=== PATIENT | male | born 1970 | race African-American/Black ===

== ENCOUNTER 2017-11-01 17:11 | Inpatient (IN) | payer BC, MEDICARE ==
[~2017-11-01] VITALS: Ht 188 cm; Wt 158.0 kg
--- NOTE | 2017-11-01 17:38 | Emergency Room Report ---
History of Present Illness General Chief Complaint: Abdominal Pain Source: Patient (Lesley Barnes) Present Illness HPI 47-year-old male presents to the emergency department complaining of 9 out of 10 in severity lower abdominal pain that is intermittent and cramping in nature 3 days. Patient reports that this afternoon his pain was at its worst and has now become more frequent and patient reports nausea as well and decreased appetite he denies vomiting, diarrhea, constipation, blood in the stool or black tarry stools. He denies fevers or chills. Denies recent travel or ill contacts. Denies abdominal distention or bloating. Patient denies urinary frequency, urgency or hematuria.Past medical history is significant for 3 stents placed last year, diabetes, GERD. Prior to arrival patient self medicated with Bentyl one time today, 4 mg of Zofran twice today, Dulcolax yesterday, lactulose yesterday, and Protonix. He also states that he took a [place] today which did not relieve his pain and because of this It prompted him to seek medical evaluation. (Lesley Barnes) Allergies: Coded Allergies: CEFTRIAXONE (Verified Allergy, Intermediate, 11/02/17) itchy lips VANCOMYCIN (Verified Allergy, Intermediate, pain and sore throat, itching , 11/02/17) CODEINE (Verified Allergy, Unknown, 08/28/11) MORPHINE (Verified Allergy, Unknown, 11/01/17) NIFEDIPINE (Verified Allergy, Unknown, 01/21/10) CLINDAMYCIN (Verified Adverse Reaction, Intermediate, 11/02/17) diarrhea PENICILLINS (Verified Adverse Reaction, Mild, 11/02/17) nausea and vomiting- tolerates Augmentin, Amoxicillin Patient History Past Medical History: see triage record Past Surgical History: none Pertinent Family History: none Reviewed Nursing Documentation: PMH: Agreed; PSxH: Agreed (Lesley Barnes) Nursing Documentation-PMH Past Medical History: No History, Except For Hx Hypertension: Yes Hx Diabetes: Yes - Type2 Hx Gastrointestinal Problems: Yes - GERD (Lesley Barnes) Review of Systems All Other Systems: negative except mentioned in HPI (Lesley Barnes) Physical Exam Vital Signs Date Time Temp Pulse Resp B/P (MAP) Pulse Ox O2 Delivery O2 Flow Rate FiO2 11/01/17 17:15 99.4 82 20 153/82 96 Room Air 99.3 Sp02 EP Interpretation: reviewed, normal General Appearance: alert, GCS 15, non-toxic, moderate distress Head: normocephalic, atraumatic Eyes: bilateral eye normal inspection, bilateral eye PERRL ENT: hearing grossly normal, normal voice Neck: full range of motion Respiratory: lungs clear, normal breath sounds, speaking full sentences Cardiovascular #1: regular rate, rhythm Gastrointestinal: normal bowel sounds, soft, no peritonitis, no guarding, tenderness - LLQ TTP Rectal: deferred Genitourinary: normal inspection, no CVA tenderness Musculoskeletal: back normal, gait/station normal, normal range of motion, non- tender, other - BKA right leg Neurologic: alert, oriented x3, responsive, motor strength/tone normal, sensory intact, normal gait - with orthotic device., speech normal, grossly normal Psychiatric: judgement/insight normal Skin: normal color, no rash, warm/dry, well hydrated (Lesley Barnes) Medical Decision Making PA Attestation Dr. Torres is my supervising Physician whom patient management has been discussed with. (Lesley Barnes) PA Attestation The history of Vinny Zimmerman has been reviewed and management options for him have been examined and discussed by Nikki Torres. I have personally examined and interviewed the patient. (Nikki Torres DO) Diagnostic Impression: Primary Impression: Abdominal pain Qualified Codes: R10.30 - Lower abdominal pain, unspecified Additional Impression: Intractable abdominal pain ER Course 47-year-old male presents to the emergency department complaining of 9 out of 10 in severity lower abdominal pain that is intermittent and cramping in nature 3 days. Patient reports that this afternoon his pain was at its worst and has now become more frequent and patient reports nausea as well and decreased appetite he denies vomiting, diarrhea, constipation, blood in the stool or black tarry stools. He denies fevers or chills. Denies recent travel or ill contacts. Denies abdominal distention or bloating. Patient denies urinary frequency, urgency or hematuria.Past medical history is significant for 3 stents placed last year, diabetes, GERD. Prior to arrival patient self medicated with Bentyl one time today, 4 mg of Zofran twice today, Dulcolax yesterday, lactulose yesterday, and Protonix. He also states that he took a [place] today which did not relieve his pain and because of this It prompted him to seek medical evaluation. Ddx considered but are not limited to Diverticulitis, acute appy, diarrhea, UC, PUD, GE, pancreatitis, gallstone Vital signs: are WNL, pt. is afebrile H&PE are most consistent with possible diverticulitis ORDERS: CBC, CMP, lipase, UA: Unremarkable other than continued worsening of Cr to 1.8 CT Abdomen & Pelvis with contrast: Per Radiology canceled due to pt. body habitus/weight ED INTERVENTIONS: -- 1000NS, -Pepcid IV -Bentyl PO -Dilaudid 0.5mg , then second dose of 1mg -Benadryl 25mg IV Levaquin IV -Flagyl IV - Zofran 4mg. DISPOSITION: at this time pt. will be admitted to Dr. Delgado for intractable abdominal pain. Dr. Delgado agreed to admit the pt. and to continue pt. care management. Labs Test 11/01/17 17:54 11/01/17 17:55 Urine Color Pale yellow Urine Appearance Clear Urine pH 6 (4.5-8.0) Urine Specific [place] 1.010 (1.005-1.035) Urine Protein 3+ (NEGATIVE) Urine Glucose (UA) Negative (NEGATIVE) Urine Ketones Negative (NEGATIVE) Urine Occult Blood 1+ (NEGATIVE) Urine Nitrite Negative (NEGATIVE) Urine Bilirubin Negative (NEGATIVE) Urine Urobilinogen Normal MG/DL (0.0-1.0) Urine Leukocyte Esterase Negative (NEGATIVE) Urine RBC 0-2 /HPF (0 - 0) Urine WBC 0-2 /HPF (0 - 0) Urine Squamous Epithelial Cells None /LPF (NONE/OCC) Urine Bacteria None /HPF (NONE) White Blood Count 9.8 K/UL (4.8-10.8) Red Blood Count 4.78 M/UL (4.70-6.10) Hemoglobin 12.7 G/DL (14.2-18.0) Hematocrit 37.5 % (42.0-52.0) Mean Corpuscular Volume 78 FL (80-99) Mean Corpuscular Hemoglobin 26.6 PG (27.0-31.0) Mean Corpuscular Hemoglobin Concent 33.9 G/DL (32.0-36.0) Red Cell Distribution Width 14.3 % (11.6-14.8) Platelet Count 157 K/UL (150-450) Mean Platelet Volume 8.9 FL (6.5-10.1) Neutrophils (%) (Auto) 74.7 % (45.0-75.0) Lymphocytes (%) (Auto) 15.4 % (20.0-45.0) Monocytes (%) (Auto) 8.1 % (1.0-10.0) Eosinophils (%) (Auto) 0.4 % (0.0-3.0) Basophils (%) (Auto) 1.5 % (0.0-2.0) Sodium Level 137 MMOL/L (136-145) Potassium Level 4.0 MMOL/L (3.5-5.1) Chloride Level 103 MMOL/L (98-107) Carbon Dioxide Level 26 MMOL/L (21-32) Anion Gap 8 mmol/L (5-15) Blood Urea Nitrogen 14 mg/dL (7-18) Creatinine 1.8 MG/DL (0.55-1.30) Estimat Glomerular Filtration Rate 48.8 mL/min (>60) Glucose Level 78 MG/DL (74-106) Calcium Level 9.1 MG/DL (8.5-10.1) Total Bilirubin 0.4 MG/DL (0.2-1.0) Aspartate Amino Transf (AST/SGOT) 22 U/L (15-37) Alanine Aminotransferase (ALT/SGPT) 28 U/L (12-78) Alkaline Phosphatase 144 U/L (46-116) Total Protein 9.0 G/DL (6.4-8.2) Albumin 4.0 G/DL (3.4-5.0) Globulin 5.0 g/dL Albumin/Globulin Ratio 0.8 (1.0-2.7) Lipase 202 U/L (73-393) (Lesley Barnes) Chest X-Ray Diagnostic Results Chest X-Ray Diagnostic Results : Chest X-Ray Ordered: Yes # of Views/Limited/Complete: 1 View Indication: Chest Pain EP Interpretation: Yes PA Xray: Interpretation reviewed, by supervising MD, and agrees with findings. Interpretation: no consolidation, no effusion, no pneumothorax, no acute cardiopulmonary disease Impression: No acute disease Electronically Signed by: Lesley Barnes PA-C (Lesley Barnes) Other X-Ray Diagnostic Results Other X-Ray Diagnostic Results : X-Ray ordered: KUB # of Views/Limited Vs Complete: 1 View Indication: Pain EP Interpretation: Yes PA Xray: by supervising MD Interpretation: nonspecific bowel gas, no sbo Impression: No acute disease Electronically Signed by: Lesley Barnes PA-C (Lesley Barnes) Last Vital Signs Date Time Temp Pulse Resp B/P (MAP) Pulse Ox O2 Delivery O2 Flow Rate FiO2 11/01/17 17:15 99.4 82 20 153/82 96 Room Air 99.3 (Lesley Barnes) Disposition: ADMITTED INPATIENT Condition: Serious Lesley Barnes Nov 01, 2017 17:38 Nikki Torres DO Nov 01, 2017 19:57
[2017-11-01] MEDS ORDERED: Dicyclomine HCl 10mg/5ml oral soln ORAL ONE (17:45)
[2017-11-01 18:20] LABS: APPEARANCE,URINE CLEAR; BILIRUBIN, URINE NEGATIVE (NEGATIVE); COLOR,URINE PALE YELLOW; GLUCOSE, URINE (UA) NEGATIVE (NEGATIVE); KETONES,URINE NEGATIVE (NEGATIVE); LEUKOCYTE ESTERASE ,URINE NEGATIVE (NEGATIVE); NITRITE,URINE NEGATIVE (NEGATIVE); PH,URINE 6 (4.5-8.0); PROTEIN,URINE 3+ (NEGATIVE); UROBILINOGEN,URINE NORMAL MG/DL (0.0-1.0)
[2017-11-01 18:24] VITALS: BP 167/91
[2017-11-01 18:27] LABS: ANION GAP 8 mmol/L (5-15); BLOOD UREA NITROGEN 14 mg/dL (7-18); CALCIUM 9.1 MG/DL (8.5-10.1); CARBON DIOXIDE 26 MMOL/L (21-32); CHLORIDE 103 MMOL/L (98-107); CREATININE 1.8 MG/DL (0.55-1.30); SODIUM 137 MMOL/L (136-145)
[2017-11-01 18:28] LABS: BASOPHILS % (AUTO) 1.5 % (0.0-2.0); EOSINOPHILS % (AUTO) 0.4 % (0.0-3.0); HEMATOCRIT 37.5 % (42.0-52.0); HEMOGLOBIN 12.7 G/DL (14.2-18.0); LYMPHOCYTES % (AUTO) 15.4 % (20.0-45.0); MEAN CORPUSCULAR VOLUME 78 FL (80-99); MONOCYTES % (AUTO) 8.1 % (1.0-10.0); NEUTROPHILS % (AUTO) 74.7 % (45.0-75.0); PLATELET COUNT 157 K/UL (150-450); RED BLOOD COUNT 4.78 M/UL (4.70-6.10); RED CELL DISTRIBUTION WIDTH 14.3 % (11.6-14.8); WHITE BLOOD COUNT 9.8 K/UL (4.8-10.8)
[2017-11-01] MEDS ORDERED: DiphenhydrAMINE 50mg/ml Inj IVP ONE (18:30)
[2017-11-01] MEDS ORDERED: Hydromorphone 0.5mg/0.5ml inj IVP ONE (18:30)
[2017-11-01 18:32] LABS: ALANINE AMINOTRANSFERASE 28 U/L (12-78); ALBUMIN/GLOBULIN RATIO 0.8 (1.0-2.7); ALKALINE PHOSPHATASE 144 U/L (46-116); ASPARTATE AMINO TRANSFERASE 22 U/L (15-37); BILIRUBIN,TOTAL 0.4 MG/DL (0.2-1.0)
[2017-11-01 19:28] VITALS: BP 162/89
[2017-11-01] MEDS ORDERED: DIOVAN320 MG ORAL (19:56)
[2017-11-01] MEDS ORDERED: NORVASC10 MG ORAL (19:56)
[2017-11-01] MEDS ORDERED: NORCO 5-325 TA1 EACH ORAL (19:56)
[2017-11-01] MEDS ORDERED: DOCUSATE SODIU100 MG ORAL (19:56)
[2017-11-01] MEDS ORDERED: GLIPIZIDE5 MG ORAL (19:56)
[2017-11-01] MEDS ORDERED: PROTONIX40 MG ORAL (19:56)
[2017-11-01] MEDS ORDERED: FUROSEMIDE20 M1 ORAL (19:56)
[2017-11-01] MEDS ORDERED: AMBIEN10 MG ORAL (19:56)
[2017-11-01] MEDS ORDERED: MINOXIDIL10 MG PO (19:56)
[2017-11-01] MEDS ORDERED: NEURONTIN400 MG ORAL (19:56)
[2017-11-01] MEDS ORDERED: POTASSIUM CHLO20 ME1 ORAL (19:56)
[2017-11-01] MEDS ORDERED: HYDROmorphone 1mg/ml Carpuject IVP ONE (20:00)
[2017-11-01] MEDS ORDERED: Lidocaine 2% Visc 15ml soln ORAL ONE (20:00)
[2017-11-01 20:24] VITALS: BP 153/70
[2017-11-01] MEDS ORDERED: Miralax 17gm pkt ORAL PRN (21:30)
[2017-11-01] MEDS ORDERED: Mylanta II UD 30ml ORAL PRN (21:30)
[2017-11-01] MEDS ORDERED: Ketorolac 30mg Inj IV PRN (21:30)
[2017-11-01] MEDS ORDERED: Nitroglycerin Subl 0.4mg tab SL PRN (21:30)
[2017-11-01 21:40] VITALS: BP 155/70
[2017-11-01 21:49] LABS: CREATINE KINASE 594 U/L (26-308)
[2017-11-01] MEDS ORDERED: SODIUM CHLORIDE IVPB ONE (23:00)
[2017-11-01] MEDS ORDERED: VANCOMYCIN IVPB ONE (23:00)
[2017-11-01] MEDS: Aztreonam Inj 1 GM in NS 50 ML IVPB SCH (23:31)
[2017-11-01] MEDS: HYDROmorphone 1mg/ml Carpuject IVP PRN (23:35)
[2017-11-02] VITALS: BP 131/72
[2017-11-02 01:15] LABS: APPEARANCE,URINE CLEAR; BILIRUBIN, URINE NEGATIVE (NEGATIVE); COLOR,URINE PALE YELLOW; GLUCOSE, URINE (UA) NEGATIVE (NEGATIVE); KETONES,URINE NEGATIVE (NEGATIVE); LEUKOCYTE ESTERASE ,URINE NEGATIVE (NEGATIVE); NITRITE,URINE NEGATIVE (NEGATIVE); PH,URINE 5 (4.5-8.0); PROTEIN,URINE 3+ (NEGATIVE); UROBILINOGEN,URINE NORMAL MG/DL (0.0-1.0)
[2017-11-02] MEDS: HYDROmorphone 1mg/ml Carpuject IVP PRN ×5 (03:03→21:23)
[2017-11-02 04:00] VITALS: BP 157/91
[2017-11-02] MEDS: Aztreonam Inj 1 GM in NS 50 ML IVPB SCH ×3 (06:11→21:24)
[2017-11-02] MEDS: NovoLOG Insulin Flexpen SUBQ SCH ×4 (06:30→21:00)
[2017-11-02 07:03] LABS: HEMATOCRIT 35.8 % (42.0-52.0); HEMOGLOBIN 12.2 G/DL (14.2-18.0); MEAN CORPUSCULAR VOLUME 79 FL (80-99); PLATELET COUNT 141 K/UL (150-450); RED BLOOD COUNT 4.52 M/UL (4.70-6.10); RED CELL DISTRIBUTION WIDTH 13.9 % (11.6-14.8); WHITE BLOOD COUNT 8.3 K/UL (4.8-10.8)
[2017-11-02 07:12] LABS: INR 1.1 (0.9-1.1)
[2017-11-02 07:46] LABS: ALANINE AMINOTRANSFERASE 28 U/L (12-78); ALBUMIN 3.5 G/DL (3.4-5.0); ALBUMIN/GLOBULIN RATIO 0.7 (1.0-2.7); ALKALINE PHOSPHATASE 127 U/L (46-116); AMYLASE 52 U/L (25-115); ANION GAP 9 mmol/L (5-15); ASPARTATE AMINO TRANSFERASE 16 U/L (15-37); BILIRUBIN,TOTAL 0.6 MG/DL (0.2-1.0); BLOOD UREA NITROGEN 12 mg/dL (7-18); CALCIUM 8.8 MG/DL (8.5-10.1); CARBON DIOXIDE 24 MMOL/L (21-32); CHLORIDE 103 MMOL/L (98-107); CREATININE 1.6 MG/DL (0.55-1.30); POTASSIUM 3.9 MMOL/L (3.5-5.1); SODIUM 136 MMOL/L (136-145)
[2017-11-02 07:47] LABS: LACTATE DEHYDROGENASE 198 U/L (81-234)
[2017-11-02 07:55] LABS: % IRON SATURATION 7 % (15-50); IRON 19 ug/dL (50-175); TOTAL IRON BINDING CAPACITY 280 ug/dL (250-450)
[2017-11-02 08:00] VITALS: BP 139/72
[2017-11-02] MEDS ORDERED: DiphenhydrAMINE 50mg/ml Inj IVP PRN (08:00)
[2017-11-02] MEDS ORDERED: Solu-MEDROL 125mg Inj IVP SCH (08:00)
[2017-11-02] MEDS: Minoxidil 10mg tab ORAL SCH ×2 (08:55→17:15)
[2017-11-02] MEDS: Losartan 50mg tab ORAL SCH (08:55)
[2017-11-02] MEDS: Heparin 5000 units/ml inj SUBQ SCH ×2 (09:00→21:00)
--- NOTE | 2017-11-02 09:19 | Diagnostic Imaging Report ---
Indication: Abdominal pain and cramping Technique: Supine view of the abdomen Comparison: 11/12/2011 Findings: Unremarkable bowel gas pattern. No unusual masses or calcifications. No significant interim change Impression: No acute process
--- NOTE | 2017-11-02 09:23 | Diagnostic Imaging Report ---
Indication: Chest pain Technique: One view of the chest Comparison: 11/12/2011 Findings: The heart is upper limits of normal in size.. The lungs and pleural spaces are clear. No significant interim change Impression: No acute process
--- NOTE | 2017-11-02 10:19 | Consultation ---
History of Present Illness General Date patient seen: Nov 02, 2017 Chief Complaint: Abdominal Pain Present Illness HPI 47 y/o M with hx of DM2, GERD, HTN, CAD s/p 3 stents placed last year presents to ED on 11/01 with intermittent cramping lower abd pain (9/10 intensity ) for 3 days. Day of admission pain worsened and became more frequent, also with associated nausea, decreased appetite. Denies v/d, melena,hematochezia, f/c, recent travel, ill contacts, abd distention or bloating, urinary symptoms, hematuria. Allergies: Coded Allergies: VANCOMYCIN (Verified Allergy, Intermediate, pain and sore throat, itching , 11/02/17) CEFTRIAXONE (Verified Allergy, Unknown, 11/01/17) CLINDAMYCIN (Verified Allergy, Unknown, 08/28/11) CODEINE (Verified Allergy, Unknown, 08/28/11) MORPHINE (Verified Allergy, Unknown, 11/01/17) NIFEDIPINE (Verified Allergy, Unknown, 01/21/10) PENICILLINS (Verified Allergy, Unknown, 08/28/11) Medication History Scheduled Amlodipine Besylate (Norvasc), 10 MG ORAL BID, (Reported) Docusate Sodium* (Docusate Sodium*), 100 MG ORAL DAILY, (Reported) Furosemide* (Lasix*), 20 MG ORAL DAILY, (Reported) Gabapentin* (Neurontin*), 400 MG ORAL QHS, (Reported) Glipizide* (Glipizide*), Unknown Dose ORAL BIDAC, (Reported) Minoxidil* (Loniten*), 10 MG PO BID, (Reported) Pantoprazole* (Protonix*), 40 MG ORAL QHS, (Reported) Potassium Chloride* (K-Dur*), 20 MEQ ORAL DAILY, (Reported) Valsartan (Diovan), 320 MG ORAL DAILY, (Reported) Scheduled PRN Hydrocodone Bit/Acetaminophen 5-325* ([place] 5-325*), 1 TAB ORAL Q6H PRN for For Pain, (Reported) Zolpidem Tartrate* (Ambien*), 10 MG ORAL BEDTIME PRN for Insomnia, (Reported) Patient History Healthcare decision maker Kera Rios Resuscitation status Full Code Advanced Directive on File No Patient History Narrative Pmhx: as above Shx: reviewed Fhx: non contributory Review of Systems All Other Systems: negative except mentioned in HPI Physical Exam Physical Exam Narrative General Appearance: alert,moderate distress Head: normocephalic, atraumatic Eyes: bilateral eye normal inspection, bilateral eye PERRL ENT: hearing grossly normal, normal voice Neck: full range of motion Respiratory: lungs clear, normal breath sounds, speaking full sentences Cardiovascular: regular rate, rhythm Gastrointestinal: normal bowel sounds, soft, no peritonitis, no guarding, tenderness - LLQ TTP Genitourinary: normal inspection, no CVA tenderness Musculoskeletal: back normal, gait/station normal, normal range of motion, non- tender, other - BKA right leg Skin: normal color, no rash, warm/dry, well hydrated Last 24 Hour Vital Signs Date Time Temp Pulse Resp B/P (MAP) Pulse Ox O2 Delivery O2 Flow Rate FiO2 11/02/17 09:34 100.4 11/02/17 09:05 100.4 11/02/17 09:00 Room Air 11/02/17 08:57 100.4 11/02/17 08:55 139/72 11/02/17 08:55 139/72 11/02/17 08:51 102 139/72 11/02/17 08:00 100.4 102 16 139/72 (94) 92 100.4 11/02/17 05:37 102.4 11/02/17 04:38 100.9 11/02/17 04:00 100.4 93 20 157/91 (113) 92 100.4 11/02/17 02:09 Room Air 11/02/17 00:00 98.9 95 20 131/72 (91) 91 98.9 11/01/17 22:41 98.9 94 18 155/70 97 Room Air 98.9 11/01/17 21:40 98.9 94 18 155/70 97 Room Air 98.9 11/01/17 20:53 98.9 11/01/17 20:24 98.9 96 16 153/70 97 Room Air 98.9 11/01/17 20:13 98.9 11/01/17 19:28 98.9 94 16 162/89 97 Room Air 98.9 11/01/17 19:04 98.9 11/01/17 18:34 99.4 11/01/17 18:24 86 15 167/91 97 Room Air 11/01/17 17:15 99.4 82 20 153/82 96 Room Air 99.3 Intake and Output 11/01/17 11/02/17 19:00 07:00 Intake Total 1650 ml Output Total 700 ml Balance 950 ml Intake IV Total 1650 ml Output Urine Total 700 ml # Voids 1 2 Laboratory Tests Test 11/01/17 17:54 11/01/17 17:55 11/02/17 01:00 11/02/17 05:40 Urine Color Pale yellow Pale yellow Urine Appearance Clear Clear Urine pH 6 (4.5-8.0) 5 (4.5-8.0) Urine Specific [place] 1.010 (1.005-1.035) 1.015 (1.005-1.035) Urine Protein 3+ (NEGATIVE) H 3+ (NEGATIVE) H Urine Glucose (UA) Negative (NEGATIVE) Negative (NEGATIVE) Urine Ketones Negative (NEGATIVE) Negative (NEGATIVE) Urine Occult Blood 1+ (NEGATIVE) H 1+ (NEGATIVE) H Urine Nitrite Negative (NEGATIVE) Negative (NEGATIVE) Urine Bilirubin Negative (NEGATIVE) Negative (NEGATIVE) Urine Urobilinogen Normal MG/DL (0.0-1.0) Normal MG/DL (0.0-1.0) Urine Leukocyte Esterase Negative (NEGATIVE) Negative (NEGATIVE) Urine RBC 0-2 /HPF (0 - 0) H 0-2 /HPF (0 - 0) H Urine WBC 0-2 /HPF (0 - 0) 0-2 /HPF (0 - 0) Urine Squamous Epithelial Cells None /LPF (NONE/OCC) Occasional /LPF Urine Bacteria None /HPF (NONE) Occasional /HPF (NONE) White Blood Count 9.8 K/UL (4.8-10.8) 8.3 K/UL (4.8-10.8) Red Blood Count 4.78 M/UL (4.70-6.10) 4.52 M/UL (4.70-6.10) L Hemoglobin 12.7 G/DL (14.2-18.0) L 12.2 G/DL (14.2-18.0) L Hematocrit 37.5 % (42.0-52.0) L 35.8 % (42.0-52.0) L Mean Corpuscular Volume 78 FL (80-99) L 79 FL (80-99) L Mean Corpuscular Hemoglobin 26.6 PG (27.0-31.0) L 27.0 PG (27.0-31.0) Mean Corpuscular Hemoglobin Concent 33.9 G/DL (32.0-36.0) 34.2 G/DL (32.0-36.0) Red Cell Distribution Width 14.3 % (11.6-14.8) 13.9 % (11.6-14.8) Platelet Count 157 K/UL (150-450) 141 K/UL (150-450) L Mean Platelet Volume 8.9 FL (6.5-10.1) 8.8 FL (6.5-10.1) Neutrophils (%) (Auto) 74.7 % (45.0-75.0) % (45.0-75.0) Lymphocytes (%) (Auto) 15.4 % (20.0-45.0) L % (20.0-45.0) Monocytes (%) (Auto) 8.1 % (1.0-10.0) % (1.0-10.0) Eosinophils (%) (Auto) 0.4 % (0.0-3.0) % (0.0-3.0) Basophils (%) (Auto) 1.5 % (0.0-2.0) % (0.0-2.0) Sodium Level 137 MMOL/L (136-145) 136 MMOL/L (136-145) Potassium Level 4.0 MMOL/L (3.5-5.1) 3.9 MMOL/L (3.5-5.1) Chloride Level 103 MMOL/L (98-107) 103 MMOL/L (98-107) Carbon Dioxide Level 26 MMOL/L (21-32) 24 MMOL/L (21-32) Anion Gap 8 mmol/L (5-15) 9 mmol/L (5-15) Blood Urea Nitrogen 14 mg/dL (7-18) 12 mg/dL (7-18) Creatinine 1.8 MG/DL (0.55-1.30) H 1.6 MG/DL (0.55-1.30) H Estimat Glomerular Filtration Rate 48.8 mL/min (>60) 56.0 mL/min (>60) Glucose Level 78 MG/DL (74-106) 89 MG/DL (74-106) Uric Acid 7.5 MG/DL (2.6-7.2) H Calcium Level 9.1 MG/DL (8.5-10.1) 8.8 MG/DL (8.5-10.1) Total Bilirubin 0.4 MG/DL (0.2-1.0) 0.6 MG/DL (0.2-1.0) Aspartate Amino Transf (AST/SGOT) 22 U/L (15-37) 16 U/L (15-37) Alanine Aminotransferase (ALT/SGPT) 28 U/L (12-78) 28 U/L (12-78) Alkaline Phosphatase 144 U/L (46-116) H 127 U/L (46-116) H Total Creatine Kinase 594 U/L (26-308) H Total Protein 9.0 G/DL (6.4-8.2) H 8.3 G/DL (6.4-8.2) H Albumin 4.0 G/DL (3.4-5.0) 3.5 G/DL (3.4-5.0) Globulin 5.0 g/dL 4.8 g/dL Albumin/Globulin Ratio 0.8 (1.0-2.7) L 0.7 (1.0-2.7) L Lipase 202 U/L (73-393) Urine Eosinophils None seen Urine Random Sodium 109 mmol/L (20-110) Urine Potassium Timed 21 mmol/L (12-62) Differential Total Cells Counted 100 Neutrophils % (Manual) 87 % (45-75) H Lymphocytes % (Manual) 9 % (20-45) L Monocytes % (Manual) 4 % (1-10) Eosinophils % (Manual) 0 % (0-3) Basophils % (Manual) 0 % (0-2) Band Neutrophils 0 % (0-8) Platelet Estimate Decreased L Platelet Morphology Normal Red Blood Cell Morphology Normal Erythrocyte Sedimentation Rate 44 MM/HR (0-15) H Reticulocyte Count 0.8 % (0.0-2.0) Prothrombin Time 11.8 SEC (9.30-11.50) H Prothromb Time International Ratio 1.1 (0.9-1.1) Activated Partial Thromboplast Time 34 SEC (23-33) H Hemoglobin A1c 5.2 % (4.3-6.0) Iron Level 19 ug/dL (50-175) L Total Iron Binding Capacity 280 ug/dL (250-450) Percent Iron Saturation 7 % (15-50) L Unsaturated Iron Binding 261 ug/dL (112-346) Lactate Dehydrogenase 198 U/L (81-234) Amylase Level 52 U/L (25-115) Carcinoembryonic Antigen Pending Vitamin B12 Level 1373 PG/ML (193-986) H Folate 25.9 NG/ML (8.6-58.9) Thyroid Stimulating Hormone (TSH) 1.604 uiU/mL (0.358-3.740) Height (Feet): 6 Height (Inches): 2.00 Weight (Pounds): 340 Medications Current Medications Medications (Trade) Dose Ordered Sig/Mile Route PRN Reason Start Time Stop Time Status Last Admin Dose Admin Acetaminophen (Tylenol) 650 mg Q4H PRN ORAL fever 11/01/17 21:30 12/01/17 21:29 11/02/17 08:57 Al Hydroxide/Mg Hydroxide (Mylanta II) 30 ml Q6H PRN ORAL dyspepsia 11/01/17 21:30 12/01/17 21:29 Amlodipine Besylate (Norvasc) 10 mg BID ORAL 11/02/17 09:00 12/02/17 08:59 11/02/17 08:51 Aztreonam 1 gm/ Sodium Chloride 50 ml @ 100 mls/hr EVERY 8 HOURS IVPB 11/01/17 23:00 11/08/17 22:59 11/02/17 06:11 Barium Sulfate (Readi-Cat 2) 450 ml NOW PRN ORAL Radiology Procedure 11/01/17 17:45 11/03/17 17:35 Dextrose (Dextrose 50%) STAT PRN IV Hypoglycemia 11/01/17 21:30 12/01/17 21:29 Dextrose (Dextrose 50%) STAT PRN IV Hypoglycemia 11/01/17 21:30 12/01/17 21:29 Diphenhydramine HCl (Benadryl) 25 mg Q6H PRN ORAL Itching/Pruritis 11/01/17 21:30 12/01/17 21:29 11/01/17 23:28 Diphenhydramine HCl (Benadryl) 50 mg Q6H PRN IVP Itching 11/02/17 08:00 12/02/17 07:59 Gabapentin (Neurontin) 400 mg QHS ORAL 11/01/17 22:00 12/01/17 21:59 11/01/17 23:31 Heparin Sodium (Porcine) (Heparin 5000 units/ml) 5,000 units EVERY 12 HOURS SUBQ 11/02/17 09:00 12/02/17 08:59 Hydromorphone HCl (Dilaudid) 2 mg EVERY 3 HOURS PRN IVP Severe Pain (Pain Scale 7-10) 11/01/17 21:30 11/08/17 21:29 11/02/17 09:05 Insulin Aspart (NovoLOG) BEFORE MEALS AND HS SUBQ 11/02/17 06:30 12/02/17 06:29 Ketorolac Tromethamine (Toradol 30mg) 30 mg Q6H PRN IV Moderate Pain (Pain Scale 4-6) 11/01/17 21:30 11/06/17 21:29 Losartan Potassium (Cozaar) 100 mg DAILY ORAL 11/02/17 09:00 12/02/17 08:59 11/02/17 08:55 Metronidazole 100 ml @ 100 mls/hr Q8HR IVPB 11/02/17 14:00 11/09/17 13:59 Minoxidil (Loniten) 10 mg BID ORAL 11/02/17 09:00 12/02/17 08:59 11/02/17 08:55 Nitroglycerin (Ntg) 0.4 mg Q5M PRN SL Chest Pain 11/01/17 21:30 12/01/17 21:29 Ondansetron HCl (Zofran) 4 mg Q6H PRN IVP Nausea & Vomiting 11/01/17 21:30 12/01/17 21:29 Polyethylene Glycol (Miralax) 17 gm HSPRN PRN ORAL Constipation 11/01/17 21:30 12/01/17 21:29 Sodium Chloride 1,000 ml @ 50 mls/hr Q20H IV 11/01/17 22:00 12/01/17 21:59 11/01/17 23:29 Temazepam (Restoril) 15 mg HSPRN PRN ORAL Insomnia 11/01/17 21:30 11/08/17 21:29 11/01/17 23:28 Vancomycin HCl (Vanco rx to dose) 1 ea DAILY PRN MISC Per rx protocol 11/01/17 21:30 12/01/17 21:29 Vancomycin HCl/ Dextrose 250 ml @ 125 mls/hr Q12H IVPB 11/02/17 11:00 11/07/17 10:59 Assessment/Plan Assessment/Plan Abx: Flagyl 11/01- IV Vanco 11/01 Aztreonam 11/01- Levaquin x1 11/01 Assessment: Sepsis- intraabdominal source- r/o diverticulitis, colitis vs other -u.a neg -Bcx p -CXR: no acute disease -Abd xray: no acute disease -Abd US p Fever DM2 GERD HTN CAD s/p 3 stents placed last year Multiple abx allergies -?Vanco allergy 11/02- reported sore throat itchiness Plan: -D/c IV Vanco #2 -Continue Aztreonam and Flagyl #2 and PO Levaquin to add some gram positive coverage (ie Strep, enterococcal) -CT abd/p w/ PO contrast -f/u Abd US -f/u cx -Monitor CBC/CMP, temperatures Thank you for this consultation. Will continue to follow along with you. Discussed with Shawna Simmons M.D. Nov 02, 2017 10:19
[2017-11-02] MEDS ORDERED: Vancomycin 1500mg IVPB SCH (11:00)
[2017-11-02] MEDS ORDERED: Gastrograffin 30ml ORAL PRN (11:00)
--- NOTE | 2017-11-02 11:11 | GI Initial Consult Note ---
History of Present Illness General Date patient seen: Nov 02, 2017 Time patient seen: 10:00 Reason for Hospitalization: Abdominal Pain Referring physician: GARFIELD MEREDITH Reason for Consultation: ABDOMINAL PAIN Present Illness HPI 47-year-old male presents to the emergency department complaining of 9 out of 10 in severity lower abdominal pain that is intermittent and cramping in nature 3 days. Patient reports that this afternoon his pain was at its worst and has now become more frequent and patient reports nausea as well and decreased appetite he denies vomiting, diarrhea, constipation, blood in the stool or black tarry stools. He denies fevers or chills. Denies recent travel or ill contacts. Denies abdominal distention or bloating. Patient denies urinary frequency, urgency or hematuria.Past medical history is significant for 3 stents placed last year, diabetes, GERD. Prior to arrival patient self medicated with Bentyl one time today, 4 mg of Zofran twice today, Dulcolax yesterday, lactulose yesterday, and Protonix. She also states that he took a [place] today which did not relieve his pain and because of this It prompted him to seek medical evaluation. GI consulted for abdominal pain. Pt seen, awake A&Ox4 NAD with c/o of lower abdominal pain more direct to the LLQ and tender to palpation. The patient had tried multiple remedies as noted above to relief his pain, all unsuccessful. State he typical takes Bentyl for his abdominal spasms, but the medication did not work this time. Had complaints of constipation, but had recent BM. Last colonoscopy approximately 1 year ago. Labs show mild anemia, renal insufficiency with elevated alkaline phosphatase and iron deficiency. US suggestive of acute cystitis. CT AP suggestive of sigmoid colon diverticulitis. Home Meds Reported Medications Docusate Sodium* (DOCUSATE SODIUM*) 100 Mg Capsule, 100 MG ORAL DAILY, CAP 11/01/17 Potassium Chloride* (K-DUR*) 20 Meq Tab.er.prt, 20 MEQ ORAL DAILY, #7 TAB 0 Refills 11/01/17 Glipizide* (GLIPIZIDE*) 5 Mg Tablet, ORAL BIDAC, TAB 11/01/17 Hydrocodone Bit/Acetaminophen 5-325* (NORCO 5-325*) 1 Each Tablet, 1 TAB ORAL Q6H PRN for For Pain, #10 TAB 0 Refills 11/01/17 Amlodipine Besylate (Norvasc) 10 Mg Tablet, 10 MG ORAL BID, TAB 11/01/17 Gabapentin* (NEURONTIN*) 400 Mg Capsule, 400 MG ORAL QHS, CAP 11/01/17 Zolpidem Tartrate* (AMBIEN*) 10 Mg Tablet, 10 MG ORAL BEDTIME PRN for Insomnia, TAB 0 Refills 11/01/17 Furosemide* (LASIX*) 20 Mg Tablet, 20 MG ORAL DAILY, TAB 11/01/17 Pantoprazole* (PROTONIX*) 40 Mg Tablet.dr, 40 MG ORAL QHS, TAB 11/01/17 Valsartan (DIOVAN) 320 Mg Tablet, 320 MG ORAL DAILY, TAB 11/01/17 Minoxidil* (LONITEN*) 10 Mg Tablet, 10 MG PO BID, TAB 11/01/17 Med list reviewed/reconciled: Yes Allergies: Coded Allergies: CEFTRIAXONE (Verified Allergy, Intermediate, 11/02/17) itchy lips VANCOMYCIN (Verified Allergy, Intermediate, pain and sore throat, itching , 11/02/17) CODEINE (Verified Allergy, Unknown, 08/28/11) MORPHINE (Verified Allergy, Unknown, 11/01/17) NIFEDIPINE (Verified Allergy, Unknown, 01/21/10) CLINDAMYCIN (Verified Adverse Reaction, Intermediate, 11/02/17) diarrhea PENICILLINS (Verified Adverse Reaction, Mild, 11/02/17) nausea and vomiting- tolerates Augmentin, Amoxicillin Patient History History Provided By: Patient, Medical Record PMH Narrative Past Medical History: No History, Except For Hx Hypertension: Yes Hx Diabetes: Yes - Type2 Hx Gastrointestinal Problems: Yes - GERD Social History: Denies: smoking, alcohol use, drug use, other Review of Systems All Other Systems: negative except mentioned in HPI Physical Exam Vital Signs Date Time Temp Pulse Resp B/P (MAP) Pulse Ox O2 Delivery O2 Flow Rate FiO2 11/01/17 17:15 99.4 82 20 153/82 96 Room Air 99.3 Sp02 EP Interpretation: reviewed, normal Labs Laboratory Tests Test 11/01/17 17:54 11/01/17 17:55 11/02/17 01:00 11/02/17 05:40 Urine Color Pale yellow Pale yellow Urine Appearance Clear Clear Urine pH 6 (4.5-8.0) 5 (4.5-8.0) Urine Specific [place] 1.010 (1.005-1.035) 1.015 (1.005-1.035) Urine Protein 3+ (NEGATIVE) H 3+ (NEGATIVE) H Urine Glucose (UA) Negative (NEGATIVE) Negative (NEGATIVE) Urine Ketones Negative (NEGATIVE) Negative (NEGATIVE) Urine Occult Blood 1+ (NEGATIVE) H 1+ (NEGATIVE) H Urine Nitrite Negative (NEGATIVE) Negative (NEGATIVE) Urine Bilirubin Negative (NEGATIVE) Negative (NEGATIVE) Urine Urobilinogen Normal MG/DL (0.0-1.0) Normal MG/DL (0.0-1.0) Urine Leukocyte Esterase Negative (NEGATIVE) Negative (NEGATIVE) Urine RBC 0-2 /HPF (0 - 0) H 0-2 /HPF (0 - 0) H Urine WBC 0-2 /HPF (0 - 0) 0-2 /HPF (0 - 0) Urine Squamous Epithelial Cells None /LPF (NONE/OCC) Occasional /LPF Urine Bacteria None /HPF (NONE) Occasional /HPF (NONE) White Blood Count 9.8 K/UL (4.8-10.8) 8.3 K/UL (4.8-10.8) Red Blood Count 4.78 M/UL (4.70-6.10) 4.52 M/UL (4.70-6.10) L Hemoglobin 12.7 G/DL (14.2-18.0) L 12.2 G/DL (14.2-18.0) L Hematocrit 37.5 % (42.0-52.0) L 35.8 % (42.0-52.0) L Mean Corpuscular Volume 78 FL (80-99) L 79 FL (80-99) L Mean Corpuscular Hemoglobin 26.6 PG (27.0-31.0) L 27.0 PG (27.0-31.0) Mean Corpuscular Hemoglobin Concent 33.9 G/DL (32.0-36.0) 34.2 G/DL (32.0-36.0) Red Cell Distribution Width 14.3 % (11.6-14.8) 13.9 % (11.6-14.8) Platelet Count 157 K/UL (150-450) 141 K/UL (150-450) L Mean Platelet Volume 8.9 FL (6.5-10.1) 8.8 FL (6.5-10.1) Neutrophils (%) (Auto) 74.7 % (45.0-75.0) % (45.0-75.0) Lymphocytes (%) (Auto) 15.4 % (20.0-45.0) L % (20.0-45.0) Monocytes (%) (Auto) 8.1 % (1.0-10.0) % (1.0-10.0) Eosinophils (%) (Auto) 0.4 % (0.0-3.0) % (0.0-3.0) Basophils (%) (Auto) 1.5 % (0.0-2.0) % (0.0-2.0) Sodium Level 137 MMOL/L (136-145) 136 MMOL/L (136-145) Potassium Level 4.0 MMOL/L (3.5-5.1) 3.9 MMOL/L (3.5-5.1) Chloride Level 103 MMOL/L (98-107) 103 MMOL/L (98-107) Carbon Dioxide Level 26 MMOL/L (21-32) 24 MMOL/L (21-32) Anion Gap 8 mmol/L (5-15) 9 mmol/L (5-15) Blood Urea Nitrogen 14 mg/dL (7-18) 12 mg/dL (7-18) Creatinine 1.8 MG/DL (0.55-1.30) H 1.6 MG/DL (0.55-1.30) H Estimat Glomerular Filtration Rate 48.8 mL/min (>60) 56.0 mL/min (>60) Glucose Level 78 MG/DL (74-106) 89 MG/DL (74-106) Uric Acid 7.5 MG/DL (2.6-7.2) H Calcium Level 9.1 MG/DL (8.5-10.1) 8.8 MG/DL (8.5-10.1) Total Bilirubin 0.4 MG/DL (0.2-1.0) 0.6 MG/DL (0.2-1.0) Aspartate Amino Transf (AST/SGOT) 22 U/L (15-37) 16 U/L (15-37) Alanine Aminotransferase (ALT/SGPT) 28 U/L (12-78) 28 U/L (12-78) Alkaline Phosphatase 144 U/L (46-116) H 127 U/L (46-116) H Total Creatine Kinase 594 U/L (26-308) H Total Protein 9.0 G/DL (6.4-8.2) H 8.3 G/DL (6.4-8.2) H Albumin 4.0 G/DL (3.4-5.0) 3.5 G/DL (3.4-5.0) Globulin 5.0 g/dL 4.8 g/dL Albumin/Globulin Ratio 0.8 (1.0-2.7) L 0.7 (1.0-2.7) L Lipase 202 U/L (73-393) Urine Eosinophils None seen Urine Random Sodium 109 mmol/L (20-110) Urine Potassium Timed 21 mmol/L (12-62) Differential Total Cells Counted 100 Neutrophils % (Manual) 87 % (45-75) H Lymphocytes % (Manual) 9 % (20-45) L Monocytes % (Manual) 4 % (1-10) Eosinophils % (Manual) 0 % (0-3) Basophils % (Manual) 0 % (0-2) Band Neutrophils 0 % (0-8) Platelet Estimate Decreased L Platelet Morphology Normal Red Blood Cell Morphology Normal Erythrocyte Sedimentation Rate 44 MM/HR (0-15) H Reticulocyte Count 0.8 % (0.0-2.0) Prothrombin Time 11.8 SEC (9.30-11.50) H Prothromb Time International Ratio 1.1 (0.9-1.1) Activated Partial Thromboplast Time 34 SEC (23-33) H Hemoglobin A1c 5.2 % (4.3-6.0) Iron Level 19 ug/dL (50-175) L Total Iron Binding Capacity 280 ug/dL (250-450) Percent Iron Saturation 7 % (15-50) L Unsaturated Iron Binding 261 ug/dL (112-346) Lactate Dehydrogenase 198 U/L (81-234) Amylase Level 52 U/L (25-115) Carcinoembryonic Antigen Pending Vitamin B12 Level 1373 PG/ML (193-986) H Folate 25.9 NG/ML (8.6-58.9) Thyroid Stimulating Hormone (TSH) 1.604 uiU/mL (0.358-3.740) General Appearance: well appearing, no apparent distress, alert Head: normocephalic EENT: PERRL/EOMI, normal ENT inspection Neck: supple Respiratory: normal breath sounds, no respiratory distress Cardiovascular: normal rate Gastrointestinal: normal inspection, non tender, soft, normal bowel sounds, non -distended Rectal: deferred Genitourinary: deferred Musculoskeletal: normal inspection, back normal Neurologic: normal inspection, alert, oriented x3, responsive Psychiatric: normal inspection, judgement/insight normal, memory normal Skin: normal inspection, normal color, no rash, warm/dry, palpation normal, well hydrated Lymphatic: normal inspection, no adenopathy Current Medications Current Medications Medications (Trade) Dose Ordered Sig/Mile Route PRN Reason Start Time Stop Time Status Last Admin Dose Admin Acetaminophen (Tylenol) 650 mg Q4H PRN ORAL fever 11/01/17 21:30 12/01/17 21:29 11/02/17 08:57 Al Hydroxide/Mg Hydroxide (Mylanta II) 30 ml Q6H PRN ORAL dyspepsia 11/01/17 21:30 12/01/17 21:29 Amlodipine Besylate (Norvasc) 10 mg BID ORAL 11/02/17 09:00 12/02/17 08:59 11/02/17 08:51 Aztreonam 1 gm/ Sodium Chloride 50 ml @ 100 mls/hr EVERY 8 HOURS IVPB 11/01/17 23:00 11/08/17 22:59 11/02/17 06:11 Barium Sulfate (Readi-Cat 2) 450 ml NOW PRN ORAL Radiology Procedure 11/01/17 17:45 11/03/17 17:35 Barium Sulfate (Readi-Cat 2) 450 ml NOW PRN ORAL Radiology Procedure 11/02/17 10:30 11/04/17 10:19 Dextrose (Dextrose 50%) STAT PRN IV Hypoglycemia 11/01/17 21:30 12/01/17 21:29 Dextrose (Dextrose 50%) STAT PRN IV Hypoglycemia 11/01/17 21:30 12/01/17 21:29 Diatrizoate Meglum/ Diatrizoate Sod (Gastrografin) 30 ml NOW PRN ORAL Radiology Procedure 11/02/17 11:00 11/04/17 10:59 Diphenhydramine HCl (Benadryl) 25 mg Q6H PRN ORAL Itching/Pruritis 11/01/17 21:30 12/01/17 21:29 11/01/17 23:28 Diphenhydramine HCl (Benadryl) 50 mg Q6H PRN IVP Itching 11/02/17 08:00 12/02/17 07:59 Gabapentin (Neurontin) 400 mg QHS ORAL 11/01/17 22:00 12/01/17 21:59 11/01/17 23:31 Heparin Sodium (Porcine) (Heparin 5000 units/ml) 5,000 units EVERY 12 HOURS SUBQ 11/02/17 09:00 12/02/17 08:59 Hydromorphone HCl (Dilaudid) 2 mg EVERY 3 HOURS PRN IVP Severe Pain (Pain Scale 7-10) 11/01/17 21:30 11/08/17 21:29 11/02/17 09:05 Insulin Aspart (NovoLOG) BEFORE MEALS AND HS SUBQ 11/02/17 06:30 12/02/17 06:29 Ketorolac Tromethamine (Toradol 30mg) 30 mg Q6H PRN IV Moderate Pain (Pain Scale 4-6) 11/01/17 21:30 11/06/17 21:29 Levofloxacin (Levaquin) 500 mg DAILY ORAL 11/02/17 12:00 11/09/17 11:59 Losartan Potassium (Cozaar) 100 mg DAILY ORAL 11/02/17 09:00 12/02/17 08:59 11/02/17 08:55 Metronidazole 100 ml @ 100 mls/hr Q8HR IVPB 11/02/17 14:00 11/09/17 13:59 Minoxidil (Loniten) 10 mg BID ORAL 11/02/17 09:00 12/02/17 08:59 11/02/17 08:55 Nitroglycerin (Ntg) 0.4 mg Q5M PRN SL Chest Pain 11/01/17 21:30 12/01/17 21:29 Ondansetron HCl (Zofran) 4 mg Q6H PRN IVP Nausea & Vomiting 11/01/17 21:30 12/01/17 21:29 Polyethylene Glycol (Miralax) 17 gm HSPRN PRN ORAL Constipation 11/01/17 21:30 12/01/17 21:29 Sodium Chloride 1,000 ml @ 50 mls/hr Q20H IV 11/01/17 22:00 12/01/17 21:59 11/01/17 23:29 Temazepam (Restoril) 15 mg HSPRN PRN ORAL Insomnia 11/01/17 21:30 11/08/17 21:29 11/01/17 23:28 GI: Plan Problems: (1) Cystitis (2) Diverticulitis (3) Abdominal pain (4) Colitis Plan CTAP reviewed >> suggestive of uncomplicated acute diverticulitis of the distal descending and proximal sigmoid colon fu abdominal US >> Cholelithiasis. Borderline gallbladder wall thickening raises possibility of acute cholecystitis. iron deficiency constipation EGD/colonoscopy x 1 year bowel rest >> NPO, adv as tolerated IV/PO hydration abx per RD >> transition to PO Cipro + Flagyl x 10 days after dc pain mgmt venofer fu labs recommend colonoscopy x 2 months after dc date to evaluate diverticulitis Discussed with Dr. Sanders. Thank you for this patient referral, we will follow. The patient was seen and examined at bedside and all new and available data was reviewed in the patients chart. I agree with the above findings, impression and plan. (Patient seen earlier today. Signature stamp does not reflect patient encounter time.). - MD Leanna Husain,[facility] Medical CenterDana CREW MEMBER Nov 02, 2017 11:11
--- NOTE | 2017-11-02 11:43 | Diagnostic Imaging Report ---
Indication: Abdominal pain Technique: Petersen-scale and duplex images of the upper abdomen were obtained Comparison: No comparison ultrasounds. Reference made to CT abdomen and pelvis CT dated 08/28/2011 Findings: Gallbladder demonstrates multiple gallstones as well as a small amount of sludge gallbladder wall is borderline thickened, measuring 3 mm thick. No pericholecystic fluid. Sonographic Parkinson's sign is negative. Common bile duct measures 5 mm in diameter. No intrahepatic biliary ductal dilatation. Liver demonstrates diffusely mildly increased echogenicity, most likely fatty change, also described on prior CT scan. It is enlarged. Hypoechoic focus adjacent to the gallbladder fossa most likely represents an area of focal sparing. Portal vein and hepatic veins are patent. Pancreas is unremarkable. Spleen is unremarkable. Left kidney measures 12.1 cm in length. Right kidney measures 12 cm length. Both kidneys demonstrate normal echogenicity. There is no hydronephrosis. There are renal cysts bilaterally . Abdominal aorta is partially obscured by bowel gas, visualized portions are non-aneurysmal . Impression: Cholelithiasis. Borderline gallbladder wall thickening raises possibility of acute cholecystitis. Correlate with clinical findings, consider nuclear medicine hepatobiliary scan if clinically suspicious Negative for dilated bile ducts Enlarged liver with increased hepatic echogenicity, most likely fatty change. Probable area of focal sparing in the usual location adjacent to the gallbladder fossa Incidental finding of bilateral renal cysts Note nonvisualization of portions of the abdominal aorta
[2017-11-02 12:00] VITALS: BP 132/80
--- NOTE | 2017-11-02 12:07 | History and Physical ---
History of Present Illness General Date patient seen: Nov 02, 2017 Reason for Hospitalization: Abdominal Pain Present Illness HPI 47-year-old male with hx of DM, HTN, right BKA, CAD with three stents, presented to the emergency department complaining of 9 out of 10 in severity lower abdominal pain that is intermittent and cramping in nature 3 days. He denied vomiting, diarrhea, constipation, blood in the stool or black tarry stools. Patient denies urinary frequency, urgency or hematuria. Prior to arrival patient self medicated with Bentyl one time today. He is admitted for further treatment. Allergies: Coded Allergies: VANCOMYCIN (Verified Allergy, Intermediate, pain and sore throat, itching , 11/02/17) CEFTRIAXONE (Verified Allergy, Unknown, 11/01/17) CLINDAMYCIN (Verified Allergy, Unknown, 08/28/11) CODEINE (Verified Allergy, Unknown, 08/28/11) MORPHINE (Verified Allergy, Unknown, 11/01/17) NIFEDIPINE (Verified Allergy, Unknown, 01/21/10) PENICILLINS (Verified Allergy, Unknown, 08/28/11) Medication History Scheduled Amlodipine Besylate (Norvasc), 10 MG ORAL BID, (Reported) Docusate Sodium* (Docusate Sodium*), 100 MG ORAL DAILY, (Reported) Furosemide* (Lasix*), 20 MG ORAL DAILY, (Reported) Gabapentin* (Neurontin*), 400 MG ORAL QHS, (Reported) Glipizide* (Glipizide*), Unknown Dose ORAL BIDAC, (Reported) Minoxidil* (Loniten*), 10 MG PO BID, (Reported) Pantoprazole* (Protonix*), 40 MG ORAL QHS, (Reported) Potassium Chloride* (K-Dur*), 20 MEQ ORAL DAILY, (Reported) Valsartan (Diovan), 320 MG ORAL DAILY, (Reported) Scheduled PRN Hydrocodone Bit/Acetaminophen 5-325* ([place] 5-325*), 1 TAB ORAL Q6H PRN for For Pain, (Reported) Zolpidem Tartrate* (Ambien*), 10 MG ORAL BEDTIME PRN for Insomnia, (Reported) Patient History Healthcare decision maker Kera Rios Resuscitation status Full Code Advanced Directive on File No Past Medical/Surgical History Past Medical/Surgical History: (1) Diabetes mellitus (2) CAD (coronary artery disease) (3) Stented coronary artery (4) Right BKA infection Review of Systems Gastrointestinal: Reports: abdominal pain, constipation, nausea Physical Exam General Appearance: WD/WN Lines, tubes and drains: peripheral HEENT: normocephalic, atraumatic Neck: non-tender, normal alignment Respiratory/Chest: chest wall non-tender, lungs clear Breasts: no masses Cardiovascular/Chest: normal peripheral pulses Abdomen: normal bowel sounds, soft Extremities: normal range of motion Last 24 Hour Vital Signs Date Time Temp Pulse Resp B/P (MAP) Pulse Ox O2 Delivery O2 Flow Rate FiO2 11/02/17 09:56 102.7 11/02/17 09:34 100.4 11/02/17 09:05 100.4 11/02/17 09:00 Room Air 11/02/17 08:57 100.4 11/02/17 08:55 139/72 11/02/17 08:55 139/72 11/02/17 08:51 102 139/72 11/02/17 08:00 100.4 102 16 139/72 (94) 92 100.4 11/02/17 05:37 102.4 11/02/17 04:38 100.9 11/02/17 04:00 100.4 93 20 157/91 (113) 92 100.4 11/02/17 02:09 Room Air 11/02/17 00:00 98.9 95 20 131/72 (91) 91 98.9 11/01/17 22:41 98.9 94 18 155/70 97 Room Air 98.9 11/01/17 21:40 98.9 94 18 155/70 97 Room Air 98.9 11/01/17 20:53 98.9 11/01/17 20:24 98.9 96 16 153/70 97 Room Air 98.9 11/01/17 20:13 98.9 11/01/17 19:28 98.9 94 16 162/89 97 Room Air 98.9 11/01/17 19:04 98.9 11/01/17 18:34 99.4 11/01/17 18:24 86 15 167/91 97 Room Air 11/01/17 17:15 99.4 82 20 153/82 96 Room Air 99.3 Intake and Output 11/01/17 11/02/17 19:00 07:00 Intake Total 1650 ml Output Total 700 ml Balance 950 ml Intake IV Total 1650 ml Output Urine Total 700 ml # Voids 1 2 Laboratory Tests Test 11/01/17 17:54 11/01/17 17:55 11/02/17 01:00 11/02/17 05:40 Urine Color Pale yellow Pale yellow Urine Appearance Clear Clear Urine pH 6 (4.5-8.0) 5 (4.5-8.0) Urine Specific [place] 1.010 (1.005-1.035) 1.015 (1.005-1.035) Urine Protein 3+ (NEGATIVE) H 3+ (NEGATIVE) H Urine Glucose (UA) Negative (NEGATIVE) Negative (NEGATIVE) Urine Ketones Negative (NEGATIVE) Negative (NEGATIVE) Urine Occult Blood 1+ (NEGATIVE) H 1+ (NEGATIVE) H Urine Nitrite Negative (NEGATIVE) Negative (NEGATIVE) Urine Bilirubin Negative (NEGATIVE) Negative (NEGATIVE) Urine Urobilinogen Normal MG/DL (0.0-1.0) Normal MG/DL (0.0-1.0) Urine Leukocyte Esterase Negative (NEGATIVE) Negative (NEGATIVE) Urine RBC 0-2 /HPF (0 - 0) H 0-2 /HPF (0 - 0) H Urine WBC 0-2 /HPF (0 - 0) 0-2 /HPF (0 - 0) Urine Squamous Epithelial Cells None /LPF (NONE/OCC) Occasional /LPF Urine Bacteria None /HPF (NONE) Occasional /HPF (NONE) White Blood Count 9.8 K/UL (4.8-10.8) 8.3 K/UL (4.8-10.8) Red Blood Count 4.78 M/UL (4.70-6.10) 4.52 M/UL (4.70-6.10) L Hemoglobin 12.7 G/DL (14.2-18.0) L 12.2 G/DL (14.2-18.0) L Hematocrit 37.5 % (42.0-52.0) L 35.8 % (42.0-52.0) L Mean Corpuscular Volume 78 FL (80-99) L 79 FL (80-99) L Mean Corpuscular Hemoglobin 26.6 PG (27.0-31.0) L 27.0 PG (27.0-31.0) Mean Corpuscular Hemoglobin Concent 33.9 G/DL (32.0-36.0) 34.2 G/DL (32.0-36.0) Red Cell Distribution Width 14.3 % (11.6-14.8) 13.9 % (11.6-14.8) Platelet Count 157 K/UL (150-450) 141 K/UL (150-450) L Mean Platelet Volume 8.9 FL (6.5-10.1) 8.8 FL (6.5-10.1) Neutrophils (%) (Auto) 74.7 % (45.0-75.0) % (45.0-75.0) Lymphocytes (%) (Auto) 15.4 % (20.0-45.0) L % (20.0-45.0) Monocytes (%) (Auto) 8.1 % (1.0-10.0) % (1.0-10.0) Eosinophils (%) (Auto) 0.4 % (0.0-3.0) % (0.0-3.0) Basophils (%) (Auto) 1.5 % (0.0-2.0) % (0.0-2.0) Sodium Level 137 MMOL/L (136-145) 136 MMOL/L (136-145) Potassium Level 4.0 MMOL/L (3.5-5.1) 3.9 MMOL/L (3.5-5.1) Chloride Level 103 MMOL/L (98-107) 103 MMOL/L (98-107) Carbon Dioxide Level 26 MMOL/L (21-32) 24 MMOL/L (21-32) Anion Gap 8 mmol/L (5-15) 9 mmol/L (5-15) Blood Urea Nitrogen 14 mg/dL (7-18) 12 mg/dL (7-18) Creatinine 1.8 MG/DL (0.55-1.30) H 1.6 MG/DL (0.55-1.30) H Estimat Glomerular Filtration Rate 48.8 mL/min (>60) 56.0 mL/min (>60) Glucose Level 78 MG/DL (74-106) 89 MG/DL (74-106) Uric Acid 7.5 MG/DL (2.6-7.2) H Calcium Level 9.1 MG/DL (8.5-10.1) 8.8 MG/DL (8.5-10.1) Total Bilirubin 0.4 MG/DL (0.2-1.0) 0.6 MG/DL (0.2-1.0) Aspartate Amino Transf (AST/SGOT) 22 U/L (15-37) 16 U/L (15-37) Alanine Aminotransferase (ALT/SGPT) 28 U/L (12-78) 28 U/L (12-78) Alkaline Phosphatase 144 U/L (46-116) H 127 U/L (46-116) H Total Creatine Kinase 594 U/L (26-308) H Total Protein 9.0 G/DL (6.4-8.2) H 8.3 G/DL (6.4-8.2) H Albumin 4.0 G/DL (3.4-5.0) 3.5 G/DL (3.4-5.0) Globulin 5.0 g/dL 4.8 g/dL Albumin/Globulin Ratio 0.8 (1.0-2.7) L 0.7 (1.0-2.7) L Lipase 202 U/L (73-393) Urine Eosinophils None seen Urine Random Sodium 109 mmol/L (20-110) Urine Potassium Timed 21 mmol/L (12-62) Differential Total Cells Counted 100 Neutrophils % (Manual) 87 % (45-75) H Lymphocytes % (Manual) 9 % (20-45) L Monocytes % (Manual) 4 % (1-10) Eosinophils % (Manual) 0 % (0-3) Basophils % (Manual) 0 % (0-2) Band Neutrophils 0 % (0-8) Platelet Estimate Decreased L Platelet Morphology Normal Red Blood Cell Morphology Normal Erythrocyte Sedimentation Rate 44 MM/HR (0-15) H Reticulocyte Count 0.8 % (0.0-2.0) Prothrombin Time 11.8 SEC (9.30-11.50) H Prothromb Time International Ratio 1.1 (0.9-1.1) Activated Partial Thromboplast Time 34 SEC (23-33) H Hemoglobin A1c 5.2 % (4.3-6.0) Iron Level 19 ug/dL (50-175) L Total Iron Binding Capacity 280 ug/dL (250-450) Percent Iron Saturation 7 % (15-50) L Unsaturated Iron Binding 261 ug/dL (112-346) Lactate Dehydrogenase 198 U/L (81-234) Amylase Level 52 U/L (25-115) Carcinoembryonic Antigen Pending Vitamin B12 Level 1373 PG/ML (193-986) H Folate 25.9 NG/ML (8.6-58.9) Thyroid Stimulating Hormone (TSH) 1.604 uiU/mL (0.358-3.740) Height (Feet): 6 Height (Inches): 2.00 Weight (Pounds): 340 Medications Current Medications Medications (Trade) Dose Ordered Sig/Mile Route PRN Reason Start Time Stop Time Status Last Admin Dose Admin Acetaminophen (Tylenol) 650 mg ONCE ORAL 11/02/17 12:00 11/02/17 13:00 Acetaminophen (Tylenol) 650 mg Q4H PRN ORAL fever 11/01/17 21:30 12/01/17 21:29 11/02/17 08:57 Al Hydroxide/Mg Hydroxide (Mylanta II) 30 ml Q6H PRN ORAL dyspepsia 11/01/17 21:30 12/01/17 21:29 Amlodipine Besylate (Norvasc) 10 mg BID ORAL 11/02/17 09:00 12/02/17 08:59 11/02/17 08:51 Aztreonam 1 gm/ Sodium Chloride 50 ml @ 100 mls/hr EVERY 8 HOURS IVPB 11/01/17 23:00 11/08/17 22:59 11/02/17 06:11 Barium Sulfate (Readi-Cat 2) 450 ml NOW PRN ORAL Radiology Procedure 11/01/17 17:45 11/03/17 17:35 Barium Sulfate (Readi-Cat 2) 450 ml NOW PRN ORAL Radiology Procedure 11/02/17 10:30 11/04/17 10:19 Dextrose (Dextrose 50%) STAT PRN IV Hypoglycemia 11/01/17 21:30 12/01/17 21:29 Dextrose (Dextrose 50%) STAT PRN IV Hypoglycemia 11/01/17 21:30 12/01/17 21:29 Diatrizoate Meglum/ Diatrizoate Sod (Gastrografin) 30 ml NOW PRN ORAL Radiology Procedure 11/02/17 11:00 11/04/17 10:59 Diphenhydramine HCl (Benadryl) 25 mg Q6H PRN ORAL Itching/Pruritis 11/01/17 21:30 12/01/17 21:29 11/01/17 23:28 Diphenhydramine HCl (Benadryl) 50 mg Q6H PRN IVP Itching 11/02/17 08:00 12/02/17 07:59 Gabapentin (Neurontin) 400 mg QHS ORAL 11/01/17 22:00 12/01/17 21:59 11/01/17 23:31 Heparin Sodium (Porcine) (Heparin 5000 units/ml) 5,000 units EVERY 12 HOURS SUBQ 11/02/17 09:00 12/02/17 08:59 Hydromorphone HCl (Dilaudid) 2 mg EVERY 3 HOURS PRN IVP Severe Pain (Pain Scale 7-10) 11/01/17 21:30 11/08/17 21:29 11/02/17 09:05 Insulin Aspart (NovoLOG) BEFORE MEALS AND HS SUBQ 11/02/17 06:30 12/02/17 06:29 Ketorolac Tromethamine (Toradol 30mg) 30 mg Q6H PRN IV Moderate Pain (Pain Scale 4-6) 11/01/17 21:30 11/06/17 21:29 Levofloxacin (Levaquin) 500 mg DAILY ORAL 11/02/17 12:00 11/09/17 11:59 Losartan Potassium (Cozaar) 100 mg DAILY ORAL 11/02/17 09:00 12/02/17 08:59 11/02/17 08:55 Metronidazole 100 ml @ 100 mls/hr Q8HR IVPB 11/02/17 14:00 11/09/17 13:59 Minoxidil (Loniten) 10 mg BID ORAL 11/02/17 09:00 12/02/17 08:59 11/02/17 08:55 Nitroglycerin (Ntg) 0.4 mg Q5M PRN SL Chest Pain 11/01/17 21:30 12/01/17 21:29 Ondansetron HCl (Zofran) 4 mg Q6H PRN IVP Nausea & Vomiting 11/01/17 21:30 12/01/17 21:29 Polyethylene Glycol (Miralax) 17 gm HSPRN PRN ORAL Constipation 11/01/17 21:30 12/01/17 21:29 Sodium Chloride 1,000 ml @ 50 mls/hr Q20H IV 11/01/17 22:00 12/01/17 21:59 11/01/17 23:29 Temazepam (Restoril) 15 mg HSPRN PRN ORAL Insomnia 11/01/17 21:30 11/08/17 21:29 11/01/17 23:28 Assessment/Plan Problem List: (1) Intractable abdominal pain ICD Codes: R10.9 - Unspecified abdominal pain SNOMED: 51015602, 797191446 (2) Fever ICD Codes: R50.9 - Fever, unspecified SNOMED: 601158211 (3) Colitis ICD Codes: K52.9 - Noninfective gastroenteritis and colitis, unspecified SNOMED: 52721881 (4) CAD (coronary artery disease) ICD Codes: I25.10 - Atherosclerotic heart disease of [place] coronary artery without angina pectoris SNOMED: 28293631 (5) Stented coronary artery ICD Codes: Z95.5 - Presence of coronary angioplasty implant and graft SNOMED: 58498435, 240689466 (6) Right BKA infection ICD Codes: T87.43 - Infection of amputation stump, right lower extremity SNOMED: 861767734, 482698366 (7) Diabetes mellitus ICD Codes: E11.9 - Type 2 diabetes mellitus without complications SNOMED: 93655106 Assessment/Plan NPO iv fluids addison cultures CT of abdomen GI and surgery evaluation sliding scale dvt prophylaxis symptomatic treatment Arianne Delgado MD Nov 02, 2017 12:07
[2017-11-02] MEDS: Levofloxacin 500mg tab ORAL SCH (12:47)
[2017-11-02] MEDS: DiphenhydrAMINE 50mg/ml Inj IVP PRN ×2 (13:34→21:21)
--- NOTE | 2017-11-02 15:33 | Diagnostic Imaging Report ---
Indication: Abdominal pain Technique: Spiral acquisitions obtained through the abdomen and pelvis. Patient given oral contrast. No IV contrast utilized, per referring physician request.. Multiplanar reconstructions were generated. Total dose length product 1143.55 mGycm. CTDIvol(s) 19.75 mGy. Dose reduction achieved using automated exposure control Comparison: 08/28/[address], also ultrasound of earlier the same day Findings: The appendix is normal. There is colonic diverticulosis. There is wall thickening of the junction of the distal descending and proximal sigmoid colon, infiltration of the right colic fat, and some fluid within the adjacent fascial planes. No extraluminal gas or loculated fluid collections are demonstrated. No free intraluminal air or fluid. No small bowel distention or small bowel wall thickening. The distal esophagus, stomach, duodenum are unremarkable. Lack of IV contrast limits assessment of the solid organs. The gallbladder contains gallstones. The liver is mildly hypoattenuating, consistent with diffuse fatty change. This is, however, less striking than on the prior study. Unremarkable bile ducts. The pancreas is unremarkable. The spleen is enlarged, measuring 16 cm long axis dimension. The adrenals and left kidney are unremarkable. The right kidney demonstrates a 2 cm cyst in the interpolar region with some this is also evident previously, although equivocally slightly larger currently and the calcium is a new finding dependent layering of calcium. There are somewhat prominent and not frankly enlarged para-aortic and left iliac chain lymph nodes. No pelvic mass or adenopathy. The included lung bases demonstrate atelectatic changes. The bones demonstrate lucencies within the iliac and pubic bones bilaterally which are unchanged from the prior study. Impression: Findings compatible with uncomplicated acute diverticulitis of the distal descending and proximal sigmoid colon Fatty liver, less striking than on prior study of 08/28/2011 Cholelithiasis Splenomegaly, also evident previously Lucencies within the right iliac and pubic bones. Nonspecific as regards etiology but benign, as these are unchanged from earlier study of 2012 Incidental finding of 2 cm right interpolar renal region cyst The CT scanner at [facility] is accredited by the [employer] and the scans are performed using protocols designed to limit radiation exposure to as low as reasonably achievable to attain images of sufficient resolution adequate for diagnostic evaluation.
[2017-11-02 16:00] VITALS: BP 124/66
--- NOTE | 2017-11-02 16:33 | Consultation ---
History of Present Illness General Date patient seen: Nov 02, 2017 Chief Complaint: Abdominal Pain Referring physician: GARFIELD MEREDITH Reason for Consultation: ABDOMINAL PAIN Present Illness HPI 47 year old male presented to ED with complaints of worsening abdominal pain x 3 days. states that every few months he gets an episode of lower abdominal pain which usually resolves within 24-48 hrs. he noted similar lower abdominal pain for past 3 days and while at work yesterday pain progressively worsened so he went to ED. 12/24 lower abdominal pain without radiation. no n/v/f/c. passing flatus. last BM recent. last colonoscopy 2 years ago and benign polyps only. surgery called to evaluate for abdominal pain. patient seen, chart reviewed, patient examined. Allergies: Coded Allergies: CEFTRIAXONE (Verified Allergy, Intermediate, 11/02/17) itchy lips VANCOMYCIN (Verified Allergy, Intermediate, pain and sore throat, itching , 11/02/17) CODEINE (Verified Allergy, Unknown, 08/28/11) MORPHINE (Verified Allergy, Unknown, 11/01/17) NIFEDIPINE (Verified Allergy, Unknown, 01/21/10) CLINDAMYCIN (Verified Adverse Reaction, Intermediate, 11/02/17) diarrhea PENICILLINS (Verified Adverse Reaction, Mild, 11/02/17) nausea and vomiting- tolerates Augmentin, Amoxicillin Medication History Scheduled Amlodipine Besylate (Norvasc), 10 MG ORAL BID, (Reported) Docusate Sodium* (Docusate Sodium*), 100 MG ORAL DAILY, (Reported) Furosemide* (Lasix*), 20 MG ORAL DAILY, (Reported) Gabapentin* (Neurontin*), 400 MG ORAL QHS, (Reported) Glipizide* (Glipizide*), Unknown Dose ORAL BIDAC, (Reported) Minoxidil* (Loniten*), 10 MG PO BID, (Reported) Pantoprazole* (Protonix*), 40 MG ORAL QHS, (Reported) Potassium Chloride* (K-Dur*), 20 MEQ ORAL DAILY, (Reported) Valsartan (Diovan), 320 MG ORAL DAILY, (Reported) Scheduled PRN Hydrocodone Bit/Acetaminophen 5-325* (Sharon 5-325*), 1 TAB ORAL Q6H PRN for For Pain, (Reported) Zolpidem Tartrate* (Ambien*), 10 MG ORAL BEDTIME PRN for Insomnia, (Reported) Patient History History Provided By: Patient, Medical Record, PMD Healthcare decision maker [facility] Resuscitation status Full Code Advanced Directive on File No Past Medical/Surgical History Past Medical/Surgical History: (1) Abdominal pain (2) Diverticulitis Review of Systems All Other Systems: negative except mentioned in HPI Physical Exam General Appearance: no apparent distress, alert Lines, tubes and drains: peripheral HEENT: normocephalic, mucous membranes moist Neck: supple, normal inspection Respiratory/Chest: lungs clear, normal breath sounds, no respiratory distress, no accessory muscle use Cardiovascular/Chest: normal peripheral pulses, normal rate, regular rhythm Abdomen: normal bowel sounds, soft, no organomegaly, no mass, rebound, tender Extremities: normal inspection Skin Exam: warm/dry Neurologic: alert, oriented x 3 Last 24 Hour Vital Signs Date Time Temp Pulse Resp B/P (MAP) Pulse Ox O2 Delivery O2 Flow Rate FiO2 11/02/17 14:06 99.2 11/02/17 13:43 99.2 11/02/17 13:36 102.7 11/02/17 12:44 102.7 11/02/17 12:00 102.7 101 16 132/80 (97) 95 102.7 11/02/17 09:56 102.7 11/02/17 09:05 100.4 11/02/17 09:00 Room Air 11/02/17 08:57 100.4 11/02/17 08:55 139/72 11/02/17 08:55 139/72 11/02/17 08:51 102 139/72 11/02/17 08:00 100.4 102 16 139/72 (94) 92 100.4 11/02/17 05:37 102.4 11/02/17 04:38 100.9 11/02/17 04:00 100.4 93 20 157/91 (113) 92 100.4 11/02/17 02:09 Room Air 11/02/17 00:00 98.9 95 20 131/72 (91) 91 98.9 11/01/17 22:41 98.9 94 18 155/70 97 Room Air 98.9 11/01/17 21:40 98.9 94 18 155/70 97 Room Air 98.9 11/01/17 20:53 98.9 11/01/17 20:24 98.9 96 16 153/70 97 Room Air 98.9 11/01/17 20:13 98.9 11/01/17 19:28 98.9 94 16 162/89 97 Room Air 98.9 11/01/17 19:04 98.9 11/01/17 18:34 99.4 11/01/17 18:24 86 15 167/91 97 Room Air 11/01/17 17:15 99.4 82 20 153/82 96 Room Air 99.3 Intake and Output 11/01/17 11/02/17 19:00 07:00 Intake Total 1650 ml Output Total 700 ml Balance 950 ml Intake IV Total 1650 ml Output Urine Total 700 ml # Voids 1 2 Laboratory Tests Test 11/01/17 17:54 11/01/17 17:55 11/02/17 01:00 11/02/17 05:40 Urine Color Pale yellow Pale yellow Urine Appearance Clear Clear Urine pH 6 (4.5-8.0) 5 (4.5-8.0) Urine Specific [place] 1.010 (1.005-1.035) 1.015 (1.005-1.035) Urine Protein 3+ (NEGATIVE) H 3+ (NEGATIVE) H Urine Glucose (UA) Negative (NEGATIVE) Negative (NEGATIVE) Urine Ketones Negative (NEGATIVE) Negative (NEGATIVE) Urine Occult Blood 1+ (NEGATIVE) H 1+ (NEGATIVE) H Urine Nitrite Negative (NEGATIVE) Negative (NEGATIVE) Urine Bilirubin Negative (NEGATIVE) Negative (NEGATIVE) Urine Urobilinogen Normal MG/DL (0.0-1.0) Normal MG/DL (0.0-1.0) Urine Leukocyte Esterase Negative (NEGATIVE) Negative (NEGATIVE) Urine RBC 0-2 /HPF (0 - 0) H 0-2 /HPF (0 - 0) H Urine WBC 0-2 /HPF (0 - 0) 0-2 /HPF (0 - 0) Urine Squamous Epithelial Cells None /LPF (NONE/OCC) Occasional /LPF Urine Bacteria None /HPF (NONE) Occasional /HPF (NONE) White Blood Count 9.8 K/UL (4.8-10.8) 8.3 K/UL (4.8-10.8) Red Blood Count 4.78 M/UL (4.70-6.10) 4.52 M/UL (4.70-6.10) L Hemoglobin 12.7 G/DL (14.2-18.0) L 12.2 G/DL (14.2-18.0) L Hematocrit 37.5 % (42.0-52.0) L 35.8 % (42.0-52.0) L Mean Corpuscular Volume 78 FL (80-99) L 79 FL (80-99) L Mean Corpuscular Hemoglobin 26.6 PG (27.0-31.0) L 27.0 PG (27.0-31.0) Mean Corpuscular Hemoglobin Concent 33.9 G/DL (32.0-36.0) 34.2 G/DL (32.0-36.0) Red Cell Distribution Width 14.3 % (11.6-14.8) 13.9 % (11.6-14.8) Platelet Count 157 K/UL (150-450) 141 K/UL (150-450) L Mean Platelet Volume 8.9 FL (6.5-10.1) 8.8 FL (6.5-10.1) Neutrophils (%) (Auto) 74.7 % (45.0-75.0) % (45.0-75.0) Lymphocytes (%) (Auto) 15.4 % (20.0-45.0) L % (20.0-45.0) Monocytes (%) (Auto) 8.1 % (1.0-10.0) % (1.0-10.0) Eosinophils (%) (Auto) 0.4 % (0.0-3.0) % (0.0-3.0) Basophils (%) (Auto) 1.5 % (0.0-2.0) % (0.0-2.0) Sodium Level 137 MMOL/L (136-145) 136 MMOL/L (136-145) Potassium Level 4.0 MMOL/L (3.5-5.1) 3.9 MMOL/L (3.5-5.1) Chloride Level 103 MMOL/L (98-107) 103 MMOL/L (98-107) Carbon Dioxide Level 26 MMOL/L (21-32) 24 MMOL/L (21-32) Anion Gap 8 mmol/L (5-15) 9 mmol/L (5-15) Blood Urea Nitrogen 14 mg/dL (7-18) 12 mg/dL (7-18) Creatinine 1.8 MG/DL (0.55-1.30) H 1.6 MG/DL (0.55-1.30) H Estimat Glomerular Filtration Rate 48.8 mL/min (>60) 56.0 mL/min (>60) Glucose Level 78 MG/DL (74-106) 89 MG/DL (74-106) Uric Acid 7.5 MG/DL (2.6-7.2) H Calcium Level 9.1 MG/DL (8.5-10.1) 8.8 MG/DL (8.5-10.1) Total Bilirubin 0.4 MG/DL (0.2-1.0) 0.6 MG/DL (0.2-1.0) Aspartate Amino Transf (AST/SGOT) 22 U/L (15-37) 16 U/L (15-37) Alanine Aminotransferase (ALT/SGPT) 28 U/L (12-78) 28 U/L (12-78) Alkaline Phosphatase 144 U/L (46-116) H 127 U/L (46-116) H Total Creatine Kinase 594 U/L (26-308) H Total Protein 9.0 G/DL (6.4-8.2) H 8.3 G/DL (6.4-8.2) H Albumin 4.0 G/DL (3.4-5.0) 3.5 G/DL (3.4-5.0) Globulin 5.0 g/dL 4.8 g/dL Albumin/Globulin Ratio 0.8 (1.0-2.7) L 0.7 (1.0-2.7) L Lipase 202 U/L (73-393) Urine Eosinophils None seen Urine Random Sodium 109 mmol/L (20-110) Urine Potassium Timed 21 mmol/L (12-62) Differential Total Cells Counted 100 Neutrophils % (Manual) 87 % (45-75) H Lymphocytes % (Manual) 9 % (20-45) L Monocytes % (Manual) 4 % (1-10) Eosinophils % (Manual) 0 % (0-3) Basophils % (Manual) 0 % (0-2) Band Neutrophils 0 % (0-8) Platelet Estimate Decreased L Platelet Morphology Normal Red Blood Cell Morphology Normal Erythrocyte Sedimentation Rate 44 MM/HR (0-15) H Reticulocyte Count 0.8 % (0.0-2.0) Prothrombin Time 11.8 SEC (9.30-11.50) H Prothromb Time International Ratio 1.1 (0.9-1.1) Activated Partial Thromboplast Time 34 SEC (23-33) H Hemoglobin A1c 5.2 % (4.3-6.0) Iron Level 19 ug/dL (50-175) L Total Iron Binding Capacity 280 ug/dL (250-450) Percent Iron Saturation 7 % (15-50) L Unsaturated Iron Binding 261 ug/dL (112-346) Lactate Dehydrogenase 198 U/L (81-234) Amylase Level 52 U/L (25-115) Carcinoembryonic Antigen Pending Vitamin B12 Level 1373 PG/ML (193-986) H Folate 25.9 NG/ML (8.6-58.9) Thyroid Stimulating Hormone (TSH) 1.604 uiU/mL (0.358-3.740) Height (Feet): 6 Height (Inches): 2.00 Weight (Pounds): 340 Medications Current Medications Medications (Trade) Dose Ordered Sig/Mile Route PRN Reason Start Time Stop Time Status Last Admin Dose Admin Acetaminophen (Tylenol) 650 mg Q4H PRN ORAL fever 11/01/17 21:30 12/01/17 21:29 11/02/17 08:57 Al Hydroxide/Mg Hydroxide (Mylanta II) 30 ml Q6H PRN ORAL dyspepsia 11/01/17 21:30 12/01/17 21:29 Amlodipine Besylate (Norvasc) 10 mg BID ORAL 11/02/17 09:00 12/02/17 08:59 11/02/17 08:51 Aztreonam 1 gm/ Sodium Chloride 50 ml @ 100 mls/hr EVERY 8 HOURS IVPB 11/01/17 23:00 11/08/17 22:59 11/02/17 13:37 Barium Sulfate (Readi-Cat 2) 450 ml NOW PRN ORAL Radiology Procedure 11/01/17 17:45 11/03/17 17:35 Barium Sulfate (Readi-Cat 2) 450 ml NOW PRN ORAL Radiology Procedure 11/02/17 10:30 11/04/17 10:19 Dextrose (Dextrose 50%) STAT PRN IV Hypoglycemia 11/01/17 21:30 12/01/17 21:29 Dextrose (Dextrose 50%) STAT PRN IV Hypoglycemia 11/01/17 21:30 12/01/17 21:29 Diatrizoate Meglum/ Diatrizoate Sod (Gastrografin) 30 ml NOW PRN ORAL Radiology Procedure 11/02/17 11:00 11/04/17 10:59 Diphenhydramine HCl (Benadryl) 25 mg Q6H PRN ORAL Itching/Pruritis 11/01/17 21:30 12/01/17 21:29 11/01/17 23:28 Diphenhydramine HCl (Benadryl) 50 mg Q6H PRN IVP Itching 11/02/17 08:00 12/02/17 07:59 11/02/17 13:34 Gabapentin (Neurontin) 400 mg QHS ORAL 11/01/17 22:00 12/01/17 21:59 11/01/17 23:31 Heparin Sodium (Porcine) (Heparin 5000 units/ml) 5,000 units EVERY 12 HOURS SUBQ 11/02/17 09:00 12/02/17 08:59 Hydromorphone HCl (Dilaudid) 2 mg EVERY 3 HOURS PRN IVP Severe Pain (Pain Scale 7-10) 11/01/17 21:30 11/08/17 21:29 11/02/17 13:36 Insulin Aspart (NovoLOG) BEFORE MEALS AND HS SUBQ 11/02/17 06:30 12/02/17 06:29 Ketorolac Tromethamine (Toradol 30mg) 30 mg Q6H PRN IV Moderate Pain (Pain Scale 4-6) 11/01/17 21:30 11/06/17 21:29 Levofloxacin (Levaquin) 500 mg DAILY ORAL 11/02/17 12:00 11/09/17 11:59 11/02/17 12:47 Losartan Potassium (Cozaar) 100 mg DAILY ORAL 11/02/17 09:00 12/02/17 08:59 11/02/17 08:55 Metronidazole 100 ml @ 100 mls/hr Q8HR IVPB 11/02/17 14:00 11/09/17 13:59 11/02/17 14:26 Minoxidil (Loniten) 10 mg BID ORAL 11/02/17 09:00 12/02/17 08:59 11/02/17 08:55 Nitroglycerin (Ntg) 0.4 mg Q5M PRN SL Chest Pain 11/01/17 21:30 12/01/17 21:29 Ondansetron HCl (Zofran) 4 mg Q6H PRN IVP Nausea & Vomiting 11/01/17 21:30 12/01/17 21:29 Polyethylene Glycol (Miralax) 17 gm HSPRN PRN ORAL Constipation 11/01/17 21:30 12/01/17 21:29 Sodium Chloride 1,000 ml @ 50 mls/hr Q20H IV 11/01/17 22:00 12/01/17 21:59 11/01/17 23:29 Temazepam (Restoril) 15 mg HSPRN PRN ORAL Insomnia 11/01/17 21:30 11/08/17 21:29 11/01/17 23:28 Assessment/Plan Problem List: (1) Diverticulitis Assessment & Plan: 47M with acute uncomplicated diverticulitis. Afebrile, HD stable, labs okay. CT with as noted on exam does have left lower quadrant tenderness with rebound and voluntary guarding but no peritonitis or acute abdomen. would keep NPO until pain on exam resolved NPO IV fluids IV abx once exam improved can start trial diet. thank you for this consultation. will follow with recs. ICD Codes: K57.92 - Diverticulitis of intestine, part unspecified, without perforation or abscess without bleeding SNOMED: 084193330 (2) Abdominal pain ICD Codes: R10.9 - Unspecified abdominal pain SNOMED: 09159923 Qualifiers: Qualified Codes: R10.30 - Lower abdominal pain, unspecified Status: stable Abundio Hernandez Nov 02, 2017 16:33
[2017-11-02] MEDS ORDERED: Tubing IV Secondary IV ONE (17:16)
[2017-11-02 20:00] VITALS: BP 129/82
[2017-11-02] MEDS: Iron Sucrose 100 MG in NS 55 ML IVPB SCH (21:25)
[2017-11-03] VITALS: BP 115/72
[2017-11-03] MEDS: HYDROmorphone 1mg/ml Carpuject IVP PRN ×8 (00:30→23:42)
[2017-11-03] MEDS: DiphenhydrAMINE 50mg/ml Inj IVP PRN ×4 (03:26→23:42)
[2017-11-03 04:00] VITALS: BP 163/55
[2017-11-03] MEDS: Aztreonam Inj 1 GM in NS 50 ML IVPB SCH (05:30)
[2017-11-03 06:29] LABS: BASOPHILS % (AUTO) 0.6 % (0.0-2.0); EOSINOPHILS % (AUTO) 0.7 % (0.0-3.0); HEMATOCRIT 33.7 % (42.0-52.0); HEMOGLOBIN 11.1 G/DL (14.2-18.0); LYMPHOCYTES % (AUTO) 16.2 % (20.0-45.0); MEAN CORPUSCULAR VOLUME 79 FL (80-99); MONOCYTES % (AUTO) 7.4 % (1.0-10.0); NEUTROPHILS % (AUTO) 75.1 % (45.0-75.0); PLATELET COUNT 131 K/UL (150-450); RED BLOOD COUNT 4.25 M/UL (4.70-6.10); WHITE BLOOD COUNT 8.9 K/UL (4.8-10.8)
[2017-11-03] MEDS: NovoLOG Insulin Flexpen SUBQ SCH ×4 (06:30→20:29)
[2017-11-03 06:56] LABS: ALANINE AMINOTRANSFERASE 25 U/L (12-78); ALBUMIN 3.3 G/DL (3.4-5.0); ALBUMIN/GLOBULIN RATIO 0.7 (1.0-2.7); ALKALINE PHOSPHATASE 105 U/L (46-116); ANION GAP 9 mmol/L (5-15); ASPARTATE AMINO TRANSFERASE 27 U/L (15-37); BILIRUBIN,TOTAL 0.4 MG/DL (0.2-1.0); BLOOD UREA NITROGEN 16 mg/dL (7-18); CALCIUM 8.9 MG/DL (8.5-10.1); CARBON DIOXIDE 24 MMOL/L (21-32); CHLORIDE 104 MMOL/L (98-107); CREATININE 1.7 MG/DL (0.55-1.30); PHOSPHORUS 3.4 MG/DL (2.5-4.9); POTASSIUM 3.9 MMOL/L (3.5-5.1); SODIUM 137 MMOL/L (136-145)
[2017-11-03 08:00] VITALS: BP 140/85
--- NOTE | 2017-11-03 08:12 | General Progress Note ---
Assessment/Plan Problem List: (1) CRI (chronic renal insufficiency) ICD Codes: N18.9 - Chronic kidney disease, unspecified SNOMED: 732321708 (2) Iron deficiency anemia ICD Codes: D50.9 - Iron deficiency anemia, unspecified SNOMED: 22123842 (3) Fatty liver ICD Codes: K76.0 - Fatty (change of) liver, not elsewhere classified SNOMED: 286073900 (4) Splenomegaly ICD Codes: R16.1 - Splenomegaly, not elsewhere classified SNOMED: 75057912 (5) Abdominal pain ICD Codes: R10.9 - Unspecified abdominal pain SNOMED: 54159339 Qualifiers: Qualified Codes: R10.30 - Lower abdominal pain, unspecified (6) Diabetes mellitus ICD Codes: E11.9 - Type 2 diabetes mellitus without complications SNOMED: 81968251 (7) CAD (coronary artery disease) ICD Codes: I25.10 - Atherosclerotic heart disease of [place] coronary artery without angina pectoris SNOMED: 83098746 (8) Right BKA infection ICD Codes: 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.43 - Infection of amputation stump, right lower extremity SNOMED: 245846789, 485075474 (9) Diverticulitis ICD Codes: K57.92 - Diverticulitis of intestine, part unspecified, without perforation or abscess without bleeding SNOMED: 219778144 (10) Stented coronary artery ICD Codes: Z95.5 - Presence of coronary angioplasty implant and graft SNOMED: 23004352, 187684261 Assessment/Plan abx pain control iron iv needs out patient colonoscopy in 8 weeks Subjective Allergies: Coded Allergies: CEFTRIAXONE (Verified Allergy, Intermediate, 11/02/17) itchy lips VANCOMYCIN (Verified Allergy, Intermediate, pain and sore throat, itching , 11/02/17) CODEINE (Verified Allergy, Unknown, 08/28/11) MORPHINE (Verified Allergy, Unknown, 11/01/17) NIFEDIPINE (Verified Allergy, Unknown, 01/21/10) CLINDAMYCIN (Verified Adverse Reaction, Intermediate, 11/02/17) diarrhea PENICILLINS (Verified Adverse Reaction, Mild, 11/02/17) nausea and vomiting- tolerates Augmentin, Amoxicillin Objective Last 24 Hour Vital Signs Date Time Temp Pulse Resp B/P (MAP) Pulse Ox O2 Delivery O2 Flow Rate FiO2 11/03/17 04:00 98.2 83 19 163/55 (91) 94 98.2 11/03/17 00:00 98.3 80 20 115/72 (86) 96 98.3 11/02/17 21:00 Room Air 11/02/17 20:00 99.0 83 20 129/82 (98) 91 99.0 11/02/17 17:15 124/66 11/02/17 17:15 90 124/66 11/02/17 16:00 98.9 90 20 124/66 (85) 91 98.9 11/02/17 14:06 99.2 11/02/17 13:43 99.2 11/02/17 13:36 102.7 11/02/17 12:44 102.7 11/02/17 12:00 102.7 101 16 132/80 (97) 95 102.7 11/02/17 09:56 102.7 11/02/17 09:05 100.4 11/02/17 09:00 Room Air 11/02/17 08:57 100.4 11/02/17 08:55 139/72 11/02/17 08:55 139/72 11/02/17 08:51 102 139/72 Intake and Output 11/02/17 11/03/17 19:00 07:00 Intake Total 672 ml 860 ml Output Total 500 ml Balance 172 ml 860 ml Intake IV Total 672 ml 860 ml Output Urine Total 500 ml # Voids 2 Laboratory Tests 11/03/17 05:33: White Blood Count 8.9, Red Blood Count 4.25L, Hemoglobin 11.1L, Hematocrit 33.7L , Mean Corpuscular Volume 79L, Mean Corpuscular Hemoglobin 26.1L, Mean Corpuscular Hemoglobin Concent 32.8, Red Cell Distribution Width 14.0, Platelet Count 131L, Mean Platelet Volume 8.6, Neutrophils (%) (Auto) 75.1H, Lymphocytes (%) (Auto) 16.2L, Monocytes (%) (Auto) 7.4, Eosinophils (%) (Auto) 0.7, Basophils (%) (Auto) 0.6, Sodium Level 137, Potassium Level 3.9, Chloride Level 104, Carbon Dioxide Level 24, Anion Gap 9, Blood Urea Nitrogen 16, Creatinine 1.7H, Estimat Glomerular Filtration Rate 52.2, Glucose Level 95, Calcium Level 8.9, Phosphorus Level 3.4, Magnesium Level 2.0, Total Bilirubin 0.4, Aspartate Amino Transf (AST/SGOT) 27, Alanine Aminotransferase (ALT/SGPT) 25, Alkaline Phosphatase 105, Total Protein 7.9, Albumin 3.3L, Globulin 4.6, Albumin/ Globulin Ratio 0.7L Height (Feet): 6 Height (Inches): 2.00 Weight (Pounds): 340 General Appearance: alert EENT: normal ENT inspection Neck: supple Cardiovascular: normal rate Respiratory/Chest: lungs clear Abdomen: soft, hypoactive bowel sounds, tender Extremities: non-tender Fabiano Sanders MD Nov 03, 2017 08:12
[2017-11-03] MEDS: Heparin 5000 units/ml inj SUBQ SCH ×2 (09:00→20:29)
[2017-11-03] MEDS: Losartan 50mg tab ORAL SCH (09:47)
[2017-11-03] MEDS: Levofloxacin 500mg tab ORAL SCH (09:47)
[2017-11-03] MEDS: Minoxidil 10mg tab ORAL SCH ×2 (09:48→17:29)
--- NOTE | 2017-11-03 09:49 | Infectious Diseases Prog Note ---
Assessment/Plan Assessment/Plan Assessment: Sepsis- Diverticulitis, 11/02 CT: i uncomplicated acute diverticulitis of the distal descending and proximal sigmoid colon -u.a neg -Bcx p -CXR: no acute disease -Abd xray: no acute disease nl WBC Fever, Sp DM2 GERD HTN CAD s/p 3 stents placed last year Multiple abx allergies -?Vanco allergy 11/02- reported sore throat itchiness Plan: -Continue Levaquin and Flagyl ( AB Rx d# 3/ ) , upon DC will change to PO DC Aztreonam d# 3 11/02 Sp IV Vanco #2 -CT abd/p w/ PO contrast -f/u Abd US -f/u cx -Monitor CBC/CMP, temperatures GenSurg Fup Subjective Constitutional: Denies: no symptoms, fever, chills, fatigue, anorexia, drenching sweats, other Allergies: Coded Allergies: CEFTRIAXONE (Verified Allergy, Intermediate, 11/02/17) itchy lips VANCOMYCIN (Verified Allergy, Intermediate, pain and sore throat, itching , 11/02/17) CODEINE (Verified Allergy, Unknown, 08/28/11) MORPHINE (Verified Allergy, Unknown, 11/01/17) NIFEDIPINE (Verified Allergy, Unknown, 01/21/10) CLINDAMYCIN (Verified Adverse Reaction, Intermediate, 11/02/17) diarrhea PENICILLINS (Verified Adverse Reaction, Mild, 11/02/17) nausea and vomiting- tolerates Augmentin, Amoxicillin Subjective Afebrile Objective Vital Signs Last 24 Hour Vital Signs Date Time Temp Pulse Resp B/P (MAP) Pulse Ox O2 Delivery O2 Flow Rate FiO2 11/03/17 08:00 97.9 83 20 140/85 (103) 93 97.9 11/03/17 04:00 98.2 83 19 163/55 (91) 94 98.2 11/03/17 00:00 98.3 80 20 115/72 (86) 96 98.3 11/02/17 21:00 Room Air 11/02/17 20:00 99.0 83 20 129/82 (98) 91 99.0 11/02/17 17:15 124/66 11/02/17 17:15 90 124/66 11/02/17 16:00 98.9 90 20 124/66 (85) 91 98.9 11/02/17 14:06 99.2 11/02/17 13:43 99.2 11/02/17 13:36 102.7 11/02/17 12:44 102.7 11/02/17 12:00 102.7 101 16 132/80 (97) 95 102.7 11/02/17 09:56 102.7 Height (Feet): 6 Height (Inches): 2.00 Weight (Pounds): 340 HEENT: mucous membranes moist Respiratory/Chest: no respiratory distress Cardiovascular: regular rhythm Abdomen: normal bowel sounds, non distended Microbiology Date/Time Source Procedure Growth Status 11/02/17 08:45 Blood Blood Culture - Preliminary NO GROWTH AFTER 24 HOURS Resulted 11/02/17 08:30 Blood Blood Culture - Preliminary NO GROWTH AFTER 24 HOURS Resulted Laboratory Tests Test 11/03/17 05:33 White Blood Count 8.9 K/UL (4.8-10.8) Red Blood Count 4.25 M/UL (4.70-6.10) L Hemoglobin 11.1 G/DL (14.2-18.0) L Hematocrit 33.7 % (42.0-52.0) L Mean Corpuscular Volume 79 FL (80-99) L Mean Corpuscular Hemoglobin 26.1 PG (27.0-31.0) L Mean Corpuscular Hemoglobin Concent 32.8 G/DL (32.0-36.0) Red Cell Distribution Width 14.0 % (11.6-14.8) Platelet Count 131 K/UL (150-450) L Mean Platelet Volume 8.6 FL (6.5-10.1) Neutrophils (%) (Auto) 75.1 % (45.0-75.0) H Lymphocytes (%) (Auto) 16.2 % (20.0-45.0) L Monocytes (%) (Auto) 7.4 % (1.0-10.0) Eosinophils (%) (Auto) 0.7 % (0.0-3.0) Basophils (%) (Auto) 0.6 % (0.0-2.0) Sodium Level 137 MMOL/L (136-145) Potassium Level 3.9 MMOL/L (3.5-5.1) Chloride Level 104 MMOL/L (98-107) Carbon Dioxide Level 24 MMOL/L (21-32) Anion Gap 9 mmol/L (5-15) Blood Urea Nitrogen 16 mg/dL (7-18) Creatinine 1.7 MG/DL (0.55-1.30) H Estimat Glomerular Filtration Rate 52.2 mL/min (>60) Glucose Level 95 MG/DL (74-106) Calcium Level 8.9 MG/DL (8.5-10.1) Phosphorus Level 3.4 MG/DL (2.5-4.9) Magnesium Level 2.0 MG/DL (1.8-2.4) Total Bilirubin 0.4 MG/DL (0.2-1.0) Aspartate Amino Transf (AST/SGOT) 27 U/L (15-37) Alanine Aminotransferase (ALT/SGPT) 25 U/L (12-78) Alkaline Phosphatase 105 U/L (46-116) Total Protein 7.9 G/DL (6.4-8.2) Albumin 3.3 G/DL (3.4-5.0) L Globulin 4.6 g/dL Albumin/Globulin Ratio 0.7 (1.0-2.7) L Current Medications Medications (Trade) Dose Ordered Sig/Mile Route PRN Reason Start Time Stop Time Status Last Admin Dose Admin Acetaminophen (Tylenol) 650 mg Q4H PRN ORAL fever 11/01/17 21:30 12/01/17 21:29 11/02/17 08:57 Al Hydroxide/Mg Hydroxide (Mylanta II) 30 ml Q6H PRN ORAL dyspepsia 11/01/17 21:30 12/01/17 21:29 Amlodipine Besylate (Norvasc) 10 mg BID ORAL 11/02/17 09:00 12/02/17 08:59 11/02/17 17:15 Aztreonam 1 gm/ Sodium Chloride 50 ml @ 100 mls/hr EVERY 8 HOURS IVPB 11/01/17 23:00 11/08/17 22:59 11/03/17 05:30 Barium Sulfate (Readi-Cat 2) 450 ml NOW PRN ORAL Radiology Procedure 11/01/17 17:45 11/03/17 17:35 Barium Sulfate (Readi-Cat 2) 450 ml NOW PRN ORAL Radiology Procedure 11/02/17 10:30 11/04/17 10:19 Dextrose (Dextrose 50%) STAT PRN IV Hypoglycemia 11/01/17 21:30 12/01/17 21:29 Dextrose (Dextrose 50%) STAT PRN IV Hypoglycemia 11/01/17 21:30 12/01/17 21:29 Diatrizoate Meglum/ Diatrizoate Sod (Gastrografin) 30 ml NOW PRN ORAL Radiology Procedure 11/02/17 11:00 11/04/17 10:59 Diphenhydramine HCl (Benadryl) 25 mg Q6H PRN ORAL Itching/Pruritis 11/01/17 21:30 12/01/17 21:29 11/01/17 23:28 Diphenhydramine HCl (Benadryl) 50 mg Q6H PRN IVP Itching 11/02/17 08:00 12/02/17 07:59 11/03/17 03:26 Gabapentin (Neurontin) 400 mg QHS ORAL 11/01/17 22:00 12/01/17 21:59 11/02/17 21:22 Heparin Sodium (Porcine) (Heparin 5000 units/ml) 5,000 units EVERY 12 HOURS SUBQ 11/02/17 09:00 12/02/17 08:59 Hydromorphone HCl (Dilaudid) 2 mg EVERY 3 HOURS PRN IVP Severe Pain (Pain Scale 7-10) 11/01/17 21:30 11/08/17 21:29 11/03/17 06:47 Insulin Aspart (NovoLOG) BEFORE MEALS AND HS SUBQ 11/02/17 06:30 12/02/17 06:29 Iron Sucrose 100 mg/Sodium Chloride 60 ml @ 240 mls/hr BEDTIME IVPB 11/02/17 21:00 11/04/17 21:14 11/02/17 21:25 Ketorolac Tromethamine (Toradol 30mg) 30 mg Q6H PRN IV Moderate Pain (Pain Scale 4-6) 11/01/17 21:30 11/06/17 21:29 Levofloxacin (Levaquin) 500 mg DAILY ORAL 11/02/17 12:00 11/09/17 11:59 11/02/17 12:47 Losartan Potassium (Cozaar) 100 mg DAILY ORAL 11/02/17 09:00 12/02/17 08:59 11/02/17 08:55 Metronidazole 100 ml @ 100 mls/hr Q8HR IVPB 11/02/17 14:00 11/09/17 13:59 11/03/17 06:09 Minoxidil (Loniten) 10 mg BID ORAL 11/02/17 09:00 12/02/17 08:59 11/02/17 17:15 Nitroglycerin (Ntg) 0.4 mg Q5M PRN SL Chest Pain 11/01/17 21:30 12/01/17 21:29 Ondansetron HCl (Zofran) 4 mg Q6H PRN IVP Nausea & Vomiting 11/01/17 21:30 12/01/17 21:29 Polyethylene Glycol (Miralax) 17 gm HSPRN PRN ORAL Constipation 11/01/17 21:30 12/01/17 21:29 Sodium Chloride 1,000 ml @ 50 mls/hr Q20H IV 11/01/17 22:00 12/01/17 21:59 11/02/17 17:15 Temazepam (Restoril) 15 mg HSPRN PRN ORAL Insomnia 11/01/17 21:30 11/08/17 21:29 11/02/17 22:45 Naresh Mccann MD Nov 03, 2017 09:49
--- NOTE | 2017-11-03 11:17 | General Surgery Progress Note ---
General Surgery-Progress Note Subjective Symptoms: improved, pain absent, passing flatus Objective Last 24 Hour Vital Signs Date Time Temp Pulse Resp B/P (MAP) Pulse Ox O2 Delivery O2 Flow Rate FiO2 11/03/17 10:19 97.9 11/03/17 09:49 97.9 11/03/17 09:48 140/85 11/03/17 09:48 83 140/85 11/03/17 09:47 140/85 11/03/17 08:00 97.9 83 20 140/85 (103) 93 97.9 11/03/17 04:00 98.2 83 19 163/55 (91) 94 98.2 11/03/17 00:00 98.3 80 20 115/72 (86) 96 98.3 11/02/17 21:00 Room Air 11/02/17 20:00 99.0 83 20 129/82 (98) 91 99.0 11/02/17 17:15 124/66 11/02/17 17:15 90 124/66 11/02/17 16:00 98.9 90 20 124/66 (85) 91 98.9 11/02/17 13:43 99.2 11/02/17 13:36 102.7 11/02/17 12:44 102.7 11/02/17 12:00 102.7 101 16 132/80 (97) 95 102.7 I&O Intake and Output 11/02/17 11/03/17 19:00 07:00 Intake Total 672 ml 860 ml Output Total 500 ml Balance 172 ml 860 ml Intake IV Total 672 ml 860 ml Output Urine Total 500 ml # Voids 2 Drains: none Cardiovascular: RSR Respiratory: clear Abdomen: soft, flat, non-tender, present bowel sounds Extremities: no tenderness, no cyanosis Laboratory Tests Test 11/03/17 05:33 White Blood Count 8.9 K/UL (4.8-10.8) Red Blood Count 4.25 M/UL (4.70-6.10) L Hemoglobin 11.1 G/DL (14.2-18.0) L Hematocrit 33.7 % (42.0-52.0) L Mean Corpuscular Volume 79 FL (80-99) L Mean Corpuscular Hemoglobin 26.1 PG (27.0-31.0) L Mean Corpuscular Hemoglobin Concent 32.8 G/DL (32.0-36.0) Red Cell Distribution Width 14.0 % (11.6-14.8) Platelet Count 131 K/UL (150-450) L Mean Platelet Volume 8.6 FL (6.5-10.1) Neutrophils (%) (Auto) 75.1 % (45.0-75.0) H Lymphocytes (%) (Auto) 16.2 % (20.0-45.0) L Monocytes (%) (Auto) 7.4 % (1.0-10.0) Eosinophils (%) (Auto) 0.7 % (0.0-3.0) Basophils (%) (Auto) 0.6 % (0.0-2.0) Sodium Level 137 MMOL/L (136-145) Potassium Level 3.9 MMOL/L (3.5-5.1) Chloride Level 104 MMOL/L (98-107) Carbon Dioxide Level 24 MMOL/L (21-32) Anion Gap 9 mmol/L (5-15) Blood Urea Nitrogen 16 mg/dL (7-18) Creatinine 1.7 MG/DL (0.55-1.30) H Estimat Glomerular Filtration Rate 52.2 mL/min (>60) Glucose Level 95 MG/DL (74-106) Calcium Level 8.9 MG/DL (8.5-10.1) Phosphorus Level 3.4 MG/DL (2.5-4.9) Magnesium Level 2.0 MG/DL (1.8-2.4) Total Bilirubin 0.4 MG/DL (0.2-1.0) Aspartate Amino Transf (AST/SGOT) 27 U/L (15-37) Alanine Aminotransferase (ALT/SGPT) 25 U/L (12-78) Alkaline Phosphatase 105 U/L (46-116) Total Protein 7.9 G/DL (6.4-8.2) Albumin 3.3 G/DL (3.4-5.0) L Globulin 4.6 g/dL Albumin/Globulin Ratio 0.7 (1.0-2.7) L Plan Problems: (1) Diverticulitis Assessment & Plan: 47M with acute uncomplicated diverticulitis. Afebrile, HD stable, labs okay. CT with as noted on exam does have left lower quadrant tenderness with rebound and voluntary guarding but no peritonitis or acute abdomen. Exam improved today. minimal discomfort in LLQ. Clear liquid diet IV fluids IV abx thank you for this consultation. will follow with recs. (2) Abdominal pain Abundio Hernandez Nov 03, 2017 11:17
[2017-11-03 12:00] VITALS: BP 137/74
[2017-11-03 16:00] VITALS: BP 152/98
[2017-11-03] MEDS ORDERED: Tubing IV Secondary IV ONE (17:50)
--- NOTE | 2017-11-03 18:22 | Pulmonology Progress Note ---
Assessment/Plan Problems: (1) Intractable abdominal pain (2) Fever (3) Colitis (4) CAD (coronary artery disease) (5) Stented coronary artery (6) Right BKA infection (7) Diabetes mellitus Assessment/Plan continue abx check cultures symptomatic treatment d/w surgeon Subjective Interval Events: better Allergies: Coded Allergies: CEFTRIAXONE (Verified Allergy, Intermediate, 11/02/17) itchy lips VANCOMYCIN (Verified Allergy, Intermediate, pain and sore throat, itching , 11/02/17) CODEINE (Verified Allergy, Unknown, 08/28/11) MORPHINE (Verified Allergy, Unknown, 11/01/17) NIFEDIPINE (Verified Allergy, Unknown, 01/21/10) CLINDAMYCIN (Verified Adverse Reaction, Intermediate, 11/02/17) diarrhea PENICILLINS (Verified Adverse Reaction, Mild, 11/02/17) nausea and vomiting- tolerates Augmentin, Amoxicillin Objective Last 24 Hour Vital Signs Date Time Temp Pulse Resp B/P (MAP) Pulse Ox O2 Delivery O2 Flow Rate FiO2 11/03/17 17:29 152/98 11/03/17 17:28 88 152/98 11/03/17 16:49 97.8 11/03/17 16:19 97.8 11/03/17 16:00 99.7 88 21 152/98 (116) 95 99.7 11/03/17 13:15 97.8 11/03/17 12:00 97.8 87 22 137/74 (95) 96 97.8 11/03/17 09:49 97.9 11/03/17 09:48 140/85 11/03/17 09:48 83 140/85 11/03/17 09:47 140/85 11/03/17 09:00 Room Air 11/03/17 08:00 97.9 83 20 140/85 (103) 93 97.9 11/03/17 04:00 98.2 83 19 163/55 (91) 94 98.2 11/03/17 00:00 98.3 80 20 115/72 (86) 96 98.3 11/02/17 21:00 Room Air 11/02/17 20:00 99.0 83 20 129/82 (98) 91 99.0 Intake and Output 11/02/17 11/03/17 19:00 07:00 Intake Total 672 ml 860 ml Output Total 500 ml Balance 172 ml 860 ml IV Total 672 ml 860 ml Output Urine Total 500 ml # Voids 2 General Appearance: WD/WN Respiratory/Chest: chest wall non-tender, lungs clear Cardiovascular: normal peripheral pulses, normal rate Abdomen: normal bowel sounds, soft, non tender Extremities: no cyanosis Skin: no lesions 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 Lymphatic: no neck adenopathy Microbiology Date/Time Source Procedure Growth Status 11/02/17 08:45 Blood Blood Culture - Preliminary NO GROWTH AFTER 24 HOURS Resulted 11/02/17 08:30 Blood Blood Culture - Preliminary NO GROWTH AFTER 24 HOURS Resulted Laboratory Tests 11/03/17 05:33: White Blood Count 8.9, Red Blood Count 4.25L, Hemoglobin 11.1L, Hematocrit 33.7L , Mean Corpuscular Volume 79L, Mean Corpuscular Hemoglobin 26.1L, Mean Corpuscular Hemoglobin Concent 32.8, Red Cell Distribution Width 14.0, Platelet Count 131L, Mean Platelet Volume 8.6, Neutrophils (%) (Auto) 75.1H, Lymphocytes (%) (Auto) 16.2L, Monocytes (%) (Auto) 7.4, Eosinophils (%) (Auto) 0.7, Basophils (%) (Auto) 0.6, Sodium Level 137, Potassium Level 3.9, Chloride Level 104, Carbon Dioxide Level 24, Anion Gap 9, Blood Urea Nitrogen 16, Creatinine 1.7H, Estimat Glomerular Filtration Rate 52.2, Glucose Level 95, Calcium Level 8.9, Phosphorus Level 3.4, Magnesium Level 2.0, Total Bilirubin 0.4, Aspartate Amino Transf (AST/SGOT) 27, Alanine Aminotransferase (ALT/SGPT) 25, Alkaline Phosphatase 105, Total Protein 7.9, Albumin 3.3L, Globulin 4.6, Albumin/ Globulin Ratio 0.7L 11/03/17 13:27: Stool Occult Blood [Pending] Current Medications Medications (Trade) Dose Ordered Sig/Mile Route PRN Reason Start Time Stop Time Status Last Admin Dose Admin Acetaminophen (Tylenol) 650 mg Q4H PRN ORAL fever 11/01/17 21:30 12/01/17 21:29 11/02/17 08:57 Al Hydroxide/Mg Hydroxide (Mylanta II) 30 ml Q6H PRN ORAL dyspepsia 11/01/17 21:30 12/01/17 21:29 Amlodipine Besylate (Norvasc) 10 mg BID ORAL 11/02/17 09:00 12/02/17 08:59 11/03/17 17:28 Barium Sulfate (Readi-Cat 2) 450 ml NOW PRN ORAL Radiology Procedure 11/02/17 10:30 11/04/17 10:19 Dextrose (Dextrose 50%) STAT PRN IV Hypoglycemia 11/01/17 21:30 12/01/17 21:29 Dextrose (Dextrose 50%) STAT PRN IV Hypoglycemia 11/01/17 21:30 12/01/17 21:29 Diatrizoate Meglum/ Diatrizoate Sod (Gastrografin) 30 ml NOW PRN ORAL Radiology Procedure 11/02/17 11:00 11/04/17 10:59 Diphenhydramine HCl (Benadryl) 25 mg Q6H PRN ORAL Itching/Pruritis 11/01/17 21:30 12/01/17 21:29 11/01/17 23:28 Diphenhydramine HCl (Benadryl) 50 mg Q6H PRN IVP Itching 11/02/17 08:00 12/02/17 07:59 11/03/17 16:19 Gabapentin (Neurontin) 400 mg QHS ORAL 11/01/17 22:00 12/01/17 21:59 11/02/17 21:22 Heparin Sodium (Porcine) (Heparin 5000 units/ml) 5,000 units EVERY 12 HOURS SUBQ 11/02/17 09:00 12/02/17 08:59 Hydromorphone HCl (Dilaudid) 2 mg EVERY 3 HOURS PRN IVP Severe Pain (Pain Scale 7-10) 11/01/17 21:30 11/08/17 21:29 11/03/17 16:19 Insulin Aspart (NovoLOG) BEFORE MEALS AND HS SUBQ 11/02/17 06:30 12/02/17 06:29 Iron Sucrose 100 mg/Sodium Chloride 60 ml @ 240 mls/hr BEDTIME IVPB 11/02/17 21:00 11/04/17 21:14 11/02/17 21:25 Ketorolac Tromethamine (Toradol 30mg) 30 mg Q6H PRN IV Moderate Pain (Pain Scale 4-6) 11/01/17 21:30 11/06/17 21:29 Levofloxacin (Levaquin) 500 mg DAILY ORAL 11/02/17 12:00 11/09/17 11:59 11/03/17 09:47 Losartan Potassium (Cozaar) 100 mg DAILY ORAL 11/02/17 09:00 12/02/17 08:59 11/03/17 09:47 Metronidazole 100 ml @ 100 mls/hr Q8HR IVPB 11/02/17 14:00 11/09/17 13:59 11/03/17 13:14 Minoxidil (Loniten) 10 mg BID ORAL 11/02/17 09:00 12/02/17 08:59 11/03/17 17:29 Nitroglycerin (Ntg) 0.4 mg Q5M PRN SL Chest Pain 11/01/17 21:30 12/01/17 21:29 Ondansetron HCl (Zofran) 4 mg Q6H PRN IVP Nausea & Vomiting 11/03/17 22:00 12/03/17 21:59 Pantoprazole (Protonix) 40 mg DAILY ORAL 11/04/17 09:00 12/04/17 08:59 Polyethylene Glycol (Miralax) 17 gm HSPRN PRN ORAL Constipation 11/01/17 21:30 12/01/17 21:29 Sodium Chloride 1,000 ml @ 50 mls/hr Q20H IV 11/01/17 22:00 12/01/17 21:59 11/03/17 13:14 Temazepam (Restoril) 15 mg HSPRN PRN ORAL Insomnia 11/01/17 21:30 11/08/17 21:29 11/02/17 22:45 Arianne Delgado MD Nov 03, 2017 18:22
[2017-11-03 20:00] VITALS: BP 134/76
[2017-11-03] MEDS: Iron Sucrose 100 MG in NS 55 ML IVPB SCH (20:27)
[2017-11-04] VITALS: BP 105/75
[2017-11-04] MEDS: HYDROmorphone 1mg/ml Carpuject IVP PRN ×6 (03:33→20:37)
[2017-11-04 04:00] VITALS: BP 129/65
[2017-11-04] MEDS: NovoLOG Insulin Flexpen SUBQ SCH ×4 (06:30→21:00)
[2017-11-04] MEDS: DiphenhydrAMINE 50mg/ml Inj IVP PRN ×3 (07:33→20:36)
[2017-11-04 07:38] LABS: BASOPHILS % (AUTO) 0.8 % (0.0-2.0); EOSINOPHILS % (AUTO) 2.9 % (0.0-3.0); HEMATOCRIT 33.7 % (42.0-52.0); HEMOGLOBIN 11.2 G/DL (14.2-18.0); LYMPHOCYTES % (AUTO) 23.4 % (20.0-45.0); MEAN CORPUSCULAR VOLUME 79 FL (80-99); MONOCYTES % (AUTO) 11.2 % (1.0-10.0); NEUTROPHILS % (AUTO) 61.6 % (45.0-75.0); PLATELET COUNT 146 K/UL (150-450); RED BLOOD COUNT 4.27 M/UL (4.70-6.10); RED CELL DISTRIBUTION WIDTH 13.8 % (11.6-14.8); WHITE BLOOD COUNT 7.1 K/UL (4.8-10.8)
[2017-11-04 07:43] LABS: ANION GAP 10 mmol/L (5-15); BLOOD UREA NITROGEN 14 mg/dL (7-18); CALCIUM 8.7 MG/DL (8.5-10.1); CARBON DIOXIDE 26 MMOL/L (21-32); CHLORIDE 103 MMOL/L (98-107); CREATININE 1.5 MG/DL (0.55-1.30); POTASSIUM 3.9 MMOL/L (3.5-5.1); SODIUM 138 MMOL/L (136-145)
[2017-11-04 08:00] VITALS: BP 129/71
--- NOTE | 2017-11-04 08:36 | General Progress Note ---
Assessment/Plan Problem List: (1) CRI (chronic renal insufficiency) ICD Codes: N18.9 - Chronic kidney disease, unspecified SNOMED: 658759512 (2) Iron deficiency anemia ICD Codes: D50.9 - Iron deficiency anemia, unspecified SNOMED: 79233941 (3) Fatty liver ICD Codes: K76.0 - Fatty (change of) liver, not elsewhere classified SNOMED: 728644650 (4) Splenomegaly ICD Codes: R16.1 - Splenomegaly, not elsewhere classified SNOMED: 58882122 (5) Abdominal pain ICD Codes: R10.9 - Unspecified abdominal pain SNOMED: 95604477 Qualifiers: Qualified Codes: R10.30 - Lower abdominal pain, unspecified (6) Diabetes mellitus ICD Codes: E11.9 - Type 2 diabetes mellitus without complications SNOMED: 00324846 (7) CAD (coronary artery disease) ICD Codes: I25.10 - Atherosclerotic heart disease of [place] coronary artery without angina pectoris SNOMED: 11085564 (8) Right BKA infection ICD Codes: T87.43 - Infection of amputation stump, right lower extremity SNOMED: 708689678, 722524805 (9) Diverticulitis ICD Codes: K57.92 - Diverticulitis of intestine, part unspecified, without perforation or abscess without bleeding SNOMED: 756187333 (10) Stented coronary artery ICD Codes: Z95.5 - Presence of coronary angioplasty implant and graft SNOMED: 50925873, 951513869 Assessment/Plan abx pain control iron iv advance diet Subjective ROS Limited/Unobtainable: Yes Allergies: Coded Allergies: CEFTRIAXONE (Verified Allergy, Intermediate, 11/02/17) itchy lips VANCOMYCIN (Verified Allergy, Intermediate, pain and sore throat, itching , 11/02/17) CODEINE (Verified Allergy, Unknown, 08/28/11) MORPHINE (Verified Allergy, Unknown, 11/01/17) NIFEDIPINE (Verified Allergy, Unknown, 01/21/10) CLINDAMYCIN (Verified Adverse Reaction, Intermediate, 11/02/17) diarrhea PENICILLINS (Verified Adverse Reaction, Mild, 11/02/17) nausea and vomiting- tolerates Augmentin, Amoxicillin Subjective feeling better Objective Last 24 Hour Vital Signs Date Time Temp Pulse Resp B/P (MAP) Pulse Ox O2 Delivery O2 Flow Rate FiO2 11/04/17 04:00 98.5 89 19 129/65 (86) 93 98.5 11/04/17 00:00 98.7 95 19 105/75 (85) 93 98.7 11/03/17 21:00 Room Air 11/03/17 20:00 99.0 93 19 134/76 (95) 90 99.0 11/03/17 17:29 152/98 11/03/17 17:28 88 152/98 11/03/17 16:49 97.8 11/03/17 16:19 97.8 11/03/17 16:00 99.7 88 21 152/98 (116) 95 99.7 11/03/17 13:15 97.8 11/03/17 12:00 97.8 87 22 137/74 (95) 96 97.8 11/03/17 09:49 97.9 11/03/17 09:48 140/85 11/03/17 09:48 83 140/85 11/03/17 09:47 140/85 11/03/17 09:00 Room Air Intake and Output 11/03/17 11/04/17 19:00 07:00 Intake Total 1230 ml 1060 ml Output Total 200 ml 2300 ml Balance 1030 ml -1240 ml Intake Oral 480 ml 250 ml IV Total 750 ml 810 ml Output Urine Total 200 ml 2300 ml # Voids 1 Laboratory Tests 11/03/17 13:27: Stool Occult Blood [Pending] 11/04/17 05:43: White Blood Count 7.1, Red Blood Count 4.27L, Hemoglobin 11.2L, Hematocrit 33.7L , Mean Corpuscular Volume 79L, Mean Corpuscular Hemoglobin 26.3L, Mean Corpuscular Hemoglobin Concent 33.3, Red Cell Distribution Width 13.8, Platelet Count 146L, Mean Platelet Volume 8.0, Neutrophils (%) (Auto) 61.6, Lymphocytes ( %) (Auto) 23.4, Monocytes (%) (Auto) 11.2H, Eosinophils (%) (Auto) 2.9, Basophils (%) (Auto) 0.8, Sodium Level 138, Potassium Level 3.9, Chloride Level 103, Carbon Dioxide Level 26, Anion Gap 10, Blood Urea Nitrogen 14, Creatinine 1.5H, Estimat Glomerular Filtration Rate > 60, Glucose Level 93, Calcium Level 8.7 Height (Feet): 6 Height (Inches): 2.00 Weight (Pounds): 340 General Appearance: alert EENT: normal ENT inspection Neck: supple Cardiovascular: normal rate Respiratory/Chest: lungs clear Abdomen: normal bowel sounds, non tender, soft Extremities: non-tender Fabiano Sanders MD Nov 04, 2017 08:36
[2017-11-04] MEDS: Levofloxacin 500mg tab ORAL SCH (08:38)
[2017-11-04] MEDS: Losartan 50mg tab ORAL SCH (08:38)
[2017-11-04] MEDS: Minoxidil 10mg tab ORAL SCH ×2 (08:38→17:35)
[2017-11-04] MEDS: Heparin 5000 units/ml inj SUBQ SCH ×2 (08:39→21:00)
[2017-11-04] MEDS: Lactulose 10gm/15ml UDC ORAL SCH ×3 (09:18→17:35)
[2017-11-04] MEDS: Docusate 100mg cap ORAL SCH ×2 (09:18→17:35)
--- NOTE | 2017-11-04 11:38 | General Surgery Progress Note ---
General Surgery-Progress Note Subjective Symptoms: improved, pain absent, tolerating diet, passing flatus Additional Comments doing much better today. no n/v/f/c. no pain Objective Last 24 Hour Vital Signs Date Time Temp Pulse Resp B/P (MAP) Pulse Ox O2 Delivery O2 Flow Rate FiO2 11/04/17 08:38 129/71 11/04/17 08:38 129/71 11/04/17 08:38 85 129/71 11/04/17 08:30 Room Air 11/04/17 08:00 98.7 85 19 129/71 (90) 92 98.7 11/04/17 04:00 98.5 89 19 129/65 (86) 93 98.5 11/04/17 00:00 98.7 95 19 105/75 (85) 93 98.7 11/03/17 21:00 Room Air 11/03/17 20:00 99.0 93 19 134/76 (95) 90 99.0 11/03/17 17:29 152/98 11/03/17 17:28 88 152/98 11/03/17 16:49 97.8 11/03/17 16:19 97.8 11/03/17 16:00 99.7 88 21 152/98 (116) 95 99.7 11/03/17 13:15 97.8 11/03/17 12:00 97.8 87 22 137/74 (95) 96 97.8 I&O Intake and Output 11/03/17 11/04/17 19:00 07:00 Intake Total 1230 ml 1060 ml Output Total 200 ml 2300 ml Balance 1030 ml -1240 ml Intake Oral 480 ml 250 ml IV Total 750 ml 810 ml Output Urine Total 200 ml 2300 ml # Voids 1 Drains: none Cardiovascular: RSR Respiratory: clear Abdomen: soft, non-tender, present bowel sounds Extremities: no cyanosis Laboratory Tests Test 11/03/17 13:27 11/04/17 05:43 Stool Occult Blood Pending White Blood Count 7.1 K/UL (4.8-10.8) Red Blood Count 4.27 M/UL (4.70-6.10) L Hemoglobin 11.2 G/DL (14.2-18.0) L Hematocrit 33.7 % (42.0-52.0) L Mean Corpuscular Volume 79 FL (80-99) L Mean Corpuscular Hemoglobin 26.3 PG (27.0-31.0) L Mean Corpuscular Hemoglobin Concent 33.3 G/DL (32.0-36.0) Red Cell Distribution Width 13.8 % (11.6-14.8) Platelet Count 146 K/UL (150-450) L Mean Platelet Volume 8.0 FL (6.5-10.1) Neutrophils (%) (Auto) 61.6 % (45.0-75.0) Lymphocytes (%) (Auto) 23.4 % (20.0-45.0) Monocytes (%) (Auto) 11.2 % (1.0-10.0) H Eosinophils (%) (Auto) 2.9 % (0.0-3.0) Basophils (%) (Auto) 0.8 % (0.0-2.0) Sodium Level 138 MMOL/L (136-145) Potassium Level 3.9 MMOL/L (3.5-5.1) Chloride Level 103 MMOL/L (98-107) Carbon Dioxide Level 26 MMOL/L (21-32) Anion Gap 10 mmol/L (5-15) Blood Urea Nitrogen 14 mg/dL (7-18) Creatinine 1.5 MG/DL (0.55-1.30) H Estimat Glomerular Filtration Rate > 60 mL/min (>60) Glucose Level 93 MG/DL (74-106) Calcium Level 8.7 MG/DL (8.5-10.1) Plan Problems: (1) Diverticulitis Assessment & Plan: 47M with acute uncomplicated diverticulitis. Afebrile, HD stable, labs okay. CT with as noted on exam does have left lower quadrant tenderness with rebound and voluntary guarding but no peritonitis or acute abdomen. Exam improved today. minimal discomfort in LLQ. Full liquid diet - will keep on full liquids for a few days. can d/c home with full liquids and advance slowly at home. not ready for d/c yet IV fluids IV abx thank you for this consultation. will follow with recs. (2) Abdominal pain Abundio Hernandez Nov 04, 2017 11:38
[2017-11-04 12:00] VITALS: BP 146/74
--- NOTE | 2017-11-04 12:24 | Pulmonology Progress Note ---
Assessment/Plan Problems: (1) Intractable abdominal pain (2) Fever (3) Colitis (4) CAD (coronary artery disease) (5) Stented coronary artery (6) Right BKA infection (7) Diabetes mellitus Assessment/Plan improving continue abx check cultures symptomatic treatment d/w surgeon advance diet Subjective ROS Limited/Unobtainable: No Allergies: Coded Allergies: CEFTRIAXONE (Verified Allergy, Intermediate, 11/02/17) itchy lips VANCOMYCIN (Verified Allergy, Intermediate, pain and sore throat, itching , 11/02/17) CODEINE (Verified Allergy, Unknown, 08/28/11) MORPHINE (Verified Allergy, Unknown, 11/01/17) NIFEDIPINE (Verified Allergy, Unknown, 01/21/10) CLINDAMYCIN (Verified Adverse Reaction, Intermediate, 11/02/17) diarrhea PENICILLINS (Verified Adverse Reaction, Mild, 11/02/17) nausea and vomiting- tolerates Augmentin, Amoxicillin Objective Last 24 Hour Vital Signs Date Time Temp Pulse Resp B/P (MAP) Pulse Ox O2 Delivery O2 Flow Rate FiO2 11/04/17 12:00 98.4 73 18 146/74 (98) 96 98.4 11/04/17 08:38 129/71 11/04/17 08:38 129/71 11/04/17 08:38 85 129/71 11/04/17 08:30 Room Air 11/04/17 08:00 98.7 85 19 129/71 (90) 92 98.7 11/04/17 04:00 98.5 89 19 129/65 (86) 93 98.5 11/04/17 00:00 98.7 95 19 105/75 (85) 93 98.7 11/03/17 21:00 Room Air 11/03/17 20:00 99.0 93 19 134/76 (95) 90 99.0 11/03/17 17:29 152/98 11/03/17 17:28 88 152/98 11/03/17 16:49 97.8 11/03/17 16:19 97.8 11/03/17 16:00 99.7 88 21 152/98 (116) 95 99.7 11/03/17 13:15 97.8 Intake and Output 11/03/17 11/04/17 19:00 07:00 Intake Total 1230 ml 1060 ml Output Total 200 ml 2300 ml Balance 1030 ml -1240 ml Intake Oral 480 ml 250 ml IV Total 750 ml 810 ml Output Urine Total 200 ml 2300 ml # Voids 1 General Appearance: WD/WN HEENT: normocephalic Respiratory/Chest: chest wall non-tender, normal breath sounds Cardiovascular: normal peripheral pulses, normal rate Abdomen: normal bowel sounds, no organomegaly Extremities: no cyanosis Skin: no lesions Microbiology Date/Time Source Procedure Growth Status 11/02/17 08:45 Blood Blood Culture - Preliminary NO GROWTH AFTER 24 HOURS Resulted 11/02/17 08:30 Blood Blood Culture - Preliminary NO GROWTH AFTER 24 HOURS Resulted 11/02/17 22:55 Urine,Clean Catch Urine Culture - Preliminary NO GROWTH Resulted Laboratory Tests 11/03/17 13:27: Stool Occult Blood Negative 11/04/17 05:43: White Blood Count 7.1, Red Blood Count 4.27L, Hemoglobin 11.2L, Hematocrit 33.7L , Mean Corpuscular Volume 79L, Mean Corpuscular Hemoglobin 26.3L, Mean Corpuscular Hemoglobin Concent 33.3, Red Cell Distribution Width 13.8, Platelet Count 146L, Mean Platelet Volume 8.0, Neutrophils (%) (Auto) 61.6, Lymphocytes ( %) (Auto) 23.4, Monocytes (%) (Auto) 11.2H, Eosinophils (%) (Auto) 2.9, Basophils (%) (Auto) 0.8, Sodium Level 138, Potassium Level 3.9, Chloride Level 103, Carbon Dioxide Level 26, Anion Gap 10, Blood Urea Nitrogen 14, Creatinine 1.5H, Estimat Glomerular Filtration Rate > 60, Glucose Level 93, Calcium Level 8.7 Current Medications Medications (Trade) Dose Ordered Sig/Mile Route PRN Reason Start Time Stop Time Status Last Admin Dose Admin Acetaminophen (Tylenol) 650 mg Q4H PRN ORAL fever 11/01/17 21:30 12/01/17 21:29 11/02/17 08:57 Al Hydroxide/Mg Hydroxide (Mylanta II) 30 ml Q6H PRN ORAL dyspepsia 11/01/17 21:30 12/01/17 21:29 Amlodipine Besylate (Norvasc) 10 mg BID ORAL 11/02/17 09:00 12/02/17 08:59 11/04/17 08:38 Dextrose (Dextrose 50%) STAT PRN IV Hypoglycemia 11/01/17 21:30 12/01/17 21:29 Dextrose (Dextrose 50%) STAT PRN IV Hypoglycemia 11/01/17 21:30 12/01/17 21:29 Diphenhydramine HCl (Benadryl) 25 mg Q6H PRN ORAL Itching/Pruritis 11/01/17 21:30 12/01/17 21:29 11/01/17 23:28 Diphenhydramine HCl (Benadryl) 50 mg Q6H PRN IVP Itching 11/02/17 08:00 12/02/17 07:59 11/04/17 07:33 Docusate Sodium (Colace) 100 mg TWICE A DAY ORAL 11/04/17 09:00 12/04/17 08:59 11/04/17 09:18 Gabapentin (Neurontin) 400 mg QHS ORAL 11/01/17 22:00 12/01/17 21:59 11/03/17 20:28 Heparin Sodium (Porcine) (Heparin 5000 units/ml) 5,000 units EVERY 12 HOURS SUBQ 11/02/17 09:00 12/02/17 08:59 Hydromorphone HCl (Dilaudid) 2 mg EVERY 3 HOURS PRN IVP Severe Pain (Pain Scale 7-10) 11/01/17 21:30 11/08/17 21:29 11/04/17 10:30 Insulin Aspart (NovoLOG) BEFORE MEALS AND HS SUBQ 11/02/17 06:30 12/02/17 06:29 Iron Sucrose 100 mg/Sodium Chloride 60 ml @ 240 mls/hr BEDTIME IVPB 11/02/17 21:00 11/04/17 21:14 11/03/17 20:27 Ketorolac Tromethamine (Toradol 30mg) 30 mg Q6H PRN IV Moderate Pain (Pain Scale 4-6) 11/01/17 21:30 11/06/17 21:29 Lactulose (Cephulac) 10 gm THREE TIMES A DAY ORAL 11/04/17 09:00 12/04/17 08:59 11/04/17 09:18 Levofloxacin (Levaquin) 500 mg DAILY ORAL 11/02/17 12:00 11/09/17 11:59 11/04/17 08:38 Losartan Potassium (Cozaar) 100 mg DAILY ORAL 11/02/17 09:00 12/02/17 08:59 11/04/17 08:38 Metronidazole 100 ml @ 100 mls/hr Q8HR IVPB 11/02/17 14:00 11/09/17 13:59 11/04/17 04:48 Minoxidil (Loniten) 10 mg BID ORAL 11/02/17 09:00 12/02/17 08:59 11/04/17 08:38 Nitroglycerin (Ntg) 0.4 mg Q5M PRN SL Chest Pain 11/01/17 21:30 12/01/17 21:29 Ondansetron HCl (Zofran) 4 mg Q6H PRN IVP Nausea & Vomiting 11/03/17 22:00 12/03/17 21:59 11/04/17 04:54 Pantoprazole (Protonix) 40 mg DAILY ORAL 11/04/17 09:00 12/04/17 08:59 11/04/17 08:38 Polyethylene Glycol (Miralax) 17 gm HSPRN PRN ORAL Constipation 11/01/17 21:30 12/01/17 21:29 Sodium Chloride 1,000 ml @ 50 mls/hr Q20H IV 11/01/17 22:00 12/01/17 21:59 11/04/17 09:20 Temazepam (Restoril) 15 mg HSPRN PRN ORAL Insomnia 11/01/17 21:30 11/08/17 21:29 11/03/17 22:39 Arianne Delgado MD Nov 04, 2017 12:24
[2017-11-04 16:00] VITALS: BP 135/73
[2017-11-04 20:00] VITALS: BP 128/70
[2017-11-04] MEDS: Iron Sucrose 100 MG in NS 55 ML IVPB SCH (21:00)
[2017-11-05] MEDS: HYDROmorphone 1mg/ml Carpuject IVP PRN ×6 (01:04→21:00)
[2017-11-05] MEDS: DiphenhydrAMINE 50mg/ml Inj IVP PRN ×3 (02:46→21:00)
[2017-11-05 04:00] VITALS: BP 140/77
[2017-11-05] MEDS: NovoLOG Insulin Flexpen SUBQ SCH ×4 (06:06→21:00)
[2017-11-05 08:00] VITALS: BP 140/82
[2017-11-05 08:08] LABS: BASOPHILS % (AUTO) 1.1 % (0.0-2.0); EOSINOPHILS % (AUTO) 2.8 % (0.0-3.0); HEMOGLOBIN 11.6 G/DL (14.2-18.0); LYMPHOCYTES % (AUTO) 26.2 % (20.0-45.0); MEAN CORPUSCULAR VOLUME 79 FL (80-99); MONOCYTES % (AUTO) 11.9 % (1.0-10.0); NEUTROPHILS % (AUTO) 58.1 % (45.0-75.0); PLATELET COUNT 182 K/UL (150-450); RED BLOOD COUNT 4.44 M/UL (4.70-6.10); RED CELL DISTRIBUTION WIDTH 13.5 % (11.6-14.8); WHITE BLOOD COUNT 5.8 K/UL (4.8-10.8)
[2017-11-05] MEDS: Heparin 5000 units/ml inj SUBQ SCH ×2 (09:00→21:00)
[2017-11-05 09:14] LABS: ALANINE AMINOTRANSFERASE 30 U/L (12-78); ALBUMIN 3.3 G/DL (3.4-5.0); ALBUMIN/GLOBULIN RATIO 0.7 (1.0-2.7); ALKALINE PHOSPHATASE 105 U/L (46-116); ANION GAP 8 mmol/L (5-15); ASPARTATE AMINO TRANSFERASE 35 U/L (15-37); BILIRUBIN,TOTAL 0.4 MG/DL (0.2-1.0); BLOOD UREA NITROGEN 11 mg/dL (7-18); CALCIUM 8.7 MG/DL (8.5-10.1); CARBON DIOXIDE 27 MMOL/L (21-32); CHLORIDE 103 MMOL/L (98-107); CREATININE 1.4 MG/DL (0.55-1.30); PHOSPHORUS 3.8 MG/DL (2.5-4.9); POTASSIUM 3.8 MMOL/L (3.5-5.1); SODIUM 138 MMOL/L (136-145)
[2017-11-05] MEDS: Minoxidil 10mg tab ORAL SCH ×2 (09:58→18:10)
[2017-11-05] MEDS: Levofloxacin 500mg tab ORAL SCH (09:59)
[2017-11-05] MEDS: Losartan 50mg tab ORAL SCH (09:59)
[2017-11-05] MEDS: Docusate 100mg cap ORAL SCH ×2 (10:00→18:10)
[2017-11-05] MEDS: Lactulose 10gm/15ml UDC ORAL SCH ×3 (10:00→18:00)
--- NOTE | 2017-11-05 11:19 | GI Progress Note ---
Assessment/Plan Problems: (1) Iron deficiency anemia ICD Codes: D50.9 - Iron deficiency anemia, unspecified SNOMED: 55503794 (2) Fatty liver ICD Codes: K76.0 - Fatty (change of) liver, not elsewhere classified SNOMED: 226994406 (3) Diverticulitis ICD Codes: K57.92 - Diverticulitis of intestine, part unspecified, without perforation or abscess without bleeding SNOMED: 112041218 (4) Diabetes mellitus ICD Codes: E11.9 - Type 2 diabetes mellitus without complications SNOMED: 78053677 (5) Abdominal pain ICD Codes: R10.9 - Unspecified abdominal pain SNOMED: 58651534 Qualifiers: Qualified Codes: R10.30 - Lower abdominal pain, unspecified (6) Intractable abdominal pain ICD Codes: R10.9 - Unspecified abdominal pain SNOMED: 64344875, 988195603 Status: stable Status Narrative Discussed with Dr. Sanders. Assessment/Plan abx >> flagyl + cipro 10 days after dc - recommend colonoscopy 2 months after dc date HIDA scan today pain control iron iv advance diet okay for DC per GI standpoint The patient was seen and examined at bedside and all new and available data was reviewed in the patients chart. I agree with the above findings, impression and plan. (Patient seen earlier today. Signature stamp does not reflect patient encounter time.). - Fabiano Sanders MD Subjective Gastrointestinal/Abdominal: Reports: abdominal pain - improved Objective Last 24 Hour Vital Signs Date Time Temp Pulse Resp B/P (MAP) Pulse Ox O2 Delivery O2 Flow Rate FiO2 11/05/17 10:42 98.5 11/05/17 10:12 98.5 11/05/17 09:59 141/89 11/05/17 09:59 80 141/89 11/05/17 09:58 141/89 11/05/17 09:00 Room Air 11/05/17 08:00 98.5 81 18 140/82 (101) 95 98.5 11/05/17 04:00 98.6 85 20 140/77 (98) 93 98.6 11/04/17 21:00 Room Air 11/04/17 20:00 99.3 81 19 128/70 (89) 97 99.3 11/04/17 17:35 135/73 11/04/17 17:35 81 135/73 11/04/17 16:00 99.1 81 19 135/73 (93) 97 99.1 11/04/17 12:00 98.4 73 18 146/74 (98) 96 98.4 Intake and Output 11/04/17 11/05/17 19:00 07:00 Intake Total 1550 ml 600 ml Output Total 1000 ml 1900 ml Balance 550 ml -1300 ml IV Total 550 ml 600 ml Other 1000 ml Output Urine Total 1000 ml 1900 ml # Voids 3 Laboratory Tests Test 11/05/17 07:12 White Blood Count 5.8 K/UL (4.8-10.8) Red Blood Count 4.44 M/UL (4.70-6.10) L Hemoglobin 11.6 G/DL (14.2-18.0) L Hematocrit 35.0 % (42.0-52.0) L Mean Corpuscular Volume 79 FL (80-99) L Mean Corpuscular Hemoglobin 26.0 PG (27.0-31.0) L Mean Corpuscular Hemoglobin Concent 33.0 G/DL (32.0-36.0) Red Cell Distribution Width 13.5 % (11.6-14.8) Platelet Count 182 K/UL (150-450) Mean Platelet Volume 7.4 FL (6.5-10.1) Neutrophils (%) (Auto) 58.1 % (45.0-75.0) Lymphocytes (%) (Auto) 26.2 % (20.0-45.0) Monocytes (%) (Auto) 11.9 % (1.0-10.0) H Eosinophils (%) (Auto) 2.8 % (0.0-3.0) Basophils (%) (Auto) 1.1 % (0.0-2.0) Sodium Level 138 MMOL/L (136-145) Potassium Level 3.8 MMOL/L (3.5-5.1) Chloride Level 103 MMOL/L (98-107) Carbon Dioxide Level 27 MMOL/L (21-32) Anion Gap 8 mmol/L (5-15) Blood Urea Nitrogen 11 mg/dL (7-18) Creatinine 1.4 MG/DL (0.55-1.30) H Estimat Glomerular Filtration Rate > 60 mL/min (>60) Glucose Level 111 MG/DL (74-106) H Calcium Level 8.7 MG/DL (8.5-10.1) Phosphorus Level 3.8 MG/DL (2.5-4.9) Magnesium Level 1.9 MG/DL (1.8-2.4) Total Bilirubin 0.4 MG/DL (0.2-1.0) Aspartate Amino Transf (AST/SGOT) 35 U/L (15-37) Alanine Aminotransferase (ALT/SGPT) 30 U/L (12-78) Alkaline Phosphatase 105 U/L (46-116) Total Protein 7.9 G/DL (6.4-8.2) Albumin 3.3 G/DL (3.4-5.0) L Globulin 4.6 g/dL Albumin/Globulin Ratio 0.7 (1.0-2.7) L Height (Feet): 6 Height (Inches): 2.00 Weight (Pounds): 348 General Appearance: WD/WN, no apparent distress, alert, obese Cardiovascular: normal rate Respiratory/Chest: normal breath sounds, no respiratory distress Abdominal Exam: normal bowel sounds, non tender, soft Extremities: normal range of motion, non-tender Jose R Ram NP Nov 05, 2017 11:19
[2017-11-05 11:48] VITALS: BP_SYST 125; BP_SYST 140; BP_DIAS 76; BP_DIAS 82
--- NOTE | 2017-11-05 13:45 | Pulmonology Progress Note ---
Assessment/Plan Problems: (1) Intractable abdominal pain (2) Fever (3) Colitis (4) CAD (coronary artery disease) (5) Stented coronary artery (6) Right BKA infection (7) Diabetes mellitus Assessment/Plan improving continue abx check cultures symptomatic treatment d/w surgeon advance diet dc planning for am Subjective ROS Limited/Unobtainable: No Constitutional: Reports: no symptoms HEENT: Repors: no symptoms Respiratory: Reports: no symptoms Allergies: Coded Allergies: CEFTRIAXONE (Verified Allergy, Intermediate, 11/02/17) itchy lips VANCOMYCIN (Verified Allergy, Intermediate, pain and sore throat, itching , 11/02/17) CODEINE (Verified Allergy, Unknown, 08/28/11) MORPHINE (Verified Allergy, Unknown, 11/01/17) NIFEDIPINE (Verified Allergy, Unknown, 01/21/10) CLINDAMYCIN (Verified Adverse Reaction, Intermediate, 11/02/17) diarrhea PENICILLINS (Verified Adverse Reaction, Mild, 11/02/17) nausea and vomiting- tolerates Augmentin, Amoxicillin Objective Last 24 Hour Vital Signs Date Time Temp Pulse Resp B/P (MAP) Pulse Ox O2 Delivery O2 Flow Rate FiO2 11/05/17 11:48 98.5 81 18 125/76 (92) 95 98.5 11/05/17 10:42 98.5 11/05/17 10:12 98.5 11/05/17 09:59 141/89 11/05/17 09:59 80 141/89 11/05/17 09:58 141/89 11/05/17 09:00 Room Air 11/05/17 08:00 98.5 81 18 140/82 (101) 95 98.5 11/05/17 04:00 98.6 85 20 140/77 (98) 93 98.6 11/04/17 21:00 Room Air 11/04/17 20:00 99.3 81 19 128/70 (89) 97 99.3 11/04/17 17:35 135/73 11/04/17 17:35 81 135/73 11/04/17 16:00 99.1 81 19 135/73 (93) 97 99.1 Intake and Output 11/04/17 11/05/17 19:00 07:00 Intake Total 1550 ml 600 ml Output Total 1000 ml 1900 ml Balance 550 ml -1300 ml IV Total 550 ml 600 ml Other 1000 ml Output Urine Total 1000 ml 1900 ml # Voids 3 General Appearance: WD/WN HEENT: normocephalic, atraumatic Respiratory/Chest: chest wall non-tender, lungs clear Cardiovascular: normal peripheral pulses, normal rate Abdomen: normal bowel sounds, no organomegaly Genitourinary: normal external genitalia Extremities: no clubbing Skin: no rash Microbiology Date/Time Source Procedure Growth Status 11/02/17 22:55 Urine,Clean Catch Urine Culture - Preliminary NO GROWTH AFTER 24 HOURS Resulted Laboratory Tests 11/05/17 07:12: White Blood Count 5.8, Red Blood Count 4.44L, Hemoglobin 11.6L, Hematocrit 35.0L , Mean Corpuscular Volume 79L, Mean Corpuscular Hemoglobin 26.0L, Mean Corpuscular Hemoglobin Concent 33.0, Red Cell Distribution Width 13.5, Platelet Count 182, Mean Platelet Volume 7.4, Neutrophils (%) (Auto) 58.1, Lymphocytes (% ) (Auto) 26.2, Monocytes (%) (Auto) 11.9H, Eosinophils (%) (Auto) 2.8, Basophils (%) (Auto) 1.1, Sodium Level 138, Potassium Level 3.8, Chloride Level 103, Carbon Dioxide Level 27, Anion Gap 8, Blood Urea Nitrogen 11, Creatinine 1.4H, Estimat Glomerular Filtration Rate > 60, Glucose Level 111H, Calcium Level 8.7, Phosphorus Level 3.8, Magnesium Level 1.9, Total Bilirubin 0.4, Aspartate Amino Transf (AST/SGOT) 35, Alanine Aminotransferase (ALT/SGPT) 30, Alkaline Phosphatase 105, Total Protein 7.9, Albumin 3.3L, Globulin 4.6, Albumin /Globulin Ratio 0.7L Current Medications Medications (Trade) Dose Ordered Sig/Mile Route PRN Reason Start Time Stop Time Status Last Admin Dose Admin Acetaminophen (Tylenol) 650 mg Q4H PRN ORAL fever 11/01/17 21:30 12/01/17 21:29 11/02/17 08:57 Al Hydroxide/Mg Hydroxide (Mylanta II) 30 ml Q6H PRN ORAL dyspepsia 11/01/17 21:30 12/01/17 21:29 Amlodipine Besylate (Norvasc) 10 mg BID ORAL 11/02/17 09:00 12/02/17 08:59 11/05/17 09:59 Dextrose (Dextrose 50%) STAT PRN IV Hypoglycemia 11/01/17 21:30 12/01/17 21:29 Dextrose (Dextrose 50%) STAT PRN IV Hypoglycemia 11/01/17 21:30 12/01/17 21:29 Diphenhydramine HCl (Benadryl) 25 mg Q6H PRN ORAL Itching/Pruritis 11/01/17 21:30 12/01/17 21:29 11/01/17 23:28 Diphenhydramine HCl (Benadryl) 50 mg Q6H PRN IVP Itching 11/02/17 08:00 12/02/17 07:59 11/05/17 02:46 Docusate Sodium (Colace) 100 mg TWICE A DAY ORAL 11/04/17 09:00 12/04/17 08:59 11/05/17 10:00 Gabapentin (Neurontin) 400 mg QHS ORAL 11/01/17 22:00 12/01/17 21:59 11/04/17 20:37 Heparin Sodium (Porcine) (Heparin 5000 units/ml) 5,000 units EVERY 12 HOURS SUBQ 11/02/17 09:00 12/02/17 08:59 Hydromorphone HCl (Dilaudid) 2 mg EVERY 3 HOURS PRN IVP Severe Pain (Pain Scale 7-10) 11/01/17 21:30 11/08/17 21:29 11/05/17 10:12 Insulin Aspart (NovoLOG) BEFORE MEALS AND HS SUBQ 11/02/17 06:30 12/02/17 06:29 Ketorolac Tromethamine (Toradol 30mg) 30 mg Q6H PRN IV Moderate Pain (Pain Scale 4-6) 11/01/17 21:30 11/06/17 21:29 Lactulose (Cephulac) 10 gm THREE TIMES A DAY ORAL 11/04/17 09:00 12/04/17 08:59 11/05/17 10:00 Levofloxacin (Levaquin) 500 mg DAILY ORAL 11/02/17 12:00 11/09/17 11:59 11/05/17 09:59 Losartan Potassium (Cozaar) 100 mg DAILY ORAL 11/02/17 09:00 12/02/17 08:59 11/05/17 09:59 Metronidazole 100 ml @ 100 mls/hr Q8HR IVPB 11/02/17 14:00 11/09/17 13:59 11/05/17 05:54 Minoxidil (Loniten) 10 mg BID ORAL 11/02/17 09:00 12/02/17 08:59 11/05/17 09:58 Nitroglycerin (Ntg) 0.4 mg Q5M PRN SL Chest Pain 11/01/17 21:30 12/01/17 21:29 Ondansetron HCl (Zofran) 4 mg Q6H PRN IVP Nausea & Vomiting 11/03/17 22:00 12/03/17 21:59 11/04/17 04:54 Pantoprazole (Protonix) 40 mg DAILY ORAL 11/04/17 09:00 12/04/17 08:59 11/05/17 09:59 Polyethylene Glycol (Miralax) 17 gm HSPRN PRN ORAL Constipation 11/01/17 21:30 12/01/17 21:29 Sodium Chloride 1,000 ml @ 50 mls/hr Q20H IV 11/01/17 22:00 12/01/17 21:59 11/05/17 05:54 Temazepam (Restoril) 15 mg HSPRN PRN ORAL Insomnia 11/01/17 21:30 11/08/17 21:29 11/04/17 20:59 Arianne Delgado MD Nov 05, 2017 13:44
--- NOTE | 2017-11-05 13:58 | General Surgery Progress Note ---
General Surgery-Progress Note Subjective Symptoms: improved, pain absent, tolerating diet, passing flatus, BM Objective Last 24 Hour Vital Signs Date Time Temp Pulse Resp B/P (MAP) Pulse Ox O2 Delivery O2 Flow Rate FiO2 11/05/17 11:48 98.5 81 18 125/76 (92) 95 98.5 11/05/17 10:42 98.5 11/05/17 10:12 98.5 11/05/17 09:59 141/89 11/05/17 09:59 80 141/89 11/05/17 09:58 141/89 11/05/17 09:00 Room Air 11/05/17 08:00 98.5 81 18 140/82 (101) 95 98.5 11/05/17 04:00 98.6 85 20 140/77 (98) 93 98.6 11/04/17 21:00 Room Air 11/04/17 20:00 99.3 81 19 128/70 (89) 97 99.3 11/04/17 17:35 135/73 11/04/17 17:35 81 135/73 11/04/17 16:00 99.1 81 19 135/73 (93) 97 99.1 I&O Intake and Output 11/04/17 11/05/17 19:00 07:00 Intake Total 1550 ml 600 ml Output Total 1000 ml 1900 ml Balance 550 ml -1300 ml IV Total 550 ml 600 ml Other 1000 ml Output Urine Total 1000 ml 1900 ml # Voids 3 Drains: none Cardiovascular: RSR Respiratory: clear Abdomen: soft, flat, non-tender, present bowel sounds Extremities: no tenderness Laboratory Tests Test 11/05/17 07:12 White Blood Count 5.8 K/UL (4.8-10.8) Red Blood Count 4.44 M/UL (4.70-6.10) L Hemoglobin 11.6 G/DL (14.2-18.0) L Hematocrit 35.0 % (42.0-52.0) L Mean Corpuscular Volume 79 FL (80-99) L Mean Corpuscular Hemoglobin 26.0 PG (27.0-31.0) L Mean Corpuscular Hemoglobin Concent 33.0 G/DL (32.0-36.0) Red Cell Distribution Width 13.5 % (11.6-14.8) Platelet Count 182 K/UL (150-450) Mean Platelet Volume 7.4 FL (6.5-10.1) Neutrophils (%) (Auto) 58.1 % (45.0-75.0) Lymphocytes (%) (Auto) 26.2 % (20.0-45.0) Monocytes (%) (Auto) 11.9 % (1.0-10.0) H Eosinophils (%) (Auto) 2.8 % (0.0-3.0) Basophils (%) (Auto) 1.1 % (0.0-2.0) Sodium Level 138 MMOL/L (136-145) Potassium Level 3.8 MMOL/L (3.5-5.1) Chloride Level 103 MMOL/L (98-107) Carbon Dioxide Level 27 MMOL/L (21-32) Anion Gap 8 mmol/L (5-15) Blood Urea Nitrogen 11 mg/dL (7-18) Creatinine 1.4 MG/DL (0.55-1.30) H Estimat Glomerular Filtration Rate > 60 mL/min (>60) Glucose Level 111 MG/DL (74-106) H Calcium Level 8.7 MG/DL (8.5-10.1) Phosphorus Level 3.8 MG/DL (2.5-4.9) Magnesium Level 1.9 MG/DL (1.8-2.4) Total Bilirubin 0.4 MG/DL (0.2-1.0) Aspartate Amino Transf (AST/SGOT) 35 U/L (15-37) Alanine Aminotransferase (ALT/SGPT) 30 U/L (12-78) Alkaline Phosphatase 105 U/L (46-116) Total Protein 7.9 G/DL (6.4-8.2) Albumin 3.3 G/DL (3.4-5.0) L Globulin 4.6 g/dL Albumin/Globulin Ratio 0.7 (1.0-2.7) L Plan Problems: (1) Diverticulitis Assessment & Plan: 47M with acute uncomplicated diverticulitis. Afebrile, HD stable, labs okay. CT with as noted on exam does have left lower quadrant tenderness with rebound and voluntary guarding but no peritonitis or acute abdomen. Exam improved today. Diet as tolerated IV fluids IV abx discharge planning. oral abx for d/c thank you for this consultation. will follow with recs. (2) Abdominal pain Abundio Hernandez Nov 05, 2017 13:58
--- NOTE | 2017-11-05 14:10 | Diagnostic Imaging Report ---
Indication: Abdominal Pain Technique: 5.4 mCi of technetium 99 m-Choletec was injected intravenously. Planar imaging of the abdomen was then performed every 3 minutes up to 60 minutes. Oblique views were also obtained. Findings: There is prompt uptake within the liver with good washout of radiotracer from the liver on subsequent imaging. There is excretion into the biliary ducts. Gallbladder activity is present in a timely fashion indicating patency of the cystic duct. No bowel activity is identified suggesting degree of common bile duct obstruction. IMPRESSION: * No evidence of acute cholecystitis. * No passage of radiotracer into the small bowel suggesting a degree of common bile duct obstruction. Correlate clinically. Consider MRCP or ERCP.
[2017-11-05 15:59] VITALS: BP 124/77
--- NOTE | 2017-11-05 19:17 | Infectious Diseases Prog Note ---
Assessment/Plan Assessment/Plan Assessment: Sepsis, SP Diverticulitis, 11/02 CT: i uncomplicated acute diverticulitis of the distal descending and proximal sigmoid colon -u.a neg; ucx NTD -Bcx NTD -CXR: no acute disease -Abd xray: no acute disease -HIDA scan: * No evidence of acute cholecystitis. No passage of radiotracer into the small bowel suggesting a degree of common bile duct obstruction. Correlate clinically. Consider MRCP or ERCP. -Abd US: Cholelithiasis. Borderline gallbladder wall thickening raises possibility of acute cholecystitis. Correlate with clinical findings, consider nuclear medicine hepatobiliary scan if clinically suspicious Negative for dilated bile ducts. Enlarged liver with increased hepatic echogenicity, most likely fatty change. Probable area of focal sparing in the usual location adjacent to the gallbladder fossa. Incidental finding of bilateral renal cysts. Note nonvisualization of portions of the abdominal aorta ?Biliary obstruction nl WBC Fever, Sp DM2 GERD HTN CAD s/p 3 stents placed last year Multiple abx allergies -?Vanco allergy 11/02- reported sore throat itchiness Plan: -Continue Levaquin and Flagyl ( AB Rx d# ) , ok to discharge on this regimen -11/03 SP Aztreonam #3 - 11/02 Sp IV Vanco #2 -f/u cx -Monitor CBC/CMP, temperatures GenSurg Fup -GI f/u. ?MRCP -Discussed with RN and Dr Delgado. Subjective Allergies: Coded Allergies: CEFTRIAXONE (Verified Allergy, Intermediate, 11/02/17) itchy lips VANCOMYCIN (Verified Allergy, Intermediate, pain and sore throat, itching , 11/02/17) CODEINE (Verified Allergy, Unknown, 08/28/11) MORPHINE (Verified Allergy, Unknown, 11/01/17) NIFEDIPINE (Verified Allergy, Unknown, 01/21/10) CLINDAMYCIN (Verified Adverse Reaction, Intermediate, 11/02/17) diarrhea PENICILLINS (Verified Adverse Reaction, Mild, 11/02/17) nausea and vomiting- tolerates Augmentin, Amoxicillin Objective Vital Signs Last 24 Hour Vital Signs Date Time Temp Pulse Resp B/P (MAP) Pulse Ox O2 Delivery O2 Flow Rate FiO2 11/05/17 18:10 124/77 11/05/17 18:10 78 124/77 11/05/17 15:59 78 19 124/77 (93) 95 11/05/17 11:48 98.5 81 18 125/76 (92) 95 98.5 11/05/17 10:42 98.5 11/05/17 10:12 98.5 11/05/17 09:59 141/89 11/05/17 09:59 80 141/89 11/05/17 09:58 141/89 11/05/17 09:00 Room Air 11/05/17 08:00 98.5 81 18 140/82 (101) 95 98.5 11/05/17 04:00 98.6 85 20 140/77 (98) 93 98.6 11/04/17 21:00 Room Air 11/04/17 20:00 99.3 81 19 128/70 (89) 97 99.3 Height (Feet): 6 Height (Inches): 2.00 Weight (Pounds): 348 Microbiology Date/Time Source Procedure Growth Status 11/02/17 22:55 Urine,Clean Catch Urine Culture - Preliminary NO GROWTH AFTER 24 HOURS Resulted Laboratory Tests Test 11/05/17 07:12 White Blood Count 5.8 K/UL (4.8-10.8) Red Blood Count 4.44 M/UL (4.70-6.10) L Hemoglobin 11.6 G/DL (14.2-18.0) L Hematocrit 35.0 % (42.0-52.0) L Mean Corpuscular Volume 79 FL (80-99) L Mean Corpuscular Hemoglobin 26.0 PG (27.0-31.0) L Mean Corpuscular Hemoglobin Concent 33.0 G/DL (32.0-36.0) Red Cell Distribution Width 13.5 % (11.6-14.8) Platelet Count 182 K/UL (150-450) Mean Platelet Volume 7.4 FL (6.5-10.1) Neutrophils (%) (Auto) 58.1 % (45.0-75.0) Lymphocytes (%) (Auto) 26.2 % (20.0-45.0) Monocytes (%) (Auto) 11.9 % (1.0-10.0) H Eosinophils (%) (Auto) 2.8 % (0.0-3.0) Basophils (%) (Auto) 1.1 % (0.0-2.0) Sodium Level 138 MMOL/L (136-145) Potassium Level 3.8 MMOL/L (3.5-5.1) Chloride Level 103 MMOL/L (98-107) Carbon Dioxide Level 27 MMOL/L (21-32) Anion Gap 8 mmol/L (5-15) Blood Urea Nitrogen 11 mg/dL (7-18) Creatinine 1.4 MG/DL (0.55-1.30) H Estimat Glomerular Filtration Rate > 60 mL/min (>60) Glucose Level 111 MG/DL (74-106) H Calcium Level 8.7 MG/DL (8.5-10.1) Phosphorus Level 3.8 MG/DL (2.5-4.9) Magnesium Level 1.9 MG/DL (1.8-2.4) Total Bilirubin 0.4 MG/DL (0.2-1.0) Aspartate Amino Transf (AST/SGOT) 35 U/L (15-37) Alanine Aminotransferase (ALT/SGPT) 30 U/L (12-78) Alkaline Phosphatase 105 U/L (46-116) Total Protein 7.9 G/DL (6.4-8.2) Albumin 3.3 G/DL (3.4-5.0) L Globulin 4.6 g/dL Albumin/Globulin Ratio 0.7 (1.0-2.7) L Current Medications Medications (Trade) Dose Ordered Sig/Mile Route PRN Reason Start Time Stop Time Status Last Admin Dose Admin Acetaminophen (Tylenol) 650 mg Q4H PRN ORAL fever 11/01/17 21:30 12/01/17 21:29 11/02/17 08:57 Al Hydroxide/Mg Hydroxide (Mylanta II) 30 ml Q6H PRN ORAL dyspepsia 11/01/17 21:30 12/01/17 21:29 Amlodipine Besylate (Norvasc) 10 mg BID ORAL 11/02/17 09:00 12/02/17 08:59 11/05/17 18:10 Dextrose (Dextrose 50%) STAT PRN IV Hypoglycemia 11/01/17 21:30 12/01/17 21:29 Dextrose (Dextrose 50%) STAT PRN IV Hypoglycemia 11/01/17 21:30 12/01/17 21:29 Diphenhydramine HCl (Benadryl) 25 mg Q6H PRN ORAL Itching/Pruritis 11/01/17 21:30 12/01/17 21:29 11/01/17 23:28 Diphenhydramine HCl (Benadryl) 50 mg Q6H PRN IVP Itching 11/02/17 08:00 12/02/17 07:59 11/05/17 14:03 Docusate Sodium (Colace) 100 mg TWICE A DAY ORAL 11/04/17 09:00 12/04/17 08:59 11/05/17 18:10 Gabapentin (Neurontin) 400 mg QHS ORAL 11/01/17 22:00 12/01/17 21:59 11/04/17 20:37 Heparin Sodium (Porcine) (Heparin 5000 units/ml) 5,000 units EVERY 12 HOURS SUBQ 11/02/17 09:00 12/02/17 08:59 Hydromorphone HCl (Dilaudid) 2 mg EVERY 3 HOURS PRN IVP Severe Pain (Pain Scale 7-10) 11/01/17 21:30 11/08/17 21:29 11/05/17 18:10 Insulin Aspart (NovoLOG) BEFORE MEALS AND HS SUBQ 11/02/17 06:30 12/02/17 06:29 Ketorolac Tromethamine (Toradol 30mg) 30 mg Q6H PRN IV Moderate Pain (Pain Scale 4-6) 11/01/17 21:30 11/06/17 21:29 Lactulose (Cephulac) 10 gm THREE TIMES A DAY ORAL 11/04/17 09:00 12/04/17 08:59 11/05/17 10:00 Levofloxacin (Levaquin) 500 mg DAILY ORAL 11/02/17 12:00 11/09/17 11:59 11/05/17 09:59 Losartan Potassium (Cozaar) 100 mg DAILY ORAL 11/02/17 09:00 12/02/17 08:59 11/05/17 09:59 Metronidazole 100 ml @ 100 mls/hr Q8HR IVPB 11/02/17 14:00 11/09/17 13:59 11/05/17 14:02 Minoxidil (Loniten) 10 mg BID ORAL 11/02/17 09:00 12/02/17 08:59 11/05/17 18:10 Nitroglycerin (Ntg) 0.4 mg Q5M PRN SL Chest Pain 11/01/17 21:30 12/01/17 21:29 Ondansetron HCl (Zofran) 4 mg Q6H PRN IVP Nausea & Vomiting 11/03/17 22:00 12/03/17 21:59 11/04/17 04:54 Pantoprazole (Protonix) 40 mg DAILY ORAL 11/04/17 09:00 12/04/17 08:59 11/05/17 09:59 Polyethylene Glycol (Miralax) 17 gm HSPRN PRN ORAL Constipation 11/01/17 21:30 12/01/17 21:29 Sodium Chloride 1,000 ml @ 50 mls/hr Q20H IV 11/01/17 22:00 12/01/17 21:59 11/05/17 05:54 Temazepam (Restoril) 15 mg HSPRN PRN ORAL Insomnia 11/01/17 21:30 11/08/17 21:29 11/04/17 20:59 Shawna Escobar M.D. Nov 05, 2017 19:17
[2017-11-05 20:00] VITALS: BP 143/79
[2017-11-05] MEDS: metroNIDAZOLE 500mg tab ORAL SCH (21:13)
[2017-11-06] MEDS: HYDROmorphone 1mg/ml Carpuject IVP PRN ×3 (00:36→06:40)
[2017-11-06] MEDS: DiphenhydrAMINE 50mg/ml Inj IVP PRN (03:55)
[2017-11-06 04:00] VITALS: BP 124/85
[2017-11-06] MEDS: NovoLOG Insulin Flexpen SUBQ SCH (06:29)
[2017-11-06] MEDS: metroNIDAZOLE 500mg tab ORAL SCH (06:39)
[2017-11-06] MEDS ORDERED: LEVAQUIN500 MG ORAL (07:55)
[2017-11-06] MEDS ORDERED: METRONIDAZOLE500 MG ORAL (07:55)
[2017-11-06 08:00] VITALS: BP 152/83
[2017-11-06] MEDS ORDERED: ISOSORBIDE MONO60 M1 PO (08:29)
[2017-11-06] MEDS ORDERED: PLAVIX75 MG ORAL (08:29)
[2017-11-06] MEDS ORDERED: GLUCOTROL5 MG ORAL (08:29)
[2017-11-06] MEDS ORDERED: ASPIRIN81 MG ORAL (08:29)
[2017-11-06] MEDS: Heparin 5000 units/ml inj SUBQ SCH (08:56)
[2017-11-06] MEDS: Losartan 50mg tab ORAL SCH (09:03)
[2017-11-06 09:04] VITALS: BP 152/83
[2017-11-06] MEDS: Minoxidil 10mg tab ORAL SCH (09:04)
[2017-11-06] MEDS: Lactulose 10gm/15ml UDC ORAL SCH (09:04)
[2017-11-06] MEDS: Levofloxacin 500mg tab ORAL SCH (09:04)
[2017-11-06] MEDS: Docusate 100mg cap ORAL SCH (09:04)
[2017-11-06] MEDS ORDERED: NORCO 10-325 T1 EACH ORAL (10:52)
--- NOTE | 2017-11-06 12:16 | Pulmonology Progress Note ---
Assessment/Plan Problems: (1) Intractable abdominal pain (2) Fever (3) Colitis (4) CAD (coronary artery disease) (5) Stented coronary artery (6) Right BKA infection (7) Diabetes mellitus Assessment/Plan improving continue abx check cultures symptomatic treatment d/w surgeon advance diet dc planning for today prescription for [place] given and All medications and treatment were reviewed.delivered Subjective ROS Limited/Unobtainable: No Constitutional: Reports: no symptoms HEENT: Repors: no symptoms Respiratory: Reports: no symptoms Cardiovascular: Reports: no symptoms Allergies: Coded Allergies: CEFTRIAXONE (Verified Allergy, Intermediate, 11/02/17) itchy lips VANCOMYCIN (Verified Allergy, Intermediate, pain and sore throat, itching , 11/02/17) CODEINE (Verified Allergy, Unknown, 08/28/11) MORPHINE (Verified Allergy, Unknown, 11/01/17) NIFEDIPINE (Verified Allergy, Unknown, 01/21/10) CLINDAMYCIN (Verified Adverse Reaction, Intermediate, 11/02/17) diarrhea PENICILLINS (Verified Adverse Reaction, Mild, 11/02/17) nausea and vomiting- tolerates Augmentin, Amoxicillin Objective Last 24 Hour Vital Signs Date Time Temp Pulse Resp B/P (MAP) Pulse Ox O2 Delivery O2 Flow Rate FiO2 11/06/17 09:04 152/83 11/06/17 09:04 72 152/83 11/06/17 09:03 152/83 11/06/17 09:00 Room Air 11/06/17 08:00 98.5 72 18 152/83 (106) 91 98.5 11/06/17 04:00 98.2 79 20 124/85 (98) 93 98.2 11/05/17 21:00 Room Air 11/05/17 20:00 98.2 80 20 143/79 (100) 94 98.2 11/05/17 18:40 98.5 11/05/17 18:10 124/77 11/05/17 18:10 78 124/77 11/05/17 15:59 78 19 124/77 (93) 95 Intake and Output 11/05/17 11/06/17 19:00 07:00 Intake Total 1400 ml 550 ml Output Total 850 ml 2050 ml Balance 550 ml -1500 ml IV Total 600 ml 550 ml Other 800 ml Output Urine Total 850 ml 2050 ml General Appearance: WD/WN HEENT: normocephalic, atraumatic Respiratory/Chest: chest wall non-tender, lungs clear Cardiovascular: normal peripheral pulses, normal rate, regular rhythm Abdomen: normal bowel sounds Genitourinary: normal external genitalia Extremities: no cyanosis Skin: no rash 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
--- NOTE | 2017-11-06 14:26 | GI Progress Note ---
Assessment/Plan Problems: (1) Iron deficiency anemia ICD Codes: D50.9 - Iron deficiency anemia, unspecified SNOMED: 21804452 (2) Fatty liver ICD Codes: K76.0 - Fatty (change of) liver, not elsewhere classified SNOMED: 613153468 (3) Diverticulitis ICD Codes: K57.92 - Diverticulitis of intestine, part unspecified, without perforation or abscess without bleeding SNOMED: 239548294 (4) Diabetes mellitus ICD Codes: E11.9 - Type 2 diabetes mellitus without complications SNOMED: 42158040 (5) Abdominal pain ICD Codes: R10.9 - Unspecified abdominal pain SNOMED: 91097469 Qualifiers: Qualified Codes: R10.30 - Lower abdominal pain, unspecified (6) Intractable abdominal pain ICD Codes: R10.9 - Unspecified abdominal pain SNOMED: 74108233, 812331027 Status: stable Status Narrative Discussed with Dr. Sanders. Assessment/Plan abx >> flagyl + cipro 10 days after dc - recommend colonoscopy 2 months after dc date pain control iron iv advance diet okay for DC per GI standpoint The patient was seen and examined at bedside and all new and available data was reviewed in the patients chart. I agree with the above findings, impression and plan. (Patient seen earlier today. Signature stamp does not reflect patient encounter time.). - Fabiano Sanders MD Subjective Gastrointestinal/Abdominal: Reports: no symptoms Objective Last 24 Hour Vital Signs Date Time Temp Pulse Resp B/P (MAP) Pulse Ox O2 Delivery O2 Flow Rate FiO2 11/06/17 09:04 152/83 11/06/17 09:04 72 152/83 11/06/17 09:03 152/83 11/06/17 09:00 Room Air 11/06/17 08:00 98.5 72 18 152/83 (106) 91 98.5 11/06/17 04:00 98.2 79 20 124/85 (98) 93 98.2 11/05/17 21:00 Room Air 11/05/17 20:00 98.2 80 20 143/79 (100) 94 98.2 11/05/17 18:40 98.5 11/05/17 18:10 124/77 11/05/17 18:10 78 124/77 7/23/18 15:59 78 19 124/77 (66) 95 Intake and Output 11/05/17 11/06/17 19:00 07:00 Intake Total 1400 ml 550 ml Output Total 850 ml 2050 ml Balance 550 ml -1500 ml IV Total 600 ml 550 ml Other 800 ml Output Urine Total 850 ml 2050 ml Height (Feet): 6 Height (Inches): 2.00 Weight (Pounds): 348 General Appearance: WD/WN, no apparent distress, alert Cardiovascular: normal rate Respiratory/Chest: normal breath sounds, no respiratory distress Abdominal Exam: normal bowel sounds, non tender, soft Extremities: normal range of motion, non-tender Jose R Ram NP Nov 06, 2017 14:26
--- NOTE | 2017-11-07 11:09 | Discharge Summary ---
Discharge Summary Discharge Summary _ DATE OF ADMISSION: 11/01/2017 DATE OF DISCHARGE: 11/06/2017 REASON FOR ADMISSION: 47 years old male with past medical history significant for hypertension, coronary artery disease, status post 3 stents placements last year, diabetes mellitus type 2, GERD, right BKA, presented to emergency department with complaint of intermittent cramping lower abdominal pain for 3 days. Patient quantified pain 9 out of 10 on a scale 1-10. On a day of presentation, symptoms became became more severe and frequent with associated nausea and decreased appetite. Patient denied vomiting , no melena, no hematochezia, no hematuria. Patient denied fever or chills. Patient denied any urinary symptoms . Upon evaluation patient was febrile 102.7. Urinalysis revealed no evidence of UTI, but showed +3 protein. Hemoglobin 12.7,hematocrit 37.5 BUN 14 creatinine 1.8. Stable LFT, bilirubin and lipase. Chest x-ray revealed no acute cardiopulmonary pathology. KUB revealed no evidence of small bowel obstruction. Abdominal ultrasound showed cholelithiasis/ Likely fatty liver. Patient admitted with diagnosis of fever, probable intraabdominal sepsis , colitis, diabetes mellitus, coronary artery disease with history of stents x 3, right BKA. CONSULTANTS: ID specialist Dr. Mccann GI specialist Dr. Sanders surgery Dr. Hernandez [facility] COURSE: Patient admitted. Patient started on IV fluids and empiric antibiotics. CT of the abdomen and pelvis revealed acute uncomplicated diverticulitis of the distal descending and proximal sigmoid colon. It also showed fatty liver, cholelithiasis, splenomegaly. Infectious disease doctor optimized antibiotic regimen. Urine culture was negative, blood culture were negative . Prior to discharge antibiotic changed to oral route to complete the course at home. GI specialist and surgeon closely followed. No need for acute surgical intervention as there was no evidence of small bowel obstruction or free air. Physical examination initially revealed left lower quadrant tenderness with rebound and voluntary guarding, but no peritonitis or acute abdomen. Exam slowly improved as patient was clinically improving with IV antibiotics. Patient slowly started on diet and was advanced as tolerated . Antiemetics provided as needed Symptomatic treatment provided Hemoglobin with small trend down. Prior to discharge hemoglobin 11.6 hematocrit 35. Stool for occult blood was negative. Anemia workup was consistent with anemia of iron deficiency. Patient started on IV Venofer. Hemoglobin and hematocrit were closely monitored with goal to keep hemoglobin above 7. CEA within normal limits. Mild elevation if ESR 44 likely de ot acute infection/acute diverticulitis. Renal parameters and electrolytes were closely monitored , electrolytes were corrected as needed , and nephrotoxins were avoided. Creatinine from initial 1.8 down to 1.4 prior to discharge. Pain management was addressed, and pain was controlled. Patient was able to tolerate diet without nausea. Antiemetics were on board as needed. GI specialist cleared patient for discharge and recommended outpatient colonoscopy 2 months after discharge date. HIDA scan was negative for acute cholecystitis. Blood pressure was managed with calcium channel dany and angiotensin receptor dany, and remained stable. Blood sugar was managed with sliding scale of insulin. DVT and GI prophylaxis provided. Patient was stable for discharge home FINAL DIAGNOSES: Acute diverticulitis Intra-abdominal sepsis Intractable abdominal pain GERD Iron deficiency anemia Fatty liver Splenomegaly Coronary artery disease with history of 3 stents last year Diabetes mellitus type 2 Hypertension Right BKA DISCHARGE MEDICATIONS: See Medication Reconciliation list. DISCHARGE INSTRUCTIONS: Patient was discharged home. Complete oral antibiotics as recommended by infectious disease specialist. Recommended outpatient colonoscopy in 2 months after discharge date I have been assigned to dictate discharge summary for this account. I was not involved in the patient's management. Karla Rosen NP Nov 07, 2017 11:09
== END 2017-11-06 09:30 | disposition home or self-care (01) | DRG 391 ==
LOC: EMR 19:45 → 4E 19:50 → EDBEDREQ 20:18 → EDBEDREQTM 22:24 → EDBEDREQ 22:24
DX: K57.92 Diverticulitis of intestine, part unspecified, without perforation or abscess without bleeding (principal); K65.1 Peritoneal abscess; K21.9 Gastro-esophageal reflux disease without esophagitis; D50.8 Other iron deficiency anemias; K76.0 Fatty (change of) liver, not elsewhere classified; R16.1 Splenomegaly, not elsewhere classified; I25.10 Atherosclerotic heart disease of native coronary artery without angina pectoris; Z95.5 Presence of coronary angioplasty implant and graft; Z89.511 Acquired absence of right leg below knee; Z88.6 Allergy status to analgesic agent; Z88.1 Allergy status to other antibiotic agents; Z88.0 Allergy status to penicillin; Z88.8 Allergy status to other drugs, medicaments and biological substances; K52.9 Noninfective gastroenteritis and colitis, unspecified; I12.9 Hypertensive chronic kidney disease with stage 1 through stage 4 chronic kidney disease, or unspecified chronic kidney disease; E11.22 Type 2 diabetes mellitus with diabetic chronic kidney disease; N18.9 Chronic kidney disease, unspecified
CPT/HCPCS: 36415; 71045; 74018; 74176; 76700; 78266; 80048; 80053; 81001; 81003; 82150; 82270; 82378; 82550; 82607; 82746; 82962; 83036; 83540; 83550; 83615; 83690; 83735; 84100; 84133; 84300; 84443; 84550; 85007; 85025; 85044; 85060; 85610; 85651; 85730; 87040; 87086; 89050; 93971; 99285; J1815; J2405

== ENCOUNTER 2018-01-18 08:33 | Inpatient (IN) | payer BC, MEDICARE ==
[2018-01-18] VITALS (24 sets, daily range): BP systolic 68–122; BP diastolic 34–78
[~2018-01-18] VITALS: Ht 188 cm; Wt 153.5 kg
[~2018-01-18 08:33] MED LIST: AMBIEN10 MG ORAL; ASPIRIN81 MG ORAL; DIOVAN320 MG ORAL; DOCUSATE SODIU100 MG ORAL; FUROSEMIDE20 M1 ORAL; GLIPIZIDE5 MG ORAL; GLUCOTROL5 MG ORAL; ISOSORBIDE MONO60 M1 PO; LEVAQUIN500 MG ORAL; METRONIDAZOLE500 MG ORAL; MINOXIDIL10 MG PO; NEURONTIN400 MG ORAL; NORCO 10-325 T1 EACH ORAL; NORCO 5-325 TA1 EACH ORAL; NORVASC10 MG ORAL; PLAVIX75 MG ORAL; POTASSIUM CHLO20 ME1 ORAL; PROTONIX40 MG ORAL
[2018-01-18] MEDS ORDERED: Isovue-300 100ml vial INJ PRN (09:00)
--- NOTE | 2018-01-18 09:03 | Emergency Room Report ---
History of Present Illness General Chief Complaint: Generalized Weakness Source: Patient, Medical Record Present Illness HPI Mr. Zimmerman is a 48-year-old gentleman with history of hypertension, non-insulin -dependent diabetes, GERD, diverticulitis, HIV, CAD s/p 3 stents, and Right BKA who presents with dizziness blurry vision gait instability. Symptoms began yesterday morning during a new job orientation session. He had sudden onset of blurred vision. He felt lightheadedness. He drank soda which improved the symptoms. Symptoms recurred yesterday afternoon. He then begain to stumble like "drunk man". He went to outside hospital. However, due to long wait, he left before diagnostics were completed. Hospital staff called to inform him of critical values elevated white count 17,000 and hypoglycemia 59. He initially attributed his symptoms to hypoglycemia. However this morning he continued to have blurry vision and stumbling gait. Over the last 2 days he's had poor by mouth intake. He's not felt well. However last 2 days diffuse generalized abdominal cramping intermittent. He attributed symptoms of possible diverticulitis. He had a recent admission this summer for treatment for diverticulitis. 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 He has worked at [facility] [employer] [facility] [employer] for several year. 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 He did take antihypertensives prior to arrival: norvasc, irbesartan and coreg. Mr. Zimmerman also took one gram of Tylenol just prior to coming to ED. Home temp 99.6 F Had fever 102.5 on Sunday after receiving MMR, Tdap and influenza vaccines. PCP Dr. Delgado [facility] PCP Dr. Kyle Saini [facility] I reviewed previous discharge summary from October admission. Allergies: Coded Allergies: CEFTRIAXONE (Verified Allergy, Intermediate, 11/02/17) itchy lips VANCOMYCIN (Verified Allergy, Intermediate, pain and sore throat, itching , 11/02/17) CODEINE (Verified Allergy, Unknown, 08/28/11) MORPHINE (Verified Allergy, Unknown, 11/01/17) NIFEDIPINE (Verified Allergy, Unknown, 01/21/10) CLINDAMYCIN (Verified Adverse Reaction, Intermediate, 11/02/17) diarrhea PENICILLINS (Verified Adverse Reaction, Mild, 11/02/17) nausea and vomiting- tolerates Augmentin, Amoxicillin Patient History Past Surgical History: other - as per HPI and EMR Pertinent Family History: other - Right BKA with prosthesis, hx of osteomyelitis after trauma/fracture Social History: Denies: smoking Social History Narrative partner is here at bedside, Reviewed Nursing Documentation: PMH: Agreed; PSxH: Agreed Nursing Documentation-PMH Past Medical History: No History, Except For Hx Cardiac Problems: Yes - coronary stent Hx Hypertension: Yes Hx Diabetes: Yes Hx Cancer: No Hx Gastrointestinal Problems: Yes Hx Neurological Problems: No Review of Systems Constitutional: Reports: chills, malaise Cardiovascular: Denies: chest pain Gastrointestinal: Reports: abdominal pain Neurological: Reports: other - neck pain All Other Systems: negative except mentioned in HPI Physical Exam Vital Signs Date Time Temp Pulse Resp B/P (MAP) Pulse Ox O2 Delivery O2 Flow Rate FiO2 01/18/18 08:35 102 18 97/47 100 Room Air Sp02 EP Interpretation: reviewed, normal General Appearance: no apparent distress, alert, GCS 15, non-toxic, other - tearful, upset Head: normocephalic, atraumatic Eyes: bilateral eye normal inspection, bilateral eye PERRL ENT: hearing grossly normal, normal pharynx, no angioedema, normal voice Neck: full range of motion, supple/symm/no masses Respiratory: chest non-tender, lungs clear, normal breath sounds, speaking full sentences Cardiovascular #1: regular rate, rhythm, no edema Gastrointestinal: normal bowel sounds, non tender, soft, non-distended, no guarding, no rebound Neurologic: alert, oriented x3, responsive, motor strength/tone normal, SLR negative, sensory intact, cerebellar normal, normal gait - walks with assistance , , speech normal, facial droop, EOM palsy, aphasia, motor weakness, sensory deficit, nystagmus, oriented Psychiatric: judgement/insight normal, memory normal, no suicidal/homicidal ideation, other - tearful, upset Skin: normal color, no rash, warm/dry, well hydrated Lymphatic: no adenopathy Procedures Critical Care Time Critical Care Time 100 minutes of critical care time excluding procedures were used in the care of the patient. I was very concerned for severe hypotension.I reviewed labs and imaging. I reviewed previous electronic medical record. Patient required multiple reassessments and interventions. Medical Decision Making Diagnostic Impression: Primary Impression: Septic shock Additional Impressions: Acute on chronic renal failure ACS (acute coronary syndrome) ER Course Mr. Zimmerman presents with lightheadedness, blurred vision and gait instability. Differential diagnosis includes sepsis, TIA/CVA, hypoglycemia. Patient had mild hypotension noted on vital signs with initial triage. Once he returned from CT scan, he had developed severe hypotension. Immediately ordered IV fluids and Broad specturm antibiotics. He required Meropenem and levaquin with hx of several allergies. With ASIF and normal heart rate, I suspect poor renal clearance of antihypertensives is contributing to hypotension as well has potential sepsis. No chest pain. However, must consider ACS/NSTEMI with elevated troponin. Do not suspect PE at this time. No heart strain or tachycardia on EKG. No dyspnea. Mr. Zimmerman had persistent hypotension without tachycardia while in ED. I appreciate the PICC line team who came to bedside immediately upon request. Patient politely declined CVL. Admitted to service of Dr. Delgado Norepinephrine initiated in ED EKG Diagnostic Results EKG Time: 09:49 EP Interpretation: normal sinus rhythm normal rate normal axis normal intervals Rate: normal Rhythm: NSR ST Segments: no acute changes Other Impression no ST elevation no significant Q waves Chest X-Ray Diagnostic Results Chest X-Ray Diagnostic Results : Chest X-Ray Ordered: Yes # of Views/Limited/Complete: 1 View PA Xray: Interpretation reviewed Interpretation: no consolidation, no effusion, no pneumothorax CT/MRI/US Diagnostic Results CT/MRI/US Diagnostic Results : Impression CT head NAP CT A/P possibly acute diverticulitis Last Vital Signs Date Time Temp Pulse Resp B/P (MAP) Pulse Ox O2 Delivery O2 Flow Rate FiO2 01/18/18 08:35 102 18 97/47 100 Room Air Disposition: ADMITTED INPATIENT Condition: Critical Allison Lerma MD Jan 18, 2018 09:03
--- NOTE | 2018-01-18 09:33 | Diagnostic Imaging Report ---
Indication: Dizziness, weakness Technique: Continuous helical CT scanning of the head was performed without intravenous contrast material. Axial and coronal 5 mm sections were generated. Radiation dose was minimized using automated exposure control Dose: Total Dose Length Product - DLP 1495.[address] Dose Index - CTDIvol(s) 70.38 mGy. Comparison: none Findings: The ventricular system is normal in size and configuration. There is no shift of midline structures. No abnormal extra-axial fluid collections are noted. There is no evidence of intracerebral bleeding. No other abnormal high or low density areas are noted within the brain. Normal jose-white differentiation. Intact calvarium. Visualized orbits and sinuses are unremarkable. The mastoids demonstrate minimal mastoid opacification on the left Impression: Normal CT scan of the head without contrast material. Incidental finding of minimal left mastoid opacification The CT scanner at [facility] is accredited by the [employer] and the scans are performed using protocols designed to limit radiation exposure to as low as reasonably achievable to attain images of sufficient resolution adequate for diagnostic evaluation.
[2018-01-18] MEDS ORDERED: Meropenem 1 GM in NS 55 ML IVPB ONE (09:45)
[2018-01-18 09:54] LABS: HEMATOCRIT 36.3 % (42.0-52.0); HEMOGLOBIN 12.1 G/DL (14.2-18.0); MEAN CORPUSCULAR VOLUME 79 FL (80-99); PLATELET COUNT 151 K/UL (150-450); RED BLOOD COUNT 4.61 M/UL (4.70-6.10); RED CELL DISTRIBUTION WIDTH 14.6 % (11.6-14.8); WHITE BLOOD COUNT 16.4 K/UL (4.8-10.8)
[2018-01-18 10:02] LABS: INR 1.1 (0.9-1.1)
[2018-01-18 10:03] LABS: ANION GAP 11 mmol/L (5-15); BLOOD UREA NITROGEN 41 mg/dL (7-18); CALCIUM 8.7 MG/DL (8.5-10.1); CARBON DIOXIDE 22 MMOL/L (21-32); CHLORIDE 101 MMOL/L (98-107); CREATININE 4.6 MG/DL (0.55-1.30); POTASSIUM 4.1 MMOL/L (3.5-5.1); SODIUM 134 MMOL/L (136-145)
[2018-01-18 10:08] LABS: ALANINE AMINOTRANSFERASE 26 U/L (12-78); ALBUMIN/GLOBULIN RATIO 0.6 (1.0-2.7); ALKALINE PHOSPHATASE 92 U/L (46-116); ASPARTATE AMINO TRANSFERASE 33 U/L (15-37); BILIRUBIN,TOTAL 0.5 MG/DL (0.2-1.0); CHOLESTEROL 172 MG/DL (< 200); HDL CHOLESTEROL 31 MG/DL (40-60); TRIGLYCERIDES 138 MG/DL (30-150)
--- NOTE | 2018-01-18 10:12 | Diagnostic Imaging Report ---
Indication: Chest pain Technique: One view of the chest Comparison: 11/01/2017 Findings: Heart is borderline enlarged. The patient is rotated to the right. The lungs and pleural spaces are clear. There is no significant interim change. Impression: Borderline cardiomegaly. No acute process
[2018-01-18] MEDS ORDERED: NS IVLG ONE (10:15)
[2018-01-18] MEDS ORDERED: Heparin 2000 units/Ns 1000ml INJ ONE (11:15)
[2018-01-18] MEDS ORDERED: Lidocaine 1% Plain 30 ml INJ ONE (11:15)
--- NOTE | 2018-01-18 11:16 | Diagnostic Imaging Report ---
Indication: Abdominal pain Technique: Spiral acquisitions obtained through the abdomen and pelvis. No oral contrast utilized, per emergency room physician request No IV contrast utilized, per referring physician request.. Multiplanar reconstructions were generated. Total dose length product 1177.55 mGycm. CTDIvol(s) 19.75 mGy. Dose reduction achieved using automated exposure control Comparison: 11/02/2017, also 08/28/2011 Findings: Lack of enteric contrast limits assessment of the GI tract. The appendix is normal. There is colonic diverticulosis. There is minimal stranding of the pericolonic fat adjacent to the distal descending colon, much less striking than on the previous study. No small bowel distention. No free or loculated intraperitoneal gas or fluid. Distal esophagus, stomach, duodenum are unremarkable. Lack of IV contrast limits assessment of the solid organs. There is a subcentimeter low-attenuation lesion within the right hepatic lobe which is too small to characterize. No focal abnormality otherwise. There are gallstones. No biliary ductal dilatation. The pancreas is unremarkable. Spleen is enlarged, measuring up to 16 cm long axis dimension. The adrenals are unremarkable. Previously demonstrated 2 cm right renal cyst is barely visible currently. It again demonstrates layering of calcium posteriorly. The left kidney is unremarkable. There are prominent. Retroperitoneal and iliac chain lymph nodes again demonstrated, most appearing similar to the previous exam surgical scarring in the right inguinal region. No pelvic mass or adenopathy. The bladder is nondistended. The included lung bases demonstrate minimal scarring and/or atelectatic changes. The bones demonstrate as well as an earlier exam of 2011. The largest node is a left common iliac node which measures 3.6 cm long axis dimension. This may be slightly increased in size from the prior exam. The bones demonstrate multiple lucencies within the bilateral iliac bones and within the lumbar spine There is surgical scarring in the bilateral inguinal regions again demonstrated. Impression: Limited assessment of the GI tract, due to lack of enteric contrast administration. Colonic diverticulosis. Very subtle slight infiltration of the pericolonic fat adjacent to the distal descending colon, could represent findings of very early acute diverticulitis. However, given presence of more severe acute diverticulitis in this region on the previous exam, this could just represent residual scarring from that. Correlation with clinical findings is recommended. No other acute abnormality Prominent retroperitoneal and bilateral iliac chain nodes are largely similar to previous studies. However, the largest left iliac chain node appears somewhat increased in size since previous study. Significance of this is uncertain, probably reactive Splenomegaly, also previously described Multiple lucencies within the bilateral iliac bones and lumbar spine. Etiology uncertain, but stability since 2012 indicates benignity Cholelithiasis, also previously described Other findings as noted, including basilar pulmonary parenchymal scarring and/or atelectasis, bilateral inguinal surgical scarring The CT scanner at [facility] is accredited by the [employer] and the scans are performed using protocols designed to limit radiation exposure to as low as reasonably achievable to attain images of sufficient resolution adequate for diagnostic evaluation.
[2018-01-18] MEDS ORDERED: Nitroglycerin Subl 0.4mg tab SL PRN (11:45)
[2018-01-18] MEDS ORDERED: Albuterol/Ipratropium 3ml neb HHN PRN (11:45)
[2018-01-18] MEDS ORDERED: Miralax 17gm pkt ORAL PRN (11:45)
[2018-01-18] MEDS ORDERED: Amikacin Rx to dose MISC PRN (11:45)
--- NOTE | 2018-01-18 12:26 | Brief Operative Note ---
Immediate Post Operative Note Operative Note Chief Complaint: hypotension Pre-op Diagnosis: needs IV access Procedure: PICC Post-op Diagnosis: same as pre-op Findings: consistent w/pre-op dx studies Surgeon: Kia REYES Anesthesia: local Specimen: none Complications: none Fluids: none Implant(s) used?: No Celso Reyes MD Jan 18, 2018 12:26
--- NOTE | 2018-01-18 12:27 | Pre-Procedure Note/Attestation ---
Pre-Procedure Note/Attestation Complete Prior to Procedure Planned Procedure: not applicable Procedure Narrative: PICC Indications for Procedure Pre-Operative Diagnosis: needs IV access Attestation I attest that I discussed the nature of the procedure; its benefits; risks and complications; and alternatives (and the risks and benefits of such alternatives ), prior to the procedure, with the patient (or the patient's legal marketing representative). I attest that, if there was a reasonable possibility of needing a blood transfusion, the patient (or the patient's legal marketing representative) was given the [facility] standardized written summary, pursuant to the Cm Thomas Blood Safety Act ([place] Health and Safety Code # 1645, as amended). I attest that I re-evaluated the patient just prior to the surgery and that there has been no change in the patient's H&P, except as documented below: Celso Reyes MD Jan 18, 2018 12:27
--- NOTE | 2018-01-18 12:33 | Diagnostic Imaging Report ---
Indications: Needs long-term IV access Technique: Procedure performed at bedside. Procedural timeout performed. Ultrasound confirms patent compressible left basilic vein. Total sterile technique, including sterile probe cover and sterile gel, sterile gloves, hand hygiene, hat, mask,, sterile gown, large sterile drape, and preparation with 2% chlorhexidine utilized. Local anesthesia with 1% lidocaine. Under real-time ultrasound guidance, puncture basilic vein using 21-gauge needle, passage 0.018 guidewire, exchange for 5 Bengali peel-away sheath. 5 Bengali Bard dual-lumen power PICC cut to 51 cm. It was inserted through the peel-away sheath. Peel-away sheath and guidewire removed. Catheter fixed to the skin. Both catheter ports aspirated and flushed. Patient tolerated procedure well, without immediate complication. Followup chest x-ray obtained, documents catheter tip position at the mid superior vena cava Impression: Successful bedside placement of left arm PICC under sonographic guidance, as described above.
[2018-01-18] MEDS ORDERED: Hydromorphone 0.5mg/0.5ml inj IVP ONE (13:45)
[2018-01-18] MEDS ORDERED: Hydromorphone 0.5mg/0.5ml inj ONE (13:52)
[2018-01-18 13:53] LABS: APPEARANCE,URINE CLEAR; BILIRUBIN, URINE NEGATIVE (NEGATIVE); GLUCOSE, URINE (UA) NEGATIVE (NEGATIVE); KETONES,URINE NEGATIVE (NEGATIVE); LEUKOCYTE ESTERASE ,URINE 1+ (NEGATIVE); NITRITE,URINE NEGATIVE (NEGATIVE); PH,URINE 5 (4.5-8.0); PROTEIN,URINE 2+ (NEGATIVE); UROBILINOGEN,URINE NORMAL MG/DL (0.0-1.0)
[2018-01-18 13:55] LABS: COLOR,URINE YELLOW
--- NOTE | 2018-01-18 14:35 | History and Physical ---
History of Present Illness General Date patient seen: Jan 18, 2018 Reason for Hospitalization: Generalized Weakness Present Illness HPI 48-year-old gentleman with history of hypertension, [id number]-mncnbilhp diabetes, GERD, diverticulitis, CAD s/p 3 stents, and Right BKA who presents with dizziness blurry vision gait instability. He felt lightheadedness. He drank soda which improved the symptoms. Symptoms recurred yesterday afternoon. He ad 2 days diffuse generalized abdominal cramping intermittent. He was hypotensive in the ER with SBP of 60's. He was started on levophed and transferred to ICU. Allergies: Coded Allergies: CEFTRIAXONE (Verified Allergy, Intermediate, 11/02/17) itchy lips VANCOMYCIN (Verified Allergy, Intermediate, pain and sore throat, itching , 11/02/17) CODEINE (Verified Allergy, Unknown, 08/28/11) MORPHINE (Verified Allergy, Unknown, 11/01/17) NIFEDIPINE (Verified Allergy, Unknown, 01/21/10) CLINDAMYCIN (Verified Adverse Reaction, Intermediate, 11/02/17) diarrhea PENICILLINS (Verified Adverse Reaction, Mild, 11/02/17) nausea and vomiting- tolerates Augmentin, Amoxicillin Medication History Scheduled Amlodipine Besylate (Norvasc), 10 MG ORAL BID, (Reported) Aspirin* (Aspirin*), 81 MG ORAL DAILY, (Reported) Clopidogrel Bisulfate* (Plavix*), 75 MG ORAL DAILY, (Reported) Docusate Sodium* (Docusate Sodium*), 100 MG ORAL DAILY, (Reported) Furosemide* (Lasix*), 20 MG ORAL DAILY, (Reported) Gabapentin* (Neurontin*), 400 MG ORAL QHS, (Reported) Glipizide* (Glucotrol*), 2 MG ORAL ACBREAKFAST, (Reported) Isosorbide Mononitrate (Isosorbide Mononitrate Er), 60 MG PO DAILY, (Reported) Levofloxacin* (Levaquin*), 500 MG ORAL DAILY, (Reported) Metronidazole* (Flagyl*), 500 MG ORAL EVERY 8 HOURS, (Reported) Minoxidil* (Loniten*), 10 MG PO BID, (Reported) Pantoprazole* (Protonix*), 40 MG ORAL QHS, (Reported) Potassium Chloride* (K-Dur*), 20 MEQ ORAL DAILY, (Reported) Valsartan (Diovan), 320 MG ORAL DAILY, (Reported) Scheduled PRN Hydrocodone Bit/Acetaminophen 10-325* ([place] 10-325*), 1 TAB ORAL Q6H PRN Hydrocodone Bit/Acetaminophen 5-325* ([place] 5-325*), 1 TAB ORAL Q6H PRN for For Pain, (Reported) Zolpidem Tartrate* (Ambien*), 10 MG ORAL BEDTIME PRN for Insomnia, (Reported) Patient History Healthcare decision maker Resuscitation status Advanced Directive on File Past Medical/Surgical History Past Medical/Surgical History: (1) Stented coronary artery (2) Right BKA infection (3) CAD (coronary artery disease) (4) Diabetes mellitus (5) CRI (chronic renal insufficiency) (6) Fatty liver Review of Systems Constitutional: Reports: sweats, malaise Gastrointestinal: Reports: abdominal pain All Other Systems: negative except mentioned in HPI Physical Exam General Appearance: WD/WN Lines, tubes and drains: peripheral, PICC HEENT: normocephalic, atraumatic Neck: non-tender, normal alignment Respiratory/Chest: chest wall non-tender, lungs clear, normal breath sounds Breasts: no masses Cardiovascular/Chest: normal peripheral pulses Abdomen: normal bowel sounds, non tender Last 24 Hour Vital Signs Date Time Temp Pulse Resp B/P (MAP) Pulse Ox O2 Delivery O2 Flow Rate FiO2 01/18/18 13:48 98.1 01/18/18 13:29 97/57 01/18/18 13:20 98/43 01/18/18 13:20 97/43 01/18/18 13:15 98/43 01/18/18 13:10 92/40 01/18/18 13:05 86/41 01/18/18 13:00 74/34 01/18/18 12:55 77/35 01/18/18 12:55 84 Room Air 98 01/18/18 12:50 80/35 01/18/18 11:22 89 18 75/53 96 Room Air 01/18/18 10:27 98.4 89 16 68/40 92 Room Air 98.4 01/18/18 10:12 98.4 89 17 69/34 92 Room Air 98.4 01/18/18 09:00 98.4 94 21 98.4 01/18/18 08:40 98.4 95 18 73/34 92 Room Air 98.4 01/18/18 08:35 98.4 102 18 97/47 100 Room Air 98.4 Laboratory Tests Test 01/18/18 09:30 01/18/18 09:37 01/18/18 13:30 White Blood Count 16.4 K/UL (4.8-10.8) H Red Blood Count 4.61 M/UL (4.70-6.10) L Hemoglobin 12.1 G/DL (14.2-18.0) L Hematocrit 36.3 % (42.0-52.0) L Mean Corpuscular Volume 79 FL (80-99) L Mean Corpuscular Hemoglobin 26.2 PG (27.0-31.0) L Mean Corpuscular Hemoglobin Concent 33.4 G/DL (32.0-36.0) Red Cell Distribution Width 14.6 % (11.6-14.8) Platelet Count 151 K/UL (150-450) Mean Platelet Volume 8.6 FL (6.5-10.1) Neutrophils (%) (Auto) % (45.0-75.0) Lymphocytes (%) (Auto) % (20.0-45.0) Monocytes (%) (Auto) % (1.0-10.0) Eosinophils (%) (Auto) % (0.0-3.0) Basophils (%) (Auto) % (0.0-2.0) Differential Total Cells Counted 100 Neutrophils % (Manual) 74 % (45-75) Lymphocytes % (Manual) 8 % (20-45) L Monocytes % (Manual) 1 % (1-10) Eosinophils % (Manual) 0 % (0-3) Basophils % (Manual) 0 % (0-2) Band Neutrophils 17 % (0-8) H Platelet Estimate Adequate Platelet Morphology Normal Red Blood Cell Morphology Normal Prothrombin Time 12.0 SEC (9.30-11.50) H Prothromb Time International Ratio 1.1 (0.9-1.1) Activated Partial Thromboplast Time 41 SEC (23-33) H Sodium Level 134 MMOL/L (136-145) L Potassium Level 4.1 MMOL/L (3.5-5.1) Chloride Level 101 MMOL/L (98-107) Carbon Dioxide Level 22 MMOL/L (21-32) Anion Gap 11 mmol/L (5-15) Blood Urea Nitrogen 41 mg/dL (7-18) H Creatinine 4.6 MG/DL (0.55-1.30) H Estimat Glomerular Filtration Rate 16.5 mL/min (>60) Glucose Level 121 MG/DL (74-106) H Calcium Level 8.7 MG/DL (8.5-10.1) Total Bilirubin 0.5 MG/DL (0.2-1.0) Aspartate Amino Transf (AST/SGOT) 33 U/L (15-37) Alanine Aminotransferase (ALT/SGPT) 26 U/L (12-78) Alkaline Phosphatase 92 U/L (46-116) Troponin I 2.458 ng/mL (0.000-0.056) Pro-B-Type Natriuretic Peptide 1716 pg/mL (0-125) H Total Protein 7.8 G/DL (6.4-8.2) Albumin 3.0 G/DL (3.4-5.0) L Globulin 4.8 g/dL Albumin/Globulin Ratio 0.6 (1.0-2.7) L Triglycerides Level 138 MG/DL (30-150) Cholesterol Level 172 MG/DL (< 200) LDL Cholesterol 83 mg/dL (<100) HDL Cholesterol 31 MG/DL (40-60) L Cholesterol/HDL Ratio 5.5 (3.3-4.4) H Lactic Acid Level 1.70 mmol/L (0.4-2.0) Urine Color Yellow Urine Appearance Clear Urine pH 5 (4.5-8.0) Urine Specific [place] 1.010 (1.005-1.035) Urine Protein 2+ (NEGATIVE) H Urine Glucose (UA) Negative (NEGATIVE) Urine Ketones Negative (NEGATIVE) Urine Blood 2+ (NEGATIVE) H Urine Nitrite Negative (NEGATIVE) Urine Bilirubin Negative (NEGATIVE) Urine Urobilinogen Normal MG/DL (0.0-1.0) Urine Leukocyte Esterase 1+ (NEGATIVE) H Urine RBC 2-4 /HPF (0 - 0) H Urine WBC 0-2 /HPF (0 - 0) Urine Squamous Epithelial Cells Occasional /LPF Urine Bacteria Few /HPF (NONE) Microbiology Date/Time Source Procedure Growth Status 01/18/18 13:45 Rectum Received Height (Feet): 6 Height (Inches): 2.00 Weight (Pounds): 326 Medications Current Medications Medications (Trade) Dose Ordered Sig/Mile Route PRN Reason Start Time Stop Time Status Last Admin Dose Admin Acetaminophen (Tylenol) 650 mg Q4H PRN ORAL fever 01/18/18 11:45 02/17/18 11:44 Albuterol/ Ipratropium (Albuterol/ Ipratropium) 3 ml Q4H PRN HHN Shortness of Breath 01/18/18 11:45 01/23/18 11:44 Amikacin Protocol (Amikacin pharmacy to dose) 1 ea DAILY PRN MISC Per rx protocol 01/18/18 11:45 02/17/18 11:44 Amikacin Sulfate 1500 mg/Sodium Chloride 116 ml @ 116 mls/hr ONCE IV 01/18/18 15:00 01/18/18 19:00 Aztreonam 1 gm/ Sodium Chloride 50 ml @ 100 mls/hr EVERY 8 HOURS IVPB 01/18/18 14:00 01/25/18 13:59 Chlorhexidine Gluconate (Michelle-Hex 2%) 1 applic DAILY@2000 TOPIC 01/18/18 20:00 02/17/18 19:59 Dextrose (Dextrose 50%) 25 ml Q30M PRN IV Hypoglycemia 01/18/18 11:45 02/17/18 11:43 Dextrose (Dextrose 50%) 50 ml Q30M PRN IV hypoglycemia 01/18/18 11:45 02/17/18 11:44 Gabapentin (Neurontin) 400 mg QHS ORAL 01/18/18 21:00 02/17/18 20:59 Heparin Sodium (Porcine) (Heparin 5000 units/ml) 5,000 units EVERY 12 HOURS SUBQ 01/18/18 21:00 02/17/18 20:59 Insulin Aspart (NovoLOG) BEFORE MEALS AND HS SUBQ 01/18/18 16:30 02/17/18 16:29 Metronidazole (Flagyl) 500 mg EVERY 8 HOURS ORAL 01/18/18 14:00 01/25/18 13:59 Nitroglycerin (Ntg) 0.4 mg Q5M PRN SL Prn Chest Pain 01/18/18 11:45 02/17/18 11:44 Norepinephrine Bitartrate 4 mg/ Dextrose 250 ml @ 0 mls/hr Q24H IV 01/18/18 12:30 02/17/18 12:29 01/18/18 12:50 Ondansetron HCl (Zofran) 4 mg Q6H PRN IVP Nausea & Vomiting 01/18/18 11:45 02/17/18 11:44 Pantoprazole (Protonix) 40 mg QHS ORAL 01/18/18 21:00 02/17/18 20:59 Polyethylene Glycol (Miralax) 17 gm DAILYPRN PRN ORAL Constipation 01/18/18 11:45 02/17/18 11:44 Temazepam (Restoril) 15 mg HSPRN PRN ORAL Insomnia 01/18/18 11:45 01/25/18 11:44 Assessment/Plan Problem List: (1) Septic shock ICD Codes: A41.9 - Sepsis, unspecified organism; R65.21 - Severe sepsis with septic shock SNOMED: 30646726 (2) Acute on chronic renal failure ICD Codes: N17.9 - Acute kidney failure, unspecified; N18.9 - Chronic kidney disease, unspecified SNOMED: 835220508 (3) CAD (coronary artery disease) ICD Codes: I25.10 - Atherosclerotic heart disease of [place] coronary artery without angina pectoris SNOMED: 80708469 (4) Diabetes mellitus ICD Codes: E11.9 - Type 2 diabetes mellitus without complications SNOMED: 02409284 Assessment/Plan iv fluids iv abx titrate levophed check electrolytes Arianne Delgado MD Jan 18, 2018 14:35
--- NOTE | 2018-01-18 14:49 | Consultation ---
Consult Note Consult Note asked to eval for renal failure HPI Mr. Zimmerman is a 48-year-old gentleman with history of hypertension, non-insulin -dependent diabetes, GERD, diverticulitis, HIV, CAD s/p 3 stents, and Right BKA who presents with dizziness blurry vision gait instability. Symptoms began yesterday morning during a new job orientation session. He had sudden onset of blurred vision. He felt lightheadedness. He drank soda which improved the symptoms. Symptoms recurred yesterday afternoon. He then begain to stumble like "drunk man". He went to outside hospital. However, due to long wait, he left before diagnostics were completed. Hospital staff called to inform him of critical values elevated white count 17,000 and hypoglycemia 59. He initially attributed his symptoms to hypoglycemia. However this morning he continued to have blurry vision and stumbling gait. Over the last 2 days he's had poor by mouth intake. He's not felt well. However last 2 days diffuse generalized abdominal cramping intermittent. He attributed symptoms of possible diverticulitis. He had a recent admission this summer for treatment for diverticulitis. 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 He has worked at [employer] [facility] for several year. 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 He did take antihypertensives prior to arrival: norvasc, irbesartan and coreg. Mr. Zimmerman also took one gram of Tylenol just prior to coming to ED. Home temp 99.6 F Had fever 102.5 on Sunday after receiving MMR, Tdap and influenza vaccines. PCP Dr. Delgado [facility] PCP Dr. Kyle Saini [facility] I reviewed previous discharge summary from October admission. Allergies: Coded Allergies: CEFTRIAXONE (Verified Allergy, Intermediate, 11/02/17) itchy lips VANCOMYCIN (Verified Allergy, Intermediate, pain and sore throat, itching , 11/02/17) CODEINE (Verified Allergy, Unknown, 08/28/11) MORPHINE (Verified Allergy, Unknown, 11/01/17) NIFEDIPINE (Verified Allergy, Unknown, 01/21/10) CLINDAMYCIN (Verified Adverse Reaction, Intermediate, 11/02/17) diarrhea PENICILLINS (Verified Adverse Reaction, Mild, 11/02/17) nausea and vomiting- tolerates Augmentin, Amoxicillin Past Surgical History: other - as per HPI and EMR Pertinent Family History: other - Right BKA with prosthesis, hx of osteomyelitis after trauma/fracture Social History: Denies: smoking Social History Narrative partner is here at bedside, Reviewed Nursing Documentation: PMH: Agreed; PSxH: Agreed Past Medical History: No History, Except For Hx Cardiac Problems: Yes - coronary stent Hx Hypertension: Yes Hx Diabetes: Yes Hx Gastrointestinal Problems: Yes seen in ICU interviewed examined Assessment/Plan Septic shock Acute on chronic renal failure DM HTN CAD has 3 stents, High Troponin, cardiac ischemia hold bp meds- Hold nephrotoxics antibiotics fluid management monitor renal parameters monitor BS and BP continue Plavix and nitrates per orders Luis Miguel Darby MD Jan 18, 2018 14:49
[2018-01-18] MEDS ORDERED: Amikacin 1,500 MG in NS 110 ML IV SCH (15:00)
[2018-01-18] MEDS ORDERED: HYDROmorphone 1mg/ml Carpuject IVP PRN (15:15)
[2018-01-18] MEDS: Aztreonam Inj 1 GM in NS 50 ML IVPB SCH ×2 (15:35→22:00)
[2018-01-18] MEDS: metroNIDAZOLE 500mg tab ORAL SCH ×2 (15:35→22:05)
[2018-01-18] MEDS: DiphenhydrAMINE 50mg/ml Inj IVP PRN ×2 (15:51→20:10)
[2018-01-18] MEDS: HYDROmorphone 1mg/ml Carpuject IVP PRN ×2 (15:52→20:10)
[2018-01-18] MEDS ORDERED: Nitroglycerin Patch 0.4mg TDERMAL SCH (16:00)
[2018-01-18] MEDS: NovoLOG Insulin Flexpen SUBQ SCH ×2 (16:30→21:00)
[2018-01-18] MEDS: Potassium Chloride 10 MEQ in NS 1000ml 1,000 ML IV SCH (17:05)
[2018-01-18] MEDS ORDERED: Dyna-Hex 2% Top Sol 2oz TOPIC SCH (20:00)
[2018-01-18] MEDS: Heparin 5000 units/ml inj SUBQ SCH ×2 (21:00→21:29)
[2018-01-18] MEDS ORDERED: Tamsulosin 0.4mg cap ORAL SCH (21:00)
[2018-01-19] VITALS (15 sets, daily range): BP systolic 90–140; BP diastolic 38–90
[2018-01-19] MEDS: HYDROmorphone 1mg/ml Carpuject IVP PRN ×2 (01:45→05:54)
[2018-01-19] MEDS: DiphenhydrAMINE 50mg/ml Inj IVP PRN ×6 (01:45→23:15)
[2018-01-19] MEDS: Potassium Chloride 10 MEQ in NS 1000ml 1,000 ML IV SCH ×3 (01:52→15:56)
[2018-01-19] MEDS: metroNIDAZOLE 500mg tab ORAL SCH ×3 (05:52→21:35)
[2018-01-19] MEDS: Aztreonam Inj 1 GM in NS 50 ML IVPB SCH ×4 (05:53→22:04)
[2018-01-19 05:58] LABS: BASOPHILS % (AUTO) 0.5 % (0.0-2.0); EOSINOPHILS % (AUTO) 0.6 % (0.0-3.0); HEMATOCRIT 32.3 % (42.0-52.0); LYMPHOCYTES % (AUTO) 10.6 % (20.0-45.0); MEAN CORPUSCULAR VOLUME 80 FL (80-99); MONOCYTES % (AUTO) 7.2 % (1.0-10.0); NEUTROPHILS % (AUTO) 81.1 % (45.0-75.0); PLATELET COUNT 140 K/UL (150-450); RED BLOOD COUNT 4.04 M/UL (4.70-6.10); RED CELL DISTRIBUTION WIDTH 14.8 % (11.6-14.8); WHITE BLOOD COUNT 11.6 K/UL (4.8-10.8)
[2018-01-19 06:22] LABS: CREATINE KINASE 334 U/L (26-308); GAMMA GLUTAMYL TRANSPEPTIDASE 77 U/L (5-85); PHOSPHORUS 3.3 MG/DL (2.5-4.9)
[2018-01-19] MEDS: NovoLOG Insulin Flexpen SUBQ SCH ×4 (06:30→21:00)
[2018-01-19] MEDS: Heparin 5000 units/ml inj SUBQ SCH ×2 (09:00→21:00)
--- NOTE | 2018-01-19 09:13 | Nephrology Progress Note ---
Assessment/Plan Problem List: (1) Acute on chronic renal failure (2) Septic shock (3) Sepsis (4) Diabetes mellitus (5) CAD (coronary artery disease) (6) Right BKA infection Assessment Septic shock Acute on chronic renal failure DM HTN CAD has 3 stents, High Troponin, cardiac ischemia Plan labs pending hold bp meds- Hold nephrotoxics antibiotics fluid management monitor renal parameters monitor BS and BP continue Plavix and nitrates and beta blockers per orders Subjective ROS Limited/Unobtainable: No Constitutional: Reports: malaise, other - stronger Objective Objective Last 24 Hour Vital Signs Date Time Temp Pulse Resp B/P (MAP) Pulse Ox O2 Delivery O2 Flow Rate FiO2 01/19/18 08:00 99.0 22 122/77 (92) 99 99.0 01/19/18 08:00 Room Air 01/19/18 07:00 95 22 131/65 (87) 100 01/19/18 06:00 101 21 104/49 (67) 97 01/19/18 05:00 101 21 101/49 (66) 97 01/19/18 04:00 100 01/19/18 04:00 99.0 100 24 101/47 (65) 97 99.0 01/19/18 04:00 Room Air 01/19/18 03:00 100 24 101/47 (65) 96 01/19/18 02:00 104 27 109/61 (77) 97 01/19/18 01:00 105 25 109/49 (69) 97 01/19/18 00:00 Room Air 01/19/18 00:00 99.2 101 26 90/38 (55) 97 99.2 01/19/18 00:00 110/58 01/18/18 23:00 103 29 111/51 (71) 95 01/18/18 23:00 111/51 01/18/18 22:30 100 26 121/59 (79) 95 01/18/18 22:00 94/55 01/18/18 22:00 107 27 94/55 (68) 95 01/18/18 21:30 105 27 113/61 (78) 95 01/18/18 21:00 122/78 01/18/18 21:00 106 28 122/78 (93) 96 01/18/18 20:30 103 28 115/68 (84) 96 01/18/18 20:00 105 01/18/18 20:00 106/58 01/18/18 20:00 99.0 105 24 106/58 (74) 95 99.0 01/18/18 20:00 Room Air 01/18/18 19:00 105 24 115/60 (78) 95 01/18/18 19:00 113/57 01/18/18 18:30 101 24 115/60 (78) 94 01/18/18 18:00 101 26 115/60 (78) 95 01/18/18 18:00 115/60 01/18/18 17:45 101 31 110/64 (79) 94 01/18/18 17:30 100 24 104/65 (78) 95 01/18/18 17:15 102 31 95/74 (81) 94 01/18/18 17:00 101 23 102/53 (69) 94 01/18/18 17:00 102/53 01/18/18 16:30 100 21 121/61 (81) 93 01/18/18 16:00 119/67 01/18/18 16:00 Room Air 01/18/18 16:00 Room Air 01/18/18 16:00 97 23 119/67 (84) 92 01/18/18 15:36 109/53 01/18/18 15:30 93 24 97/54 (68) 94 01/18/18 15:28 83 01/18/18 15:00 97/54 01/18/18 15:00 96 24 109/51 (70) 94 01/18/18 14:20 98.8 89 18 109/53 97 Room Air 98 98.8 01/18/18 14:16 98.8 89 18 109/53 (71) 97 98.8 01/18/18 13:48 98.1 01/18/18 13:29 97/57 01/18/18 13:20 98/43 01/18/18 13:20 97/43 01/18/18 13:15 98/43 01/18/18 13:10 92/40 01/18/18 13:05 86/41 01/18/18 13:00 74/34 01/18/18 12:55 77/35 01/18/18 12:55 84 Room Air 98 01/18/18 12:50 80/35 01/18/18 11:22 89 18 75/53 96 Room Air 01/18/18 10:27 98.4 89 16 68/40 92 Room Air 98.4 01/18/18 10:12 98.4 89 17 69/34 92 Room Air 98.4 Intake and Output 01/18/18 01/19/18 19:00 07:00 Intake Total 5585.0 ml 5770.0 ml Output Total 1800 ml 2440 ml Balance 3785.0 ml 3330.0 ml Intake Oral 150 ml 660 ml IV Total 5435.0 ml 5110.0 ml Output Urine Total 1800 ml 2440 ml Stool Total 0 ml Laboratory Tests 01/18/18 09:30: White Blood Count 16.4H, Red Blood Count 4.61L, Hemoglobin 12.1L, Hematocrit 36.3L, Mean Corpuscular Volume 79L, Mean Corpuscular Hemoglobin 26.2L, Mean Corpuscular Hemoglobin Concent 33.4, Red Cell Distribution Width 14.6, Platelet Count 151, Mean Platelet Volume 8.6, Neutrophils (%) (Auto) , Lymphocytes (%) ( Auto) , Monocytes (%) (Auto) , Eosinophils (%) (Auto) , Basophils (%) (Auto) , Differential Total Cells Counted 100, Neutrophils % (Manual) 74, Lymphocytes % ( Manual) 8L, Monocytes % (Manual) 1, Eosinophils % (Manual) 0, Basophils % ( Manual) 0, Band Neutrophils 17H, Platelet Estimate Adequate, Platelet Morphology Normal, Red Blood Cell Morphology Normal, Prothrombin Time 12.0H, Prothromb Time International Ratio 1.1, Activated Partial Thromboplast Time 41H , Sodium Level 134L, Potassium Level 4.1, Chloride Level 101, Carbon Dioxide Level 22, Anion Gap 11, Blood Urea Nitrogen 41H, Creatinine 4.6H, Estimat Glomerular Filtration Rate 16.5, Glucose Level 121H, Calcium Level 8.7, Total Bilirubin 0.5, Aspartate Amino Transf (AST/SGOT) 33, Alanine Aminotransferase ( ALT/SGPT) 26, Alkaline Phosphatase 92, Troponin I 2.458H, C-Reactive Protein, Quantitative 34.1H, Pro-B-Type Natriuretic Peptide 1716H, Total Protein 7.8, Albumin 3.0L, Globulin 4.8, Albumin/Globulin Ratio 0.6L, Triglycerides Level 138 , Cholesterol Level 172, LDL Cholesterol 83, HDL Cholesterol 31L, Cholesterol/ HDL Ratio 5.5H 01/18/18 09:37: Lactic Acid Level 1.70 01/18/18 13:30: Urine Color Yellow, Urine Appearance Clear, Urine pH 5, Urine Specific [place] 1.010, Urine Protein 2+H, Urine Glucose (UA) Negative, Urine Ketones Negative, Urine Blood 2+H, Urine Nitrite Negative, Urine Bilirubin Negative, Urine Urobilinogen Normal, Urine Leukocyte Esterase 1+H, Urine RBC 2-4H, Urine WBC 0-2 , Urine Squamous Epithelial Cells Occasional, Urine Bacteria Few 01/19/18 04:30: White Blood Count 11.6H, Red Blood Count 4.04L, Hemoglobin 11.0L, Hematocrit 32.3L, Mean Corpuscular Volume 80, Mean Corpuscular Hemoglobin 27.3, Mean Corpuscular Hemoglobin Concent 34.2, Red Cell Distribution Width 14.8, Platelet Count 140L, Mean Platelet Volume 8.5, Neutrophils (%) (Auto) 81.1H, Lymphocytes (%) (Auto) 10.6L, Monocytes (%) (Auto) 7.2, Eosinophils (%) (Auto) 0.6, Basophils (%) (Auto) 0.5, Sodium Level [Pending], Potassium Level [Pending], Chloride Level [Pending], Carbon Dioxide Level [Pending], Blood Urea Nitrogen [ Pending], Creatinine [Pending], Estimat Glomerular Filtration Rate [Pending], Glucose Level [Pending], Calcium Level [Pending], Total Bilirubin [Pending], Aspartate Amino Transf (AST/SGOT) [Pending], Alanine Aminotransferase (ALT/SGPT ) [Pending], Alkaline Phosphatase [Pending], Troponin I 2.092H, C-Reactive Protein, Quantitative [Pending], Pro-B-Type Natriuretic Peptide 757H, Total Protein [Pending], Albumin [Pending], Globulin [Pending], Lactic Acid Level 0.40 , Hemoglobin A1c 5.2, Uric Acid 8.2H, Phosphorus Level 3.3, Magnesium Level 1.7L , Gamma Glutamyl Transpeptidase 77, Total Creatine Kinase 334H, Thyroid Stimulating Hormone (TSH) [Pending] 01/19/18 05:30: Urine Eosinophils [Pending] Height (Feet): 6 Height (Inches): 2.00 Weight (Pounds): 341 General Appearance: no apparent distress Cardiovascular: bradycardia Respiratory/Chest: decreased breath sounds Abdomen: distended Luis Miguel Darby MD Jan 19, 2018 09:13
--- NOTE | 2018-01-19 09:48 | Pulmonolgy Critical Care Note ---
Critical Care - Asmt/Plan Problems: (1) Septic shock (2) Acute on chronic renal failure (3) Diabetes mellitus (4) CAD (coronary artery disease) (5) Right BKA infection Respiratory: monitor respiratory rate, adjust FIO2, CXR Cardiac: continue to monitor HR/BP Renal: F/U I&O Infectious Disease: check cultures Gastrointestinal: hold feedings Endocrine: monitor blood sugar Hematologic: monitor H/H Neurologic: PRN Ativan Affect: PRN ativan Disposition: keep in ICU Notes Reviewed: cardio, renal Discussed with: nurses, consultants, bilingual patient support caseworkereducation manager - Objective Last 24 Hour Vital Signs Date Time Temp Pulse Resp B/P (MAP) Pulse Ox O2 Delivery O2 Flow Rate FiO2 01/19/18 08:00 99.0 22 122/77 (92) 99 99.0 01/19/18 08:00 Room Air 01/19/18 07:00 95 22 131/65 (87) 100 01/19/18 06:00 101 21 104/49 (67) 97 01/19/18 05:00 101 21 101/49 (66) 97 01/19/18 04:00 100 01/19/18 04:00 99.0 100 24 101/47 (65) 97 99.0 01/19/18 04:00 Room Air 01/19/18 03:00 100 24 101/47 (65) 96 01/19/18 02:00 104 27 109/61 (77) 97 01/19/18 01:00 105 25 109/49 (69) 97 01/19/18 00:00 Room Air 01/19/18 00:00 99.2 101 26 90/38 (55) 97 99.2 01/19/18 00:00 110/58 01/18/18 23:00 103 29 111/51 (71) 95 01/18/18 23:00 111/51 01/18/18 22:30 100 26 121/59 (79) 95 01/18/18 22:00 94/55 01/18/18 22:00 107 27 94/55 (68) 95 01/18/18 21:30 105 27 113/61 (78) 95 01/18/18 21:00 122/78 01/18/18 21:00 106 28 122/78 (93) 96 01/18/18 20:30 103 28 115/68 (84) 96 01/18/18 20:00 105 10 20:00 106/58 01/18/18 20:00 99.0 105 24 106/58 (74) 95 99.0 01/18/18 20:00 Room Air 01/18/18 19:00 105 24 115/60 (78) 95 01/18/18 19:00 113/57 01/18/18 18:30 101 24 115/60 (78) 94 01/18/18 18:00 101 26 115/60 (78) 95 01/18/18 18:00 115/60 01/18/18 17:45 101 31 110/64 (79) 94 01/18/18 17:30 100 24 104/65 (78) 95 01/18/18 17:15 102 31 95/74 (81) 94 01/18/18 17:00 101 23 102/53 (69) 94 01/18/18 17:00 102/53 01/18/18 16:30 100 21 121/61 (81) 93 01/18/18 16:00 119/67 01/18/18 16:00 Room Air 01/18/18 16:00 Room Air 01/18/18 16:00 97 23 119/67 (84) 92 01/18/18 15:36 109/53 01/18/18 15:30 93 24 97/54 (68) 94 01/18/18 15:28 83 01/18/18 15:00 97/54 01/18/18 15:00 96 24 109/51 (70) 94 01/18/18 14:20 98.8 89 18 109/53 97 Room Air 98 98.8 01/18/18 14:16 98.8 89 18 109/53 (71) 97 98.8 01/18/18 13:48 98.1 01/18/18 13:29 97/57 01/18/18 13:20 98/43 01/18/18 13:20 97/43 01/18/18 13:15 98/43 01/18/18 13:10 92/40 01/18/18 13:05 86/41 01/18/18 13:00 74/34 01/18/18 12:55 77/35 01/18/18 12:55 84 Room Air 98 01/18/18 12:50 80/35 01/18/18 11:22 89 18 75/53 96 Room Air 01/18/18 10:27 98.4 89 16 68/40 92 Room Air 98.4 01/18/18 10:12 98.4 89 17 69/34 92 Room Air 98.4 Status: awake Condition: improving HEENT: atraumatic Lungs: clear Heart: HR/BP stable Abdomen: soft, active bowel sounds, feeding tube Extremities: edema Micro: Microbiology Date/Time Source Procedure Growth Status 01/18/18 13:45 Rectum Received Accucheck: 75 Critical Care - Subjective ROS Limited/Unobtainable: No Interval Events: doing better, off pressors FI02: 98 I&O: Intake and Output 01/18/18 01/19/18 19:00 07:00 Intake Total 5585.0 ml 5770.0 ml Output Total 1800 ml 2440 ml Balance 3785.0 ml 3330.0 ml Intake Oral 150 ml 660 ml IV Total 5435.0 ml 5110.0 ml Output Urine Total 1800 ml 2440 ml Stool Total 0 ml Labs: Laboratory Tests Test 01/18/18 13:30 01/19/18 04:30 01/19/18 05:30 Urine Color Yellow Urine Appearance Clear Urine pH 5 (4.5-8.0) Urine Specific [place] 1.010 (1.005-1.035) Urine Protein 2+ (NEGATIVE) H Urine Glucose (UA) Negative (NEGATIVE) Urine Ketones Negative (NEGATIVE) Urine Blood 2+ (NEGATIVE) H Urine Nitrite Negative (NEGATIVE) Urine Bilirubin Negative (NEGATIVE) Urine Urobilinogen Normal MG/DL (0.0-1.0) Urine Leukocyte Esterase 1+ (NEGATIVE) H Urine RBC 2-4 /HPF (0 - 0) H Urine WBC 0-2 /HPF (0 - 0) Urine Squamous Epithelial Cells Occasional /LPF Urine Bacteria Few /HPF (NONE) White Blood Count 11.6 K/UL (4.8-10.8) H Red Blood Count 4.04 M/UL (4.70-6.10) L Hemoglobin 11.0 G/DL (14.2-18.0) L Hematocrit 32.3 % (42.0-52.0) L Mean Corpuscular Volume 80 FL (80-99) Mean Corpuscular Hemoglobin 27.3 PG (27.0-31.0) Mean Corpuscular Hemoglobin Concent 34.2 G/DL (32.0-36.0) Red Cell Distribution Width 14.8 % (11.6-14.8) Platelet Count 140 K/UL (150-450) L Mean Platelet Volume 8.5 FL (6.5-10.1) Neutrophils (%) (Auto) 81.1 % (45.0-75.0) H Lymphocytes (%) (Auto) 10.6 % (20.0-45.0) L Monocytes (%) (Auto) 7.2 % (1.0-10.0) Eosinophils (%) (Auto) 0.6 % (0.0-3.0) Basophils (%) (Auto) 0.5 % (0.0-2.0) Sodium Level Pending Potassium Level Pending Chloride Level Pending Carbon Dioxide Level Pending Blood Urea Nitrogen Pending Creatinine Pending Estimat Glomerular Filtration Rate Pending Glucose Level Pending Hemoglobin A1c 5.2 % (4.3-6.0) Lactic Acid Level 0.40 mmol/L (0.4-2.0) Uric Acid 8.2 MG/DL (2.6-7.2) H Calcium Level Pending Phosphorus Level 3.3 MG/DL (2.5-4.9) Magnesium Level 1.7 MG/DL (1.8-2.4) L Total Bilirubin Pending Gamma Glutamyl Transpeptidase 77 U/L (5-85) Aspartate Amino Transf (AST/SGOT) Pending Alanine Aminotransferase (ALT/SGPT) Pending Alkaline Phosphatase Pending Total Creatine Kinase 334 U/L (26-308) H Troponin I 2.092 ng/mL (0.000-0.056) C-Reactive Protein, Quantitative Pending Pro-B-Type Natriuretic Peptide 757 pg/mL (0-125) H Total Protein Pending Albumin Pending Globulin Pending Thyroid Stimulating Hormone (TSH) Pending Urine Eosinophils Pending Arianne Delgado MD Jan 19, 2018 09:48
[2018-01-19 09:56] LABS: ALANINE AMINOTRANSFERASE 23 U/L (12-78); ALBUMIN 2.9 G/DL (3.4-5.0); ALBUMIN/GLOBULIN RATIO 0.6 (1.0-2.7); ALKALINE PHOSPHATASE 86 U/L (46-116); ANION GAP 9 mmol/L (5-15); ASPARTATE AMINO TRANSFERASE 30 U/L (15-37); BILIRUBIN,TOTAL 0.3 MG/DL (0.2-1.0); BLOOD UREA NITROGEN 31 mg/dL (7-18); CALCIUM 8.5 MG/DL (8.5-10.1); CARBON DIOXIDE 23 MMOL/L (21-32); CHLORIDE 106 MMOL/L (98-107); CREATININE 2.6 MG/DL (0.55-1.30); POTASSIUM 4.6 MMOL/L (3.5-5.1); SODIUM 138 MMOL/L (136-145)
[2018-01-19] MEDS ORDERED: Metoprolol Tartrate 12.5mg TAB ORAL ONE (10:00)
[2018-01-19] MEDS ORDERED: Lactulose 20gm/30ml UDC ORAL SCH (13:00)
[2018-01-19] MEDS ORDERED: Nitroglycerin Subl 0.4mg tab SL PRN (14:05)
[2018-01-19] MEDS ORDERED: Albuterol/Ipratropium 3ml neb HHN PRN (15:45)
[2018-01-19] MEDS ORDERED: Potassium Chloride 10 MEQ in NS 1000ml 1,000 ML IV SCH (16:00)
[2018-01-19] MEDS: Lactulose 20gm/30ml UDC ORAL SCH (18:00)
[2018-01-19] MEDS: Dyna-Hex 2% Top Sol 2oz TOPIC SCH (20:14)
[2018-01-19] MEDS ORDERED: Metoprolol Tartrate 12.5mg TAB ORAL SCH (21:00)
[2018-01-19] MEDS: Tamsulosin 0.4mg cap ORAL SCH (21:35)
[2018-01-19] MEDS: Metoprolol Tartrate 12.5mg TAB ORAL SCH (21:35)
[2018-01-20] VITALS: BP 137/87
[2018-01-20] MEDS: DiphenhydrAMINE 50mg/ml Inj IVP PRN ×7 (02:22→22:25)
[2018-01-20] MEDS: Potassium Chloride 10 MEQ in NS 1000ml 1,000 ML IV SCH ×2 (03:06→16:09)
[2018-01-20 04:00] VITALS: BP 153/92
[2018-01-20] MEDS: metroNIDAZOLE 500mg tab ORAL SCH ×3 (05:36→21:24)
[2018-01-20] MEDS: Aztreonam Inj 1 GM in NS 50 ML IVPB SCH ×3 (05:37→21:26)
[2018-01-20 06:28] LABS: BASOPHILS % (AUTO) 1.5 % (0.0-2.0); EOSINOPHILS % (AUTO) 2.8 % (0.0-3.0); HEMATOCRIT 32.6 % (42.0-52.0); LYMPHOCYTES % (AUTO) 24.6 % (20.0-45.0); MEAN CORPUSCULAR VOLUME 81 FL (80-99); MONOCYTES % (AUTO) 9.9 % (1.0-10.0); NEUTROPHILS % (AUTO) 61.2 % (45.0-75.0); PLATELET COUNT 151 K/UL (150-450); RED BLOOD COUNT 4.05 M/UL (4.70-6.10); RED CELL DISTRIBUTION WIDTH 15.2 % (11.6-14.8); WHITE BLOOD COUNT 8.2 K/UL (4.8-10.8)
[2018-01-20] MEDS: NovoLOG Insulin Flexpen SUBQ SCH ×4 (06:30→21:00)
[2018-01-20 07:35] LABS: % IRON SATURATION 30 % (15-50); ALANINE AMINOTRANSFERASE 24 U/L (12-78); ALBUMIN 3.2 G/DL (3.4-5.0); ALBUMIN/GLOBULIN RATIO 0.7 (1.0-2.7); ALKALINE PHOSPHATASE 99 U/L (46-116); ANION GAP 8 mmol/L (5-15); ASPARTATE AMINO TRANSFERASE 27 U/L (15-37); BILIRUBIN,TOTAL 0.3 MG/DL (0.2-1.0); BLOOD UREA NITROGEN 23 mg/dL (7-18); CALCIUM 8.7 MG/DL (8.5-10.1); CARBON DIOXIDE 24 MMOL/L (21-32); CHLORIDE 105 MMOL/L (98-107); CREATININE 1.9 MG/DL (0.55-1.30); FERRITIN 219 NG/ML (8-388); IRON 55 ug/dL (50-175); PHOSPHORUS 3.2 MG/DL (2.5-4.9); POTASSIUM 4.4 MMOL/L (3.5-5.1); SODIUM 136 MMOL/L (136-145); TOTAL IRON BINDING CAPACITY 183 ug/dL (250-450)
[2018-01-20 08:00] VITALS: BP 107/55
[2018-01-20] MEDS: Lactulose 20gm/30ml UDC ORAL SCH ×3 (09:00→18:00)
[2018-01-20] MEDS: Heparin 5000 units/ml inj SUBQ SCH ×2 (09:00→21:00)
[2018-01-20] MEDS: Metoprolol Tartrate 12.5mg TAB ORAL SCH (09:47)
[2018-01-20] MEDS ORDERED: Cathflo Alteplase 2mg Inj INJ ONE (11:00)
[2018-01-20] MEDS ORDERED: Miralax 17gm pkt ORAL PRN (11:45)
[2018-01-20 11:59] VITALS: BP 144/88
--- NOTE | 2018-01-20 13:57 | Nephrology Progress Note ---
Assessment/Plan Problem List: (1) Acute on chronic renal failure (2) Septic shock (3) Sepsis (4) Diabetes mellitus (5) CAD (coronary artery disease) (6) Right BKA infection Assessment Septic shock Acute on chronic renal failure DM HTN CAD has 3 stents, High Troponin, cardiac ischemia Plan add allopurinol- DC IV in am Increase lopressor Nonephrotoxics antibiotics monitor renal parameters monitor BS and BP continue Plavix and nitrates and beta blockers per orders Subjective ROS Limited/Unobtainable: No Constitutional: Reports: malaise Objective Objective Last 24 Hour Vital Signs Date Time Temp Pulse Resp B/P (MAP) Pulse Ox O2 Delivery O2 Flow Rate FiO2 01/20/18 12:44 144/88 01/20/18 11:59 98.1 79 20 144/88 (106) 94 98.1 01/20/18 10:06 Room Air 01/20/18 09:47 94 141/92 01/20/18 08:17 82 20 Room Air 21 01/20/18 08:00 98.4 88 20 107/55 (72) 95 98.4 01/20/18 05:36 153/92 01/20/18 04:00 99.0 89 20 153/92 (112) 94 99.0 01/20/18 00:00 98.9 91 20 137/87 (104) 93 98.9 01/19/18 21:36 140/90 01/19/18 21:35 86 140/90 01/19/18 21:00 Room Air 01/19/18 20:07 86 20 Room Air 21 01/19/18 20:00 97.7 86 20 140/90 (107) 98 97.7 Intake and Output 01/19/18 01/20/18 19:00 07:00 Intake Total 615 ml 1225 ml Output Total 1600 ml 1350 ml Balance -985 ml -125 ml Intake Oral 440 ml 450 ml IV Total 175 ml 775 ml Output Urine Total 1600 ml 1350 ml # Bowel Movements 1 Laboratory Tests 01/20/18 04:30: Urine Eosinophils None seen 01/20/18 05:55: White Blood Count 8.2, Red Blood Count 4.05L, Hemoglobin 11.0L, Hematocrit 32.6L , Mean Corpuscular Volume 81, Mean Corpuscular Hemoglobin 27.1, Mean Corpuscular Hemoglobin Concent 33.6, Red Cell Distribution Width 15.2H, Platelet Count 151, Mean Platelet Volume 8.8, Neutrophils (%) (Auto) 61.2, Lymphocytes (%) (Auto) 24.6, Monocytes (%) (Auto) 9.9, Eosinophils (%) (Auto) 2.8, Basophils (%) (Auto) 1.5, Sodium Level 136, Potassium Level 4.4, Chloride Level 105, Carbon Dioxide Level 24, Anion Gap 8, Blood Urea Nitrogen 23H, Creatinine 1.9H, Estimat Glomerular Filtration Rate 45.7, Glucose Level 104, Uric Acid 7.8H, Calcium Level 8.7, Phosphorus Level 3.2, Magnesium Level 1.9, Iron Level 55, Total Iron Binding Capacity 183L, Percent Iron Saturation 30, Unsaturated Iron Binding 128, Ferritin 219, Total Bilirubin 0.3, Aspartate Amino Transf (AST/SGOT) 27, Alanine Aminotransferase (ALT/SGPT) 24, Alkaline Phosphatase 99, Troponin I 1.391H, Pro-B-Type Natriuretic Peptide 1452H, Total Protein 8.0, Albumin 3.2L, Globulin 4.8, Albumin/Globulin Ratio 0.7L, Vitamin B12 Level 1126H, Folate 13.4 Height (Feet): 6 Height (Inches): 2.00 Weight (Pounds): 343 General Appearance: no apparent distress Cardiovascular: tachycardia - slightly Respiratory/Chest: decreased breath sounds Abdomen: soft Luis Miguel Darby MD Jan 20, 2018 13:57
[2018-01-20] MEDS ORDERED: Allopurinol 100mg Tab ORAL SCH (14:00)
[2018-01-20 16:27] VITALS: BP 148/93
[2018-01-20 20:00] VITALS: BP 166/100
[2018-01-20] MEDS: Tamsulosin 0.4mg cap ORAL SCH (21:24)
[2018-01-20] MEDS: Dyna-Hex 2% Top Sol 2oz TOPIC SCH (21:24)
[2018-01-20] MEDS: Metoprolol 25mg tab ORAL SCH (21:26)
--- NOTE | 2018-01-20 22:26 | Consultation ---
Consult Note Consult Note [id number] HIV ( well cotrolled on Atripla ) CD4 HIV Vl load monisha hold atripla till CrCl improves Naresh Mccann MD Jan 20, 2018 22:26
[2018-01-21] VITALS: BP 159/89
[2018-01-21] MEDS: DiphenhydrAMINE 50mg/ml Inj IVP PRN ×7 (01:35→23:54)
[2018-01-21] MEDS: Potassium Chloride 10 MEQ in NS 1000ml 1,000 ML IV SCH (03:28)
[2018-01-21 04:00] VITALS: BP 136/81
[2018-01-21] MEDS: metroNIDAZOLE 500mg tab ORAL SCH ×3 (05:32→21:29)
[2018-01-21] MEDS: Aztreonam Inj 1 GM in NS 50 ML IVPB SCH ×3 (05:32→21:30)
[2018-01-21] MEDS: NovoLOG Insulin Flexpen SUBQ SCH ×4 (06:30→21:00)
[2018-01-21 06:46] LABS: BASOPHILS % (AUTO) 1.1 % (0.0-2.0); EOSINOPHILS % (AUTO) 2.5 % (0.0-3.0); HEMATOCRIT 30.7 % (42.0-52.0); HEMOGLOBIN 10.3 G/DL (14.2-18.0); LYMPHOCYTES % (AUTO) 25.4 % (20.0-45.0); MEAN CORPUSCULAR VOLUME 80 FL (80-99); MONOCYTES % (AUTO) 11.4 % (1.0-10.0); NEUTROPHILS % (AUTO) 59.6 % (45.0-75.0); PLATELET COUNT 148 K/UL (150-450); RED BLOOD COUNT 3.81 M/UL (4.70-6.10); WHITE BLOOD COUNT 6.9 K/UL (4.8-10.8)
[2018-01-21 07:07] LABS: ALANINE AMINOTRANSFERASE 25 U/L (12-78); ALBUMIN/GLOBULIN RATIO 0.7 (1.0-2.7); ALKALINE PHOSPHATASE 96 U/L (46-116); ANION GAP 9 mmol/L (5-15); ASPARTATE AMINO TRANSFERASE 25 U/L (15-37); BILIRUBIN,TOTAL 0.3 MG/DL (0.2-1.0); BLOOD UREA NITROGEN 19 mg/dL (7-18); CALCIUM 8.6 MG/DL (8.5-10.1); CARBON DIOXIDE 25 MMOL/L (21-32); CHLORIDE 105 MMOL/L (98-107); CREATININE 1.6 MG/DL (0.55-1.30); PHOSPHORUS 3.8 MG/DL (2.5-4.9); POTASSIUM 4.4 MMOL/L (3.5-5.1); SODIUM 139 MMOL/L (136-145)
[2018-01-21 08:00] VITALS: BP 158/94
[2018-01-21] MEDS: Lactulose 20gm/30ml UDC ORAL SCH ×3 (08:56→17:44)
[2018-01-21] MEDS: Imdur 30mg tab ORAL SCH (08:57)
[2018-01-21] MEDS: Metoprolol 25mg tab ORAL SCH ×2 (08:58→20:34)
[2018-01-21] MEDS: Allopurinol 100mg Tab ORAL SCH (08:59)
[2018-01-21] MEDS: Heparin 5000 units/ml inj SUBQ SCH ×2 (08:59→21:00)
--- NOTE | 2018-01-21 09:47 | Cardiology Report ---
APPROVED REPORT EXAM: Two-dimensional and M-mode echocardiogram with Doppler and color Doppler. INDICATION Shortness of breath M-Mode DIMENSIONS IVSd1.6 (0.7-1.1cm)Left Atrium (MM)4.3 (1.6-4.0cm) LVDd4.4 (3.5-5.6cm)Aortic Root3.9 (2.0-3.7cm) PWd1.4 (0.7-1.1cm)Aortic Cusp Exc.2.7 (1.5-2.0cm) LVDs2.5 (2.5-4.0cm) PWs2.1 cm Normal left ventricular chamber size, systolic function and wall motion. Left ventricular ejection fraction estimated to be 60-65 %. Mild left ventricular hypertrophy. No evidence of pericardial effusion. Mild left atrial enlargement. Mild right ventricular enlargement. Right atrial chamber size is within normal limits. Normal aortic valve structure with adequate cusp excursion. Mildly thickened mitral valve leaflets with normal excursion. Mild mitral annulus and aortic root calcification. Normal pulmonic valve structure. Normal tricuspid valve structure. IVC measures at 2.0 cm with physiological collapse, suggestive of increased RA pressure. A color flow and spectral Doppler study was performed and revealed: No aortic insufficiency. Mild mitral regurgitation. Mitral diastolic velocities suggest mild left ventricular diastolic dysfunction (Grade I). Mild tricuspid regurgitation. Tricuspid systolic velocities suggests peak right ventricular systolic pressure of 41 mmHg, consistent with mild pulmonary hypertension. No pulmonic regurgitation present.
[2018-01-21] MEDS ORDERED: Tubing IV Secondary IV ONE (11:05)
[2018-01-21] MEDS ORDERED: NS 275ml ONE (11:05)
[2018-01-21 11:49] VITALS: BP 142/71
--- NOTE | 2018-01-21 12:01 | Nephrology Progress Note ---
Assessment/Plan Problem List: (1) Acute on chronic renal failure (2) Septic shock (3) Sepsis (4) Diabetes mellitus (5) CAD (coronary artery disease) (6) Right BKA infection Assessment Septic shock Acute on chronic renal failure Cr lower DM HTN CAD has 3 stents, High Troponin, declining , cardiac ischemia Plan add allopurinol- DC IV Increase lopressor No nephrotoxics antibiotics monitor renal parameters monitor BS and BP continue Plavix and nitrates and beta blockers adjust pain meds DC planning? per orders Subjective ROS Limited/Unobtainable: No Constitutional: Reports: other - stronger Objective Objective Last 24 Hour Vital Signs Date Time Temp Pulse Resp B/P (MAP) Pulse Ox O2 Delivery O2 Flow Rate FiO2 01/21/18 11:49 98.2 65 20 142/71 (94) 94 98.2 01/21/18 08:58 76 158/94 01/21/18 08:57 158/94 01/21/18 08:00 Room Air 01/21/18 08:00 98.4 76 20 158/94 (115) 94 98.4 01/21/18 05:32 136/81 01/21/18 04:00 99.0 77 20 136/81 (99) 94 99.0 01/21/18 00:00 98.2 79 20 159/89 (112) 95 98.2 01/20/18 21:26 75 166/100 01/20/18 21:25 166/100 01/20/18 21:00 Room Air 01/20/18 20:00 98.1 75 20 166/100 (122) 93 98.1 01/20/18 19:55 76 16 Room Air 21 01/20/18 16:27 98.2 89 22 148/93 (111) 91 98.2 01/20/18 12:44 144/88 Intake and Output 01/20/18 01/21/18 19:00 07:00 Intake Total 800 ml 850 ml Output Total 750 ml 2000 ml Balance 50 ml -1150 ml IV Total 800 ml 850 ml Output Urine Total 750 ml 2000 ml # Voids 2 4 # Bowel Movements 1 Laboratory Tests 01/21/18 00:00: HIV-1 Antibody [Pending], HIV-2 Antibody [Pending] 01/21/18 03:30: HIV (1&2) Antibody Rapid Preliminary positiveH 01/21/18 05:05: Urine Eosinophils None seen 01/21/18 05:55: White Blood Count 6.9, Red Blood Count 3.81L, Hemoglobin 10.3L, Hematocrit 30.7L , Mean Corpuscular Volume 80, Mean Corpuscular Hemoglobin 27.0, Mean Corpuscular Hemoglobin Concent 33.6, Red Cell Distribution Width 15.0H, Platelet Count 148L, Mean Platelet Volume 7.5, Neutrophils (%) (Auto) 59.6, Lymphocytes (%) (Auto) 25.4, Monocytes (%) (Auto) 11.4H, Eosinophils (%) (Auto) 2.5, Basophils (%) (Auto) 1.1, Lymphocytes [Pending], Sodium Level 139, Potassium Level 4.4, Chloride Level 105, Carbon Dioxide Level 25, Anion Gap 9, Blood Urea Nitrogen 19H, Creatinine 1.6H, Estimat Glomerular Filtration Rate 55.8, Glucose Level 121H, Uric Acid 6.9, Calcium Level 8.6, Phosphorus Level 3.8 , Magnesium Level 1.7L, Total Bilirubin 0.3, Aspartate Amino Transf (AST/SGOT) 25, Alanine Aminotransferase (ALT/SGPT) 25, Alkaline Phosphatase 96, Troponin I 1.125H, Total Protein 7.6, Albumin 3.0L, Globulin 4.6, Albumin/Globulin Ratio 0.7L, Percent CD3 Cells [Pending], Absolute CD3 Count [Pending], Percent CD4 Cells [Pending], Absolute CD4 Count [Pending], T-Lymphocyte CD4/CD8 Ratio [ Pending], Percent CD8 Cells [Pending], Absolute CD8 Count [Pending], HIV-1 RNA ( PCR) log10 Value [Pending], HIV-1 RNA Ultraquantitative (PCR) [Pending] Height (Feet): 6 Height (Inches): 2.00 Weight (Pounds): 341 General Appearance: no apparent distress Cardiovascular: normal rate Respiratory/Chest: decreased breath sounds Abdomen: distended Luis Miguel Darby MD Jan 21, 2018 12:01
[2018-01-21] MEDS: HYDROmorphone 1mg/ml Carpuject IVP PRN ×2 (13:15→17:44)
--- NOTE | 2018-01-21 13:42 | Pulmonology Progress Note ---
Assessment/Plan Problems: (1) Septic shock (2) Acute on chronic renal failure (3) CAD (coronary artery disease) (4) Diabetes mellitus Assessment/Plan improving BP better, off pressors cardiology to see sliding scale diabetic diet continue abx as per ID Subjective ROS Limited/Unobtainable: No Interval Events: c/o sharp chest pain Allergies: Coded Allergies: CEFTRIAXONE (Verified Allergy, Intermediate, 11/02/17) itchy lips VANCOMYCIN (Verified Allergy, Intermediate, pain and sore throat, itching , 11/02/17) CODEINE (Verified Allergy, Unknown, 08/28/11) MORPHINE (Verified Allergy, Unknown, 11/01/17) NIFEDIPINE (Verified Allergy, Unknown, 01/21/10) CLINDAMYCIN (Verified Adverse Reaction, Intermediate, 11/02/17) diarrhea PENICILLINS (Verified Adverse Reaction, Mild, 11/02/17) nausea and vomiting- tolerates Augmentin, Amoxicillin Objective Last 24 Hour Vital Signs Date Time Temp Pulse Resp B/P (MAP) Pulse Ox O2 Delivery O2 Flow Rate FiO2 01/21/18 13:15 65 142/71 01/21/18 11:49 98.2 65 20 142/71 (94) 94 98.2 01/21/18 08:58 76 158/94 01/21/18 08:57 158/94 01/21/18 08:00 Room Air 01/21/18 08:00 98.4 76 20 158/94 (115) 94 98.4 01/21/18 05:32 136/81 01/21/18 04:00 99.0 77 20 136/81 (99) 94 99.0 01/21/18 00:00 98.2 79 20 159/89 (112) 95 98.2 01/20/18 21:26 75 166/100 01/20/18 21:25 166/100 01/20/18 21:00 Room Air 01/20/18 20:00 98.1 75 20 166/100 (122) 93 98.1 01/20/18 19:55 76 16 Room Air 21 01/20/18 16:27 98.2 89 22 148/93 (111) 91 98.2 Intake and Output 01/20/18 01/21/18 19:00 07:00 Intake Total 800 ml 850 ml Output Total 750 ml 2000 ml Balance 50 ml -1150 ml IV Total 800 ml 850 ml Output Urine Total 750 ml 2000 ml # Voids 2 4 # Bowel Movements 1 General Appearance: WD/WN HEENT: normocephalic, atraumatic Respiratory/Chest: chest wall non-tender, normal breath sounds Cardiovascular: normal rate Extremities: no cyanosis Skin: no lesions Microbiology Date/Time Source Procedure Growth Status 01/18/18 13:45 Nasal Nares MRSA Culture - Final NO METHICILLIN RESISTANT STAPH AUREUS... Complete 01/18/18 13:45 Rectum - Final NO CARBAPENEM-RESISTANT ENTEROBACTERI... Complete 01/18/18 13:45 Rectum VRE Culture - Final NO VANCOMYCIN RESISTANT ENTEROCOCCUS ... Complete Laboratory Tests 01/21/18 00:00: HIV-1 Antibody [Pending], HIV-2 Antibody [Pending] 01/21/18 03:30: HIV (1&2) Antibody Rapid Preliminary positiveH 01/21/18 05:05: Urine Eosinophils None seen 01/21/18 05:55: White Blood Count 6.9, Red Blood Count 3.81L, Hemoglobin 10.3L, Hematocrit 30.7L , Mean Corpuscular Volume 80, Mean Corpuscular Hemoglobin 27.0, Mean Corpuscular Hemoglobin Concent 33.6, Red Cell Distribution Width 15.0H, Platelet Count 148L, Mean Platelet Volume 7.5, Neutrophils (%) (Auto) 59.6, Lymphocytes (%) (Auto) 25.4, Monocytes (%) (Auto) 11.4H, Eosinophils (%) (Auto) 2.5, Basophils (%) (Auto) 1.1, Lymphocytes [Pending], Sodium Level 139, Potassium Level 4.4, Chloride Level 105, Carbon Dioxide Level 25, Anion Gap 9, Blood Urea Nitrogen 19H, Creatinine 1.6H, Estimat Glomerular Filtration Rate 55.8, Glucose Level 121H, Uric Acid 6.9, Calcium Level 8.6, Phosphorus Level 3.8 , Magnesium Level 1.7L, Total Bilirubin 0.3, Aspartate Amino Transf (AST/SGOT) 25, Alanine Aminotransferase (ALT/SGPT) 25, Alkaline Phosphatase 96, Troponin I 1.125H, C-Reactive Protein, Quantitative 12.6H, Total Protein 7.6, Albumin 3.0L , Globulin 4.6, Albumin/Globulin Ratio 0.7L, Percent CD3 Cells [Pending], Absolute CD3 Count [Pending], Percent CD4 Cells [Pending], Absolute CD4 Count [ Pending], T-Lymphocyte CD4/CD8 Ratio [Pending], Percent CD8 Cells [Pending], Absolute CD8 Count [Pending], HIV-1 RNA (PCR) log10 Value [Pending], HIV-1 RNA Ultraquantitative (PCR) [Pending] Current Medications Medications (Trade) Dose Ordered Sig/Mile Route PRN Reason Start Time Stop Time Status Last Admin Dose Admin Acetaminophen (Tylenol) 650 mg Q4H PRN ORAL fever 01/19/18 15:45 02/17/18 11:44 Albuterol/ Ipratropium (Albuterol/ Ipratropium) 3 ml Q4H PRN HHN Shortness of Breath 01/19/18 15:45 01/23/18 11:44 Allopurinol (Zyloprim) 200 mg DAILY ORAL 01/21/18 09:00 02/20/18 08:59 01/21/18 08:59 Amlodipine Besylate (Norvasc) 5 mg DAILY ORAL 01/22/18 09:00 02/21/18 08:59 Amlodipine Besylate (Norvasc) 5 mg ONCE ORAL 01/21/18 12:00 01/21/18 14:00 01/21/18 13:15 Aztreonam 1 gm/ Sodium Chloride 50 ml @ 100 mls/hr EVERY 8 HOURS IVPB 01/19/18 14:00 01/25/18 13:59 01/21/18 13:14 Chlorhexidine Gluconate (Michelle-Hex 2%) 1 applic DAILY@2000 TOPIC 01/19/18 20:00 02/17/18 19:59 01/20/18 21:24 Clopidogrel Bisulfate (Plavix) 75 mg DAILY ORAL 01/20/18 09:00 02/17/18 15:05 01/21/18 08:57 Dextrose (Dextrose 50%) 25 ml Q30M PRN IV Hypoglycemia 01/19/18 14:15 02/17/18 11:43 Dextrose (Dextrose 50%) 50 ml Q30M PRN IV hypoglycemia 01/19/18 14:15 02/17/18 11:44 Diphenhydramine HCl (Benadryl) 50 mg Q4H PRN IVP Itching 01/21/18 12:00 11/4/18 08:29 01/21/18 13:15 Gabapentin (Neurontin) 400 mg QHS ORAL 01/19/18 21:00 02/17/18 20:59 01/20/18 21:24 Heparin Sodium (Porcine) (Heparin 5000 units/ml) 5,000 units EVERY 12 HOURS SUBQ 01/19/18 21:00 02/17/18 20:59 Hydromorphone HCl (Dilaudid) 1 mg Q4H PRN IVP For Pain 01/21/18 12:00 01/25/18 15:14 01/21/18 13:15 Insulin Aspart (NovoLOG) BEFORE MEALS AND HS SUBQ 01/19/18 16:30 02/17/18 16:29 Isosorbide Mononitrate (Imdur) 60 mg DAILY ORAL 01/21/18 09:00 02/20/18 08:59 01/21/18 08:57 Lactulose (Cephulac) 30 gm THREE TIMES A DAY ORAL 01/19/18 18:00 02/18/18 12:59 Metoprolol Tartrate (Lopressor) 25 mg Q12HR ORAL 01/20/18 21:00 02/18/18 20:59 01/21/18 08:58 Metronidazole (Flagyl) 500 mg EVERY 8 HOURS ORAL 01/19/18 14:00 01/25/18 13:59 01/21/18 13:14 Nitroglycerin (Ntg) 0.4 mg Q5M PRN SL Prn Chest Pain 01/19/18 14:05 02/17/18 11:44 Ondansetron HCl (Zofran) 4 mg Q6H PRN IVP Nausea & Vomiting 01/19/18 17:45 02/17/18 11:44 Pantoprazole (Protonix) 40 mg QHS ORAL 01/19/18 21:00 02/17/18 20:59 01/20/18 21:24 Polyethylene Glycol (Miralax) 17 gm DAILYPRN PRN ORAL Constipation 01/20/18 11:45 02/17/18 11:44 Tamsulosin HCl (Flomax) 0.4 mg BEDTIME ORAL 01/19/18 21:00 02/17/18 20:59 01/20/18 21:24 Temazepam (Restoril) 15 mg HSPRN PRN ORAL Insomnia 01/19/18 21:30 01/25/18 11:44 01/20/18 21:24 Arianne Delgado MD Jan 21, 2018 13:41
--- NOTE | 2018-01-21 13:58 | Infectious Diseases Prog Note ---
Assessment/Plan Assessment/Plan ASSESSMENT: 1. Status post sepsis and septic shock (question source? Source probably GI tract in view of abdominal discomfort and CT abd with possible early diverticulitis). 2. Leukocytosis, improving. 3. Cardiac enzyme positive. 4. History of hypertension and septic shock. 4. HIV ( well cotrolled on Atripla ) -. Hypertension. -. Diabetes. -. GERD. -. History of diverticulitis. -. History of right BKA. -. History of CAD, status post stent. PLAN: 1. We will continue aztreonam and Flagyl #4 for now 2. Monitor CMP and BMP. 3. Monitor cultures (blood). 4. f/u HIV serology, VL and CD4 -monisha hold atripla till CrCl improves. 5. Based on the results of laboratories, we will do further recommendations. Thank you, Dr. Delgado, for allowing me to participate in the care of this patient. I will follow the patient with you during this hospitalization. Subjective Allergies: Coded Allergies: CEFTRIAXONE (Verified Allergy, Intermediate, 11/02/17) itchy lips VANCOMYCIN (Verified Allergy, Intermediate, pain and sore throat, itching , 11/02/17) CODEINE (Verified Allergy, Unknown, 08/28/11) MORPHINE (Verified Allergy, Unknown, 11/01/17) NIFEDIPINE (Verified Allergy, Unknown, 01/21/10) CLINDAMYCIN (Verified Adverse Reaction, Intermediate, 11/02/17) diarrhea PENICILLINS (Verified Adverse Reaction, Mild, 11/02/17) nausea and vomiting- tolerates Augmentin, Amoxicillin Subjective afebrile leukocytosis resolved Bcx NTD BP stable Cr improving Objective Vital Signs Last 24 Hour Vital Signs Date Time Temp Pulse Resp B/P (MAP) Pulse Ox O2 Delivery O2 Flow Rate FiO2 01/21/18 13:15 65 142/71 01/21/18 11:49 98.2 65 20 142/71 (94) 94 98.2 01/21/18 08:58 76 158/94 01/21/18 08:57 158/94 01/21/18 08:00 Room Air 01/21/18 08:00 98.4 76 20 158/94 (115) 94 98.4 01/21/18 05:32 136/81 01/21/18 04:00 99.0 77 20 136/81 (99) 94 99.0 10/8/18 00:00 98.2 79 20 159/89 (112) 95 98.2 01/20/18 21:26 75 166/100 01/20/18 21:25 166/100 01/20/18 21:00 Room Air 01/20/18 20:00 98.1 75 20 166/100 (122) 93 98.1 01/20/18 19:55 76 16 Room Air 21 01/20/18 16:27 98.2 89 22 148/93 (111) 91 98.2 Height (Feet): 6 Height (Inches): 2.00 Weight (Pounds): 341 Objective General Appearance: WD/WN Lines, tubes and drains: peripheral, PICC HEENT: normocephalic, atraumatic Neck: non-tender, normal alignment Respiratory/Chest: chest wall non-tender, lungs clear, normal breath sounds Breasts: no masses Cardiovascular/Chest: normal peripheral pulses Abdomen: normal bowel sounds, non tender Laboratory Tests Test 01/21/18 00:00 01/21/18 03:30 01/21/18 05:05 01/21/18 05:55 HIV-1 Antibody Pending HIV-2 Antibody Pending HIV (1&2) Antibody Rapid Preliminary positive Urine Eosinophils None seen (NONE SEEN) White Blood Count 6.9 K/UL (4.8-10.8) Red Blood Count 3.81 M/UL (4.70-6.10) L Hemoglobin 10.3 G/DL (14.2-18.0) L Hematocrit 30.7 % (42.0-52.0) L Mean Corpuscular Volume 80 FL (80-99) Mean Corpuscular Hemoglobin 27.0 PG (27.0-31.0) Mean Corpuscular Hemoglobin Concent 33.6 G/DL (32.0-36.0) Red Cell Distribution Width 15.0 % (11.6-14.8) H Platelet Count 148 K/UL (150-450) L Mean Platelet Volume 7.5 FL (6.5-10.1) Neutrophils (%) (Auto) 59.6 % (45.0-75.0) Lymphocytes (%) (Auto) 25.4 % (20.0-45.0) Monocytes (%) (Auto) 11.4 % (1.0-10.0) H Eosinophils (%) (Auto) 2.5 % (0.0-3.0) Basophils (%) (Auto) 1.1 % (0.0-2.0) Lymphocytes Pending Sodium Level 139 MMOL/L (136-145) Potassium Level 4.4 MMOL/L (3.5-5.1) Chloride Level 105 MMOL/L (98-107) Carbon Dioxide Level 25 MMOL/L (21-32) Anion Gap 9 mmol/L (5-15) Blood Urea Nitrogen 19 mg/dL (7-18) H Creatinine 1.6 MG/DL (0.55-1.30) H Estimat Glomerular Filtration Rate 55.8 mL/min (>60) Glucose Level 121 MG/DL (74-106) H Uric Acid 6.9 MG/DL (2.6-7.2) Calcium Level 8.6 MG/DL (8.5-10.1) Phosphorus Level 3.8 MG/DL (2.5-4.9) Magnesium Level 1.7 MG/DL (1.8-2.4) L Total Bilirubin 0.3 MG/DL (0.2-1.0) Aspartate Amino Transf (AST/SGOT) 25 U/L (15-37) Alanine Aminotransferase (ALT/SGPT) 25 U/L (12-78) Alkaline Phosphatase 96 U/L (46-116) Troponin I 1.125 ng/mL (0.000-0.056) C-Reactive Protein, Quantitative 12.6 mg/dL (0.00-0.90) H Total Protein 7.6 G/DL (6.4-8.2) Albumin 3.0 G/DL (3.4-5.0) L Globulin 4.6 g/dL Albumin/Globulin Ratio 0.7 (1.0-2.7) L Percent CD3 Cells Pending Absolute CD3 Count Pending Percent CD4 Cells Pending Absolute CD4 Count Pending T-Lymphocyte CD4/CD8 Ratio Pending Percent CD8 Cells Pending Absolute CD8 Count Pending HIV-1 RNA (PCR) log10 Value Pending HIV-1 RNA Ultraquantitative (PCR) Pending Current Medications Medications (Trade) Dose Ordered Sig/Mile Route PRN Reason Start Time Stop Time Status Last Admin Dose Admin Acetaminophen (Tylenol) 650 mg Q4H PRN ORAL fever 10/6/18 15:45 02/17/18 11:44 Albuterol/ Ipratropium (Albuterol/ Ipratropium) 3 ml Q4H PRN HHN Shortness of Breath 01/19/18 15:45 01/23/18 11:44 Allopurinol (Zyloprim) 200 mg DAILY ORAL 01/21/18 09:00 02/20/18 08:59 01/21/18 08:59 Amlodipine Besylate (Norvasc) 5 mg DAILY ORAL 01/22/18 09:00 02/21/18 08:59 Amlodipine Besylate (Norvasc) 5 mg ONCE ORAL 01/21/18 12:00 01/21/18 14:00 01/21/18 13:15 Aztreonam 1 gm/ Sodium Chloride 50 ml @ 100 mls/hr EVERY 8 HOURS IVPB 01/19/18 14:00 01/25/18 13:59 01/21/18 13:14 Chlorhexidine Gluconate (Michelle-Hex 2%) 1 applic DAILY@2000 TOPIC 01/19/18 20:00 02/17/18 19:59 01/20/18 21:24 Clopidogrel Bisulfate (Plavix) 75 mg DAILY ORAL 01/20/18 09:00 02/17/18 15:05 01/21/18 08:57 Dextrose (Dextrose 50%) 25 ml Q30M PRN IV Hypoglycemia 01/19/18 14:15 02/17/18 11:43 Dextrose (Dextrose 50%) 50 ml Q30M PRN IV hypoglycemia 01/19/18 14:15 02/17/18 11:44 Diphenhydramine HCl (Benadryl) 50 mg Q4H PRN IVP Itching 01/21/18 12:00 02/17/18 08:29 01/21/18 13:15 Gabapentin (Neurontin) 400 mg QHS ORAL 01/19/18 21:00 02/17/18 20:59 01/20/18 21:24 Heparin Sodium (Porcine) (Heparin 5000 units/ml) 5,000 units EVERY 12 HOURS SUBQ 01/19/18 21:00 02/17/18 20:59 Hydromorphone HCl (Dilaudid) 1 mg Q4H PRN IVP For Pain 01/21/18 12:00 01/25/18 15:14 01/21/18 13:15 Insulin Aspart (NovoLOG) BEFORE MEALS AND HS SUBQ 01/19/18 16:30 02/17/18 16:29 Isosorbide Mononitrate (Imdur) 60 mg DAILY ORAL 01/21/18 09:00 02/20/18 08:59 01/21/18 08:57 Lactulose (Cephulac) 30 gm THREE TIMES A DAY ORAL 01/19/18 18:00 02/18/18 12:59 Metoprolol Tartrate (Lopressor) 25 mg Q12HR ORAL 01/20/18 21:00 02/18/18 20:59 01/21/18 08:58 Metronidazole (Flagyl) 500 mg EVERY 8 HOURS ORAL 01/19/18 14:00 01/25/18 13:59 01/21/18 13:14 Nitroglycerin (Ntg) 0.4 mg Q5M PRN SL Prn Chest Pain 01/19/18 14:05 02/17/18 11:44 Ondansetron HCl (Zofran) 4 mg Q6H PRN IVP Nausea & Vomiting 01/19/18 17:45 02/17/18 11:44 Pantoprazole (Protonix) 40 mg QHS ORAL 01/19/18 21:00 02/17/18 20:59 01/20/18 21:24 Polyethylene Glycol (Miralax) 17 gm DAILYPRN PRN ORAL Constipation 01/20/18 11:45 02/17/18 11:44 Tamsulosin HCl (Flomax) 0.4 mg BEDTIME ORAL 01/19/18 21:00 02/17/18 20:59 01/20/18 21:24 Temazepam (Restoril) 15 mg HSPRN PRN ORAL Insomnia 01/19/18 21:30 01/25/18 11:44 01/20/18 21:24 Shawna Escobar M.D. Jan 21, 2018 13:58
--- NOTE | 2018-01-21 14:15 | Consultation ---
DATE OF CONSULTATION: 01/20/2018 INFECTIOUS DISEASE CONSULTATION CONSULTING PHYSICIAN: Naresh Mccann M.D. REASON FOR CONSULTATION: Evaluation of the patient for his sepsis and antibiotic management. HISTORY OF PRESENT ILLNESS: The patient is a 48-year-old male with multiple medical problems who came to the hospital with general weakness. The patient was found to be hypertensive and was admitted to ICU overnight. The patient temporarily was on pressors. The patient now overall has improved and was transferred to medical floor. Infectious Disease consultation has been requested for further evaluation of the patient and antibiotic management. The patient mentioned he has vaccination in the middle of the week the patient felt weak and subsequent to that the patient had progressively gotten worse. Also, the patient has been complaining of some abdominal cramp; however, no nausea, vomiting, or diarrhea. The patient is not complaining of any dysuria. No cough. No shortness of breath. PAST MEDICAL HISTORY: 1. Hypertension. 2. Diabetes. 3. GERD. 4. History of diverticulitis. 5. History of right BKA. 6. History of CAD, status post stent. ALLERGIES: Multiple allergies (Rocephin, clindamycin, codeine, morphine, nifedipine, penicillin, and vancomycin). FAMILY HISTORY: Not contributing. SOCIAL HISTORY: Unremarkable. MEDICATIONS: Aztreonam and Flagyl. PHYSICAL EXAMINATION: VITAL SIGNS: Temperature 98 degrees, pulse 86, respiratory rate 18, and blood pressure 166/100. HEENT: No pale conjunctivae. No icterus. CHEST: Clear. HEART: S1 and S2. ABDOMEN: Soft and nontender. EXTREMITIES: No . The patient has right BKA. healed. No evidence of infection. NEUROLOGIC: Awake and alert. LABORATORY AND DIAGNOSTIC DATA: White blood cells 8.2 and at time of admission was 16, hemoglobin 11, and platelets 151. UA unremarkable. BUN 23 and creatinine 1.9. ALT, AST, and alkaline phosphatase are unremarkable. Troponin 1.39. The patient has ? HIV positive in [address] of the abdomen and pelvis without contrast, cholelithiasis. Chest x-ray, no acute process. ASSESSMENT: 1. Status post sepsis and septic shock (question source? Source probably GI tract in view of abdominal discomfort). 2. ? intra-abdominal diverticulosis cannot assess fluid due to lack of contrast in CT scan. 3. Leukocytosis, improving. 4. Cardiac enzyme positive. 5. History of hypertension and septic shock. 6. ?HIV serology positive back in 2007. PLAN: 1. We will monitor aztreonam and Flagyl. 2. CMP and BMP. 3. Monitor cultures (blood). 4. HIV serology. 5. Based on the laboratories, we will do further recommendations. Thank you, Dr. Delgado, for allowing me to participate in the care of this patient. I will follow the patient with you during this hospitalization. Naresh Mccann M.D. DR: HANH JOB#: [id number] CC:
--- NOTE | 2018-01-21 14:49 | Cardiology Report ---
APPROVED REPORT EKG Measurement Heart [id number] TN [id number] Normal sinus rhythm Normal ECG
[2018-01-21 16:00] VITALS: BP 148/75
--- NOTE | 2018-01-21 18:03 | Consultation ---
History of Present Illness General Date patient seen: Jan 21, 2018 Time patient seen: 17:50 Chief Complaint: Generalized Weakness Present Illness HPI Pt walked in comlpaining of generalized weakness. upon arival pt had low BP : Pt BP is 74/34. PICC placed for norepinephrine. history of hypertension, non- insulin-dependent diabetes, GERD, diverticulitis, CAD s/p 3 stents, and Right BKA. He was sent to ICU for hypotension, troponin was abnormal. Normal CT scan of the head without contrast material. CXR Borderline cardiomegaly. No acute process. Echo Left ventricular ejection fraction estimated to be 60-65 % with mild PAH and elevated filling pressures. Troponin elevated but down trending. He did take antihypertensives prior to arrival: norvasc, irbesartan and coreg Allergies: Coded Allergies: CEFTRIAXONE (Verified Allergy, Intermediate, 11/02/17) itchy lips VANCOMYCIN (Verified Allergy, Intermediate, pain and sore throat, itching , 11/02/17) CODEINE (Verified Allergy, Unknown, 08/28/11) MORPHINE (Verified Allergy, Unknown, 11/01/17) NIFEDIPINE (Verified Allergy, Unknown, 01/21/10) CLINDAMYCIN (Verified Adverse Reaction, Intermediate, 11/02/17) diarrhea PENICILLINS (Verified Adverse Reaction, Mild, 11/02/17) nausea and vomiting- tolerates Augmentin, Amoxicillin Medication History Scheduled Amlodipine Besylate (Norvasc), 10 MG ORAL BID, (Reported) Aspirin* (Aspirin*), 81 MG ORAL DAILY, (Reported) Clopidogrel Bisulfate* (Plavix*), 75 MG ORAL DAILY, (Reported) Docusate Sodium* (Docusate Sodium*), 100 MG ORAL DAILY, (Reported) Furosemide* (Lasix*), 20 MG ORAL DAILY, (Reported) Gabapentin* (Neurontin*), 400 MG ORAL QHS, (Reported) Glipizide* (Glucotrol*), 2 MG ORAL ACBREAKFAST, (Reported) Isosorbide Mononitrate (Isosorbide Mononitrate Er), 60 MG PO DAILY, (Reported) Levofloxacin* (Levaquin*), 500 MG ORAL DAILY, (Reported) Metronidazole* (Flagyl*), 500 MG ORAL EVERY 8 HOURS, (Reported) Minoxidil* (Loniten*), 10 MG PO BID, (Reported) Pantoprazole* (Protonix*), 40 MG ORAL QHS, (Reported) Potassium Chloride* (K-Dur*), 20 MEQ ORAL DAILY, (Reported) Valsartan (Diovan), 320 MG ORAL DAILY, (Reported) Scheduled PRN Hydrocodone Bit/Acetaminophen 10-325* (Braxton 10-325*), 1 TAB ORAL Q6H PRN Hydrocodone Bit/Acetaminophen 5-325* (Braxton 5-325*), 1 TAB ORAL Q6H PRN for For Pain, (Reported) Zolpidem Tartrate* (Ambien*), 10 MG ORAL BEDTIME PRN for Insomnia, (Reported) Patient History Healthcare decision maker Resuscitation status Full Code Advanced Directive on File No Review of Systems Constitutional: Reports: no symptoms Eye: Reports: no symptoms ENT: Reports: no symptoms Respiratory: Reports: no symptoms Cardiovascular: Reports: no symptoms Gastrointestinal: Reports: no symptoms Genitourinary: Reports: no symptoms Musculoskeletal: Reports: no symptoms Skin: Reports: no symptoms Psychiatric: Reports: no symptoms Neurological: Reports: no symptoms Endocrine: Reports: no symptoms Hematologic/Lymphatic: Reports: no symptoms Physical Exam Last 24 Hour Vital Signs Date Time Temp Pulse Resp B/P (MAP) Pulse Ox O2 Delivery O2 Flow Rate FiO2 01/21/18 17:44 98.1 01/21/18 16:00 98.1 70 20 148/75 (99) 91 98.1 01/21/18 13:15 65 142/71 01/21/18 11:49 98.2 65 20 142/71 (94) 94 98.2 01/21/18 08:58 76 158/94 01/21/18 08:57 158/94 01/21/18 08:00 Room Air 01/21/18 08:00 98.4 76 20 158/94 (115) 94 98.4 01/21/18 05:32 136/81 01/21/18 04:00 99.0 77 20 136/81 (99) 94 99.0 01/21/18 00:00 98.2 79 20 159/89 (112) 95 98.2 01/20/18 21:26 75 166/100 01/20/18 21:25 166/100 01/20/18 21:00 Room Air 01/20/18 20:00 98.1 75 20 166/100 (122) 93 98.1 01/20/18 19:55 76 16 Room Air 21 Intake and Output 01/20/18 01/21/18 19:00 07:00 Intake Total 800 ml 850 ml Output Total 750 ml 2000 ml Balance 50 ml -1150 ml IV Total 800 ml 850 ml Output Urine Total 750 ml 2000 ml # Voids 2 4 # Bowel Movements 1 Laboratory Tests Test 01/21/18 00:00 01/21/18 03:30 01/21/18 05:05 01/21/18 05:55 HIV-1 Antibody Pending HIV-2 Antibody Pending HIV (1&2) Antibody Rapid Preliminary positive Urine Eosinophils None seen (NONE SEEN) White Blood Count 6.9 K/UL (4.8-10.8) Red Blood Count 3.81 M/UL (4.70-6.10) L Hemoglobin 10.3 G/DL (14.2-18.0) L Hematocrit 30.7 % (42.0-52.0) L Mean Corpuscular Volume 80 FL (80-99) Mean Corpuscular Hemoglobin 27.0 PG (27.0-31.0) Mean Corpuscular Hemoglobin Concent 33.6 G/DL (32.0-36.0) Red Cell Distribution Width 15.0 % (11.6-14.8) H Platelet Count 148 K/UL (150-450) L Mean Platelet Volume 7.5 FL (6.5-10.1) Neutrophils (%) (Auto) 59.6 % (45.0-75.0) Lymphocytes (%) (Auto) 25.4 % (20.0-45.0) Monocytes (%) (Auto) 11.4 % (1.0-10.0) H Eosinophils (%) (Auto) 2.5 % (0.0-3.0) Basophils (%) (Auto) 1.1 % (0.0-2.0) Lymphocytes Pending Sodium Level 139 MMOL/L (136-145) Potassium Level 4.4 MMOL/L (3.5-5.1) Chloride Level 105 MMOL/L (98-107) Carbon Dioxide Level 25 MMOL/L (21-32) Anion Gap 9 mmol/L (5-15) Blood Urea Nitrogen 19 mg/dL (7-18) H Creatinine 1.6 MG/DL (0.55-1.30) H Estimat Glomerular Filtration Rate 55.8 mL/min (>60) Glucose Level 121 MG/DL (74-106) H Uric Acid 6.9 MG/DL (2.6-7.2) Calcium Level 8.6 MG/DL (8.5-10.1) Phosphorus Level 3.8 MG/DL (2.5-4.9) Magnesium Level 1.7 MG/DL (1.8-2.4) L Total Bilirubin 0.3 MG/DL (0.2-1.0) Aspartate Amino Transf (AST/SGOT) 25 U/L (15-37) Alanine Aminotransferase (ALT/SGPT) 25 U/L (12-78) Alkaline Phosphatase 96 U/L (46-116) Troponin I 1.125 ng/mL (0.000-0.056) C-Reactive Protein, Quantitative 12.6 mg/dL (0.00-0.90) H Total Protein 7.6 G/DL (6.4-8.2) Albumin 3.0 G/DL (3.4-5.0) L Globulin 4.6 g/dL Albumin/Globulin Ratio 0.7 (1.0-2.7) L Percent CD3 Cells Pending Absolute CD3 Count Pending Percent CD4 Cells Pending Absolute CD4 Count Pending T-Lymphocyte CD4/CD8 Ratio Pending Percent CD8 Cells Pending Absolute CD8 Count Pending HIV-1 RNA (PCR) log10 Value Pending HIV-1 RNA Ultraquantitative (PCR) Pending Test 01/21/18 14:40 Troponin I 0.873 ng/mL (0.000-0.056) Height (Feet): 6 Height (Inches): 2.00 Weight (Pounds): 341 Medications Current Medications Medications (Trade) Dose Ordered Sig/Miel Route PRN Reason Start Time Stop Time Status Last Admin Dose Admin Acetaminophen (Tylenol) 650 mg Q4H PRN ORAL fever 01/19/18 15:45 02/17/18 11:44 Albuterol/ Ipratropium (Albuterol/ Ipratropium) 3 ml Q4H PRN HHN Shortness of Breath 01/19/18 15:45 01/23/18 11:44 Allopurinol (Zyloprim) 200 mg DAILY ORAL 01/21/18 09:00 11/7/18 08:59 01/21/18 08:59 Amlodipine Besylate (Norvasc) 5 mg DAILY ORAL 01/22/18 09:00 02/21/18 08:59 Aztreonam 1 gm/ Sodium Chloride 50 ml @ 100 mls/hr EVERY 8 HOURS IVPB 01/19/18 14:00 01/25/18 13:59 01/21/18 13:14 Chlorhexidine Gluconate (Michelle-Hex 2%) 1 applic DAILY@2000 TOPIC 01/19/18 20:00 02/17/18 19:59 01/20/18 21:24 Clopidogrel Bisulfate (Plavix) 75 mg DAILY ORAL 01/20/18 09:00 02/17/18 15:05 01/21/18 08:57 Dextrose (Dextrose 50%) 25 ml Q30M PRN IV Hypoglycemia 01/19/18 14:15 02/17/18 11:43 Dextrose (Dextrose 50%) 50 ml Q30M PRN IV hypoglycemia 01/19/18 14:15 02/17/18 11:44 Diphenhydramine HCl (Benadryl) 50 mg Q4H PRN IVP Itching 01/21/18 12:00 02/17/18 08:29 01/21/18 17:44 Gabapentin (Neurontin) 400 mg QHS ORAL 01/19/18 21:00 02/17/18 20:59 01/20/18 21:24 Heparin Sodium (Porcine) (Heparin 5000 units/ml) 5,000 units EVERY 12 HOURS SUBQ 01/19/18 21:00 02/17/18 20:59 Hydromorphone HCl (Dilaudid) 1 mg Q4H PRN IVP For Pain 01/21/18 12:00 01/25/18 15:14 01/21/18 17:44 Insulin Aspart (NovoLOG) BEFORE MEALS AND HS SUBQ 01/19/18 16:30 02/17/18 16:29 Isosorbide Mononitrate (Imdur) 60 mg DAILY ORAL 01/21/18 09:00 02/20/18 08:59 01/21/18 08:57 Lactulose (Cephulac) 30 gm THREE TIMES A DAY ORAL 01/19/18 18:00 02/18/18 12:59 Metoprolol Tartrate (Lopressor) 25 mg Q12HR ORAL 01/20/18 21:00 02/18/18 20:59 01/21/18 08:58 Metronidazole (Flagyl) 500 mg EVERY 8 HOURS ORAL 01/19/18 14:00 01/25/18 13:59 01/21/18 13:14 Nitroglycerin (Ntg) 0.4 mg Q5M PRN SL Prn Chest Pain 01/19/18 14:05 02/17/18 11:44 Ondansetron HCl (Zofran) 4 mg Q6H PRN IVP Nausea & Vomiting 01/19/18 17:45 02/17/18 11:44 Pantoprazole (Protonix) 40 mg QHS ORAL 01/19/18 21:00 02/17/18 20:59 01/20/18 21:24 Polyethylene Glycol (Miralax) 17 gm DAILYPRN PRN ORAL Constipation 01/20/18 11:45 02/17/18 11:44 Tamsulosin HCl (Flomax) 0.4 mg BEDTIME ORAL 01/19/18 21:00 02/17/18 20:59 01/20/18 21:24 Temazepam (Restoril) 15 mg HSPRN PRN ORAL Insomnia 01/19/18 21:30 01/25/18 11:44 01/20/18 21:24 Assessment/Plan Status: stable Assessment/Plan Assessment: (1) Septic shock (2) Acute on chronic renal failure (3) CAD (coronary artery disease) (4) Diabetes mellitus (5) Elevated troponin (6) Diastolic dysfuction (7) Hypertension Plan: Elevated troponin in setting of known CAD and stents -patient should have cardiac cath to evaluate status of stents and coronary anatomy -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 -Troponin is now down trending - ok to hold heparin -Continue aspirin/plavix -Atorvastatin -Resume BP medications -nitro prn chest pain -IV abx for diverticulitis -Advance diet as tolerated Tye Hagen MD Jan 21, 2018 18:03
[2018-01-21 20:00] VITALS: BP 171/91
[2018-01-21] MEDS: Tamsulosin 0.4mg cap ORAL SCH (20:34)
[2018-01-21] MEDS: Atorvastatin 20mg tab ORAL SCH (20:35)
[2018-01-21] MEDS ORDERED: HYDROmorphone 1mg/ml Carpuject IVP PRN (20:45)
[2018-01-21] MEDS: Dyna-Hex 2% Top Sol 2oz TOPIC SCH (20:58)
[2018-01-22] VITALS (7 sets, daily range): BP systolic 150–162; BP diastolic 79–98
[2018-01-22] MEDS: metroNIDAZOLE 500mg tab ORAL SCH ×3 (05:12→22:01)
[2018-01-22] MEDS: DiphenhydrAMINE 50mg/ml Inj IVP PRN ×6 (05:13→22:03)
[2018-01-22] MEDS: NovoLOG Insulin Flexpen SUBQ SCH ×4 (05:14→21:00)
[2018-01-22] MEDS: Aztreonam Inj 1 GM in NS 50 ML IVPB SCH ×3 (05:14→22:26)
[2018-01-22 06:34] LABS: ALANINE AMINOTRANSFERASE 21 U/L (12-78); ALBUMIN/GLOBULIN RATIO 0.6 (1.0-2.7); ALKALINE PHOSPHATASE 104 U/L (46-116); ANION GAP 6 mmol/L (5-15); ASPARTATE AMINO TRANSFERASE 25 U/L (15-37); BILIRUBIN,TOTAL 0.4 MG/DL (0.2-1.0); BLOOD UREA NITROGEN 18 mg/dL (7-18); CALCIUM 8.9 MG/DL (8.5-10.1); CARBON DIOXIDE 28 MMOL/L (21-32); CHLORIDE 103 MMOL/L (98-107); CREATININE 1.6 MG/DL (0.55-1.30); PHOSPHORUS 4.1 MG/DL (2.5-4.9); POTASSIUM 3.8 MMOL/L (3.5-5.1); SODIUM 137 MMOL/L (136-145)
[2018-01-22 06:59] LABS: BASOPHILS % (AUTO) 1.7 % (0.0-2.0); EOSINOPHILS % (AUTO) 2.3 % (0.0-3.0); HEMATOCRIT 30.4 % (42.0-52.0); HEMOGLOBIN 10.4 G/DL (14.2-18.0); LYMPHOCYTES % (AUTO) 27.6 % (20.0-45.0); MEAN CORPUSCULAR VOLUME 80 FL (80-99); MONOCYTES % (AUTO) 9.5 % (1.0-10.0); PLATELET COUNT 158 K/UL (150-450); RED BLOOD COUNT 3.81 M/UL (4.70-6.10); RED CELL DISTRIBUTION WIDTH 14.4 % (11.6-14.8); WHITE BLOOD COUNT 7.1 K/UL (4.8-10.8)
[2018-01-22] MEDS: Lactulose 20gm/30ml UDC ORAL SCH ×3 (09:00→17:18)
[2018-01-22] MEDS: Heparin 5000 units/ml inj SUBQ SCH ×2 (09:00→21:00)
[2018-01-22] MEDS: Allopurinol 100mg Tab ORAL SCH (09:04)
[2018-01-22] MEDS: Aspirin Baby 81mg NG SCH (09:05)
[2018-01-22] MEDS: Imdur 30mg tab ORAL SCH (09:05)
[2018-01-22] MEDS: Metoprolol 25mg tab ORAL SCH (09:05)
--- NOTE | 2018-01-22 10:37 | Diagnostic Imaging Report ---
Indication: Dyspnea Comparison: 01/18/2018 A single view chest radiograph was obtained. Findings: No definite infiltrate seen. Mild pulmonary vascular prominence noted. The heart is enlarged. The aorta is mildly enlarged consistent with atherosclerotic vascular disease. The bones are osteopenic. Impression: Query mild pulmonary vascular congestion
--- NOTE | 2018-01-22 12:45 | Nephrology Progress Note ---
Assessment/Plan Problem List: (1) Acute on chronic renal failure (2) Septic shock (3) Sepsis (4) Diabetes mellitus (5) CAD (coronary artery disease) (6) Right BKA infection Assessment Septic shock Acute on chronic renal failure Cr lower DM HTN CAD has 3 stents, High Troponin, declining , cardiac ischemia Plan add allopurinol- DC IV Increase lopressor No nephrotoxics antibiotics monitor renal parameters monitor BS and BP continue Plavix and nitrates and beta blockers adjust pain meds DC planning? per orders Subjective ROS Limited/Unobtainable: No Constitutional: Reports: malaise, other - low grade fever Objective Objective Last 24 Hour Vital Signs Date Time Temp Pulse Resp B/P (MAP) Pulse Ox O2 Delivery O2 Flow Rate FiO2 01/22/18 12:36 98.0 01/22/18 12:00 98.0 79 18 150/80 (103) 96 98.0 01/22/18 09:05 74 162/88 01/22/18 09:05 162/88 01/22/18 09:05 74 162/88 01/22/18 08:59 98.2 74 18 162/88 (112) 93 98.2 01/22/18 08:00 Room Air 01/22/18 07:20 74 16 Room Air 21 01/22/18 05:43 97.8 01/22/18 05:13 97.8 01/22/18 04:00 97.8 63 20 157/79 (105) 92 97.8 01/22/18 00:00 99.2 76 20 157/98 (117) 92 99.2 01/21/18 21:00 Room Air 01/21/18 20:56 72 16 Nasal Cannula 2.0 28 01/21/18 20:34 70 171/91 01/21/18 20:00 99.8 69 20 171/91 (117) 93 99.8 01/21/18 17:44 98.1 01/21/18 16:00 98.1 70 20 148/75 (99) 91 98.1 01/21/18 13:15 65 142/71 Intake and Output 01/21/18 01/22/18 19:00 07:00 Intake Total 1325 ml Output Total 1800 ml Balance -475 ml Intake Oral 1325 ml Output Urine Total 1800 ml # Voids 4 2 Laboratory Tests 01/21/18 14:40: Troponin I 0.873H 01/21/18 20:00: Troponin I 0.713H 01/22/18 05:45: Troponin I 0.598H, White Blood Count 7.1, Red Blood Count 3.81L, Hemoglobin 10.4L, Hematocrit 30.4L, Mean Corpuscular Volume 80, Mean Corpuscular Hemoglobin 27.4, Mean Corpuscular Hemoglobin Concent 34.4, Red Cell Distribution Width 14.4, Platelet Count 158, Mean Platelet Volume 8.2, Neutrophils (%) (Auto) 59.0, Lymphocytes (%) (Auto) 27.6, Monocytes (%) (Auto) 9.5, Eosinophils (%) (Auto) 2.3, Basophils (%) (Auto) 1.7, Sodium Level 137, Potassium Level 3.8, Chloride Level 103, Carbon Dioxide Level 28, Anion Gap 6, Blood Urea Nitrogen 18, Creatinine 1.6H, Estimat Glomerular Filtration Rate 55.8 , Glucose Level 123H, Uric Acid 6.9, Calcium Level 8.9, Phosphorus Level 4.1, Magnesium Level 1.8, Total Bilirubin 0.4, Aspartate Amino Transf (AST/SGOT) 25, Alanine Aminotransferase (ALT/SGPT) 21, Alkaline Phosphatase 104, Pro-B-Type Natriuretic Peptide 3851H, Total Protein 7.8, Albumin 3.0L, Globulin 4.8, Albumin/Globulin Ratio 0.6L Height (Feet): 6 Height (Inches): 2.00 Weight (Pounds): 333 General Appearance: no apparent distress Neck: non-tender Cardiovascular: normal rate Respiratory/Chest: decreased breath sounds Abdomen: soft, distended Luis Miguel Darby MD Jan 22, 2018 12:45
--- NOTE | 2018-01-22 12:48 | Infectious Diseases Prog Note ---
Assessment/Plan Assessment/Plan ASSESSMENT: 1. Status post sepsis and septic shock (question source? Source probably GI tract in view of abdominal discomfort and CT abd with possible early diverticulitis). 2. Leukocytosis, SP 3. Cardiac enzyme positive, improving -lexican pending 4. History of hypertension 5. HIV ( well cotrolled on Atripla ) 6. ASIF, improving -. Hypertension. -. Diabetes. -. GERD. -. History of diverticulitis. -. History of right BKA. -. History of CAD, status post stent. PLAN: 1. We will continue aztreonam and Flagyl #5/7-10 for GI coverage 2. Monitor CMP and BMP. 3. Monitor cultures (blood). 4. f/u HIV VL and CD4 5. Resume Atripla as GFR >50. Thank you, Dr. Delgado, for allowing me to participate in the care of this patient. I will follow the patient with you during this hospitalization. Subjective Allergies: Coded Allergies: CEFTRIAXONE (Verified Allergy, Intermediate, 11/02/17) itchy lips VANCOMYCIN (Verified Allergy, Intermediate, pain and sore throat, itching , 11/02/17) CODEINE (Verified Allergy, Unknown, 08/28/11) MORPHINE (Verified Allergy, Unknown, 11/01/17) NIFEDIPINE (Verified Allergy, Unknown, 01/21/10) CLINDAMYCIN (Verified Adverse Reaction, Intermediate, 11/02/17) diarrhea PENICILLINS (Verified Adverse Reaction, Mild, 11/02/17) nausea and vomiting- tolerates Augmentin, Amoxicillin Subjective afebrile leukocytosis resolved Bcx NTD BP stable Cr improving Objective Vital Signs Last 24 Hour Vital Signs Date Time Temp Pulse Resp B/P (MAP) Pulse Ox O2 Delivery O2 Flow Rate FiO2 01/22/18 12:36 98.0 01/22/18 12:00 98.0 79 18 150/80 (103) 96 98.0 01/22/18 09:05 74 162/88 01/22/18 09:05 162/88 01/22/18 09:05 74 162/88 01/22/18 08:59 98.2 74 18 162/88 (112) 93 98.2 01/22/18 08:00 Room Air 01/22/18 07:20 74 16 Room Air 21 01/22/18 05:43 97.8 01/22/18 05:13 97.8 01/22/18 04:00 97.8 63 20 157/79 (105) 92 97.8 01/22/18 00:00 99.2 76 20 157/98 (117) 92 99.2 01/21/18 21:00 Room Air 01/21/18 20:56 72 16 Nasal Cannula 2.0 28 01/21/18 20:34 70 171/91 01/21/18 20:00 99.8 69 20 171/91 (117) 93 99.8 01/21/18 17:44 98.1 01/21/18 16:00 98.1 70 20 148/75 (99) 91 98.1 01/21/18 13:15 65 142/71 Height (Feet): 6 Height (Inches): 2.00 Weight (Pounds): 333 Objective General Appearance: WD/WN Lines, tubes and drains: peripheral, PICC HEENT: normocephalic, atraumatic Neck: non-tender, normal alignment Respiratory/Chest: chest wall non-tender, lungs clear, normal breath sounds Breasts: no masses Cardiovascular/Chest: normal peripheral pulses Abdomen: normal bowel sounds, non tender Laboratory Tests Test 01/21/18 14:40 01/21/18 20:00 01/22/18 05:45 Troponin I 0.873 ng/mL (0.000-0.056) 0.713 ng/mL (0.000-0.056) 0.598 ng/mL (0.000-0.056) White Blood Count 7.1 K/UL (4.8-10.8) Red Blood Count 3.81 M/UL (4.70-6.10) L Hemoglobin 10.4 G/DL (14.2-18.0) L Hematocrit 30.4 % (42.0-52.0) L Mean Corpuscular Volume 80 FL (80-99) Mean Corpuscular Hemoglobin 27.4 PG (27.0-31.0) Mean Corpuscular Hemoglobin Concent 34.4 G/DL (32.0-36.0) Red Cell Distribution Width 14.4 % (11.6-14.8) Platelet Count 158 K/UL (150-450) Mean Platelet Volume 8.2 FL (6.5-10.1) Neutrophils (%) (Auto) 59.0 % (45.0-75.0) Lymphocytes (%) (Auto) 27.6 % (20.0-45.0) Monocytes (%) (Auto) 9.5 % (1.0-10.0) Eosinophils (%) (Auto) 2.3 % (0.0-3.0) Basophils (%) (Auto) 1.7 % (0.0-2.0) Sodium Level 137 MMOL/L (136-145) Potassium Level 3.8 MMOL/L (3.5-5.1) Chloride Level 103 MMOL/L (98-107) Carbon Dioxide Level 28 MMOL/L (21-32) Anion Gap 6 mmol/L (5-15) Blood Urea Nitrogen 18 mg/dL (7-18) Creatinine 1.6 MG/DL (0.55-1.30) H Estimat Glomerular Filtration Rate 55.8 mL/min (>60) Glucose Level 123 MG/DL (74-106) H Uric Acid 6.9 MG/DL (2.6-7.2) Calcium Level 8.9 MG/DL (8.5-10.1) Phosphorus Level 4.1 MG/DL (2.5-4.9) Magnesium Level 1.8 MG/DL (1.8-2.4) Total Bilirubin 0.4 MG/DL (0.2-1.0) Aspartate Amino Transf (AST/SGOT) 25 U/L (15-37) Alanine Aminotransferase (ALT/SGPT) 21 U/L (12-78) Alkaline Phosphatase 104 U/L (46-116) Pro-B-Type Natriuretic Peptide 3851 pg/mL (0-125) H Total Protein 7.8 G/DL (6.4-8.2) Albumin 3.0 G/DL (3.4-5.0) L Globulin 4.8 g/dL Albumin/Globulin Ratio 0.6 (1.0-2.7) L Current Medications Medications (Trade) Dose Ordered Sig/Mile Route PRN Reason Start Time Stop Time Status Last Admin Dose Admin Acetaminophen (Tylenol) 650 mg Q4H PRN ORAL fever 01/19/18 15:45 02/17/18 11:44 Albuterol/ Ipratropium (Albuterol/ Ipratropium) 3 ml Q4H PRN HHN Shortness of Breath 01/19/18 15:45 01/23/18 11:44 Allopurinol (Zyloprim) 200 mg DAILY ORAL 01/21/18 09:00 02/20/18 08:59 01/22/18 09:04 Amlodipine Besylate (Norvasc) 5 mg DAILY ORAL 01/22/18 09:00 02/21/18 08:59 01/22/18 09:05 Aspirin (ASA) 81 mg DAILY NG 01/22/18 09:00 02/21/18 08:59 01/22/18 09:05 Atorvastatin Calcium (Lipitor) 20 mg BEDTIME ORAL 01/21/18 21:00 02/20/18 20:59 01/21/18 20:35 Aztreonam 1 gm/ Sodium Chloride 50 ml @ 100 mls/hr EVERY 8 HOURS IVPB 01/19/18 14:00 01/25/18 13:59 01/22/18 05:14 Chlorhexidine Gluconate (Michelle-Hex 2%) 1 applic DAILY@2000 TOPIC 01/19/18 20:00 02/17/18 19:59 01/21/18 20:58 Clopidogrel Bisulfate (Plavix) 75 mg DAILY ORAL 01/20/18 09:00 02/17/18 15:05 01/22/18 09:05 Dextrose (Dextrose 50%) 25 ml Q30M PRN IV Hypoglycemia 01/19/18 14:15 02/17/18 11:43 Dextrose (Dextrose 50%) 50 ml Q30M PRN IV hypoglycemia 01/19/18 14:15 02/17/18 11:44 Diphenhydramine HCl (Benadryl) 50 mg Q3H PRN IVP Itching 01/21/18 22:01 02/20/18 22:00 01/22/18 12:36 Gabapentin (Neurontin) 400 mg QHS ORAL 01/19/18 21:00 02/17/18 20:59 01/21/18 20:34 Heparin Sodium (Porcine) (Heparin 5000 units/ml) 5,000 units EVERY 12 HOURS SUBQ 01/19/18 21:00 02/17/18 20:59 Hydromorphone HCl (Dilaudid) 2 mg Q3H PRN IVP Severe Pain (Pain Scale 7-10) 01/21/18 20:30 01/28/18 20:29 01/22/18 12:36 Insulin Aspart (NovoLOG) BEFORE MEALS AND HS SUBQ 01/19/18 16:30 02/17/18 16:29 Isosorbide Mononitrate (Imdur) 60 mg DAILY ORAL 01/21/18 09:00 02/20/18 08:59 01/22/18 09:05 Lactulose (Cephulac) 30 gm THREE TIMES A DAY ORAL 01/19/18 18:00 02/18/18 12:59 Metoprolol Tartrate (Lopressor) 25 mg Q12HR ORAL 01/20/18 21:00 02/18/18 20:59 01/22/18 09:05 Metronidazole (Flagyl) 500 mg EVERY 8 HOURS ORAL 01/19/18 14:00 01/25/18 13:59 01/22/18 05:12 Nitroglycerin (Ntg) 0.4 mg Q5M PRN SL Prn Chest Pain 01/19/18 14:05 02/17/18 11:44 Ondansetron HCl (Zofran) 4 mg Q6H PRN IVP Nausea & Vomiting 01/19/18 17:45 02/17/18 11:44 Pantoprazole (Protonix) 40 mg QHS ORAL 01/19/18 21:00 02/17/18 20:59 01/21/18 20:35 Polyethylene Glycol (Miralax) 17 gm DAILYPRN PRN ORAL Constipation 01/20/18 11:45 02/17/18 11:44 Tamsulosin HCl (Flomax) 0.4 mg BEDTIME ORAL 01/19/18 21:00 02/17/18 20:59 01/21/18 20:34 Temazepam (Restoril) 15 mg HSPRN PRN ORAL Insomnia 01/19/18 21:30 01/25/18 11:44 01/20/18 21:24 Shawna Escobar M.D. Jan 22, 2018 12:48
[2018-01-22] MEDS ORDERED: Mylanta II UD 30ml ORAL SCH (13:00)
--- NOTE | 2018-01-22 13:22 | Cardiology Progress Note ---
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 Patient on room air -Troponin is now down trending - ok to hold heparin -Continue aspirin/plavix -Atorvastatin -Resume BP medications -nitro prn chest pain -IV abx for diverticulitis -Advance diet as tolerated Subjective Cardiovascular: Reports: no symptoms Respiratory: Reports: no symptoms Gastrointestinal/Abdominal: Reports: no symptoms Genitourinary: Reports: no symptoms Subjective No acute events, no CP, troponin down trended, BP elevated. Objective Last 24 Hour Vital Signs Date Time Temp Pulse Resp B/P (MAP) Pulse Ox O2 Delivery O2 Flow Rate FiO2 01/22/18 12:36 98.0 01/22/18 12:00 98.0 79 18 150/80 (103) 96 98.0 01/22/18 09:05 74 162/88 01/22/18 09:05 162/88 01/22/18 09:05 74 162/88 01/22/18 08:59 98.2 74 18 162/88 (112) 93 98.2 01/22/18 08:00 Room Air 01/22/18 07:20 74 16 Room Air 21 01/22/18 05:43 97.8 01/22/18 05:13 97.8 01/22/18 04:00 97.8 63 20 157/79 (105) 92 97.8 01/22/18 00:00 99.2 76 20 157/98 (117) 92 99.2 01/21/18 21:00 Room Air 01/21/18 20:56 72 16 Nasal Cannula 2.0 28 01/21/18 20:34 70 171/91 01/21/18 20:00 99.8 69 20 171/91 (117) 93 99.8 01/21/18 17:44 98.1 01/21/18 16:00 98.1 70 20 148/75 (99) 91 98.1 General Appearance: no apparent distress, alert EENT: PERRL/EOMI, normal ENT inspection, TMs normal Neck: non-tender, normal alignment, supple, normal inspection, no JVD Rhythm: NSR Cardiovascular: normal peripheral pulses, normal rate, regular rhythm Respiratory/Chest: chest wall non-tender, lungs clear Abdomen: normal bowel sounds, non tender Extremities: normal range of motion, non-tender 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: 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-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0-31.0) Mean Corpuscular Hemoglobin Concent 34.4 G/DL (32.0-36.0) Red Cell Distribution Width 14.4 % (11.6-14.8) Platelet Count 158 K/UL (150-450) Mean Platelet Volume 8.2 FL (6.5-10.1) Neutrophils (%) (Auto) 59.0 % (45.0-75.0) Lymphocytes (%) (Auto) 27.6 % (20.0-45.0) Monocytes (%) (Auto) 9.5 % (1.0-10.0) Eosinophils (%) (Auto) 2.3 % (0.0-3.0) Basophils (%) (Auto) 1.7 % (0.0-2.0) Sodium Level 137 MMOL/L (136-145) Potassium Level 3.8 MMOL/L (3.5-5.1) Chloride Level 103 MMOL/L (98-107) Carbon Dioxide Level 28 MMOL/L (21-32) Anion Gap 6 mmol/L (5-15) Blood Urea Nitrogen 18 mg/dL (7-18) Creatinine 1.6 MG/DL (0.55-1.30) H Estimat Glomerular Filtration Rate 55.8 mL/min (>60) Glucose Level 123 MG/DL (74-106) H Uric Acid 6.9 MG/DL (2.6-7.2) Calcium Level 8.9 MG/DL (8.5-10.1) Phosphorus Level 4.1 MG/DL (2.5-4.9) Magnesium Level 1.8 MG/DL (1.8-2.4) Total Bilirubin 0.4 MG/DL (0.2-1.0) Aspartate Amino Transf (AST/SGOT) 25 U/L (15-37) Alanine Aminotransferase (ALT/SGPT) 21 U/L (12-78) Alkaline Phosphatase 104 U/L (46-116) Pro-B-Type Natriuretic Peptide 3851 pg/mL (0-125) H Total Protein 7.8 G/DL (6.4-8.2) Albumin 3.0 G/DL (3.4-5.0) L Globulin 4.8 g/dL Albumin/Globulin Ratio 0.6 (1.0-2.7) L Tye Hagen MD Jan 22, 2018 13:22
--- NOTE | 2018-01-22 13:41 | Pulmonology Progress Note ---
Assessment/Plan Problems: (1) Septic shock (2) Acute on chronic renal failure (3) CAD (coronary artery disease) (4) Diabetes mellitus Assessment/Plan episodes of chest pain stress study ordered BP better, off pressors cardiology to see sliding scale diabetic diet continue abx as per ID Subjective ROS Limited/Unobtainable: No Constitutional: Reports: no symptoms HEENT: Repors: no symptoms Respiratory: Reports: no symptoms Allergies: Coded Allergies: CEFTRIAXONE (Verified Allergy, Intermediate, 11/02/17) itchy lips VANCOMYCIN (Verified Allergy, Intermediate, pain and sore throat, itching , 11/02/17) CODEINE (Verified Allergy, Unknown, 08/28/11) MORPHINE (Verified Allergy, Unknown, 11/01/17) NIFEDIPINE (Verified Allergy, Unknown, 01/21/10) CLINDAMYCIN (Verified Adverse Reaction, Intermediate, 11/02/17) diarrhea PENICILLINS (Verified Adverse Reaction, Mild, 11/02/17) nausea and vomiting- tolerates Augmentin, Amoxicillin Objective Last 24 Hour Vital Signs Date Time Temp Pulse Resp B/P (MAP) Pulse Ox O2 Delivery O2 Flow Rate FiO2 01/22/18 12:36 98.0 01/22/18 12:00 98.0 79 18 150/80 (103) 96 98.0 01/22/18 09:05 74 162/88 01/22/18 09:05 162/88 01/22/18 09:05 74 162/88 01/22/18 08:59 98.2 74 18 162/88 (112) 93 98.2 01/22/18 08:00 Room Air 01/22/18 07:20 74 16 Room Air 21 01/22/18 05:43 97.8 01/22/18 05:13 97.8 01/22/18 04:00 97.8 63 20 157/79 (105) 92 97.8 01/22/18 00:00 99.2 76 20 157/98 (117) 92 99.2 01/21/18 21:00 Room Air 01/21/18 20:56 72 16 Nasal Cannula 2.0 28 01/21/18 20:34 70 171/91 01/21/18 20:00 99.8 69 20 171/91 (117) 93 99.8 01/21/18 17:44 98.1 01/21/18 16:00 98.1 70 20 148/75 (99) 91 98.1 Intake and Output 01/21/18 01/22/18 19:00 07:00 Intake Total 1325 ml Output Total 1800 ml Balance -475 ml Intake Oral 1325 ml Output Urine Total 1800 ml # Voids 4 2 General Appearance: WD/WN HEENT: normocephalic, atraumatic Respiratory/Chest: chest wall non-tender, normal breath sounds Cardiovascular: normal peripheral pulses, normal rate, no JVD Abdomen: soft, non tender Genitourinary: normal external genitalia Extremities: no clubbing Skin: no lesions Laboratory Tests 01/21/18 14:40: Troponin I 0.873H 01/21/18 20:00: Troponin I 0.713H 01/22/18 05:45: Troponin I 0.598H, White Blood Count 7.1, Red Blood Count 3.81L, Hemoglobin 10.4L, Hematocrit 30.4L, Mean Corpuscular Volume 80, Mean Corpuscular Hemoglobin 27.4, Mean Corpuscular Hemoglobin Concent 34.4, Red Cell Distribution Width 14.4, Platelet Count 158, Mean Platelet Volume 8.2, Neutrophils (%) (Auto) 59.0, Lymphocytes (%) (Auto) 27.6, Monocytes (%) (Auto) 9.5, Eosinophils (%) (Auto) 2.3, Basophils (%) (Auto) 1.7, Sodium Level 137, Potassium Level 3.8, Chloride Level 103, Carbon Dioxide Level 28, Anion Gap 6, Blood Urea Nitrogen 18, Creatinine 1.6H, Estimat Glomerular Filtration Rate 55.8 , Glucose Level 123H, Uric Acid 6.9, Calcium Level 8.9, Phosphorus Level 4.1, Magnesium Level 1.8, Total Bilirubin 0.4, Aspartate Amino Transf (AST/SGOT) 25, Alanine Aminotransferase (ALT/SGPT) 21, Alkaline Phosphatase 104, Pro-B-Type Natriuretic Peptide 3851H, Total Protein 7.8, Albumin 3.0L, Globulin 4.8, Albumin/Globulin Ratio 0.6L Current Medications Medications (Trade) Dose Ordered Sig/Mile Route PRN Reason Start Time Stop Time Status Last Admin Dose Admin Acetaminophen (Tylenol) 650 mg Q4H PRN ORAL fever 01/19/18 15:45 02/17/18 11:44 Al Hydroxide/Mg Hydroxide (Mylanta II) 30 ml ONCE ORAL 01/22/18 13:00 01/22/18 14:00 01/22/18 13:14 Al Hydroxide/Mg Hydroxide (Mylanta II) 30 ml Q6H PRN ORAL heart burn after meals 01/22/18 19:00 02/21/18 18:59 Albuterol/ Ipratropium (Albuterol/ Ipratropium) 3 ml Q4H PRN HHN Shortness of Breath 01/19/18 15:45 01/23/18 11:44 Allopurinol (Zyloprim) 200 mg DAILY ORAL 01/21/18 09:00 02/20/18 08:59 01/22/18 09:04 Alteplase, Recombinant (Cathflo) 2 mg ONCE INJ 01/22/18 13:45 01/22/18 23:59 Amlodipine Besylate (Norvasc) 5 mg BID ORAL 01/22/18 18:00 01/22/18 23:00 Amlodipine Besylate (Norvasc) 10 mg DAILY ORAL 01/23/18 09:00 02/22/18 08:59 Aspirin (ASA) 81 mg DAILY NG 01/22/18 09:00 02/21/18 08:59 01/22/18 09:05 Atorvastatin Calcium (Lipitor) 20 mg BEDTIME ORAL 01/21/18 21:00 02/20/18 20:59 01/21/18 20:35 Aztreonam 1 gm/ Sodium Chloride 50 ml @ 100 mls/hr EVERY 8 HOURS IVPB 01/19/18 14:00 01/25/18 13:59 01/22/18 13:14 Chlorhexidine Gluconate (Michelle-Hex 2%) 1 applic DAILY@2000 TOPIC 01/19/18 20:00 02/17/18 19:59 01/21/18 20:58 Clopidogrel Bisulfate (Plavix) 75 mg DAILY ORAL 01/20/18 09:00 02/17/18 15:05 01/22/18 09:05 Dextrose (Dextrose 50%) 25 ml Q30M PRN IV Hypoglycemia 01/19/18 14:15 02/17/18 11:43 Dextrose (Dextrose 50%) 50 ml Q30M PRN IV hypoglycemia 01/19/18 14:15 02/17/18 11:44 Diphenhydramine HCl (Benadryl) 50 mg Q3H PRN IVP Itching 01/21/18 22:01 02/20/18 22:00 01/22/18 12:36 Gabapentin (Neurontin) 400 mg QHS ORAL 01/19/18 21:00 02/17/18 20:59 01/21/18 20:34 Heparin Sodium (Porcine) (Heparin 5000 units/ml) 5,000 units EVERY 12 HOURS SUBQ 01/19/18 21:00 02/17/18 20:59 Hydrochlorothiazide (Hydrodiuril) 25 mg DAILY ORAL 01/23/18 09:00 02/22/18 08:59 Hydromorphone HCl (Dilaudid) 2 mg Q3H PRN IVP Severe Pain (Pain Scale 7-10) 01/21/18 20:30 01/28/18 20:29 01/22/18 12:36 Insulin Aspart (NovoLOG) BEFORE MEALS AND HS SUBQ 01/19/18 16:30 02/17/18 16:29 Isosorbide Mononitrate (Imdur) 60 mg DAILY ORAL 01/21/18 09:00 02/20/18 08:59 01/22/18 09:05 Lactulose (Cephulac) 30 gm THREE TIMES A DAY ORAL 01/19/18 18:00 02/18/18 12:59 Metoprolol Tartrate (Lopressor) 50 mg Q12HR ORAL 01/22/18 21:00 02/18/18 20:59 Metronidazole (Flagyl) 500 mg EVERY 8 HOURS ORAL 01/19/18 14:00 01/25/18 13:59 01/22/18 13:15 Nitroglycerin (Ntg) 0.4 mg Q5M PRN SL Prn Chest Pain 01/19/18 14:05 02/17/18 11:44 Ondansetron HCl (Zofran) 4 mg Q6H PRN IVP Nausea & Vomiting 01/19/18 17:45 02/17/18 11:44 Pantoprazole (Protonix) 40 mg QHS ORAL 01/19/18 21:00 02/17/18 20:59 01/21/18 20:35 Patient Own Medication (Patient's Own Med) 1 ea DAILY ORAL 01/22/18 12:45 02/21/18 12:44 UNV Polyethylene Glycol (Miralax) 17 gm DAILYPRN PRN ORAL Constipation 01/20/18 11:45 02/17/18 11:44 Tamsulosin HCl (Flomax) 0.4 mg BEDTIME ORAL 01/19/18 21:00 02/17/18 20:59 01/21/18 20:34 Temazepam (Restoril) 15 mg HSPRN PRN ORAL Insomnia 01/19/18 21:30 01/25/18 11:44 01/20/18 21:24 Arianne Delgado MD Jan 22, 2018 13:41
[2018-01-22] MEDS ORDERED: Cathflo Alteplase 2mg Inj INJ SCH (13:45)
[2018-01-22] MEDS ORDERED: Lexiscan 0.4mg/5ml syringe IV PRN (15:00)
[2018-01-22] MEDS ORDERED: Mylanta II UD 30ml ORAL PRN (19:00)
[2018-01-22] MEDS: Dyna-Hex 2% Top Sol 2oz TOPIC SCH (22:01)
[2018-01-22] MEDS: Tamsulosin 0.4mg cap ORAL SCH (22:01)
[2018-01-22] MEDS: Atorvastatin 20mg tab ORAL SCH (22:02)
[2018-01-22] MEDS: Metoprolol Tartrate 50mg tab ORAL SCH (22:02)
[2018-01-23] MEDS: D5 1/2NS 1,000 ML IV SCH ×2 (00:06→10:20)
[2018-01-23] MEDS: DiphenhydrAMINE 50mg/ml Inj IVP PRN ×6 (01:04→17:56)
[2018-01-23 04:00] VITALS: BP 161/90
[2018-01-23] MEDS: Aztreonam Inj 1 GM in NS 50 ML IVPB SCH ×2 (05:23→13:17)
[2018-01-23] MEDS: metroNIDAZOLE 500mg tab ORAL SCH ×2 (05:23→13:15)
[2018-01-23] MEDS: NovoLOG Insulin Flexpen SUBQ SCH ×3 (06:30→16:09)
[2018-01-23 08:10] VITALS: BP 166/100
[2018-01-23] MEDS: Imdur 30mg tab ORAL SCH (08:34)
[2018-01-23] MEDS: Aspirin Baby 81mg NG SCH (08:34)
[2018-01-23] MEDS: Allopurinol 100mg Tab ORAL SCH (08:34)
[2018-01-23] MEDS: Metoprolol Tartrate 50mg tab ORAL SCH (08:35)
[2018-01-23] MEDS: Lactulose 20gm/30ml UDC ORAL SCH ×3 (09:00→17:23)
[2018-01-23] MEDS: Heparin 5000 units/ml inj SUBQ SCH (09:00)
--- NOTE | 2018-01-23 11:19 | Cardiology Progress Note ---
Assessment/Plan Status: stable Assessment/Plan Assessment: (1) Septic shock (2) Acute on chronic renal failure (3) CAD (coronary artery disease) (4) Diabetes mellitus (5) Elevated troponin (6) Diastolic dysfuction (7) Hypertension Plan: Elevated troponin in setting of known CAD and stents -patient should have cardiac cath to evaluate status of stents and coronary anatomy -Given that geophysical laboratory director is not available at [place], we will order lexiscan perfusion study to evaluate blood flow and make arrangements as necessary --> Planned for SUNDAY -Echo shows preserved LV function with mildly elevated filling pressures, no signs of CHF or volume overload. Patient on room air -Troponin is now down trending - ok to hold heparin -Continue aspirin/plavix -Atorvastatin -Resume BP medications - added CARDURA for better control, metoprolol 50 BID , Imdur 60 -nitro prn chest pain -IV abx for diverticulitis -Advance diet as tolerated -Ambulate Subjective Cardiovascular: Reports: no symptoms Respiratory: Reports: no symptoms Gastrointestinal/Abdominal: Reports: no symptoms Genitourinary: Reports: no symptoms Subjective No acute events, no CP, troponin down trended, BP elevated. Stress test postponed to Sunday due to technical issues with camera, no complaints otherwise Objective Last 24 Hour Vital Signs Date Time Temp Pulse Resp B/P (MAP) Pulse Ox O2 Delivery O2 Flow Rate FiO2 01/23/18 09:24 Room Air 01/23/18 09:05 98.7 01/23/18 08:35 70 166/100 01/23/18 08:35 70 166/100 01/23/18 08:35 98.7 01/23/18 08:34 166/100 01/23/18 08:10 98.7 70 20 166/100 (122) 94 98.7 01/23/18 07:35 90 16 Room Air 21 01/23/18 04:00 98.7 66 19 161/90 (113) 94 98.7 01/22/18 22:02 79 150/85 01/22/18 21:00 Room Air 01/22/18 20:00 98.9 79 19 150/85 (106) 93 98.9 01/22/18 18:45 80 16 Room Air 21 01/22/18 17:35 79 153/84 (107) 01/22/18 17:16 82 161/91 01/22/18 16:34 98.8 82 19 161/91 (114) 96 98.8 01/22/18 12:36 98.0 01/22/18 12:00 98.0 79 18 150/80 (103) 96 98.0 General Appearance: no apparent distress EENT: PERRL/EOMI, normal ENT inspection Neck: non-tender, normal alignment Rhythm: NSR Cardiovascular: normal peripheral pulses, normal rate, regular rhythm Respiratory/Chest: chest wall non-tender, lungs clear, normal breath sounds Abdomen: normal bowel sounds, non tender, soft Extremities: normal range of motion, non-tender Neurologic: marble carver II-XII grossly normal, no motor/sensory deficits Intake and Output 01/22/18 01/23/18 19:00 07:00 Intake Total 50 ml 1040 ml Output Total 700 ml 1625 ml Balance -650 ml -585 ml Intake Oral 440 ml IV Total 50 ml 600 ml Output Urine Total 700 ml 1625 ml Tye Hagen MD Jan 23, 2018 11:19
--- NOTE | 2018-01-23 11:55 | Pulmonology Progress Note ---
Assessment/Plan Problems: (1) Septic shock (2) Acute on chronic renal failure (3) CAD (coronary artery disease) (4) Diabetes mellitus Assessment/Plan feeling better wants to go home BP better, cardiology to see sliding scale diabetic diet continue abx as per ID Subjective ROS Limited/Unobtainable: No Constitutional: Reports: no symptoms HEENT: Repors: no symptoms Respiratory: Reports: no symptoms Allergies: Coded Allergies: CEFTRIAXONE (Verified Allergy, Intermediate, 11/02/17) itchy lips VANCOMYCIN (Verified Allergy, Intermediate, pain and sore throat, itching , 11/02/17) CODEINE (Verified Allergy, Unknown, 08/28/11) MORPHINE (Verified Allergy, Unknown, 11/01/17) NIFEDIPINE (Verified Allergy, Unknown, 01/21/10) CLINDAMYCIN (Verified Adverse Reaction, Intermediate, 11/02/17) diarrhea PENICILLINS (Verified Adverse Reaction, Mild, 11/02/17) nausea and vomiting- tolerates Augmentin, Amoxicillin Objective Last 24 Hour Vital Signs Date Time Temp Pulse Resp B/P (MAP) Pulse Ox O2 Delivery O2 Flow Rate FiO2 01/23/18 11:37 98.7 01/23/18 09:24 Room Air 01/23/18 09:05 98.7 01/23/18 08:35 70 166/100 01/23/18 08:35 70 166/100 01/23/18 08:35 98.7 01/23/18 08:34 166/100 01/23/18 08:10 98.7 70 20 166/100 (122) 94 98.7 01/23/18 07:35 90 16 Room Air 21 01/23/18 04:00 98.7 66 19 161/90 (113) 94 98.7 01/22/18 22:02 79 150/85 01/22/18 21:00 Room Air 01/22/18 20:00 98.9 79 19 150/85 (106) 93 98.9 01/22/18 18:45 80 16 Room Air 21 01/22/18 17:35 79 153/84 (107) 01/22/18 17:16 82 161/91 01/22/18 16:34 98.8 82 19 161/91 (114) 96 98.8 01/22/18 12:36 98.0 10/9/18 12:00 98.0 79 18 150/80 (103) 96 98.0 Intake and Output 01/22/18 01/23/18 19:00 07:00 Intake Total 50 ml 1040 ml Output Total 700 ml 1625 ml Balance -650 ml -585 ml Intake Oral 440 ml IV Total 50 ml 600 ml Output Urine Total 700 ml 1625 ml General Appearance: WD/WN HEENT: normocephalic, anicteric Respiratory/Chest: chest wall non-tender, normal breath sounds Cardiovascular: normal peripheral pulses, regular rhythm Abdomen: soft, non tender, non distended Extremities: no cyanosis Skin: no rash, no lesions Current Medications Medications (Trade) Dose Ordered Sig/Mile Route PRN Reason Start Time Stop Time Status Last Admin Dose Admin Acetaminophen (Tylenol) 650 mg Q4H PRN ORAL fever 01/19/18 15:45 02/17/18 11:44 Al Hydroxide/Mg Hydroxide (Mylanta II) 30 ml Q6H PRN ORAL heart burn after meals 01/22/18 19:00 02/21/18 18:59 Allopurinol (Zyloprim) 200 mg DAILY ORAL 01/21/18 09:00 02/20/18 08:59 01/23/18 08:34 Amlodipine Besylate (Norvasc) 10 mg DAILY ORAL 01/23/18 09:00 02/22/18 08:59 01/23/18 08:35 Aspirin (ASA) 81 mg DAILY NG 01/22/18 09:00 02/21/18 08:59 01/23/18 08:34 Atorvastatin Calcium (Lipitor) 20 mg BEDTIME ORAL 01/21/18 21:00 02/20/18 20:59 01/22/18 22:02 Aztreonam 1 gm/ Sodium Chloride 50 ml @ 100 mls/hr EVERY 8 HOURS IVPB 01/19/18 14:00 01/25/18 13:59 01/23/18 05:23 Chlorhexidine Gluconate (Michelle-Hex 2%) 1 applic DAILY@2000 TOPIC 01/19/18 20:00 02/17/18 19:59 01/22/18 22:01 Clopidogrel Bisulfate (Plavix) 75 mg DAILY ORAL 01/20/18 09:00 02/17/18 15:05 01/23/18 08:34 Dextrose (Dextrose 50%) 25 ml Q30M PRN IV Hypoglycemia 01/19/18 14:15 02/17/18 11:43 Dextrose (Dextrose 50%) 50 ml Q30M PRN IV hypoglycemia 01/19/18 14:15 02/17/18 11:44 Dextrose/Sodium Chloride 1,000 ml @ 100 mls/hr Q10H IV 01/23/18 00:00 02/22/18 00:00 01/23/18 10:20 Diphenhydramine HCl (Benadryl) 50 mg Q3H PRN IVP Itching 01/21/18 22:01 02/20/18 22:00 01/23/18 11:36 Doxazosin Mesylate (Cardura) 2 mg DAILY ORAL 01/23/18 12:30 02/22/18 12:29 Gabapentin (Neurontin) 400 mg QHS ORAL 01/19/18 21:00 02/17/18 20:59 01/22/18 22:01 Heparin Sodium (Porcine) (Heparin 5000 units/ml) 5,000 units EVERY 12 HOURS SUBQ 01/19/18 21:00 02/17/18 20:59 Hydrochlorothiazide (Hydrodiuril) 25 mg DAILY ORAL 01/23/18 09:00 02/22/18 08:59 01/23/18 08:34 Hydromorphone HCl (Dilaudid) 2 mg Q3H PRN IVP Severe Pain (Pain Scale 7-10) 01/21/18 20:30 01/28/18 20:29 01/23/18 11:37 Insulin Aspart (NovoLOG) BEFORE MEALS AND HS SUBQ 01/19/18 16:30 02/17/18 16:29 Isosorbide Mononitrate (Imdur) 60 mg DAILY ORAL 01/21/18 09:00 02/20/18 08:59 01/23/18 08:34 Lactulose (Cephulac) 30 gm THREE TIMES A DAY ORAL 01/19/18 18:00 02/18/18 12:59 Metoprolol Tartrate (Lopressor) 50 mg Q12HR ORAL 01/22/18 21:00 02/18/18 20:59 01/23/18 08:35 Metronidazole (Flagyl) 500 mg EVERY 8 HOURS ORAL 01/19/18 14:00 01/25/18 13:59 01/23/18 05:23 Nitroglycerin (Ntg) 0.4 mg Q5M PRN SL Prn Chest Pain 01/19/18 14:05 02/17/18 11:44 Ondansetron HCl (Zofran) 4 mg Q6H PRN IVP Nausea & Vomiting 01/19/18 17:45 02/17/18 11:44 Pantoprazole (Protonix) 40 mg QHS ORAL 01/19/18 21:00 02/17/18 20:59 01/22/18 22:01 Patient Own Medication (Patient's Own Med) 1 ea DAILY ORAL 01/22/18 12:45 02/21/18 12:44 UNV Polyethylene Glycol (Miralax) 17 gm DAILYPRN PRN ORAL Constipation 01/20/18 11:45 02/17/18 11:44 Regadenoson (Lexiscan) 0.4 mg ONCE PRN IV STRESS TEST 01/22/18 15:00 01/24/18 23:59 Tamsulosin HCl (Flomax) 0.4 mg BEDTIME ORAL 01/19/18 21:00 02/17/18 20:59 01/22/18 22:01 Temazepam (Restoril) 15 mg HSPRN PRN ORAL Insomnia 01/19/18 21:30 01/25/18 11:44 01/22/18 22:25 Arianne Delgado MD Jan 23, 2018 11:55
[2018-01-23] MEDS ORDERED: Doxazosin 1mg Tab ORAL SCH (12:30)
[2018-01-23 12:50] VITALS: BP 140/86
--- NOTE | 2018-01-23 14:30 | Nephrology Progress Note ---
Assessment/Plan Problem List: (1) Acute on chronic renal failure (2) Septic shock (3) Sepsis (4) Diabetes mellitus (5) CAD (coronary artery disease) (6) Right BKA infection Assessment Septic shock Acute on chronic renal failure Cr lower DM HTN CAD has 3 stents, High Troponin, declining , cardiac ischemia Plan no labs today- add allopurinol- DC IV Increase lopressor No nephrotoxics antibiotics monitor renal parameters monitor BS and BP continue Plavix and nitrates and beta blockers adjust pain meds DC planning? per orders Subjective ROS Limited/Unobtainable: No Objective Objective Last 24 Hour Vital Signs Date Time Temp Pulse Resp B/P (MAP) Pulse Ox O2 Delivery O2 Flow Rate FiO2 01/23/18 12:50 98.7 67 20 140/86 (104) 94 98.7 01/23/18 12:07 98.7 01/23/18 11:37 98.7 01/23/18 09:24 Room Air 01/23/18 08:35 70 166/100 01/23/18 08:35 70 166/100 01/23/18 08:35 98.7 01/23/18 08:34 166/100 01/23/18 08:10 98.7 70 20 166/100 (122) 94 98.7 01/23/18 07:35 90 16 Room Air 21 01/23/18 04:00 98.7 66 19 161/90 (113) 94 98.7 01/22/18 22:02 79 150/85 01/22/18 21:00 Room Air 01/22/18 20:00 98.9 79 19 150/85 (106) 93 98.9 01/22/18 18:45 80 16 Room Air 21 01/22/18 17:35 79 153/84 (107) 01/22/18 17:16 82 161/91 01/22/18 16:34 98.8 82 19 161/91 (114) 96 98.8 Intake and Output 01/22/18 01/23/18 19:00 07:00 Intake Total 50 ml 1040 ml Output Total 700 ml 1625 ml Balance -650 ml -585 ml Intake Oral 440 ml IV Total 50 ml 600 ml Output Urine Total 700 ml 1625 ml Height (Feet): 6 Height (Inches): 2.00 Weight (Pounds): 338 General Appearance: no apparent distress Objective no change Fouladian,Luis Miguel MD Jan 23, 2018 14:30
--- NOTE | 2018-01-23 15:26 | Cardiology Report ---
APPROVED REPORT EKG Measurement Heart [id number] MD [id number] Sinus rhythm with 1st degree AV block Otherwise normal ECG
[2018-01-23 16:18] VITALS: BP 140/86
--- NOTE | 2018-01-23 17:40 | Infectious Diseases Prog Note ---
Assessment/Plan Assessment/Plan ASSESSMENT: 1. Status post sepsis and septic shock (question source? Source probably GI tract in view of abdominal discomfort and CT abd with possible early diverticulitis). 2. Leukocytosis, SP 3. Cardiac enzyme positive, improving -lexican pending 4. History of hypertension 5. HIV ( well cotrolled on Atripla ) -CD4 700s (40%) 6. ASIF, improving -. Hypertension. -. Diabetes. -. GERD. -. History of diverticulitis. -. History of right BKA. -. History of CAD, status post stent. PLAN: 1. We will continue aztreonam and Flagyl #6/7 for GI coverage -ok to discharge on PO Cipro and Flagyl 2. Monitor CMP and BMP. 3. Monitor cultures (blood). 4. f/u HIV VL 5. Resume Atripla as GFR >50. Thank you, Dr. Delgado, for allowing me to participate in the care of this patient. I will follow the patient with you during this hospitalization. Subjective Allergies: Coded Allergies: CEFTRIAXONE (Verified Allergy, Intermediate, 11/02/17) itchy lips VANCOMYCIN (Verified Allergy, Intermediate, pain and sore throat, itching , 11/02/17) CODEINE (Verified Allergy, Unknown, 08/28/11) MORPHINE (Verified Allergy, Unknown, 11/01/17) NIFEDIPINE (Verified Allergy, Unknown, 01/21/10) CLINDAMYCIN (Verified Adverse Reaction, Intermediate, 11/02/17) diarrhea PENICILLINS (Verified Adverse Reaction, Mild, 11/02/17) nausea and vomiting- tolerates Augmentin, Amoxicillin Subjective afebrile leukocytosis resolved Bcx NTD BP stable Cr improving Objective Vital Signs Last 24 Hour Vital Signs Date Time Temp Pulse Resp B/P (MAP) Pulse Ox O2 Delivery O2 Flow Rate FiO2 01/23/18 16:18 98.7 64 20 140/86 (104) 94 98.7 01/23/18 15:33 98.7 01/23/18 15:03 98.7 01/23/18 12:50 98.7 67 20 140/86 (104) 94 98.7 01/23/18 11:37 98.7 01/23/18 09:24 Room Air 01/23/18 08:35 70 166/100 01/23/18 08:35 70 166/100 01/23/18 08:35 98.7 01/23/18 08:34 166/100 01/23/18 08:10 98.7 70 20 166/100 (122) 94 98.7 01/23/18 07:35 90 16 Room Air 21 01/23/18 04:00 98.7 66 19 161/90 (113) 94 98.7 01/22/18 22:02 79 150/85 01/22/18 21:00 Room Air 01/22/18 20:00 98.9 79 19 150/85 (106) 93 98.9 01/22/18 18:45 80 16 Room Air 21 01/22/18 17:35 79 153/84 (107) Height (Feet): 6 Height (Inches): 2.00 Weight (Pounds): 338 Objective General Appearance: WD/WN Lines, tubes and drains: peripheral, PICC HEENT: normocephalic, atraumatic Neck: non-tender, normal alignment Respiratory/Chest: chest wall non-tender, lungs clear, normal breath sounds Breasts: no masses Cardiovascular/Chest: normal peripheral pulses Abdomen: normal bowel sounds, non tender Current Medications Medications (Trade) Dose Ordered Sig/Mile Route PRN Reason Start Time Stop Time Status Last Admin Dose Admin Acetaminophen (Tylenol) 650 mg Q4H PRN ORAL fever 01/19/18 15:45 02/17/18 11:44 Al Hydroxide/Mg Hydroxide (Mylanta II) 30 ml Q6H PRN ORAL heart burn after meals 01/22/18 19:00 02/21/18 18:59 Allopurinol (Zyloprim) 200 mg DAILY ORAL 01/21/18 09:00 02/20/18 08:59 01/23/18 08:34 Amlodipine Besylate (Norvasc) 10 mg DAILY ORAL 01/23/18 09:00 02/22/18 08:59 01/23/18 08:35 Aspirin (ASA) 81 mg DAILY NG 01/22/18 09:00 02/21/18 08:59 01/23/18 08:34 Atorvastatin Calcium (Lipitor) 20 mg BEDTIME ORAL 01/21/18 21:00 02/20/18 20:59 01/22/18 22:02 Aztreonam 1 gm/ Sodium Chloride 50 ml @ 100 mls/hr EVERY 8 HOURS IVPB 01/19/18 14:00 01/25/18 13:59 01/23/18 13:17 Chlorhexidine Gluconate (Michelle-Hex 2%) 1 applic DAILY@2000 TOPIC 01/19/18 20:00 02/17/18 19:59 01/22/18 22:01 Clopidogrel Bisulfate (Plavix) 75 mg DAILY ORAL 01/20/18 09:00 02/17/18 15:05 01/23/18 08:34 Dextrose (Dextrose 50%) 25 ml Q30M PRN IV Hypoglycemia 01/19/18 14:15 02/17/18 11:43 Dextrose (Dextrose 50%) 50 ml Q30M PRN IV hypoglycemia 01/19/18 14:15 02/17/18 11:44 Dextrose/Sodium Chloride 1,000 ml @ 100 mls/hr Q10H IV 01/23/18 00:00 02/22/18 00:00 01/23/18 10:20 Diphenhydramine HCl (Benadryl) 50 mg Q3H PRN IVP Itching 01/21/18 22:01 02/20/18 22:00 01/23/18 15:03 Doxazosin Mesylate (Cardura) 2 mg DAILY ORAL 01/23/18 12:30 02/22/18 12:29 01/23/18 13:15 Gabapentin (Neurontin) 400 mg QHS ORAL 01/19/18 21:00 02/17/18 20:59 01/22/18 22:01 Heparin Sodium (Porcine) (Heparin 5000 units/ml) 5,000 units EVERY 12 HOURS SUBQ 01/19/18 21:00 02/17/18 20:59 Hydrochlorothiazide (Hydrodiuril) 25 mg DAILY ORAL 01/23/18 09:00 02/22/18 08:59 01/23/18 08:34 Hydromorphone HCl (Dilaudid) 2 mg Q3H PRN IVP Severe Pain (Pain Scale 7-10) 01/21/18 20:30 01/28/18 20:29 01/23/18 15:03 Insulin Aspart (NovoLOG) BEFORE MEALS AND HS SUBQ 01/19/18 16:30 02/17/18 16:29 Isosorbide Mononitrate (Imdur) 60 mg DAILY ORAL 01/21/18 09:00 02/20/18 08:59 01/23/18 08:34 Lactulose (Cephulac) 30 gm THREE TIMES A DAY ORAL 01/19/18 18:00 02/18/18 12:59 Metoprolol Tartrate (Lopressor) 50 mg Q12HR ORAL 01/22/18 21:00 02/18/18 20:59 01/23/18 08:35 Metronidazole (Flagyl) 500 mg EVERY 8 HOURS ORAL 01/19/18 14:00 01/25/18 13:59 01/23/18 13:15 Nitroglycerin (Ntg) 0.4 mg Q5M PRN SL Prn Chest Pain 01/19/18 14:05 02/17/18 11:44 Ondansetron HCl (Zofran) 4 mg Q6H PRN IVP Nausea & Vomiting 01/19/18 17:45 02/17/18 11:44 Pantoprazole (Protonix) 40 mg QHS ORAL 01/19/18 21:00 02/17/18 20:59 01/22/18 22:01 Patient Own Medication (Patient's Own Med) 1 ea DAILY ORAL 01/22/18 12:45 02/21/18 12:44 UNV Polyethylene Glycol (Miralax) 17 gm DAILYPRN PRN ORAL Constipation 01/20/18 11:45 02/17/18 11:44 Regadenoson (Lexiscan) 0.4 mg ONCE PRN IV STRESS TEST 01/22/18 15:00 01/24/18 23:59 Tamsulosin HCl (Flomax) 0.4 mg BEDTIME ORAL 01/19/18 21:00 02/17/18 20:59 01/22/18 22:01 Temazepam (Restoril) 15 mg HSPRN PRN ORAL Insomnia 01/19/18 21:30 01/25/18 11:44 01/22/18 22:25 Shawna Escobar M.D. Jan 23, 2018 17:40
--- NOTE | 2018-01-24 09:35 | Discharge Summary ---
Discharge Summary Discharge Summary _ DATE OF ADMISSION: 01/18/2018 DATE OF DISCHARGE: 01/23/2018 CONSULTANTS: Dr. Shawna Hagen BRIEF HOSPITAL COURSE: Patient is a 48-year-old gentleman, with history of hypertension, non-insulin dependent diabetes, GERD, diverticulitis, coronary artery disease status post 3 stents, and right BKA, presented to ED complaining of dizziness, blurry vision and gait instability. Patient had lightheadedness. He began to stumble like a "drunk man." He initially presented to another hospital however due to long wait he left before diagnostics were completed. He was called by the hospital to inform him of his critical values, WBC of 17 and glucose of 59. Over the past 2 days, he had poor po intake. He did not feel well. He had diffuse generalized abdominal cramping that was intermittent. He had fever of 102.5 after receiving vaccines 3 days prior. He took his antihypertensives namely Norvasc, irbesartan and Coreg and 1 g of Tylenol prior to coming to ED. On arrival to ED, patient was afebrile however was hypotensive. Blood work showed leukocytosis, WBC 16, creatinine was elevated to 4.6, BUN 41. Troponin was 2.4. Urinalysis with +1 leukocyte esterase, 2-4 RBC, 0-2 WBC, 2+ protein. CT of the abdomen showed possible early acute diverticulitis. Head CT was normal. Upon return from CT, he developed severe hypotension. He required IV resuscitation and IV antibiotics. PICC line was inserted to the left arm. He was started on IV pressors and was admitted to ICU for septic shock. He was started on Azactam and po Flagyl. He was given albumin and NS. He was given aspirin and Plavix. Echocardiogram showed preserved preserved LV function with mildly elevated filling pressures, no signs of CHF or volume overload. Troponin down trended. Blood pressure improved. He was transferred out of ICU. He was resumed on blood pressure medications. He was given metoprolol and Imdur, Cardura was added for better control. He was placed on nitroglycerin prn chest pain. He was recommended need to have cardiac catheterization done to evaluate status of stents and coronary anatomy. CD4 count was 738. Renal function improved. He was continued on Atripla. Blood culture did not isolate any growth. Sputum culture with normal respiratory dannielle. He was eventually cleared for discharge home to follow up with electrical line mechanic. FINAL DIAGNOSES: Septic shock, resolved Sepsis and septic shock possibly from GI tract, with signs of possible early diverticulitis Acute on chronic renal failure Elevated troponin in setting of known Coronary artery disease with stent Diabetes mellitus Hypertension HIV GERD Right BKA DISPOSITION: Patient was discharged home. DISCHARGE MEDICATIONS: Refer to Discharge Medication List. DISCHARGE INSTRUCTIONS: Follow up with PCP in a week. Will need cardiac cath as outpatient. I have been assigned to dictate discharge summary on this account, and I was not involved in the patient's management. Luciana Lowry NP Jan 24, 2018 09:35
== END 2018-01-23 18:35 | disposition home or self-care (01) | DRG 974 ==
LOC: EMR 09:00 → ICU 10:00 → EDBEDREQSVC 10:15 → EDBEDREQ 10:34 → 4E 01-19 14:45
PROC: 02HV33Z Insertion of Infusion Device into Superior Vena Cava, Percutaneous Approach (ICD-10-PCS; principal; 2018-01-18)
DX: A41.9 Sepsis, unspecified organism (principal); R65.21 Severe sepsis with septic shock; B20 Human immunodeficiency virus [HIV] disease; K57.92 Diverticulitis of intestine, part unspecified, without perforation or abscess without bleeding; N17.9 Acute kidney failure, unspecified; K21.9 Gastro-esophageal reflux disease without esophagitis; I25.10 Atherosclerotic heart disease of native coronary artery without angina pectoris; I12.9 Hypertensive chronic kidney disease with stage 1 through stage 4 chronic kidney disease, or unspecified chronic kidney disease; E11.22 Type 2 diabetes mellitus with diabetic chronic kidney disease; N18.9 Chronic kidney disease, unspecified; Z95.5 Presence of coronary angioplasty implant and graft; Z89.511 Acquired absence of right leg below knee; Z88.6 Allergy status to analgesic agent; Z88.1 Allergy status to other antibiotic agents; Z88.0 Allergy status to penicillin; R74.8 Abnormal levels of other serum enzymes
CPT/HCPCS: 36415; 36569; 70450; 71045; 74176; 76937; 80053; 80061; 81003; 82550; 82607; 82728; 82746; 82962; 82977; 83036; 83540; 83550; 83605; 83735; 83880; 84100; 84443; 84484; 84550; 85007; 85025; 85610; 85730; 86140; 86360; 86689; 86703; 87040; 87070; 87081; 87205; 87536; 89050; 93005; 93306; 94664; 96361; 96365; 96367; 99291; J1815

== ENCOUNTER 2018-04-04 17:40 | Inpatient (IN) | payer BC, MEDICARE ==
[~2018-04-04] VITALS: Ht 188 cm; Wt 156.5 kg
[2018-04-04 18:10] VITALS: BP 151/88
[2018-04-04] MEDS ORDERED: oxyCODONE HCL/Acetaminophen 5/325mg ORAL ONE (18:15)
[2018-04-04] MEDS ORDERED: Nitroglycerin Subl 0.4mg tab SL PRN (18:15)
[2018-04-04 18:54] LABS: BASOPHILS % (AUTO) 1.5 % (0.0-2.0); HEMOGLOBIN 11.8 G/DL (14.2-18.0); LYMPHOCYTES % (AUTO) 40.6 % (20.0-45.0); MEAN CORPUSCULAR VOLUME 83 FL (80-99); MONOCYTES % (AUTO) 6.5 % (1.0-10.0); NEUTROPHILS % (AUTO) 49.3 % (45.0-75.0); PLATELET COUNT 192 K/UL (150-450); RED CELL DISTRIBUTION WIDTH 13.3 % (11.6-14.8)
[2018-04-04 19:03] LABS: APPEARANCE,URINE CLEAR; BILIRUBIN, URINE NEGATIVE (NEGATIVE); COLOR,URINE PALE YELLOW; GLUCOSE, URINE (UA) NEGATIVE (NEGATIVE); KETONES,URINE NEGATIVE (NEGATIVE); LEUKOCYTE ESTERASE ,URINE NEGATIVE (NEGATIVE); NITRITE,URINE NEGATIVE (NEGATIVE); PH,URINE 6.5 (4.5-8.0); PROTEIN,URINE 3+ (NEGATIVE); UROBILINOGEN,URINE NORMAL MG/DL (0.0-1.0)
[2018-04-04 19:06] LABS: ANION GAP 10 mmol/L (5-15); BLOOD UREA NITROGEN 17 mg/dL (7-18); CALCIUM 8.8 MG/DL (8.5-10.1); CARBON DIOXIDE 25 MMOL/L (21-32); CHLORIDE 106 MMOL/L (98-107); CREATININE 1.9 MG/DL (0.55-1.30); POTASSIUM 4.4 MMOL/L (3.5-5.1); SODIUM 141 MMOL/L (136-145)
[2018-04-04 19:10] VITALS: BP 169/89
[2018-04-04 19:18] LABS: ALANINE AMINOTRANSFERASE 27 U/L (12-78); ALBUMIN 3.4 G/DL (3.4-5.0); ALBUMIN/GLOBULIN RATIO 0.7 (1.0-2.7); ALKALINE PHOSPHATASE 123 U/L (46-116); ASPARTATE AMINO TRANSFERASE 34 U/L (15-37); BILIRUBIN,TOTAL 0.3 MG/DL (0.2-1.0)
[2018-04-04] MEDS ORDERED: HYDROmorphone 1mg/ml Carpuject IVP ONE (19:30)
[2018-04-04] MEDS ORDERED: Miralax 17gm pkt ORAL PRN (19:45)
[2018-04-04] MEDS ORDERED: Albuterol/Ipratropium 3ml neb HHN PRN (19:45)
[2018-04-04] MEDS ORDERED: HYDROcodone/Acetamin 10/325 tab ORAL PRN (19:45)
[2018-04-04 21:00] VITALS: BP 161/82
[2018-04-04] MEDS: NovoLOG Insulin Flexpen SUBQ SCH (21:00)
[2018-04-04] MEDS: Heparin 5000 units/ml inj SUBQ SCH (21:00)
--- NOTE | 2018-04-04 21:16 | Consultation ---
History of Present Illness General Date patient seen: Apr 04, 2018 Chief Complaint: Dyspnea/Respdistress Reason for Consultation: right BKA stump pain Present Illness HPI 48 year old male known to me from prior admission for diverticulitis. Presented to ED abhishek with complaints of worsening pain and drainage from right BKA distal stump pain, SOB, lower extremity edema. Surgery called to evaluate for right BKA stump pain. states for some time now has noted worsening pain in distal stump. usually has baseline discomfort but in past few days worse. has began to note some drainage on his compression sleeve when he takes it off at home. can palpate an area of induration which was not present prior. Allergies: Coded Allergies: CEFTRIAXONE (Verified Allergy, Intermediate, 11/02/17) itchy lips VANCOMYCIN (Verified Allergy, Intermediate, pain and sore throat, itching , 11/02/17) CODEINE (Verified Allergy, Unknown, 08/28/11) MORPHINE (Verified Allergy, Unknown, 11/01/17) NIFEDIPINE (Verified Allergy, Unknown, 01/21/10) CLINDAMYCIN (Verified Adverse Reaction, Intermediate, 11/02/17) diarrhea PENICILLINS (Verified Adverse Reaction, Mild, 11/02/17) nausea and vomiting- tolerates Augmentin, Amoxicillin Medication History Scheduled Amlodipine Besylate (Norvasc), 10 MG ORAL BID, (Reported) Aspirin* (Aspirin*), 81 MG ORAL DAILY, (Reported) Clopidogrel Bisulfate* (Plavix*), 75 MG ORAL DAILY, (Reported) Docusate Sodium* (Docusate Sodium*), 100 MG ORAL DAILY, (Reported) Furosemide* (Lasix*), 20 MG ORAL DAILY, (Reported) Gabapentin* (Neurontin*), 400 MG ORAL QHS, (Reported) Glipizide* (Glucotrol*), 2 MG ORAL ACBREAKFAST, (Reported) Isosorbide Mononitrate (Isosorbide Mononitrate Er), 60 MG PO DAILY, (Reported) Levofloxacin* (Levaquin*), 500 MG ORAL DAILY, (Reported) Metronidazole* (Flagyl*), 500 MG ORAL EVERY 8 HOURS, (Reported) Minoxidil* (Loniten*), 10 MG PO BID, (Reported) Pantoprazole* (Protonix*), 40 MG ORAL QHS, (Reported) Potassium Chloride* (K-Dur*), 20 MEQ ORAL DAILY, (Reported) Valsartan (Diovan), 320 MG ORAL DAILY, (Reported) Scheduled PRN Hydrocodone Bit/Acetaminophen 10-325* ([place] 10-325*), 1 TAB ORAL Q6H PRN Hydrocodone Bit/Acetaminophen 5-325* ([place] 5-325*), 1 TAB ORAL Q6H PRN for For Pain, (Reported) Zolpidem Tartrate* (Ambien*), 10 MG ORAL BEDTIME PRN for Insomnia, (Reported) Patient History History Provided By: Patient, Medical Record, PMD Healthcare decision maker Resuscitation status Advanced Directive on File Past Medical/Surgical History Past Medical/Surgical History: (1) Fever (2) Colitis (3) Diverticulitis (4) Cystitis (5) Splenomegaly (6) Iron deficiency anemia (7) Diabetes mellitus (8) CAD (coronary artery disease) (9) Sepsis (10) Right BKA infection (11) Fatty liver (12) CRI (chronic renal insufficiency) (13) CHF exacerbation Review of Systems All Other Systems: negative except mentioned in HPI Physical Exam General Appearance: no apparent distress, alert Lines, tubes and drains: peripheral HEENT: mucous membranes moist Neck: normal inspection Respiratory/Chest: normal breath sounds, no respiratory distress Cardiovascular/Chest: normal rate Abdomen: soft, no organomegaly, no mass Extremities: other Skin Exam: warm/dry Neurologic: alert, oriented x 3 Last 24 Hour Vital Signs Date Time Temp Pulse Resp B/P (MAP) Pulse Ox O2 Delivery O2 Flow Rate FiO2 04/04/18 19:10 98.2 89 21 169/89 95 Room Air 04/04/18 18:10 98.2 81 13 151/88 95 Room Air 04/04/18 18:10 81 13 Room Air 04/04/18 17:54 98.4 74 19 167/93 93 Room Air Laboratory Tests Test 04/04/18 18:30 White Blood Count 6.0 K/UL (4.8-10.8) Red Blood Count 4.10 M/UL (4.70-6.10) L Hemoglobin 11.8 G/DL (14.2-18.0) L Hematocrit 34.0 % (42.0-52.0) L Mean Corpuscular Volume 83 FL (80-99) Mean Corpuscular Hemoglobin 28.9 PG (27.0-31.0) Mean Corpuscular Hemoglobin Concent 34.9 G/DL (32.0-36.0) Red Cell Distribution Width 13.3 % (11.6-14.8) Platelet Count 192 K/UL (150-450) Mean Platelet Volume 9.3 FL (6.5-10.1) Neutrophils (%) (Auto) 49.3 % (45.0-75.0) Lymphocytes (%) (Auto) 40.6 % (20.0-45.0) Monocytes (%) (Auto) 6.5 % (1.0-10.0) Eosinophils (%) (Auto) 2.0 % (0.0-3.0) Basophils (%) (Auto) 1.5 % (0.0-2.0) Erythrocyte Sedimentation Rate 28 MM/HR (0-15) H Prothrombin Time 10.7 SEC (9.30-11.50) Prothromb Time International Ratio 1.0 (0.9-1.1) Activated Partial Thromboplast Time 28 SEC (23-33) Urine Color Pale yellow Urine Appearance Clear Urine pH 6.5 (4.5-8.0) Urine Specific [place] 1.010 (1.005-1.035) Urine Protein 3+ (NEGATIVE) H Urine Glucose (UA) Negative (NEGATIVE) Urine Ketones Negative (NEGATIVE) Urine Blood 1+ (NEGATIVE) H Urine Nitrite Negative (NEGATIVE) Urine Bilirubin Negative (NEGATIVE) Urine Urobilinogen Normal MG/DL (0.0-1.0) Urine Leukocyte Esterase Negative (NEGATIVE) Urine RBC 0-2 /HPF (0 - 0) H Urine WBC 0-2 /HPF (0 - 0) Urine Squamous Epithelial Cells None /LPF (NONE/OCC) Urine Bacteria None /HPF (NONE) Sodium Level 141 MMOL/L (136-145) Potassium Level 4.4 MMOL/L (3.5-5.1) Chloride Level 106 MMOL/L (98-107) Carbon Dioxide Level 25 MMOL/L (21-32) Anion Gap 10 mmol/L (5-15) Blood Urea Nitrogen 17 mg/dL (7-18) Creatinine 1.9 MG/DL (0.55-1.30) H Estimat Glomerular Filtration Rate 45.7 mL/min (>60) Glucose Level 90 MG/DL (74-106) Calcium Level 8.8 MG/DL (8.5-10.1) Total Bilirubin 0.3 MG/DL (0.2-1.0) Aspartate Amino Transf (AST/SGOT) 34 U/L (15-37) Alanine Aminotransferase (ALT/SGPT) 27 U/L (12-78) Alkaline Phosphatase 123 U/L (46-116) H Troponin I 0.010 ng/mL (0.000-0.056) Pro-B-Type Natriuretic Peptide 399 pg/mL (0-125) H Total Protein 8.6 G/DL (6.4-8.2) H Albumin 3.4 G/DL (3.4-5.0) Globulin 5.2 g/dL Albumin/Globulin Ratio 0.7 (1.0-2.7) L Thyroid Stimulating Hormone (TSH) 2.040 uiU/mL (0.358-3.740) Height (Feet): 6 Height (Inches): 2.00 Weight (Pounds): 320 Medications Current Medications Medications (Trade) Dose Ordered Sig/Mile Route PRN Reason Start Time Stop Time Status Last Admin Dose Admin Acetaminophen (Tylenol) 650 mg Q4H PRN ORAL Fever 04/04/18 19:45 05/04/18 19:44 Acetaminophen/ Hydrocodone Bitart ([place] 10/325) 1 tab Q6H PRN ORAL pain 4-6 04/04/18 19:45 04/11/18 19:44 Albuterol/ Ipratropium (Albuterol/ Ipratropium) 3 ml Q4H PRN HHN Shortness of Breath 04/04/18 19:45 04/09/18 19:44 Clopidogrel Bisulfate (Plavix) 75 mg DAILY ORAL 04/05/18 09:00 05/05/18 08:59 Dextrose (Dextrose 50%) 25 ml Q30M PRN IV Hypoglycemia 04/04/18 19:45 05/04/18 19:44 Dextrose (Dextrose 50%) 50 ml Q30M PRN IV Hypoglycemia 04/04/18 19:45 05/04/18 19:44 Furosemide (Lasix) 40 mg EVERY 8 HOURS IV 04/04/18 22:00 05/04/18 21:59 Gabapentin (Neurontin) 400 mg QHS ORAL 04/04/18 21:00 05/04/18 20:59 Heparin Sodium (Porcine) (Heparin 5000 units/ml) 5,000 units EVERY 12 HOURS SUBQ 04/04/18 21:00 05/04/18 20:59 Insulin Aspart (NovoLOG) BEFORE MEALS AND HS SUBQ 04/04/18 21:00 05/04/18 20:59 Minoxidil (Loniten) 10 mg BID ORAL 04/05/18 09:00 05/05/18 08:59 Nitroglycerin (Ntg) 0.4 mg Q5M PRN SL Prn Chest Pain 04/04/18 18:15 05/04/18 18:14 Ondansetron HCl (Zofran) 4 mg Q6H PRN IVP Nausea & Vomiting 04/04/18 19:45 05/04/18 19:44 Polyethylene Glycol (Miralax) 17 gm DAILYPRN PRN ORAL Constipation 04/04/18 19:45 05/04/18 19:44 Temazepam (Restoril) 15 mg HSPRN PRN ORAL Insomnia 04/04/18 19:45 04/11/18 19:44 Assessment/Plan Problem List: (1) Right BKA infection Assessment & Plan: Worsening pain in right BKA stump recently noted drainage onto compression sleeve can note a mobile "lump" -currently being admitted for medical care and management. ?CHF given SOB, cardiac history, and lower extremity edema -okay for diet -trend labs -MRI right lower extremity BKA stump as I can identify mobile 4cm mass at medial distal stump thank you will follow with recs. ICD Codes: T87.43 - Infection of amputation stump, right lower extremity SNOMED: [id number], [id number] Status: stable Abundio Hernandez Apr 04, 2018 21:16
[2018-04-04 21:20] VITALS: BP 143/101
[2018-04-04] MEDS ORDERED: Gadavist 7.5mMol/7.5ml vial IV PRN (21:30)
[2018-04-04] MEDS ORDERED: HYDROmorphone 2 MG in NS 50 ML IVPB PRN (22:15)
[2018-04-04] MEDS: DiphenhydrAMINE 50mg/ml Inj IVP PRN (22:32)
[2018-04-05] MEDS: DiphenhydrAMINE 50mg/ml Inj IVP PRN ×4 (01:34→21:51)
[2018-04-05 04:00] VITALS: BP 125/89
[2018-04-05] MEDS: NovoLOG Insulin Flexpen SUBQ SCH ×4 (06:25→21:00)
[2018-04-05 07:05] LABS: ANION GAP 10 mmol/L (5-15); BLOOD UREA NITROGEN 18 mg/dL (7-18); CALCIUM 8.7 MG/DL (8.5-10.1); CARBON DIOXIDE 27 MMOL/L (21-32); CHLORIDE 100 MMOL/L (98-107); CREATININE 1.9 MG/DL (0.55-1.30); POTASSIUM 3.8 MMOL/L (3.5-5.1); SODIUM 137 MMOL/L (136-145)
[2018-04-05 08:00] VITALS: BP 159/92
--- NOTE | 2018-04-05 08:26 | Emergency Room Report ---
History of Present Illness General Chief Complaint: Dyspnea/Respdistress Source: Patient, Medical Record Present Illness HPI Patient is a 48-year-old male brought in self after increased difficulty breathing. Patient had prior history of congestive heart failure as well as myocardial infarction in the past. Patient states that he is type II diabetic. He had been noted to have increased leg swelling as well as orthopnea. Patient reports that increased dyspnea on exertion. He states that he has been taking Lasix and reports being compliant with his medications. Patient had noticed increased swelling to his left lower extremity as well as his right BKA stump. He denies any fever. He reports having increased pain to the right lower extremity stump. Patient stated that he contacted his physician Dr. Delgado and was told to come to the emergency department for further evaluation. Patient had gradual onset of symptoms over the past few days. Allergies: Coded Allergies: CEFTRIAXONE (Verified Allergy, Intermediate, 11/02/17) itchy lips VANCOMYCIN (Verified Allergy, Intermediate, pain and sore throat, itching , 11/02/17) CODEINE (Verified Allergy, Unknown, 08/28/11) MORPHINE (Verified Allergy, Unknown, 11/01/17) NIFEDIPINE (Verified Allergy, Unknown, 01/21/10) CLINDAMYCIN (Verified Adverse Reaction, Intermediate, 11/02/17) diarrhea PENICILLINS (Verified Adverse Reaction, Mild, 11/02/17) nausea and vomiting- tolerates Augmentin, Amoxicillin Patient History Past Medical History: see triage record Reviewed Nursing Documentation: PMH: Agreed; PSxH: Agreed Nursing Documentation-PMH Past Medical History: No History, Except For Hx Cardiac Problems: Yes - coronary stent, CHF Hx Hypertension: Yes Hx Diabetes: Yes - NIDDM Hx Cancer: No Hx Gastrointestinal Problems: Yes Hx Neurological Problems: No Review of Systems All Other Systems: negative except mentioned in HPI Physical Exam Vital Signs Date Time Temp Pulse Resp B/P (MAP) Pulse Ox O2 Delivery O2 Flow Rate FiO2 04/04/18 17:54 98.4 74 19 167/93 93 Room Air General Appearance: alert, GCS 15, mild distress, obese, Chronically Ill Head: normocephalic Eyes: bilateral eye PERRL ENT: hearing grossly normal Neck: full range of motion Respiratory: no wheezing, speaking full sentences Cardiovascular #1: normal peripheral pulses, regular rate, rhythm, edema Gastrointestinal: normal inspection Genitourinary: deferred Musculoskeletal: other - right bka stump with serous drainage and chronic skin changes Neurologic: normal inspection, alert, oriented x3, 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 Differential included but was not limited to anemia, pneumonia, pneumothorax, myocardial infarction, pericardial effusion, congestive heart failure, acidosis because of complexity of patient's case laboratory testing and imaging studies were ordered. EKG interpreted by me showed normal sinus rhythm without any acute ST or T wave changes. Patient was given IV Lasix as well as nitroglycerin. Patient's laboratory testing was notable for normal troponin with elevated BNP consistent with CHF exacerbation. Patient was given medications for pain. Dr. Hernandez was contacted for surgical consult. Dr. Anup Christensen was contacted for inpatient management due to covering physician. Patient will likely need further diuresis while in the hospital. Labs Test 04/04/18 18:30 04/05/18 05:20 White Blood Count 6.0 K/UL (4.8-10.8) Red Blood Count 4.10 M/UL (4.70-6.10) Hemoglobin 11.8 G/DL (14.2-18.0) Hematocrit 34.0 % (42.0-52.0) Mean Corpuscular Volume 83 FL (80-99) Mean Corpuscular Hemoglobin 28.9 PG (27.0-31.0) Mean Corpuscular Hemoglobin Concent 34.9 G/DL (32.0-36.0) Red Cell Distribution Width 13.3 % (11.6-14.8) Platelet Count 192 K/UL (150-450) Mean Platelet Volume 9.3 FL (6.5-10.1) Neutrophils (%) (Auto) 49.3 % (45.0-75.0) Lymphocytes (%) (Auto) 40.6 % (20.0-45.0) Monocytes (%) (Auto) 6.5 % (1.0-10.0) Eosinophils (%) (Auto) 2.0 % (0.0-3.0) Basophils (%) (Auto) 1.5 % (0.0-2.0) Erythrocyte Sedimentation Rate 28 MM/HR (0-15) Prothrombin Time 10.7 SEC (9.30-11.50) Prothromb Time International Ratio 1.0 (0.9-1.1) Activated Partial Thromboplast Time 28 SEC (23-33) Urine Color Pale yellow Urine Appearance Clear Urine pH 6.5 (4.5-8.0) Urine Specific [place] 1.010 (1.005-1.035) Urine Protein 3+ (NEGATIVE) Urine Glucose (UA) Negative (NEGATIVE) Urine Ketones Negative (NEGATIVE) Urine Blood 1+ (NEGATIVE) Urine Nitrite Negative (NEGATIVE) Urine Bilirubin Negative (NEGATIVE) Urine Urobilinogen Normal MG/DL (0.0-1.0) Urine Leukocyte Esterase Negative (NEGATIVE) Urine RBC 0-2 /HPF (0 - 0) Urine WBC 0-2 /HPF (0 - 0) Urine Squamous Epithelial Cells None /LPF (NONE/OCC) Urine Bacteria None /HPF (NONE) Total Bilirubin 0.3 MG/DL (0.2-1.0) Aspartate Amino Transf (AST/SGOT) 34 U/L (15-37) Alanine Aminotransferase (ALT/SGPT) 27 U/L (12-78) Alkaline Phosphatase 123 U/L (46-116) Pro-B-Type Natriuretic Peptide 399 pg/mL (0-125) Total Protein 8.6 G/DL (6.4-8.2) Albumin 3.4 G/DL (3.4-5.0) Globulin 5.2 g/dL Albumin/Globulin Ratio 0.7 (1.0-2.7) Thyroid Stimulating Hormone (TSH) 2.040 uiU/mL (0.358-3.740) Sodium Level 137 MMOL/L (136-145) Potassium Level 3.8 MMOL/L (3.5-5.1) Chloride Level 100 MMOL/L (98-107) Carbon Dioxide Level 27 MMOL/L (21-32) Anion Gap 10 mmol/L (5-15) Blood Urea Nitrogen 18 mg/dL (7-18) Creatinine 1.9 MG/DL (0.55-1.30) Estimat Glomerular Filtration Rate 45.7 mL/min (>60) Glucose Level 95 MG/DL (74-106) Calcium Level 8.7 MG/DL (8.5-10.1) Troponin I 0.025 ng/mL (0.000-0.056) EKG Diagnostic Results Rate: normal Rhythm: NSR ST Segments: no acute changes Last Vital Signs Date Time Temp Pulse Resp B/P (MAP) Pulse Ox O2 Delivery O2 Flow Rate FiO2 04/05/18 04:00 98.1 91 16 125/89 (101) 93 04/04/18 23:44 Room Air Status: improved Disposition: ADMITTED INPATIENT Condition: Stable Referrals: Arianne Delgado MD (PCP) Dhruv Mcdaniel MD Apr 05, 2018 08:26
[2018-04-05] MEDS: Heparin 5000 units/ml inj SUBQ SCH ×2 (09:00→21:00)
[2018-04-05] MEDS: Minoxidil 10mg tab ORAL SCH ×2 (09:04→17:29)
--- NOTE | 2018-04-05 10:54 | Diagnostic Imaging Report ---
Indication: Shortness of breath Technique: One view of the chest Comparison: 01/21/2018 Findings: The heart is upper limits normal in size. The lungs and pleural spaces are clear. No significant interim change Impression: No acute process
--- NOTE | 2018-04-05 11:16 | Diagnostic Imaging Report ---
Indication: Right knee pain Technique: 3 views of the right knee Comparison: None Findings: Patient is status post [id number] amputation." Margins appear clean. No acute fractures or dislocations. No definite suprapatellar effusion. The joint spaces are preserved. No soft tissue gas. Impression: Evidence of prior below the knee after dictation. No definite acute process
--- NOTE | 2018-04-05 12:47 | Diagnostic Imaging Report ---
Indication: Cough Technique: One view of the chest Comparison: , 2017 Findings: Lungs and pleural spaces are clear. The heart size is upper limits normal. No significant interim change Impression: No acute process
--- NOTE | 2018-04-05 14:47 | History & Physical ---
History and Physical History & Physicial History and Physical Pulmonary Note HPI Patient is a 48-year-old male brought in self after increased difficulty breathing. Patient had prior history of congestive heart failure as well as myocardial infarction in the past. Patient states that he is type II diabetic. He had been noted to have increased leg swelling as well as orthopnea. Patient reports that increased dyspnea on exertion. He states that he has been taking Lasix and reports being compliant with his medications. Patient had noticed increased swelling to his left lower extremity as well as his right BKA stump. He denies any fever. He reports having increased pain to the right lower extremity stump. Patient had gradual onset of symptoms over the past few days. Allergies: CEFTRIAXONE (Verified Allergy, Intermediate, 11/02/17) itchy lips VANCOMYCIN (Verified Allergy, Intermediate, pain and sore throat, itching , 11/02/17) CODEINE (Verified Allergy, Unknown, 08/28/11) MORPHINE (Verified Allergy, Unknown, 11/01/17) NIFEDIPINE (Verified Allergy, Unknown, 01/21/10) CLINDAMYCIN (Verified Adverse Reaction, Intermediate, 11/02/17) diarrhea PENICILLINS (Verified Adverse Reaction, Mild, 11/02/17) nausea and vomiting- tolerates Augmentin, Amoxicillin Past Medical History: NIDDM, HTN, R LE amputation, CAD (previous stent), CHF All Other Systems: negative except mentioned in HPI Vital Signs Noted Date Time Temp Pulse Resp B/P (MAP) Pulse Ox O2 Delivery O2 Flow Rate FiO2 04/04/18 17:54 98.4 74 19 167/93 93 Room Air General Appearance: alert, GCS 15, mild distress, obese, Chronically Ill Head: normocephalic Eyes: bilateral eye PERRL ENT: hearing grossly normal Neck: full range of motion Respiratory: no wheezing, speaking full sentences Cardiovascular #1: normal peripheral pulses, regular rate, rhythm, edema Gastrointestinal: normal inspection Genitourinary: deferred Musculoskeletal: other - right bka stump with serous drainage and chronic skin changes Neurologic: normal inspection, alert, oriented x3, 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, 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 Psychiatric: normal inspection Skin: other - skin thickening to left leg, edema, right leg stump with fluid and increased skin thickening Medical Decision Making Impression: CHF exacerbation Right BKA infection NIDDM HTN CAD Plan Antibiotics Diurese 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 Surgical referral Labs Test 04/04/18 18:30 04/05/18 05:20 White Blood Count 6.0 K/UL (4.8-10.8) Red Blood Count 4.10 M/UL (4.70-6.10) Hemoglobin 11.8 G/DL (14.2-18.0) Hematocrit 34.0 % (42.0-52.0) Mean Corpuscular Volume 83 FL (80-99) Mean Corpuscular Hemoglobin 28.9 PG (27.0-31.0) Mean Corpuscular Hemoglobin Concent 34.9 G/DL (32.0-36.0) Red Cell Distribution Width 13.3 % (11.6-14.8) Platelet Count 192 K/UL (150-450) Mean Platelet Volume 9.3 FL (6.5-10.1) Neutrophils (%) (Auto) 49.3 % (45.0-75.0) Lymphocytes (%) (Auto) 40.6 % (20.0-45.0) Monocytes (%) (Auto) 6.5 % (1.0-10.0) Eosinophils (%) (Auto) 2.0 % (0.0-3.0) Basophils (%) (Auto) 1.5 % (0.0-2.0) Erythrocyte Sedimentation Rate 28 MM/HR (0-15) Prothrombin Time 10.7 SEC (9.30-11.50) Prothromb Time International Ratio 1.0 (0.9-1.1) Activated Partial Thromboplast Time 28 SEC (23-33) Urine Color Pale yellow Urine Appearance Clear Urine pH 6.5 (4.5-8.0) Urine Specific [place] 1.010 (1.005-1.035) Urine Protein 3+ (NEGATIVE) Urine Glucose (UA) Negative (NEGATIVE) Urine Ketones Negative (NEGATIVE) Urine Blood 1+ (NEGATIVE) Urine Nitrite Negative (NEGATIVE) Urine Bilirubin Negative (NEGATIVE) Urine Urobilinogen Normal MG/DL (0.0-1.0) Urine Leukocyte Esterase Negative (NEGATIVE) Urine RBC 0-2 /HPF (0 - 0) Urine WBC 0-2 /HPF (0 - 0) Urine Squamous Epithelial Cells None /LPF (NONE/OCC) Urine Bacteria None /HPF (NONE) Total Bilirubin 0.3 MG/DL (0.2-1.0) Aspartate Amino Transf (AST/SGOT) 34 U/L (15-37) Alanine Aminotransferase (ALT/SGPT) 27 U/L (12-78) Alkaline Phosphatase 123 U/L (46-116) Pro-B-Type Natriuretic Peptide 399 pg/mL (0-125) Total Protein 8.6 G/DL (6.4-8.2) Albumin 3.4 G/DL (3.4-5.0) Globulin 5.2 g/dL Albumin/Globulin Ratio 0.7 (1.0-2.7) Thyroid Stimulating Hormone (TSH) 2.040 uiU/mL (0.358-3.740) Sodium Level 137 MMOL/L (136-145) Potassium Level 3.8 MMOL/L (3.5-5.1) Chloride Level 100 MMOL/L (98-107) Carbon Dioxide Level 27 MMOL/L (21-32) Anion Gap 10 mmol/L (5-15) Blood Urea Nitrogen 18 mg/dL (7-18) Creatinine 1.9 MG/DL (0.55-1.30) Estimat Glomerular Filtration Rate 45.7 mL/min (>60) Glucose Level 95 MG/DL (74-106) Calcium Level 8.7 MG/DL (8.5-10.1) Troponin I 0.025 ng/mL (0.000-0.056) EKG Diagnostic Results Rate: normal Rhythm: NSR ST Segments: no acute changes Tye Burnett MD Apr 05, 2018 14:47
--- NOTE | 2018-04-05 15:18 | Diagnostic Imaging Report ---
Indication: Right lower extremity pain and infection Technique: Sagittal, axial, coronal T1 and STIR images, precontrast axial T1 fat saturated, postcontrast axial and coronal T1 fat saturated images of the right tibia and fibula post contrast Comparison: Reference made to plain radiograph 04/04/2018 Findings: Patient is status post [id number] amputation. The amputation margins appear clean, and no marrow signal abnormality is demonstrated. There is a slight degree of edema of the subcutaneous fat of the stump. No definite localized fluid collection is demonstrated. There is slight enhancement of the subcutaneous fat laterally. No definite focal abnormalities to correlate with stated clinical history of palpable mass demonstrated. Some prominent residual muscle catheter projects below the bony amputation margins and may account for the apparent palpable abnormality. Impression: Postsurgical changes, as described Mild edema of the subcutaneous fat around the stump with associated minimal contrast enhancement. This could represent cellulitis changes No mass lesion demonstrated. Residual catheter muscle is seen at the anterior inferomedial aspect of the amputation margin, covered by only minimal skin and subcutaneous tissue, could account for the palpable abnormality. Negative for evidence of abscess or osteomyelitis
[2018-04-05 16:00] VITALS: BP 157/89
[2018-04-05] MEDS ORDERED: HYDROcodone/Acetamin 10/325 tab ORAL PRN (16:00)
--- NOTE | 2018-04-05 16:19 | History & Physical ---
History and Physical History & Physicial Anup Christensen MD Apr 05, 2018 16:19
[2018-04-05] MEDS: Levofloxacin 500mg tab ORAL SCH (17:29)
--- NOTE | 2018-04-05 17:51 | Consultation ---
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 Asked to eval for elevated Cr Patient is a 48-year-old male brought in self after increased difficulty breathing. Patient had prior history of congestive heart failure as well as myocardial infarction in the past. Patient states that he is type II diabetic. He had been noted to have increased leg swelling as well as orthopnea. Patient reports that increased dyspnea on exertion. He states that he has been taking Lasix and reports being compliant with his medications. Patient had noticed increased swelling to his left lower extremity as well as his right BKA stump. He denies any fever. He reports having increased pain to the right lower extremity stump. Patient stated that he contacted his physician Dr. Delgado and was told to come to the emergency department for further evaluation. Patient had gradual onset of symptoms over the past few days. Allergies: Coded Allergies: CEFTRIAXONE (Verified Allergy, Intermediate, 11/02/17) itchy lips VANCOMYCIN (Verified Allergy, Intermediate, pain and sore throat, itching , 11/02/17) CODEINE (Verified Allergy, Unknown, 08/28/11) MORPHINE (Verified Allergy, Unknown, 11/01/17) NIFEDIPINE (Verified Allergy, Unknown, 01/21/10) CLINDAMYCIN (Verified Adverse Reaction, Intermediate, 11/02/17) diarrhea PENICILLINS (Verified Adverse Reaction, Mild, 11/02/17) nausea and vomiting- tolerates Augmentin, Amoxicillin Past Medical History: No History, Except For Hx Cardiac Problems: Yes - coronary stent, CHF Hx Hypertension: Yes Hx Diabetes: Yes - NIDDM Hx Gastrointestinal Problems: Yes interviewed examined data reviewed Assessment/Plan Admitted for CHF other conditions; (1) Acute on chronic renal failure/ Diabetic Nephropathy (2) previous h/o Septic shock (3) Diabetes mellitus (4) CAD (coronary artery disease) with h/o 3 stents (5) Right BKA infection Optimize cardiac status avoid nephrotoxics keep BP and BS in check urine studies Luis Miguel Darby MD Apr 05, 2018 17:51
--- NOTE | 2018-04-05 19:31 | Cardiology Progress Note ---
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 if not done so recently [id number] Objective Last 24 Hour Vital Signs Date Time Temp Pulse Resp B/P (MAP) Pulse Ox O2 Delivery O2 Flow Rate FiO2 04/05/18 17:58 98.5 04/05/18 17:29 157/89 04/05/18 16:00 98.5 76 21 157/89 (111) 94 04/05/18 16:00 79 04/05/18 09:30 98.1 04/05/18 09:13 71 18 Room Air 21 04/05/18 09:04 159/72 04/05/18 09:00 Room Air 04/05/18 08:00 98.4 75 20 159/92 (114) 94 04/05/18 08:00 86 04/05/18 04:00 98.1 91 16 125/89 (101) 93 04/05/18 04:00 88 04/05/18 00:00 90 04/04/18 23:44 Room Air 04/04/18 21:20 98.1 80 17 143/101 (115) 92 04/04/18 21:10 98.1 81 19 161/82 98 Room Air 78 04/04/18 21:00 98.1 78 19 161/82 98 Room Air Intake and Output 04/04/18 04/05/18 19:00 07:00 Intake Total 0 ml 480 ml Output Total 5400 ml Balance 0 ml -4920 ml Intake Oral 0 ml 480 ml Output Urine Total 5400 ml # Voids 1 5 Laboratory Tests Test 04/05/18 05:20 04/05/18 12:15 Sodium Level 137 MMOL/L (136-145) Potassium Level 3.8 MMOL/L (3.5-5.1) Chloride Level 100 MMOL/L (98-107) Carbon Dioxide Level 27 MMOL/L (21-32) Anion Gap 10 mmol/L (5-15) Blood Urea Nitrogen 18 mg/dL (7-18) Creatinine 1.9 MG/DL (0.55-1.30) H Estimat Glomerular Filtration Rate 45.7 mL/min (>60) Glucose Level 95 MG/DL (74-106) Calcium Level 8.7 MG/DL (8.5-10.1) Troponin I 0.025 ng/mL (0.000-0.056) 0.005 ng/mL (0.000-0.056) C-Reactive Protein, Quantitative 1.0 mg/dL (0.00-0.90) H Ajay Lynch MD Apr 05, 2018 19:31
[2018-04-05 20:00] VITALS: BP 171/90
--- NOTE | 2018-04-05 21:43 | General Surgery Progress Note ---
General Surgery-Progress Note Subjective Additional Comments no acute events. had MRI today which was reviewed. Objective Last 24 Hour Vital Signs Date Time Temp Pulse Resp B/P (MAP) Pulse Ox O2 Delivery O2 Flow Rate FiO2 04/05/18 21:01 76 157/89 04/05/18 20:24 76 18 Room Air 21 04/05/18 17:58 98.5 04/05/18 17:29 157/89 04/05/18 16:00 98.5 76 21 157/89 (111) 94 04/05/18 16:00 79 04/05/18 09:30 98.1 04/05/18 09:13 71 18 Room Air 21 04/05/18 09:04 159/72 04/05/18 09:00 Room Air 04/05/18 08:00 98.4 75 20 159/92 (114) 94 04/05/18 08:00 86 04/05/18 04:00 98.1 91 16 125/89 (101) 93 04/05/18 04:00 88 04/05/18 00:00 90 04/04/18 23:44 Room Air I&O Intake and Output 04/04/18 04/05/18 19:00 07:00 Intake Total 0 ml 480 ml Output Total 5400 ml Balance 0 ml -4920 ml Intake Oral 0 ml 480 ml Output Urine Total 5400 ml # Voids 1 5 Wound: clean, intact Drains: none Cardiovascular: RSR Respiratory: clear Abdomen: soft, non-tender, present bowel sounds Extremities: other Laboratory Tests Test 04/05/18 05:20 04/05/18 12:15 Sodium Level 137 MMOL/L (136-145) Potassium Level 3.8 MMOL/L (3.5-5.1) Chloride Level 100 MMOL/L (98-107) Carbon Dioxide Level 27 MMOL/L (21-32) Anion Gap 10 mmol/L (5-15) Blood Urea Nitrogen 18 mg/dL (7-18) Creatinine 1.9 MG/DL (0.55-1.30) H Estimat Glomerular Filtration Rate 45.7 mL/min (>60) Glucose Level 95 MG/DL (74-106) Calcium Level 8.7 MG/DL (8.5-10.1) Troponin I 0.025 ng/mL (0.000-0.056) 0.005 ng/mL (0.000-0.056) C-Reactive Protein, Quantitative 1.0 mg/dL (0.00-0.90) H Plan Problems: (1) Right BKA infection Assessment & Plan: Worsening pain in right BKA stump recently noted drainage onto compression sleeve can note a mobile "lump" -currently being admitted for medical care and management. ?CHF given SOB, cardiac history, and lower extremity edema -okay for diet -trend labs -MRI right lower extremity BKA stump noted and fortunately no significant abnormality found -will reevaluate tomorrow thank you will follow with recs. Abundio Hernandez Apr 05, 2018 21:43
--- NOTE | 2018-04-05 23:52 | Consultation ---
History of Present Illness General Chief Complaint: Dyspnea/Respdistress Reason for Consultation: right BKA stump pain Present Illness HPI 48-year-old male brought in self after increased difficulty breathing. Patient had prior history of congestive heart failure as well as myocardial infarction in the past. the pt pw anxiety fatigue and low energy no si/hi Allergies: Coded Allergies: CEFTRIAXONE (Verified Allergy, Intermediate, 11/02/17) itchy lips VANCOMYCIN (Verified Allergy, Intermediate, pain and sore throat, itching , 11/02/17) CODEINE (Verified Allergy, Unknown, 08/28/11) MORPHINE (Verified Allergy, Unknown, 11/01/17) NIFEDIPINE (Verified Allergy, Unknown, 01/21/10) CLINDAMYCIN (Verified Adverse Reaction, Intermediate, 11/02/17) diarrhea PENICILLINS (Verified Adverse Reaction, Mild, 11/02/17) nausea and vomiting- tolerates Augmentin, Amoxicillin Medication History Scheduled Amlodipine Besylate (Norvasc), 10 MG ORAL BID, (Reported) Aspirin* (Aspirin*), 81 MG ORAL DAILY, (Reported) Clopidogrel Bisulfate* (Plavix*), 75 MG ORAL DAILY, (Reported) Docusate Sodium* (Docusate Sodium*), 100 MG ORAL DAILY, (Reported) Furosemide* (Lasix*), 20 MG ORAL DAILY, (Reported) Gabapentin* (Neurontin*), 400 MG ORAL QHS, (Reported) Glipizide* (Glucotrol*), 2 MG ORAL ACBREAKFAST, (Reported) Isosorbide Mononitrate (Isosorbide Mononitrate Er), 60 MG PO DAILY, (Reported) Levofloxacin* (Levaquin*), 500 MG ORAL DAILY, (Reported) Metronidazole* (Flagyl*), 500 MG ORAL EVERY 8 HOURS, (Reported) Minoxidil* (Loniten*), 10 MG PO BID, (Reported) Pantoprazole* (Protonix*), 40 MG ORAL QHS, (Reported) Potassium Chloride* (K-Dur*), 20 MEQ ORAL DAILY, (Reported) Valsartan (Diovan), 320 MG ORAL DAILY, (Reported) Scheduled PRN Hydrocodone Bit/Acetaminophen 10-325* ([place] 10-325*), 1 TAB ORAL Q6H PRN Hydrocodone Bit/Acetaminophen 5-325* ([place] 5-325*), 1 TAB ORAL Q6H PRN for For Pain, (Reported) Zolpidem Tartrate* (Ambien*), 10 MG ORAL BEDTIME PRN for Insomnia, (Reported) Patient History Limited by: medical condition History Provided By: Patient, Medical Record, PMD Healthcare decision maker Resuscitation status Full Code Advanced Directive on File Past Medical/Surgical History Past Medical/Surgical History: (1) Fatty liver (2) Fever (3) Diabetes mellitus (4) Colitis (5) CAD (coronary artery disease) (6) Diverticulitis (7) Splenomegaly (8) Iron deficiency anemia (9) Sepsis (10) Cystitis (11) CRI (chronic renal insufficiency) (12) CHF exacerbation (13) Right BKA infection Review of Systems Psychiatric: Reports: prior hx, anxiety Physical Exam General Appearance: alert Neurologic: oriented x 3, responsive, depressed affect Last 24 Hour Vital Signs Date Time Temp Pulse Resp B/P (MAP) Pulse Ox O2 Delivery O2 Flow Rate FiO2 04/05/18 22:21 98.5 04/05/18 21:01 76 157/89 04/05/18 21:00 Room Air 04/05/18 20:24 76 18 Room Air 21 04/05/18 20:00 98.8 82 20 171/90 (117) 94 04/05/18 20:00 79 04/05/18 17:29 157/89 04/05/18 16:00 98.5 76 21 157/89 (111) 94 04/05/18 16:00 79 04/05/18 09:30 98.1 04/05/18 09:13 71 18 Room Air 21 04/05/18 09:04 159/72 04/05/18 09:00 Room Air 04/05/18 08:00 98.4 75 20 159/92 (114) 94 04/05/18 08:00 86 04/05/18 04:00 98.1 91 16 125/89 (101) 93 04/05/18 04:00 88 04/05/18 00:00 90 Intake and Output 04/04/18 04/05/18 19:00 07:00 Intake Total 0 ml 480 ml Output Total 5400 ml Balance 0 ml -4920 ml Intake Oral 0 ml 480 ml Output Urine Total 5400 ml # Voids 1 5 Laboratory Tests Test 04/05/18 05:20 04/05/18 12:15 Sodium Level 137 MMOL/L (136-145) Potassium Level 3.8 MMOL/L (3.5-5.1) Chloride Level 100 MMOL/L (98-107) Carbon Dioxide Level 27 MMOL/L (21-32) Anion Gap 10 mmol/L (5-15) Blood Urea Nitrogen 18 mg/dL (7-18) Creatinine 1.9 MG/DL (0.55-1.30) H Estimat Glomerular Filtration Rate 45.7 mL/min (>60) Glucose Level 95 MG/DL (74-106) Calcium Level 8.7 MG/DL (8.5-10.1) Troponin I 0.025 ng/mL (0.000-0.056) 0.005 ng/mL (0.000-0.056) C-Reactive Protein, Quantitative 1.0 mg/dL (0.00-0.90) H Height (Feet): 6 Height (Inches): 2.00 Weight (Pounds): 346 Medications Current Medications Medications (Trade) Dose Ordered Sig/Mile Route PRN Reason Start Time Stop Time Status Last Admin Dose Admin Acetaminophen (Tylenol) 650 mg Q4H PRN ORAL Fever 04/04/18 19:45 05/04/18 19:44 Acetaminophen/ Hydrocodone Bitart ([place] 10/325) 1 tab Q6H PRN ORAL Moderate Pain (Pain Scale 4-6) 04/05/18 16:00 04/12/18 15:59 Albuterol/ Ipratropium (Albuterol/ Ipratropium) 3 ml Q4H PRN HHN Shortness of Breath 04/04/18 19:45 04/09/18 19:44 Amlodipine Besylate (Norvasc) 10 mg DAILY ORAL 04/05/18 19:37 05/05/18 19:36 04/05/18 21:01 Aspirin (Ecotrin) 81 mg DAILY ORAL 04/06/18 09:00 05/06/18 08:59 Clonidine HCl (Catapres Tab) 0.1 mg Q4H PRN ORAL bp over 165 syst 04/05/18 18:10 05/05/18 18:09 Clopidogrel Bisulfate (Plavix) 75 mg DAILY ORAL 04/05/18 09:00 05/05/18 08:59 04/05/18 09:00 Dextrose (Dextrose 50%) 25 ml Q30M PRN IV Hypoglycemia 04/04/18 19:45 05/04/18 19:44 Dextrose (Dextrose 50%) 50 ml Q30M PRN IV Hypoglycemia 04/04/18 19:45 05/04/18 19:44 Diphenhydramine HCl (Benadryl) 25 mg Q6H PRN IVP Itching 04/04/18 22:15 05/04/18 22:14 Diphenhydramine HCl (Benadryl) 50 mg Q4H PRN IVP more severe itching 04/05/18 16:00 05/05/18 15:59 04/05/18 21:51 Furosemide (Lasix) 40 mg EVERY 12 HOURS IV 04/05/18 21:00 05/04/18 21:59 04/05/18 20:57 Gabapentin (Neurontin) 400 mg QHS ORAL 04/04/18 21:00 05/04/18 20:59 04/05/18 20:53 Gadobutrol (Gadavist) 7.5 mmol NOW PRN IV Radiology Procedure 04/04/18 21:30 04/08/18 21:16 Heparin Sodium (Porcine) (Heparin 5000 units/ml) 5,000 units EVERY 12 HOURS SUBQ 04/04/18 21:00 05/04/18 20:59 Hydromorphone HCl (Dilaudid) 2 mg Q4H PRN IVP Severe Pain (Pain Scale 7-10) 04/05/18 15:45 04/12/18 15:44 04/05/18 21:51 Insulin Aspart (NovoLOG) BEFORE MEALS AND HS SUBQ 04/04/18 21:00 05/04/18 20:59 Isosorbide Mononitrate (Imdur) 60 mg DAILY ORAL 04/06/18 09:00 05/06/18 08:59 Levofloxacin (Levaquin) 500 mg Q24H ORAL 04/05/18 16:00 04/12/18 15:59 04/05/18 17:29 Minoxidil (Loniten) 10 mg BID ORAL 04/05/18 09:00 05/05/18 08:59 04/05/18 17:29 Nitroglycerin (Ntg) 0.4 mg Q5M PRN SL Prn Chest Pain 04/04/18 18:15 05/04/18 18:14 Ondansetron HCl (Zofran) 4 mg Q6H PRN IVP Nausea & Vomiting 04/04/18 19:45 05/04/18 19:44 Polyethylene Glycol (Miralax) 17 gm DAILYPRN PRN ORAL Constipation 04/04/18 19:45 05/04/18 19:44 Temazepam (Restoril) 15 mg HSPRN PRN ORAL Insomnia 04/04/18 19:45 04/11/18 19:44 04/05/18 21:51 Assessment/Plan Problem List: (1) Anxiety disorder ICD Codes: F41.9 - Anxiety disorder, unspecified SNOMED: [id number] Assessment/Plan ativan prn the pt was provided with Felix Godoy MD Apr 05, 2018 23:52
[2018-04-06] MEDS: DiphenhydrAMINE 50mg/ml Inj IVP PRN ×4 (01:50→14:23)
--- NOTE | 2018-04-06 02:45 | Consultation ---
DATE OF CONSULTATION: 04/05/2018 CONSULTING PHYSICIAN: Ajay Lynch M.D. REFERRING PHYSICIAN: Anup Christensen M.D. REASON FOR REFERRAL: Shortness of breath. HISTORY OF PRESENT ILLNESS: This is an elderly gentleman who has got history of multiple medical problems. The patient has a stump on his right foot from A and developed some pain in that area, but it has been noticed that he has some shortness of breath over the past few days. No pain or pressure. He uses two pillows. There is no PND. No orthopnea. No significant dyspnea on exertion. No chest pain or pressure or discomfort on exertion. He does have history of cardiac issues including three stents that were placed in 2017, but he has been relatively well since then except for this mild shortness of breath, but as opposed to prior stents, he has not had any chest pains recently. He has been admitted to the hospital and treated with diuretics, which he did respond and usually gets some diuretics when he has shortness of breath and apparently that was what helped him before. He has had several hospitalizations here. The last time he was here, he was seen by another assembly hand and the plan was for stress test, although I do not see that ever happening as he does indicate his usual assembly hand in had a stress test a year ago for him. PAST MEDICAL HISTORY: Nevertheless, he has had history of septic shock previously and chronic renal insufficiency with acute component, diabetes mellitus, diastolic dysfunction, and systemic hypertension. No heart attack. No cancer, stroke, hepatitis, or tuberculosis. No asthma or emphysema. No ulcers. No kidney problems, otherwise. No liver problems, thyroid problems, anemia, or arthritis. He does have HIV positive. No prostate problems and he denies basically other major medical problems. ALLERGIES: He has got several allergies to ceftriaxone, clindamycin, codeine, morphine, nifedipine, penicillin, and vancomycin. SOCIAL HISTORY: He used to smoke in high school. He rarely drinks alcoholic beverages. There is no drug use. 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 REVIEW OF SYSTEMS: GASTROINTESTINAL: He has had constipation. No bloody or black stools. GENITOURINARY: He denies. PULMONARY: He has occasional coughing. CONSTITUTIONAL: Negative. NEUROLOGICAL: Negative. PHYSICAL EXAMINATION: VITAL SIGNS: His blood pressure is 157/89 with heart rate of 76 and temperature of 98.5. GENERAL: Shows to be an overweight, middle-aged gentleman, in no respiratory distress. NECK: Supple. LUNGS: Clear to auscultation and percussion. CARDIAC: Regular rate and rhythm. No heaves, thrills, or gallops noted. ABDOMEN: Soft and obese. Positive bowel sounds. EXTREMITIES: Chronic venous stasis on the left side. BKA on the right. NEUROLOGIC: Awake, alert, responsive, in no apparent respiratory distress. LABORATORY AND DIAGNOSTIC DATA: Laboratory values, white count of 6, hemoglobin 11.8, and platelet count of 192,000. Sodium is 137, potassium 3.8, chloride 100, bicarbonate 27, BUN of 18, creatinine of 1.9, glucose of 95, and calcium is 8.7. Three sets of cardiac enzymes were all negative. His proBNP at the time of admission yesterday was only 399, as opposed to his prior admissions when he had levels in the 3000 range. His last B12 was 1126. A chest x-ray was performed yesterday in the emergency room and showed no acute processes. He did have tib-fib MRI that was performed today that shows mild edema, subcutaneous fat around the stump associated with minimal contrast enhancement, possible cellulitis. No mass lesions. His EKG, I am unable to find an electrocardiogram for review. Echocardiogram preliminary report shows ejection fraction 65%, mild mitral regurgitation, and mild diastolic relaxation abnormalities. No other significant abnormalities noted. Telemetry shows sinus rhythm with venous duplex study shows no deep venous thrombosis. ASSESSMENT AND PLAN: 1. Shortness of breath, mild. 2. History of coronary artery disease, status post three stents. 3. Diabetes mellitus. 4. HIV. 5. Obesity. 6. Hypertension. 7. [id number]-hpk-[id number] amputation. Dr. Christensen, this patient was seen in cardiac consultation. The patient really does not have any signs or symptoms of coronary symptoms, although he does have some shortness of breath on exertion. Apparently, that is not a new thing for him. The cardiac enzymes are negative. Actually, I did find an EKG right now that shows some nonspecific T-wave changes. In either case, his cardiac enzymes are negative. He should be treated for his blood pressure and possible diastolic dysfunction, possibly in the form of diuretic that he would be taking at home intermittently. He indicates he has done that before. He should be continued with aspirin and Plavix, and possibly higher dose of Lasix than 20 mg that he receives at home. Isordil should be continued and other medication for blood pressure would be continued as well. From a cardiac point of view, he may be discharged home as soon as okay with the other services. Ajay Lynch M.D. DR: ESPERANZA JOB#: [id number] CC:
[2018-04-06] MEDS: NovoLOG Insulin Flexpen SUBQ SCH ×3 (06:30→16:30)
[2018-04-06 07:33] LABS: ALANINE AMINOTRANSFERASE 38 U/L (12-78); ALBUMIN 3.6 G/DL (3.4-5.0); ALBUMIN/GLOBULIN RATIO 0.8 (1.0-2.7); ALKALINE PHOSPHATASE 129 U/L (46-116); ANION GAP 9 mmol/L (5-15); ASPARTATE AMINO TRANSFERASE 34 U/L (15-37); BILIRUBIN,TOTAL 0.4 MG/DL (0.2-1.0); BLOOD UREA NITROGEN 16 mg/dL (7-18); CALCIUM 8.5 MG/DL (8.5-10.1); CARBON DIOXIDE 30 MMOL/L (21-32); CHLORIDE 97 MMOL/L (98-107); CHOLESTEROL 183 MG/DL (< 200); CREATINE KINASE 1039 U/L (26-308); CREATININE 1.8 MG/DL (0.55-1.30); GAMMA GLUTAMYL TRANSPEPTIDASE 99 U/L (5-85); HDL CHOLESTEROL 48 MG/DL (40-60); PHOSPHORUS 4.6 MG/DL (2.5-4.9); POTASSIUM 3.7 MMOL/L (3.5-5.1); SODIUM 136 MMOL/L (136-145); TRIGLYCERIDES 226 MG/DL (30-150)
[2018-04-06 07:35] LABS: BASOPHILS % (AUTO) 1.2 % (0.0-2.0); EOSINOPHILS % (AUTO) 3.1 % (0.0-3.0); HEMATOCRIT 39.2 % (42.0-52.0); LYMPHOCYTES % (AUTO) 36.2 % (20.0-45.0); MEAN CORPUSCULAR VOLUME 83 FL (80-99); MONOCYTES % (AUTO) 8.5 % (1.0-10.0); PLATELET COUNT 186 K/UL (150-450); RED BLOOD COUNT 4.72 M/UL (4.70-6.10); RED CELL DISTRIBUTION WIDTH 13.2 % (11.6-14.8); WHITE BLOOD COUNT 5.4 K/UL (4.8-10.8)
[2018-04-06 08:00] VITALS: BP 145/60
[2018-04-06] MEDS ORDERED: Imdur 30mg tab ORAL SCH (09:00)
[2018-04-06] MEDS ORDERED: Furosemide 40mg tab ORAL SCH (09:00)
[2018-04-06] MEDS ORDERED: Aspirin EC 81mg tab ORAL SCH (09:00)
[2018-04-06] MEDS: Minoxidil 10mg tab ORAL SCH ×2 (09:35→18:36)
[2018-04-06] MEDS: Heparin 5000 units/ml inj SUBQ SCH (09:36)
--- NOTE | 2018-04-06 11:31 | Cardiology Progress Note ---
Assessment/Plan Assessment/Plan 1. Shortness of breath, mild. 2. History of coronary artery disease, status post three priorstents. 3. Diabetes mellitus. 4. HIV. 5. Obesity. 6. Hypertension. 7. Jtqfa-fdr-cyyl amputation. seem sob has resolved Lasix at home should be increased on dc all trop neg ok to dc home from cardiac point of view tele sinus Subjective Cardiovascular: Denies: chest pain, lightheadedness, palpitations Respiratory: Denies: shortness of breath Gastrointestinal/Abdominal: Denies: abdominal pain Genitourinary: Denies: burning Objective Last 24 Hour Vital Signs Date Time Temp Pulse Resp B/P (MAP) Pulse Ox O2 Delivery O2 Flow Rate FiO2 04/06/18 09:35 145/60 04/06/18 09:35 79 145/60 04/06/18 09:35 145/60 04/06/18 09:00 Room Air 04/06/18 08:00 74 04/06/18 08:00 98.1 79 18 145/60 (88) 98 04/06/18 04:00 82 04/06/18 00:00 81 04/05/18 22:21 98.5 04/05/18 21:01 76 157/89 04/05/18 21:00 Room Air 04/05/18 20:24 76 18 Room Air 21 04/05/18 20:00 98.8 82 20 171/90 (117) 94 04/05/18 20:00 79 04/05/18 17:29 157/89 04/05/18 16:00 98.5 76 21 157/89 (111) 94 04/05/18 16:00 79 General Appearance: alert Neck: non-tender Cardiovascular: normal rate Respiratory/Chest: chest wall non-tender, lungs clear Abdomen: normal bowel sounds, non tender, soft Extremities: no swelling Intake and Output 04/05/18 04/06/18 19:00 07:00 Output Total 800 ml 900 ml Balance -800 ml -900 ml Output Urine Total 800 ml 900 ml # Voids 3 Laboratory Tests Test 04/05/18 12:15 04/06/18 05:55 Troponin I 0.005 ng/mL (0.000-0.056) C-Reactive Protein, Quantitative 1.0 mg/dL (0.00-0.90) H White Blood Count 5.4 K/UL (4.8-10.8) Red Blood Count 4.72 M/UL (4.70-6.10) Hemoglobin 13.0 G/DL (14.2-18.0) L Hematocrit 39.2 % (42.0-52.0) L Mean Corpuscular Volume 83 FL (80-99) Mean Corpuscular Hemoglobin 27.5 PG (27.0-31.0) Mean Corpuscular Hemoglobin Concent 33.1 G/DL (32.0-36.0) Red Cell Distribution Width 13.2 % (11.6-14.8) Platelet Count 186 K/UL (150-450) Mean Platelet Volume 8.6 FL (6.5-10.1) Neutrophils (%) (Auto) 51.0 % (45.0-75.0) Lymphocytes (%) (Auto) 36.2 % (20.0-45.0) Monocytes (%) (Auto) 8.5 % (1.0-10.0) Eosinophils (%) (Auto) 3.1 % (0.0-3.0) H Basophils (%) (Auto) 1.2 % (0.0-2.0) Sodium Level 136 MMOL/L (136-145) Potassium Level 3.7 MMOL/L (3.5-5.1) Chloride Level 97 MMOL/L (98-107) L Carbon Dioxide Level 30 MMOL/L (21-32) Anion Gap 9 mmol/L (5-15) Blood Urea Nitrogen 16 mg/dL (7-18) Creatinine 1.8 MG/DL (0.55-1.30) H Estimat Glomerular Filtration Rate 48.6 mL/min (>60) Glucose Level 107 MG/DL (74-106) H Hemoglobin A1c 5.5 % (4.3-6.0) Uric Acid 9.1 MG/DL (2.6-7.2) H Calcium Level 8.5 MG/DL (8.5-10.1) Phosphorus Level 4.6 MG/DL (2.5-4.9) Magnesium Level 1.8 MG/DL (1.8-2.4) Total Bilirubin 0.4 MG/DL (0.2-1.0) Gamma Glutamyl Transpeptidase 99 U/L (5-85) H Aspartate Amino Transf (AST/SGOT) 34 U/L (15-37) Alanine Aminotransferase (ALT/SGPT) 38 U/L (12-78) Alkaline Phosphatase 129 U/L (46-116) H Total Creatine Kinase 1039 U/L (26-308) H Pro-B-Type Natriuretic Peptide 373 pg/mL (0-125) H Total Protein 8.1 G/DL (6.4-8.2) Albumin 3.6 G/DL (3.4-5.0) Globulin 4.5 g/dL Albumin/Globulin Ratio 0.8 (1.0-2.7) L Triglycerides Level 226 MG/DL (30-150) H Cholesterol Level 183 MG/DL (< 200) LDL Cholesterol 97 mg/dL (<100) HDL Cholesterol 48 MG/DL (40-60) Cholesterol/HDL Ratio 3.8 (3.3-4.4) Microbiology Date/Time Source Procedure Growth Status 04/04/18 18:40 Blood Blood Culture - Preliminary NO GROWTH AFTER 24 HOURS Resulted 04/04/18 18:30 Blood Blood Culture - Preliminary NO GROWTH AFTER 24 HOURS Resulted Ajay Lynch MD Apr 06, 2018 11:31
[2018-04-06 12:00] VITALS: BP 136/86
--- NOTE | 2018-04-06 12:34 | Cardiology Report ---
APPROVED REPORT EXAM: Two-dimensional and M-mode echocardiogram with Doppler and color Doppler. INDICATION LV function M-Mode DIMENSIONS IVSd2.2 (0.7-1.1cm)Left Atrium (MM)4.3 (1.6-4.0cm) LVDd5.5 (3.5-5.6cm)Aortic Root4.1 (2.0-3.7cm) PWd2.0 (0.7-1.1cm)Aortic Cusp Exc.2.5 (1.5-2.0cm) LVDs3.2 (2.5-4.0cm) PWs2.9 cm Normal left ventricular chamber size, systolic function and wall motion. Left ventricular ejection fraction estimated to be 65 %. Moderate left ventricular hypertrophy. Anterior Echo-free space, may be due to pericardial fat or effusion. Moderate left atrial enlargement. Right atrial size at upper limits of normal. Right ventricular chamber size is within normal limits. Focal aortic valve sclerosis with adequate cusp excursion. Aortic root dilatation. Thickened mitral valve leaflets with normal excursion. Mitral annulus and aortic root calcification. Normal pulmonic valve structure. Normal tricuspid valve structure. IVC measured 2.4 cm with physiologic collapse. A color flow and spectral Doppler study was performed and revealed: Mild mitral regurgitation. Mitral diastolic velocities suggest reduced left ventricular relaxation c/w mild LV diastolic dysfunction (Grade I). Trace tricuspid regurgitation. Tricuspid systolic velocities suggests peak right ventricular systolic pressure of 24 mmHg.
--- NOTE | 2018-04-06 13:05 | Nephrology Progress Note ---
Assessment/Plan Problem List: (1) CRI (chronic renal insufficiency) (2) Diabetic nephropathy (3) Proteinuria (4) CHF exacerbation Assessment Admitted for CHF other conditions; (1) Acute on chronic renal failure/ Diabetic Nephropathy (2) previous h/o Septic shock (3) Diabetes mellitus (4) CAD (coronary artery disease) with h/o 3 stents (5) Right BKA infection Plan Optimize cardiac status avoid nephrotoxics keep BP and BS in check urine studies monitor renal parameters Subjective ROS Limited/Unobtainable: No Constitutional: Reports: other - has RIOS Objective Objective Last 24 Hour Vital Signs Date Time Temp Pulse Resp B/P (MAP) Pulse Ox O2 Delivery O2 Flow Rate FiO2 04/06/18 09:35 145/60 04/06/18 09:35 79 145/60 04/06/18 09:35 145/60 04/06/18 09:00 Room Air 04/06/18 08:00 74 04/06/18 08:00 98.1 79 18 145/60 (88) 98 04/06/18 04:00 82 04/06/18 00:00 81 04/05/18 22:21 98.5 04/05/18 21:01 76 157/89 04/05/18 21:00 Room Air 04/05/18 20:24 76 18 Room Air 21 04/05/18 20:00 98.8 82 20 171/90 (117) 94 04/05/18 20:00 79 04/05/18 17:29 157/89 04/05/18 16:00 98.5 76 21 157/89 (111) 94 04/05/18 16:00 79 Intake and Output 04/05/18 04/06/18 19:00 07:00 Output Total 800 ml 900 ml Balance -800 ml -900 ml Output Urine Total 800 ml 900 ml # Voids 3 Laboratory Tests 04/06/18 05:55: White Blood Count 5.4, Red Blood Count 4.72, Hemoglobin 13.0L, Hematocrit 39.2L , Mean Corpuscular Volume 83, Mean Corpuscular Hemoglobin 27.5, Mean Corpuscular Hemoglobin Concent 33.1, Red Cell Distribution Width 13.2, Platelet Count 186, Mean Platelet Volume 8.6, Neutrophils (%) (Auto) 51.0, Lymphocytes (% ) (Auto) 36.2, Monocytes (%) (Auto) 8.5, Eosinophils (%) (Auto) 3.1H, Basophils (%) (Auto) 1.2, Sodium Level 136, Potassium Level 3.7, Chloride Level 97L, Carbon Dioxide Level 30, Anion Gap 9, Blood Urea Nitrogen 16, Creatinine 1.8H, Estimat Glomerular Filtration Rate 48.6, Glucose Level 107H, Hemoglobin A1c 5.5 , Uric Acid 9.1H, Calcium Level 8.5, Phosphorus Level 4.6, Magnesium Level 1.8, Total Bilirubin 0.4, Gamma Glutamyl Transpeptidase 99H, Aspartate Amino Transf ( AST/SGOT) 34, Alanine Aminotransferase (ALT/SGPT) 38, Alkaline Phosphatase 129H , Total Creatine Kinase 1039H, Pro-B-Type Natriuretic Peptide 373H, Total Protein 8.1, Albumin 3.6, Globulin 4.5, Albumin/Globulin Ratio 0.8L, Triglycerides Level 226H, Cholesterol Level 183, LDL Cholesterol 97, HDL Cholesterol 48, Cholesterol/HDL Ratio 3.8 Height (Feet): 6 Height (Inches): 2.00 Weight (Pounds): 345 General Appearance: no apparent distress, other - breathing easier Cardiovascular: normal rate Respiratory/Chest: decreased breath sounds Abdomen: soft, other - obese Luis Miguel Darby MD Apr 06, 2018 13:05
[2018-04-06 16:00] VITALS: BP 159/79
--- NOTE | 2018-04-06 16:13 | General Surgery Progress Note ---
General Surgery-Progress Note Subjective Symptoms: improved, pain absent, tolerating diet, passing flatus Additional Comments doing better. no longer draining from stump Objective Last 24 Hour Vital Signs Date Time Temp Pulse Resp B/P (MAP) Pulse Ox O2 Delivery O2 Flow Rate FiO2 04/06/18 09:35 145/60 04/06/18 09:35 79 145/60 04/06/18 09:35 145/60 04/06/18 09:00 Room Air 04/06/18 08:00 74 04/06/18 08:00 98.1 79 18 145/60 (88) 98 04/06/18 04:00 82 04/06/18 00:00 81 04/05/18 22:21 98.5 04/05/18 21:01 76 157/89 04/05/18 21:00 Room Air 04/05/18 20:24 76 18 Room Air 21 04/05/18 20:00 98.8 82 20 171/90 (117) 94 04/05/18 20:00 79 04/05/18 17:29 157/89 I&O Intake and Output 04/05/18 04/06/18 19:00 07:00 Output Total 800 ml 900 ml Balance -800 ml -900 ml Output Urine Total 800 ml 900 ml # Voids 3 Dressing: dry Wound: clean, dry, intact Drains: none Cardiovascular: RSR Respiratory: clear Abdomen: soft, flat, non-tender, present bowel sounds Extremities: other Laboratory Tests Test 04/06/18 05:55 White Blood Count 5.4 K/UL (4.8-10.8) Red Blood Count 4.72 M/UL (4.70-6.10) Hemoglobin 13.0 G/DL (14.2-18.0) L Hematocrit 39.2 % (42.0-52.0) L Mean Corpuscular Volume 83 FL (80-99) Mean Corpuscular Hemoglobin 27.5 PG (27.0-31.0) Mean Corpuscular Hemoglobin Concent 33.1 G/DL (32.0-36.0) Red Cell Distribution Width 13.2 % (11.6-14.8) Platelet Count 186 K/UL (150-450) Mean Platelet Volume 8.6 FL (6.5-10.1) Neutrophils (%) (Auto) 51.0 % (45.0-75.0) Lymphocytes (%) (Auto) 36.2 % (20.0-45.0) Monocytes (%) (Auto) 8.5 % (1.0-10.0) Eosinophils (%) (Auto) 3.1 % (0.0-3.0) H Basophils (%) (Auto) 1.2 % (0.0-2.0) Sodium Level 136 MMOL/L (136-145) Potassium Level 3.7 MMOL/L (3.5-5.1) Chloride Level 97 MMOL/L (98-107) L Carbon Dioxide Level 30 MMOL/L (21-32) Anion Gap 9 mmol/L (5-15) Blood Urea Nitrogen 16 mg/dL (7-18) Creatinine 1.8 MG/DL (0.55-1.30) H Estimat Glomerular Filtration Rate 48.6 mL/min (>60) Glucose Level 107 MG/DL (74-106) H Hemoglobin A1c 5.5 % (4.3-6.0) Uric Acid 9.1 MG/DL (2.6-7.2) H Calcium Level 8.5 MG/DL (8.5-10.1) Phosphorus Level 4.6 MG/DL (2.5-4.9) Magnesium Level 1.8 MG/DL (1.8-2.4) Total Bilirubin 0.4 MG/DL (0.2-1.0) Gamma Glutamyl Transpeptidase 99 U/L (5-85) H Aspartate Amino Transf (AST/SGOT) 34 U/L (15-37) Alanine Aminotransferase (ALT/SGPT) 38 U/L (12-78) Alkaline Phosphatase 129 U/L (46-116) H Total Creatine Kinase 1039 U/L (26-308) H Pro-B-Type Natriuretic Peptide 373 pg/mL (0-125) H Total Protein 8.1 G/DL (6.4-8.2) Albumin 3.6 G/DL (3.4-5.0) Globulin 4.5 g/dL Albumin/Globulin Ratio 0.8 (1.0-2.7) L Triglycerides Level 226 MG/DL (30-150) H Cholesterol Level 183 MG/DL (< 200) LDL Cholesterol 97 mg/dL (<100) HDL Cholesterol 48 MG/DL (40-60) Cholesterol/HDL Ratio 3.8 (3.3-4.4) Plan Problems: (1) Right BKA infection Assessment & Plan: Worsening pain in right BKA stump recently noted drainage onto compression sleeve can note a mobile "lump" MRI noted and reviewed with patient -currently being admitted for medical care and management. ?CHF given SOB, cardiac history, and lower extremity edema -okay for diet -okay to d/c from surgical standpoint with outpatient follow up thank you will follow with recs. Abundio Hernandez Apr 06, 2018 16:13
[2018-04-06] MEDS: Levofloxacin 500mg tab ORAL SCH (16:53)
--- NOTE | 2018-04-06 17:42 | Internal Med Progress Note ---
Subjective Date of Service: Apr 06, 2018 Physician Name Juan Pablo Schofield Attending Physician Anup Christensen MD Current Medications Medications (Trade) Dose Ordered Sig/Mile Route PRN Reason Start Time Stop Time Status Last Admin Dose Admin Acetaminophen (Tylenol) 650 mg Q4H PRN ORAL Fever 04/04/18 19:45 05/04/18 19:44 Acetaminophen/ Hydrocodone Bitart (Gambell 10/325) 1 tab Q6H PRN ORAL Moderate Pain (Pain Scale 4-6) 04/05/18 16:00 04/12/18 15:59 Albuterol/ Ipratropium (Albuterol/ Ipratropium) 3 ml Q4H PRN HHN Shortness of Breath 04/04/18 19:45 04/09/18 19:44 Amlodipine Besylate (Norvasc) 10 mg DAILY ORAL 04/05/18 19:37 05/05/18 19:36 04/06/18 09:35 Aspirin (Ecotrin) 81 mg DAILY ORAL 04/06/18 09:00 05/06/18 08:59 04/06/18 09:35 Clonidine HCl (Catapres Tab) 0.1 mg Q4H PRN ORAL bp over 165 syst 04/05/18 18:10 05/05/18 18:09 Clopidogrel Bisulfate (Plavix) 75 mg DAILY ORAL 04/05/18 09:00 05/05/18 08:59 04/06/18 09:35 Dextrose (Dextrose 50%) 25 ml Q30M PRN IV Hypoglycemia 04/04/18 19:45 05/04/18 19:44 Dextrose (Dextrose 50%) 50 ml Q30M PRN IV Hypoglycemia 04/04/18 19:45 05/04/18 19:44 Diphenhydramine HCl (Benadryl) 25 mg Q6H PRN IVP Itching 04/04/18 22:15 05/04/18 22:14 04/06/18 14:23 Diphenhydramine HCl (Benadryl) 50 mg Q4H PRN IVP more severe itching 04/05/18 16:00 05/05/18 15:59 04/06/18 06:13 Furosemide (Lasix) 40 mg EVERY 12 HOURS IV 04/05/18 21:00 05/04/18 21:59 04/06/18 09:34 Gabapentin (Neurontin) 400 mg QHS ORAL 04/04/18 21:00 05/04/18 20:59 04/05/18 20:53 Gadobutrol (Gadavist) 7.5 mmol NOW PRN IV Radiology Procedure 04/04/18 21:30 04/08/18 21:16 Heparin Sodium (Porcine) (Heparin 5000 units/ml) 5,000 units EVERY 12 HOURS SUBQ 04/04/18 21:00 05/04/18 20:59 Hydromorphone HCl (Dilaudid) 2 mg Q4H PRN IVP Severe Pain (Pain Scale 7-10) 04/05/18 15:45 04/12/18 15:44 04/06/18 14:22 Insulin Aspart (NovoLOG) BEFORE MEALS AND HS SUBQ 04/04/18 21:00 05/04/18 20:59 Isosorbide Mononitrate (Imdur) 60 mg DAILY ORAL 04/06/18 09:00 05/06/18 08:59 04/06/18 09:35 Levofloxacin (Levaquin) 500 mg Q24H ORAL 04/05/18 16:00 04/12/18 15:59 04/06/18 16:53 Minoxidil (Loniten) 10 mg BID ORAL 04/05/18 09:00 05/05/18 08:59 04/06/18 09:35 Nitroglycerin (Ntg) 0.4 mg Q5M PRN SL Prn Chest Pain 04/04/18 18:15 05/04/18 18:14 Ondansetron HCl (Zofran) 4 mg Q6H PRN IVP Nausea & Vomiting 04/04/18 19:45 05/04/18 19:44 Polyethylene Glycol (Miralax) 17 gm DAILYPRN PRN ORAL Constipation 04/04/18 19:45 05/04/18 19:44 Temazepam (Restoril) 15 mg HSPRN PRN ORAL Insomnia 04/04/18 19:45 04/11/18 19:44 04/05/18 21:51 Allergies: Coded Allergies: CEFTRIAXONE (Verified Allergy, Intermediate, 11/02/17) itchy lips VANCOMYCIN (Verified Allergy, Intermediate, pain and sore throat, itching , 11/02/17) CODEINE (Verified Allergy, Unknown, 08/28/11) MORPHINE (Verified Allergy, Unknown, 11/01/17) NIFEDIPINE (Verified Allergy, Unknown, 01/21/10) CLINDAMYCIN (Verified Adverse Reaction, Intermediate, 11/02/17) diarrhea PENICILLINS (Verified Adverse Reaction, Mild, 11/02/17) nausea and vomiting- tolerates Augmentin, Amoxicillin ROS Limited/Unobtainable: No Constitutional: Reports: no symptoms HEENT: Reports: no symptoms Cardiovascular: Reports: no symptoms Respiratory: Reports: no symptoms Gastrointestinal/Abdominal: Reports: no symptoms Genitourinary: Reports: no symptoms Neurologic/Psychiatric: Reports: no symptoms Subjective 48 YO M admitted with shortness of breath. Now CHF. Cover for Int Med-DR Christensen Objective Last Vital Signs Date Time Temp Pulse Resp B/P (MAP) Pulse Ox O2 Delivery O2 Flow Rate FiO2 04/06/18 16:00 98.3 81 19 159/79 (105) 94 04/06/18 09:00 Room Air 04/05/18 20:24 21 General Appearance: WD/WN, no apparent distress, alert EENT: PERRL/EOMI, normal ENT inspection Neck: non-tender, normal alignment, supple, normal inspection Cardiovascular: normal peripheral pulses, normal rate, regular rhythm, no gallop/murmur, no JVD Respiratory/Chest: chest wall non-tender, lungs clear, normal breath sounds, no respiratory distress, no accessory muscle use, respiratory distress Abdomen: normal bowel sounds, non tender, soft, no organomegaly, no mass Extremities: normal range of motion, non-tender Neurologic: founder and chief technical officer II-XII grossly normal, no motor/sensory deficits Skin: normal pigmentation, warm/dry Laboratory Tests Test 04/06/18 05:55 White Blood Count 5.4 K/UL (4.8-10.8) Red Blood Count 4.72 M/UL (4.70-6.10) Hemoglobin 13.0 G/DL (14.2-18.0) L Hematocrit 39.2 % (42.0-52.0) L Mean Corpuscular Volume 83 FL (80-99) Mean Corpuscular Hemoglobin 27.5 PG (27.0-31.0) Mean Corpuscular Hemoglobin Concent 33.1 G/DL (32.0-36.0) Red Cell Distribution Width 13.2 % (11.6-14.8) Platelet Count 186 K/UL (150-450) Mean Platelet Volume 8.6 FL (6.5-10.1) Neutrophils (%) (Auto) 51.0 % (45.0-75.0) Lymphocytes (%) (Auto) 36.2 % (20.0-45.0) Monocytes (%) (Auto) 8.5 % (1.0-10.0) Eosinophils (%) (Auto) 3.1 % (0.0-3.0) H Basophils (%) (Auto) 1.2 % (0.0-2.0) Sodium Level 136 MMOL/L (136-145) Potassium Level 3.7 MMOL/L (3.5-5.1) Chloride Level 97 MMOL/L (98-107) L Carbon Dioxide Level 30 MMOL/L (21-32) Anion Gap 9 mmol/L (5-15) Blood Urea Nitrogen 16 mg/dL (7-18) Creatinine 1.8 MG/DL (0.55-1.30) H Estimat Glomerular Filtration Rate 48.6 mL/min (>60) Glucose Level 107 MG/DL (74-106) H Hemoglobin A1c 5.5 % (4.3-6.0) Uric Acid 9.1 MG/DL (2.6-7.2) H Calcium Level 8.5 MG/DL (8.5-10.1) Phosphorus Level 4.6 MG/DL (2.5-4.9) Magnesium Level 1.8 MG/DL (1.8-2.4) Total Bilirubin 0.4 MG/DL (0.2-1.0) Gamma Glutamyl Transpeptidase 99 U/L (5-85) H Aspartate Amino Transf (AST/SGOT) 34 U/L (15-37) Alanine Aminotransferase (ALT/SGPT) 38 U/L (12-78) Alkaline Phosphatase 129 U/L (46-116) H Total Creatine Kinase 1039 U/L (26-308) H Pro-B-Type Natriuretic Peptide 373 pg/mL (0-125) H Total Protein 8.1 G/DL (6.4-8.2) Albumin 3.6 G/DL (3.4-5.0) Globulin 4.5 g/dL Albumin/Globulin Ratio 0.8 (1.0-2.7) L Triglycerides Level 226 MG/DL (30-150) H Cholesterol Level 183 MG/DL (< 200) LDL Cholesterol 97 mg/dL (<100) HDL Cholesterol 48 MG/DL (40-60) Cholesterol/HDL Ratio 3.8 (3.3-4.4) Microbiology Date/Time Source Procedure Growth Status 04/04/18 18:40 Blood Blood Culture - Preliminary NO GROWTH AFTER 24 HOURS Resulted 04/04/18 18:30 Blood Blood Culture - Preliminary NO GROWTH AFTER 24 HOURS Resulted Intake and Output 04/05/18 04/06/18 19:00 07:00 Output Total 800 ml 900 ml Balance -800 ml -900 ml Output Urine Total 800 ml 900 ml # Voids 3 Assessment/Plan Problem List: (1) GERD with esophagitis (2) Renal failure (3) HIV disease (4) HTN (hypertension) Assessment & Plan: Continue norvasc and clonidine (5) CHF exacerbation Assessment & Plan: Continue lasix. Shortness of breath resolved. Cleared for discharge per cardiology (6) CAD (coronary artery disease) (7) Diabetes mellitus Status: progressing Assessment/Plan Discharge home today. Follow up with PCP at [facility] Juan Pablo Schofield MD Apr 06, 2018 17:42
[2018-04-06 18:36] VITALS: BP 159/79
--- NOTE | 2018-04-07 14:16 | Cardiology Report ---
APPROVED REPORT EKG Measurement Heart [id number] Normal sinus rhythm Nonspecific T wave abnormality Abnormal ECG
--- NOTE | 2018-04-08 07:47 | Discharge Summary ---
Discharge Summary Discharge Summary _ DATE OF ADMISSION: 04/04/2018 DATE OF DISCHARGE: 04/06/2018 DISCHARGED BY: Der. Christensen REASON FOR ADMISSION: 48 years old male with past medical history of congestive heart failure with diastolic dysfunction, coronary artery disease status post prior stent placement , systemic hypertension, diabetes mellitus, chronic renal insufficiency, right BKA, HIV status, presented to emergency room with difficulty breathing. Patient reported leg swelling and orthopnea. Patient reported dyspnea increased with exertion. Patient reported compliance with diuretic/Lasix at home. Patient also reported increased pain to the right BKA stump. No fever, no chills. No trauma to the right stump. Upon evaluation patient was afebrile ,blood pressure was elevated 167/93, pulse oximetry was 92% on room air. Physical examination revealed right BKA stump with chronic skin changes , serous drainage noted on compression sleeve. Laboratory workup revealed no leukocytosis ,hemoglobin 11.8 hematocrit 34. Urinalysis revealed no evidence of UTI , but showed +3 protein Troponin was negative. EKG revealed sinus rhythm , no acute ischemic changes. Pro BNP 399. Electrolytes were stable. BUN 18 creatinine 1.9 ,consistent with known history of renal insufficiency. Chest x-ray revealed no acute cardiopulmonary pathology. X-ray of the right knee reveal evidence of prior below the knee amputation. No definite acute process. No definite suprapatellar effusion. Joint spaces appeared to be preserved. No soft tissue gas. Patient received 1 dose of antibiotic for possible right BKA stump[ infection. Patient admitted with diagnoses shortness of breath, CHF exacerbation with diastolic dysfunction , history of coronary artery disease status post prior stents, diabetes mellitus, HIV, obesity, hypertension, right below-knee amputation, with possible infection. CONSULTANTS: software testing specialist Dr. Lynch pulmonary Dr. Burnett snuff grinder Dr. Darby surgery Dr. Hernandez psychiatrist [facility] COURSE: Patient admitted to telemetry floor. Echocardiogram revealed preserved ejection fraction 65%. No wall motion abnormality. Moderate left ventricular hypertrophy . Mild mitral regurgitation. Right ventricular systolic pressure of 24. Credit Collector closely followed. Patient started on diuretic with close monitoring of cardiorenal parameters and volumes. Serial troponin were negative. EKG revealed no acute ischemic changes. Patient was ruled out for acute WI. Venous duplex left lower extremity and right leg stump revealed no evidence of acute DVT. Dual antiplatelet therapy with aspirin and Plavix was continued. Blood pressure was managed with calcium channel dany and minoxidil, clonidine was on board as needed. Blood pressure stabilized. Imdur was continued. Lipid panel was stable. Supplemental oxygen provided as needed to keep pulse oximetry above 92%. Pulmonary toilet was on standby as needed. Blood sugar was managed with sliding scale of insulin. Hemoglobin A1c 5.5 -at goal. Horseshoer followed. Renal parameters and electrolytes were closely monitored, electrolytes corrected as needed. Nephrotoxins were avoided. Patient started on empiric antibiotic for possible right BKA stump infection. General surgeon seen and evaluated patient for right stump pain. MRI of the right tibia-fibula revealed no evidence of abscess or osteomyelitis. Surgeon personally reviewed MRI, no significant abnormalities were found. Pain management was addressed as needed. Continue compression sleeve. Surgeon cleared for discharge. Antibiotic stopped. Psychiatrist closely followed. Psychiatrist diagnosed patient with anxiety disorder . Supportive therapy provided, anxiolytics were on board as needed. Shortness of breath resolved. Lasix dose/maintenance dose upon discharge was increased as per software testing specialist recommendations. Patient was stabilized and ready for discharge home. FINAL DIAGNOSES: CHF exacerbation/diastolic dysfunction Coronary artery disease ,status post prior stents Hypertension Acute on chronic renal failure/diabetic nephropathy Chronic renal insufficiency Diabetes mellitus with diabetic nephropathy Proteinuria Right BKA HIV status Anxiety disorder Obesity DISCHARGE MEDICATIONS: See Medication Reconciliation list. DISCHARGE INSTRUCTIONS: Patient was discharged home . Follow up with primary care provider in one week. I have been assigned to dictate discharge summary for this account. I was not involved in the patient's management. Karla Rosen NP Apr 08, 2018 07:47
--- NOTE | 2018-04-08 08:45 | History and Physical Report ---
DATE OF ADMISSION: 04/04/2018 CHIEF COMPLAINT: Right stump, painful. HISTORY OF PRESENT ILLNESS: This 48-year-old -[place] gentleman with past medical history significant for diverticulosis, prior history of colitis, cystitis, splenomegaly, iron-deficiency anemia, diabetes type 2, coronary artery disease, right BKA due to the infection, fatty liver, chronic kidney disease, and CHF exacerbation, who has presented to the hospital, complaining about the right stump, painful. He stated that he felt to have lump on the stump and it was tender to touch. He has been using his prosthetic, but due to the pain, he has not been able to use it and shortly after initial evaluation emergency, the patient was noted to have congestive heart failure on a confirmatory x-ray and subsequently the patient was admitted to the hospital with acute CHF exacerbation as well as right stump possible infection and drainage. PAST MEDICAL HISTORY/PAST SURGICAL HISTORY: As above. History of peripheral vascular disease, status post right BKA, sepsis, diabetes type 2, coronary artery disease, anemia, splenomegaly, cystitis, diverticulosis, colitis, fatty liver, morbid obesity, and CHF. MEDICATIONS: Medications at home, please refer to medication reconciliation including Norvasc, aspirin, Plavix, docusate, Lasix, Neurontin, Glucotrol, Levaquin, Flagyl was completed, minoxidil, Protonix, K-Dur, Diovan, [place] p.r.n. for pain, and zolpidem p.r.n. for insomnia. ALLERGIES: Allergic to ceftriaxone, clindamycin, codeine, morphine, nifedipine, penicillin, vancomycin. SOCIAL HISTORY: The patient denies any smoking, alcohol, or drugs at this time. FAMILY HISTORY: Noncontributory. REVIEW OF SYSTEMS: Mostly as above. Denies any dysuria, frequency, or hematuria. Complained about left pedal edema. Denies any loss of consciousness. Denies any suicidal or homicidal ideation. Denies any double vision. Denies any fall or head trauma. PHYSICAL EXAMINATION: VITAL SIGNS: On admission, temperature is 98.4 degrees, pulse of 74, respiration 19, and blood pressure 167/93. GENERAL: The patient is awake, responsive, in no acute distress. HEAD AND NECK: Pupils are reactive to light. Extraocular movements are intact. NECK: Supple. No JVD. LUNGS: Good air entry. No wheezing or rales. HEART: S1 and S2. Distant heart sounds. No gallops. ABDOMEN: Soft, nondistended, and nontender. Morbid obese. EXTREMITIES: No cyanosis or clubbing. There is +2 edema on the left lower extremity. Right lower extremity has BKA stump, it is tender to touch. Positive sign of drainage. RECTAL: Refused and deferred. GENITOURINARY: Refused and deferred. PSYCHIATRIC: Mood and affect are intact. NEUROLOGIC: Cranial nerves II through XII grossly intact. The patient is moving all extremities spontaneously. LABORATORY AND DIAGNOSTIC DATA: On admission from the ER, WBC of 6.0, hemoglobin is 11, hematocrit is 34, and platelets are 192,000. Sodium 141, potassium 4.4, chloride 106, bicarbonate 25, BUN 17, creatinine 1.9, and glucose is 90. First, second, and third troponins are all negative. Alkaline phosphatase was 123. ProBNP of 399. Albumin is 3.4. PT of 10, INR 1.0, and PTT of 28. Urinalysis is +3 protein, +1 blood, and 0 to 2 RBC. The patient's chest x-ray was noted with no acute process. X-ray of the knee shows that no evidence of the prior [id number] and no definite acute process. The patient had an MRI of the tibia-fibula of the right foot, which is noted to have postsurgical changes as described, mild edema of the subcutaneous fat around the stump, and associated minimal contrast enhancing, could represent cellulitis changes. No mass or lesion demonstrated. Residual muscle is seen in the anterior, inferior, and medial aspect of the amputated margin. No osteomyelitis or no abscess. ASSESSMENT: 1. Right foot BKA infection. 2. Acute CHF exacerbation on chronic with fluid overload. 3. Morbid obesity. 4. Hypertension. 5. Diabetes type 2. 6. History of colitis and diverticulitis. 7. Splenomegaly. 8. Coronary artery disease. 9. Chronic kidney disease. PLAN: Admit the patient to monitor unit. We will follow up with Cardiology consultation as well as Pulmonary consultation with Dr. Gamble . The patient has been seen by Dr. Hernandez from [facility]. At this time, we will start the patient on Levaquin. Code status is Full Code. Pain medication, DVT prophylaxis, and heparin subcutaneous. Anup Christensen M.D. DR: JON JOB#: [id number] CC: JOB
--- NOTE | 2018-04-11 17:00 | Diagnostic Imaging Report ---
APPROVED REPORT CPT Code: 17889 Present Symptoms Comments: Swelling Amputation: immediately below right knee. RIGHT LEG: Venous imaging reveals a patent deep venous system. There is no evidence of thrombus within the femoral, or popliteal veins. The greater saphenous vein is also within normal limits. Doppler indicates normal spontaneous flow within these segments. LEFT LEG: Venous imaging reveals a patent deep venous system. There is no evidence of thrombus within the femoral, popliteal or tibial segments. The greater saphenous vein is also within normal limits. Doppler indicates normal spontaneous flow within these segments.
== END 2018-04-06 19:00 | disposition home or self-care (01) | DRG 291 ==
LOC: EMR 18:40 → 2E 18:55 → EDBEDREQ 20:31
DX: I13.0 Hypertensive heart and chronic kidney disease with heart failure and stage 1 through stage 4 chronic kidney disease, or unspecified chronic kidney disease (principal); I50.33 Acute on chronic diastolic (congestive) heart failure; T87.43 Infection of amputation stump, right lower extremity; N17.9 Acute kidney failure, unspecified; Z68.41 Body mass index [BMI] 40.0-44.9, adult; Y83.5 Amputation of limb(s) as the cause of abnormal reaction of the patient, or of later complication, without mention of misadventure at the time of the procedure; E66.01 Morbid (severe) obesity due to excess calories; R16.1 Splenomegaly, not elsewhere classified; I25.10 Atherosclerotic heart disease of native coronary artery without angina pectoris; E11.22 Type 2 diabetes mellitus with diabetic chronic kidney disease; N18.9 Chronic kidney disease, unspecified; Z95.5 Presence of coronary angioplasty implant and graft; F41.9 Anxiety disorder, unspecified; Z88.6 Allergy status to analgesic agent; Z88.1 Allergy status to other antibiotic agents; Z88.0 Allergy status to penicillin; Z88.8 Allergy status to other drugs, medicaments and biological substances; I34.0 Nonrheumatic mitral (valve) insufficiency; K57.90 Diverticulosis of intestine, part unspecified, without perforation or abscess without bleeding; I73.9 Peripheral vascular disease, unspecified; Z79.02 Long term (current) use of antithrombotics/antiplatelets; Z79.82 Long term (current) use of aspirin
CPT/HCPCS: 36415; 71045; 80048; 80053; 80061; 81001; 82550; 82962; 82977; 83036; 83735; 83880; 84100; 84443; 84484; 84550; 85025; 85610; 85651; 85730; 86140; 86850; 86900; 86901; 87040; 93005; 93306; 93970; 94664; 96374; 96375; 99285; A9585; J1815

== ENCOUNTER 2018-05-01 19:01 | Inpatient (IN) | payer MEDICARE ==
[~2018-05-01] VITALS: Ht 188 cm; Wt 154.7 kg
--- NOTE | 2018-05-01 19:45 | NUR ---
ED Nurse Note: RECIEVED PT FROM HOME WITH C/O RIGHT LOWER LEG PAIN AND INTERMITTENT CP AT 9/10 FOR PAST 3 DAYS, PT HAS HX OF CHF AND TAKES LASIX, PT LEFT LEG HAS SEVERE SWELLING AND PT HAS RIGHT BKA WITH PROSTHETIC, PT ASSISTED TO GOWNING AND IV LINE PALCED AND LABS DRAWN, WILL MEDICATE ORDERED AND RESUME CARE WITH CLOSE MONITORING.
--- NOTE | 2018-05-01 19:52 | Emergency Room Report ---
History of Present Illness General Chief Complaint: General Complaint Source: Patient Present Illness HPI Patient presents with increased edema and dyspnea. He says his oral Lasix is not working for him. He stopped taking his antihypertensives a few days ago. When this happens he usually is admitted for IV Lasix. He also complains about body pain and chest discomfort. He rates the pain 8/10 , pressure and somewhat pleuritic but mostly constant. He denies cough, fever, productive phlegm. The patient is stable on HIV medications. 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 No fevers, chills, palpitations, nausea, vomiting, diarrhea, dysuria, abdominal pain, depression, visual changes, headache. Allergies: Coded Allergies: CEFTRIAXONE (Verified Allergy, Intermediate, 11/02/17) itchy lips VANCOMYCIN (Verified Allergy, Intermediate, pain and sore throat, itching , 11/02/17) CODEINE (Verified Allergy, Unknown, 08/28/11) MORPHINE (Verified Allergy, Unknown, 11/01/17) NIFEDIPINE (Verified Allergy, Unknown, 01/21/10) CLINDAMYCIN (Verified Adverse Reaction, Intermediate, 11/02/17) diarrhea PENICILLINS (Verified Adverse Reaction, Mild, 11/02/17) nausea and vomiting- tolerates Augmentin, Amoxicillin Patient History Past Medical History: see triage record Past Surgical History: other - Below knee amputation right Social History: Denies: smoking Social History Narrative Case management at [facility] Reviewed Nursing Documentation: PMH: Agreed; PSxH: Agreed Nursing Documentation-PMH Hx Cardiac Problems: Yes - coronary stent, CHF Hx Hypertension: Yes Hx Diabetes: Yes - NIDDM Hx Cancer: No Hx Gastrointestinal Problems: Yes Hx Neurological Problems: No Review of Systems All Other Systems: negative except mentioned in HPI Physical Exam Vital Signs Date Time Temp Pulse Resp B/P (MAP) Pulse Ox O2 Delivery O2 Flow Rate FiO2 05/01/18 19:27 98.1 68 17 162/84 99 Room Air Sp02 EP Interpretation: reviewed, normal General Appearance: well appearing, no apparent distress, GCS 15 Head: normocephalic, atraumatic Eyes: bilateral eye normal inspection, bilateral eye PERRL ENT: moist mucus membranes Neck: supple Respiratory: lungs clear, normal breath sounds, decreased breath sounds Cardiovascular #1: regular rate, rhythm, edema - Left leg brawny 2+ somewhat pitting Cardiovascular #2: 2+ radial (R) Gastrointestinal: normal inspection, normal bowel sounds, non tender, no mass, non-distended, overweight Musculoskeletal: other - BKA R Neurologic: alert, oriented x3, grossly normal Psychiatric: mood/affect normal Skin: warm/dry, other - venous disease L leg Medical Decision Making Diagnostic Impression: Primary Impression: NSTEMI (non-ST elevated myocardial infarction) Additional Impressions: Chest pain Qualified Codes: R07.9 - Chest pain, unspecified CHF (congestive heart failure) Qualified Codes: I50.43 - Acute on chronic combined systolic (congestive) and diastolic (congestive) heart failure ER Course Patient presents with chest pain and worsening edema and orthopnea. Differential includes acute myocardial infarction, acute coronary syndrome, exacerbation of congestive heart failure, noncompliance with medications amongst others. Evaluation will be with EKG, chest x-ray and labs. The patient will be given a dose of IV Lasix and also is requesting analgesia. EKG without injury. Chest x-ray with increased kennedy but not severe pulmonary edema. Normal CBC. CMP remarkable for elevated creatinine. Lab called with positive troponin. Diuresing here. Dilaudid repeated. Pain is improved. Aspirin given for elevated troponin. Admit stepdown unit Dr. Christensen. Laboratory Tests Test 05/01/18 20:30 White Blood Count 7.2 K/UL (4.8-10.8) Red Blood Count 4.49 M/UL (4.70-6.10) L Hemoglobin 12.6 G/DL (14.2-18.0) L Hematocrit 37.0 % (42.0-52.0) L Mean Corpuscular Volume 82 FL (80-99) Mean Corpuscular Hemoglobin 28.0 PG (27.0-31.0) Mean Corpuscular Hemoglobin Concent 34.0 G/DL (32.0-36.0) Red Cell Distribution Width 13.9 % (11.6-14.8) Platelet Count 203 K/UL (150-450) Mean Platelet Volume 8.1 FL (6.5-10.1) Neutrophils (%) (Auto) 47.7 % (45.0-75.0) Lymphocytes (%) (Auto) 41.1 % (20.0-45.0) Monocytes (%) (Auto) 7.9 % (1.0-10.0) Eosinophils (%) (Auto) 2.0 % (0.0-3.0) Basophils (%) (Auto) 1.3 % (0.0-2.0) Prothrombin Time 10.8 SEC (9.30-11.50) Prothrombin Time INR 1.0 (0.9-1.1) PTT 28 SEC (23-33) Sodium Level 140 MMOL/L (136-145) Potassium Level 3.8 MMOL/L (3.5-5.1) Chloride Level 103 MMOL/L (98-107) Carbon Dioxide Level 26 MMOL/L (21-32) Anion Gap 11 mmol/L (5-15) Blood Urea Nitrogen 16 mg/dL (7-18) Creatinine 1.7 MG/DL (0.55-1.30) H Estimate Glomerular Filtration Rate 52.0 mL/min (>60) Glucose Level 103 MG/DL (74-106) Calcium Level 9.3 MG/DL (8.5-10.1) Total Bilirubin 0.3 MG/DL (0.2-1.0) Aspartate Amino Transferase (AST) 28 U/L (15-37) Alanine Aminotransferase (ALT) 31 U/L (12-78) Alkaline Phosphatase 123 U/L (46-116) H Total Creatine Kinase 712 U/L (26-308) H Troponin I 0.098 ng/mL (0.000-0.056) Pro-B-Type Natriuretic Peptide 187 pg/mL (0-125) H Total Protein 8.5 G/DL (6.4-8.2) H Albumin 3.8 G/DL (3.4-5.0) Globulin 4.7 g/dL Albumin/Globulin Ratio 0.8 (1.0-2.7) L EKG Diagnostic Results Rate: normal Rhythm: NSR ST Segments: no acute changes Rhythm Strip Diag. Results EP Interpretation: yes Rhythm: NSR, no PVC's, no ectopy Chest X-Ray Diagnostic Results Chest X-Ray Diagnostic Results : Chest X-Ray Ordered: Yes # of Views/Limited/Complete: 1 View Indication: Other EP Interpretation: Yes Interpretation: no effusion, no pneumothorax, other - inc cor Impression: Other Electronically Signed by: Electronically signed by Tye Lopez MD Last Vital Signs Date Time Temp Pulse Resp B/P (MAP) Pulse Ox O2 Delivery O2 Flow Rate FiO2 05/02/18 00:00 Room Air 05/02/18 00:00 97.7 66 20 146/87 (106) 93 Status: improved Disposition: ADMITTED INPATIENT Condition: Serious Tye Lopez MD May 01, 2018 19:52
[2018-05-01] MEDS ORDERED: Nitroglycerin 2% oint pkt TOPIC ONE (20:00)
[2018-05-01] MEDS ORDERED: HYDROmorphone 1mg/ml Carpuject IVP ONE ×2 (20:00→21:45)
[2018-05-01] MEDS ORDERED: DOCUSATE SODIU100 MG ORAL (20:46)
[2018-05-01] MEDS ORDERED: AMLODIPINE BESYL5 MG ORAL (20:52)
[2018-05-01] MEDS ORDERED: MULTI-VITAMIN1 EACH PO (20:52)
[2018-05-01] MEDS ORDERED: ISOSORBIDE MONO20 MG PO (20:52)
[2018-05-01] MEDS ORDERED: ACETAMINOPHEN325 M1 ORAL (20:52)
[2018-05-01] MEDS ORDERED: FUROSEMIDE40 MG ORAL (20:52)
[2018-05-01] MEDS ORDERED: CLARITIN10 M2 ORAL (20:52)
[2018-05-01 21:14] LABS: BASOPHILS % (AUTO) 1.3 % (0.0-2.0); HEMOGLOBIN 12.6 G/DL (14.2-18.0); LYMPHOCYTES % (AUTO) 41.1 % (20.0-45.0); MEAN CORPUSCULAR VOLUME 82 FL (80-99); MONOCYTES % (AUTO) 7.9 % (1.0-10.0); NEUTROPHILS % (AUTO) 47.7 % (45.0-75.0); PLATELET COUNT 203 K/UL (150-450); RED BLOOD COUNT 4.49 M/UL (4.70-6.10); RED CELL DISTRIBUTION WIDTH 13.9 % (11.6-14.8); WHITE BLOOD COUNT 7.2 K/UL (4.8-10.8)
[2018-05-01 21:30] VITALS: BP 148/99
[2018-05-01 21:38] LABS: ANION GAP 11 mmol/L (5-15); BLOOD UREA NITROGEN 16 mg/dL (7-18); CALCIUM 9.3 MG/DL (8.5-10.1); CARBON DIOXIDE 26 MMOL/L (21-32); CHLORIDE 103 MMOL/L (98-107); CREATININE 1.7 MG/DL (0.55-1.30); POTASSIUM 3.8 MMOL/L (3.5-5.1); SODIUM 140 MMOL/L (136-145)
[2018-05-01] MEDS ORDERED: DiphenhydrAMINE 50mg/ml Inj IVP ONE (21:45)
[2018-05-01 21:49] LABS: ALANINE AMINOTRANSFERASE 31 U/L (12-78); ALBUMIN 3.8 G/DL (3.4-5.0); ALBUMIN/GLOBULIN RATIO 0.8 (1.0-2.7); ALKALINE PHOSPHATASE 123 U/L (46-116); ASPARTATE AMINO TRANSFERASE 28 U/L (15-37); BILIRUBIN,TOTAL 0.3 MG/DL (0.2-1.0); CREATINE KINASE 712 U/L (26-308)
--- NOTE | 2018-05-01 22:00 | NUR ---
ED Nurse Note: PT MEDICATED SECOND TIME FOR PAIN, MEDS SIGNED INCORRECTLY, NOTED IF BOTH GIVEN NOW AND WAS GIVEN AT 2015 PREVIOUSLY, MD AWARE, PT IN BED REMAINS ON CARDIAC MONITORING, PT HAS OUTPUT AFTER LASIX, LARGE AMOUNTS, PT TO BE ADMITTED TO HOSPITAL, WILL CONTINUE TO CLOSELY MONITOR AND PREAPRE FOR ADMIT. PT DENIES CP AT THIS TIME.
--- NOTE | 2018-05-01 22:50 | NUR ---
ED Nurse Note: PT RESTING QUIETLY IN BED, AWAKE AND ALERT, MEDS GIVEN FOR PAIN SLIGHTLY EFFECTIVE WITH PAIN LEVEL AT 5/10, PT STATES HE NEEDS 2MG DOSES AT A TIME, MD IS AWARE, PT DENIES CP, NO SOB NOTED AT REST, PT HAS ROOM FOR ADMISSION, REPORT CALLED TO FLOOR NURSE AMY GUILLAUME, PT BELONGINGS LIST COMPLETED, IV SITE PATENT, PT [id number] URINAL, LASIX EFFECTIVE, PT BEING TAKEN TO FLOOR UNIT VIA GURNEY AND ACLS PROTOCOLS, NAD NOTED DURING PT TRANSPORT.
[2018-05-01 23:10] VITALS: BP 146/87
--- NOTE | 2018-05-01 23:10 | NUR ---
NURSE NOTES: Received patient via gurney from ED. Report given by Cardiad. Patient is stable, showing no signs and symptoms of pain and/or distress. Belongings accounted for at bedside. Will contact Dr. Christensen for admission orders and initiate plan of care.
[2018-05-02] VITALS: BP 146/87
--- NOTE | 2018-05-02 00:58 | NUR ---
NURSE NOTES: Attempted to contact Dr. Christensen and Dr. Delgado for admission orders. Patient requests pain medication (Dilaudid), Benadryl and a sleep aide. He states he will wait until 0115 for admission orders if not he will sign himself out AMA. Also stating that there is no point of him being here with no admission orders which he can be laying and watching TV at home, taking his home meds.
--- NOTE | 2018-05-02 01:35 | NUR ---
NURSE NOTES: Nursing yard supervisor cotton gin Leslie Nicolas is aware that there are still no admission orders after attempting to contact Dr. Christensen and Dr. Delgado. Patient has also states that he has tried Dr. Delgado on his personal cell number but also no response. Patient states he will go AMA and sign himself out if yard supervisor cotton gin is unable to reach MD in 15 minutes.
--- NOTE | 2018-05-02 02:00 | NUR ---
NURSE NOTES: Health Screener left message for MD. Patient did not want to wait any longer and signed AMA. Patient did not want help to get dressed and to be transported downstairs via wheelchair. Will advise Dr. Christensen and Dr. Delgado.
--- NOTE | 2018-05-02 06:41 | NUR ---
NURSE NOTES: Dr. Christensen just called back regarding patient. Explained to him that patient was admitted around 05/01 2300 and left AMA at 05/02 0200 due to patient not receiving the medications he wished for (Dilaudid, Benadryl and sleep aide). Also informed Dr. Christensen that I have attempted to contact Dr. Delgado and the patient has also attempted to contact Dr. Delgado on his own. He states that it was okay and that he was not informed with this admission.
--- NOTE | 2018-05-02 11:59 | Diagnostic Imaging Report ---
Indication: Dyspnea Comparison: 04/05/2018 A single view chest radiograph was obtained. Findings: Cardiomediastinal appearance is within normal limits for age. The lungs are clear. Pulmonary vascularity is appropriate. The diaphragmatic contour is smooth and costophrenic angles are sharp. No pleural effusions are identified. The bones are unremarkable. Impression: No acute findings
--- NOTE | 2018-05-02 12:44 | NUR ---
CASE MANAGEMENT: REVIEW 48/M PRESENTED TO ED FROM HOME CC: LEG PAIN SI: CHF . HYPERTENSION URGENCY T 98.1 HR 68 RR 17 BP 176/110 SAT 99% ROOM AIR H/H 12.6/37.0 TROPONIN I 0.098 IS: ZOFRAN IV X1 LASIX IV X1 DILAUDID IV X1 NITRO TOPICAL X1 BENADRYL IV X1 INTERQUAL CRITERIA MET: PATIENT ADMITTED TO STEP DOWN UNIT 05/01/2018 DCP: PATIENT IS FROM HOME
--- NOTE | 2018-05-03 09:34 | Discharge Summary ---
Discharge Summary Discharge Summary _ DATE OF ADMISSION: 05/01/2018 DATE OF DISCHARGE: 05/02/2018 BRIEF HOSPITAL COURSE: Patient is a 48-year-old male who presented to ED complaining of increased edema and dyspnea. He has medical history significant for coronary artery disease with history of coronary stent, CHF, diabetes mellitus, hypertension. He stopped taking a couple of his antihypertensives a few days prior. He stated that his Lasix working. On evaluation at the ED, blood pressure was elevated to 176/110. Blood work did not show any leukocytosis, hemoglobin and hematocrit were stable. BUN was 16, creatinine was elevated to 1.7. Troponin was elevated to 0.098, total CK 712. ProBNP 187 EKG was in normal sinus rhythm without acute changes. Chest x- ray was without acute findings. He was given aspirin and nitroglycerin. He was given IV diuresis with Lasix. He was given Dilaudid for pain control. He was then admitted for evaluation of non-ST elevated MA, chest pain and CHF. Patient was admitted to SDU for cardiac monitoring. Full treatment was not carried out as patient left against medical advise. FINAL DIAGNOSES: Non-ST elevated MA Chest pain Acute on chronic diastolic CHF DISPOSITION: Patient left against medical advise. I have been assigned to dictate discharge summary on this account, and I was not involved in the patient's management. Luciana Lowry NP May 03, 2018 09:34
--- NOTE | 2018-05-03 09:35 | History & Physical ---
History and Physical History & Physicial Patient left AMA before being seen Luciana Lowry NP May 03, 2018 09:35
== END 2018-05-02 02:00 | disposition left against medical advice (07) | DRG 280 ==
LOC: EMR 20:00 → 2W 20:37 → EDBEDREQSVC 21:57 → EDBEDREQTM 21:57 → EDBEDREQ 21:57
DX: I21.4 Non-ST elevation (NSTEMI) myocardial infarction (principal); I50.33 Acute on chronic diastolic (congestive) heart failure; B20 Human immunodeficiency virus [HIV] disease; I25.10 Atherosclerotic heart disease of native coronary artery without angina pectoris; Z95.5 Presence of coronary angioplasty implant and graft; Z88.6 Allergy status to analgesic agent; Z88.1 Allergy status to other antibiotic agents; Z88.0 Allergy status to penicillin; Z88.8 Allergy status to other drugs, medicaments and biological substances; Z89.511 Acquired absence of right leg below knee; E11.9 Type 2 diabetes mellitus without complications
CPT/HCPCS: 36415; 71045; 80053; 82550; 83880; 84484; 85025; 85610; 85730; 93005; 96374; 96375; 96376; 99285; J2405

== ENCOUNTER 2018-05-04 09:14 | Emergency (ER) | payer SELFPAY ==
[~2018-05-04] VITALS: Ht 188 cm; Wt 149.7 kg
[~2018-05-04 09:14] MED LIST changes: +ACETAMINOPHEN325 M1 ORAL; +AMLODIPINE BESYL5 MG ORAL; +CLARITIN10 M2 ORAL; +FUROSEMIDE40 MG ORAL; +ISOSORBIDE MONO20 MG PO; +MULTI-VITAMIN1 EACH PO
--- NOTE | 2018-05-04 09:37 | NUR ---
ED Nurse Note: Pt came in from home due to chest pain on sternal area x 3 days, 08/23 tobi with SOB, SAT 98% RA tobi. Pt was admitted to SDU in 05/01/18 for CHF but signed AMA. AOx4, VSS tobi. Will cont to monitor.
[2018-05-04 09:38] VITALS: BP 144/68
--- NOTE | 2018-05-04 09:50 | NUR ---
ED Nurse Note: Blood drawn and sent to lab.
--- NOTE | 2018-05-04 09:54 | Emergency Room Report ---
History of Present Illness General Chief Complaint: Chest Pain Source: Patient, Medical Record Present Illness HPI Patient presents with complaints of returning chest pain patient was here 2 days ago with similar complaints also shortness of breath patient has CHF reports that after being upstairs in the inpatient for 2 hours he did not receive any pain medication and therefore left AGAINST MEDICAL ADVICE Complains of similar discomfort today denies any vomiting or diarrhea denies any fevers or chills denies any cough Patient reports that his primary physician is Dr. Saini at [facility] Denies any recent trauma the shortness of breath is somewhat worse with laying flat However similar to his daily presentation Allergies: Coded Allergies: CEFTRIAXONE (Verified Allergy, Intermediate, 11/02/17) itchy lips VANCOMYCIN (Verified Allergy, Intermediate, pain and sore throat, itching , 11/02/17) CODEINE (Verified Allergy, Unknown, 08/28/11) MORPHINE (Verified Allergy, Unknown, 11/01/17) NIFEDIPINE (Verified Allergy, Unknown, 01/21/10) CLINDAMYCIN (Verified Adverse Reaction, Intermediate, 11/02/17) diarrhea PENICILLINS (Verified Adverse Reaction, Mild, 11/02/17) nausea and vomiting- tolerates Augmentin, Amoxicillin Patient History Past Medical History: see triage record Pertinent Family History: none Reviewed Nursing Documentation: PMH: Agreed; PSxH: Agreed Nursing Documentation-PMH Hx Cardiac Problems: Yes Hx Hypertension: Yes Hx Diabetes: Yes Hx Cancer: No Hx Gastrointestinal Problems: Yes Hx Neurological Problems: No Review of Systems All Other Systems: negative except mentioned in HPI Physical Exam Vital Signs Date Time Temp Pulse Resp B/P (MAP) Pulse Ox O2 Delivery O2 Flow Rate FiO2 05/04/18 09:26 98.2 81 18 157/79 93 05/04/18 09:39 Room Air Sp02 EP Interpretation: reviewed, normal General Appearance: well appearing, no apparent distress - Morbidly obese Head: normocephalic, atraumatic Eyes: bilateral eye PERRL, bilateral eye EOMI ENT: normal pharynx Neck: supple Respiratory: lungs clear, normal breath sounds, no accessory muscle use Cardiovascular #1: regular rate, rhythm Gastrointestinal: non tender, soft Musculoskeletal: other - Right below the knee amputation with prosthetic in place Neurologic: alert, oriented x3, responsive Skin: other - Dependent edema left lower extremity Lymphatic: no adenopathy Medical Decision Making Diagnostic Impression: Primary Impression: Chest pain ER Course Patient is a fairly complex patient with multiple differential to consideration including but not limited to cardiac cardiopulmonary and vascular emergencies Patient's troponin returns negative Patient resting comfortably Given the patient's comorbidities and risk factors Initially contact was made for further inpatient care However patient's primary physician is aware of the patient Given the negative repeat troponin given the patient's resolution of discomfort Patient will have further outpatient disposition and close follow-up Labs Test 05/04/18 04:50 05/04/18 09:50 Urine Opiates Screen Negative (NEGATIVE) Urine Barbiturates Screen Negative (NEGATIVE) Phencyclidine (PCP) Screen Negative (NEGATIVE) Urine Amphetamines Screen Negative (NEGATIVE) Urine Benzodiazepines Screen Negative (NEGATIVE) Urine Cocaine Screen Negative (NEGATIVE) Urine Marijuana (THC) Screen Negative (NEGATIVE) White Blood Count 5.6 K/UL (4.8-10.8) Red Blood Count 4.53 M/UL (4.70-6.10) Hemoglobin 12.7 G/DL (14.2-18.0) Hematocrit 37.4 % (42.0-52.0) Mean Corpuscular Volume 82 FL (80-99) Mean Corpuscular Hemoglobin 28.0 PG (27.0-31.0) Mean Corpuscular Hemoglobin Concent 33.9 G/DL (32.0-36.0) Red Cell Distribution Width 13.8 % (11.6-14.8) Platelet Count 187 K/UL (150-450) Mean Platelet Volume 8.1 FL (6.5-10.1) Neutrophils (%) (Auto) 55.9 % (45.0-75.0) Lymphocytes (%) (Auto) 30.7 % (20.0-45.0) Monocytes (%) (Auto) 8.3 % (1.0-10.0) Eosinophils (%) (Auto) 3.1 % (0.0-3.0) Basophils (%) (Auto) 2.0 % (0.0-2.0) Sodium Level 138 MMOL/L (136-145) Potassium Level 3.9 MMOL/L (3.5-5.1) Chloride Level 104 MMOL/L (98-107) Carbon Dioxide Level 25 MMOL/L (21-32) Anion Gap 9 mmol/L (5-15) Blood Urea Nitrogen 17 mg/dL (7-18) Creatinine 1.6 MG/DL (0.55-1.30) Estimat Glomerular Filtration Rate 55.8 mL/min (>60) Glucose Level 124 MG/DL (74-106) Calcium Level 8.6 MG/DL (8.5-10.1) Total Bilirubin 0.3 MG/DL (0.2-1.0) Aspartate Amino Transf (AST/SGOT) 40 U/L (15-37) Alanine Aminotransferase (ALT/SGPT) 30 U/L (12-78) Alkaline Phosphatase 126 U/L (46-116) Total Creatine Kinase 870 U/L (26-308) Creatine Kinase MB 3.6 NG/ML (0.0-3.6) Creatine Kinase MB Relative Index 0.4 Troponin I 0.021 ng/mL (0.000-0.056) Pro-B-Type Natriuretic Peptide 399 pg/mL (0-125) Total Protein 8.2 G/DL (6.4-8.2) Albumin 3.6 G/DL (3.4-5.0) Globulin 4.6 g/dL Albumin/Globulin Ratio 0.8 (1.0-2.7) Rhythm Strip Diag. Results EP Interpretation: yes Rate: 70 Rhythm: NSR, no PVC's, no ectopy Chest X-Ray Diagnostic Results Chest X-Ray Diagnostic Results : Chest X-Ray Ordered: Yes Indication: Chest Pain EP Interpretation: Yes Interpretation: no consolidation, no effusion, other - Cardiomegaly with mild congestion Impression: Other - Cardiomegaly with mild congestion Electronically Signed by: Nikki Torres DO Last Vital Signs Date Time Temp Pulse Resp B/P (MAP) Pulse Ox O2 Delivery O2 Flow Rate FiO2 05/04/18 09:39 78 20 Room Air 05/04/18 09:38 98.2 144/68 96 Status: improved Disposition: HOME, SELF-CARE Condition: Improved Additional Instructions: Patient is provided with the discharge instructions notified to follow up with primary doctor in the next 2-3 days otherwise return to the er with any worsening symptoms. Please note that this report is being documented using DRAGON technology. This can lead to erroneous entry secondary to incorrect interpretation by the dictating instrument. Nikki Torres DO May 04, 2018 09:54
[2018-05-04 10:19] LABS: EOSINOPHILS % (AUTO) 3.1 % (0.0-3.0); HEMATOCRIT 37.4 % (42.0-52.0); HEMOGLOBIN 12.7 G/DL (14.2-18.0); LYMPHOCYTES % (AUTO) 30.7 % (20.0-45.0); MEAN CORPUSCULAR VOLUME 82 FL (80-99); MONOCYTES % (AUTO) 8.3 % (1.0-10.0); NEUTROPHILS % (AUTO) 55.9 % (45.0-75.0); PLATELET COUNT 187 K/UL (150-450); RED BLOOD COUNT 4.53 M/UL (4.70-6.10); RED CELL DISTRIBUTION WIDTH 13.8 % (11.6-14.8); WHITE BLOOD COUNT 5.6 K/UL (4.8-10.8)
[2018-05-04 10:36] LABS: ALBUMIN 3.6 G/DL (3.4-5.0); ALBUMIN/GLOBULIN RATIO 0.8 (1.0-2.7); ALKALINE PHOSPHATASE 126 U/L (46-116); ANION GAP 9 mmol/L (5-15); ASPARTATE AMINO TRANSFERASE 40 U/L (15-37); BILIRUBIN,TOTAL 0.3 MG/DL (0.2-1.0); BLOOD UREA NITROGEN 17 mg/dL (7-18); CALCIUM 8.6 MG/DL (8.5-10.1); CARBON DIOXIDE 25 MMOL/L (21-32); CHLORIDE 104 MMOL/L (98-107); CKMB 3.6 NG/ML (0.0-3.6); CREATINE KINASE 870 U/L (26-308); CREATININE 1.6 MG/DL (0.55-1.30); POTASSIUM 3.9 MMOL/L (3.5-5.1); SODIUM 138 MMOL/L (136-145)
[2018-05-04 10:47] LABS: ALANINE AMINOTRANSFERASE 30 U/L (12-78)
[2018-05-04] MEDS ORDERED: DiphenhydrAMINE 50mg/ml Inj IVP ONE (11:15)
[2018-05-04] MEDS ORDERED: Morphine Sulfate 4mg/ml Inj (IV/IM USE ONLY) IVP ONE (11:15)
[2018-05-04 11:58] VITALS: BP 157/75
--- NOTE | 2018-05-04 12:11 | NUR ---
ED Nurse Note: Pt stated pain is 2/10 tobi, no side effect noticed.
--- NOTE | 2018-05-04 13:27 | Diagnostic Imaging Report ---
EXAM: XR Chest, 1 View CLINICAL HISTORY: CP TECHNIQUE: Frontal view of the chest. COMPARISON: Chest x-ray, 05/01/18 FINDINGS: Lungs: Mild vascular and interstitial prominence, slightly more prominent than prior study. No consolidation. Pleural space: Unremarkable. No pneumothorax. Heart: Cardiomegaly. Mediastinum: Unremarkable. Bones/joints: Unremarkable. IMPRESSION: Cardiomegaly. Mild vascular and interstitial prominence, slightly more prominent.
[2018-05-04 13:54] VITALS: BP 152/82
[2018-05-04 14:00] VITALS: BP 152/82
--- NOTE | 2018-05-04 14:00 | NUR ---
ED Nurse Note: Pt is clear to be discharged by ERMD. Discharge paper and prescription given, pt verbalized udnerstanding of discharge instruction. AOx4, VSS. Wristband and IV removed. Pt ambulated out with steady gait with all belongings.
== END 2018-05-04 14:00 | disposition home or self-care (01) ==
LOC: EMR 10:10 → EDBEDREQ 12:43 → CANBEDREQ 13:28 → EMR 14:00
DX: R07.9 Chest pain, unspecified (principal); I10 Essential (primary) hypertension; E11.9 Type 2 diabetes mellitus without complications; Z88.0 Allergy status to penicillin; Z88.6 Allergy status to analgesic agent; Z88.5 Allergy status to narcotic agent
CPT/HCPCS: 36415; 71045; 80053; 80307; 82550; 82553; 83880; 84484; 85025; 93005; 96374; 96375; 96376; 99284; J1200; J1940; J2270; J2405

== ENCOUNTER 2018-06-30 19:38 | Emergency (ER) | payer BC ==
[~2018-06-30] VITALS: Ht 188 cm; Wt 147.4 kg
[2018-06-30 20:00] VITALS: BP 150/60
[2018-06-30] MEDS ORDERED: Albuterol ud Inhalation HHN ONE (20:00)
[2018-06-30] MEDS ORDERED: Ipratropium 0.02% Inh Soln 2.5ml UD HHN ONE (20:00)
--- NOTE | 2018-06-30 20:00 | NUR ---
ED Nurse Note: pt walked in c/o sob since last night and progresively worsening. Hx CHF, denies smoking. pt AA&ox4, gcs=15, skin warm and dry, tachypnea and sob at rest, no accessory muscle use noted, LS=rhonchi and diminished noted, -n/v/d, ambulates w/ steady gait, noted right BLK amputation with prosthesis, reports pain and noted small lump posterior knee. NSR on security monitor, vs, will cont monitor.
--- NOTE | 2018-06-30 20:06 | Emergency Room Report ---
History of Present Illness General Chief Complaint: Dyspnea/Respdistress Source: Patient Present Illness HPI Patient presents with several problems. One is worsening edema of his legs. He is on Lasix at this time but states is not working. In addition to that he has some tenderness in his chest and some shortness of breath and orthopnea. Denies any fevers or chills. In addition to that he's complaining about a possible abscess in the area where his below-knee amputation is. His doctors have not been prescribing opiates. He has been taking Motrin and it hasn't controlled the pain. He has a spot behind his knee that is getting larger over the last few days and is painful. No warmth or redness. Started pea size and now is slightly larger. Pain rated 10/10 and radiates somewhat medially. No thigh tenderness. History of congestive heart failure. S/P cardiac stents. History of diabetes. 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 History of HIV. Allergies: Coded Allergies: CEFTRIAXONE (Verified Allergy, Intermediate, 11/02/17) itchy lips VANCOMYCIN (Verified Allergy, Intermediate, pain and sore throat, itching , 11/02/17) CODEINE (Verified Allergy, Unknown, 08/28/11) MORPHINE (Verified Allergy, Unknown, 11/01/17) NIFEDIPINE (Verified Allergy, Unknown, 01/21/10) CLINDAMYCIN (Verified Adverse Reaction, Intermediate, 11/02/17) diarrhea PENICILLINS (Verified Adverse Reaction, Mild, 11/02/17) nausea and vomiting- tolerates Augmentin, Amoxicillin Patient History Past Medical History: see triage record Past Surgical History: PTCA, other - BKA right Social History: Denies: smoking, alcohol use, drug use Social History Narrative with sig other Reviewed Nursing Documentation: PMH: Agreed; PSxH: Agreed Nursing Documentation-PMH Hx Cardiac Problems: Yes Hx Hypertension: Yes Hx Diabetes: Yes Hx Cancer: No Hx Gastrointestinal Problems: Yes Hx Neurological Problems: No Review of Systems All Other Systems: negative except mentioned in HPI Physical Exam Vital Signs Date Time Temp Pulse Resp B/P (MAP) Pulse Ox O2 Delivery O2 Flow Rate FiO2 06/30/18 19:43 98.8 78 22 157/81 95 Room Air Sp02 EP Interpretation: reviewed, normal General Appearance: well appearing, no apparent distress, GCS 15 Head: normocephalic Eyes: bilateral eye normal inspection, bilateral eye PERRL ENT: moist mucus membranes Neck: supple Respiratory: chest non-tender, wheezing - mild expiratory Cardiovascular #1: regular rate, rhythm, edema - L leg Cardiovascular #2: 2+ radial (R) Gastrointestinal: normal inspection, normal bowel sounds, non tender, no mass, non-distended, overweight Musculoskeletal: back normal, gait/station normal, normal range of motion, other - BKA R Neurologic: alert, oriented x3, grossly normal Psychiatric: depressed affect Skin: warm/dry, other Medical Decision Making Diagnostic Impression: Primary Impression: CHF exacerbation Qualified Codes: I50.33 - Acute on chronic diastolic (congestive) heart failure Additional Impressions: Phlebitis Renal insufficiency ER Course Patient presents with edema does not responsive to Lasix and also a lesion in his right knee. Differential includes abscess, cellulitis, Higginbotham's cyst, phlebitis, worsening congestive heart failure, renal failure amongst others. Evaluation will be with EKG, chest x-ray and labs. 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 EKG no injury. Chest x-ray mild pulmonary hypertension no overt pulmonary edema or effusions. Normal white count. Slight anemia. Renal insufficiency. Negative troponin. Sed rate 27. Diuresing well. Improved pain here. Patient improved. Discussed findings in the knee. Advised that he needed to have close follow-up with his doctors. Patient stable for outpatient observation and treatment. Laboratory Tests Test 06/30/18 20:15 06/30/18 21:45 White Blood Count 6.5 K/UL (4.8-10.8) Red Blood Count 4.28 M/UL (4.70-6.10) L Hemoglobin 12.2 G/DL (14.2-18.0) L Hematocrit 34.6 % (42.0-52.0) L Mean Corpuscular Volume 81 FL (80-99) Mean Corpuscular Hemoglobin 28.4 PG (27.0-31.0) Mean Corpuscular Hemoglobin Concent 35.2 G/DL (32.0-36.0) Red Cell Distribution Width 13.2 % (11.6-14.8) Platelet Count 184 K/UL (150-450) Mean Platelet Volume 8.0 FL (6.5-10.1) Neutrophils (%) (Auto) 50.7 % (45.0-75.0) Lymphocytes (%) (Auto) 36.6 % (20.0-45.0) Monocytes (%) (Auto) 9.1 % (1.0-10.0) Eosinophils (%) (Auto) 1.6 % (0.0-3.0) Basophils (%) (Auto) 2.0 % (0.0-2.0) Erythrocyte Sedimentation Rate 27 MM/HR (0-15) H Prothrombin Time 10.7 SEC (9.30-11.50) Prothrombin Time INR 1.0 (0.9-1.1) PTT 29 SEC (23-33) Sodium Level 139 MMOL/L (136-145) Potassium Level 3.9 MMOL/L (3.5-5.1) Chloride Level 104 MMOL/L (98-107) Carbon Dioxide Level 24 MMOL/L (21-32) Anion Gap 11 mmol/L (5-15) Blood Urea Nitrogen 20 mg/dL (7-18) H Creatinine 1.9 MG/DL (0.55-1.30) H Estimate Glomerular Filtration Rate 45.7 mL/min (>60) Glucose Level 90 MG/DL (74-106) Calcium Level 8.9 MG/DL (8.5-10.1) Total Bilirubin 0.3 MG/DL (0.2-1.0) Aspartate Amino Transferase (AST) 29 U/L (15-37) Alanine Aminotransferase (ALT) 29 U/L (12-78) Alkaline Phosphatase 131 U/L (46-116) H Total Creatine Kinase 858 U/L (26-308) H Troponin I 0.013 ng/mL (0.000-0.056) Pro-B-Type Natriuretic Peptide 137 pg/mL (0-125) H Total Protein 8.2 G/DL (6.4-8.2) Albumin 3.6 G/DL (3.4-5.0) Globulin 4.6 g/dL Albumin/Globulin Ratio 0.8 (1.0-2.7) L Urine Color Pending Urine Appearance Pending Urine pH Pending Urine Specific [place] Pending Urine Protein Pending Urine Glucose (UA) Pending Urine Ketones Pending Urine Blood Pending Urine Nitrite Pending Urine Bilirubin Pending Urine Urobilinogen Pending Urine Leukocyte Esterase Pending EKG Diagnostic Results Rate: normal Rhythm: NSR ST Segments: no acute changes Rhythm Strip Diag. Results EP Interpretation: yes Rhythm: NSR, no PVC's, no ectopy Chest X-Ray Diagnostic Results Chest X-Ray Diagnostic Results : Chest X-Ray Ordered: Yes # of Views/Limited/Complete: 1 View Indication: Other EP Interpretation: Yes Interpretation: no consolidation, no effusion, no pneumothorax, other - Some pulmonary hypertension Impression: Other Electronically Signed by: Electronically signed by Tye Lopez MD Other X-Ray Diagnostic Results Other X-Ray Diagnostic Results : X-Ray ordered: R knee # of Views/Limited Vs Complete: 2 View Indication: Pain EP Interpretation: Yes Interpretation: other - BKA, no gas, no osteo, + DJD Impression: Other Electronically Signed by: Electronically signed by Tye Lopez MD Last Vital Signs Date Time Temp Pulse Resp B/P (MAP) Pulse Ox O2 Delivery O2 Flow Rate FiO2 06/30/18 23:29 98.2 76 20 138/71 98 Room Air 06/30/18 20:22 21 Status: improved Disposition: HOME, SELF-CARE Condition: Improved Scripts Tramadol Hcl* (ULTRAM*) 50 Mg Tablet 50 MG ORAL Q6H PRN for For Pain, #8 TAB 0 Refills Prov: Tye Lopez MD 06/30/18 Tye Lopez MD Jun 30, 2018 20:06
[2018-06-30 20:40] LABS: EOSINOPHILS % (AUTO) 1.6 % (0.0-3.0); HEMATOCRIT 34.6 % (42.0-52.0); HEMOGLOBIN 12.2 G/DL (14.2-18.0); LYMPHOCYTES % (AUTO) 36.6 % (20.0-45.0); MEAN CORPUSCULAR VOLUME 81 FL (80-99); MONOCYTES % (AUTO) 9.1 % (1.0-10.0); NEUTROPHILS % (AUTO) 50.7 % (45.0-75.0); PLATELET COUNT 184 K/UL (150-450); RED BLOOD COUNT 4.28 M/UL (4.70-6.10); RED CELL DISTRIBUTION WIDTH 13.2 % (11.6-14.8); WHITE BLOOD COUNT 6.5 K/UL (4.8-10.8)
[2018-06-30 20:49] LABS: ANION GAP 11 mmol/L (5-15); BLOOD UREA NITROGEN 20 mg/dL (7-18); CALCIUM 8.9 MG/DL (8.5-10.1); CARBON DIOXIDE 24 MMOL/L (21-32); CHLORIDE 104 MMOL/L (98-107); CREATININE 1.9 MG/DL (0.55-1.30); POTASSIUM 3.9 MMOL/L (3.5-5.1); SODIUM 139 MMOL/L (136-145)
[2018-06-30 21:00] VITALS: BP 155/82
[2018-06-30 21:00] LABS: ALANINE AMINOTRANSFERASE 29 U/L (12-78); ALBUMIN 3.6 G/DL (3.4-5.0); ALBUMIN/GLOBULIN RATIO 0.8 (1.0-2.7); ALKALINE PHOSPHATASE 131 U/L (46-116); ASPARTATE AMINO TRANSFERASE 29 U/L (15-37); BILIRUBIN,TOTAL 0.3 MG/DL (0.2-1.0); CREATINE KINASE 858 U/L (26-308)
--- NOTE | 2018-06-30 21:00 | NUR ---
ED Nurse Note: pt c/o pain on right leg, ERMD notified.
[2018-06-30] MEDS ORDERED: oxyCODONE HCL/Acetaminophen 5/325mg ORAL ONE ×2 (21:15→22:15)
[2018-06-30 22:00] VITALS: BP 144/72
[2018-06-30 22:19] LABS: APPEARANCE,URINE CLEAR; BILIRUBIN, URINE NEGATIVE (NEGATIVE); COLOR,URINE PALE YELLOW; GLUCOSE, URINE (UA) NEGATIVE (NEGATIVE); KETONES,URINE NEGATIVE (NEGATIVE); LEUKOCYTE ESTERASE ,URINE NEGATIVE (NEGATIVE); NITRITE,URINE NEGATIVE (NEGATIVE); PH,URINE 6.5 (4.5-8.0); PROTEIN,URINE NEGATIVE (NEGATIVE); UROBILINOGEN,URINE NORMAL MG/DL (0.0-1.0)
[2018-06-30] MEDS ORDERED: TRAMADOL HCL50 MG ORAL (22:19)
--- NOTE | 2018-06-30 22:45 | NUR ---
ED Nurse Note: PT C/O ITCHNESS, ERMD NOTIFIED
[2018-06-30] MEDS ORDERED: DiphenhydrAMINE 50mg/ml Inj IVP ONE (23:00)
[2018-06-30 23:29] VITALS: BP 138/71
--- NOTE | 2018-06-30 23:30 | NUR ---
ED Nurse Note: pt cleared to be d/c per ERMD, pt d/c and aftercare instruction w/ lab results and prescription provided per order, pt education done via discusion and handout, pt advised to follow up with pcp or return to ed if sx worsen or new sx develop, pt verbalized understanding and agrees with plan, reports pain is better after med, ambulatory w/ steady gait, vss, boyfriend at the bedside to take pt home, pt left w/ all belongings.
--- NOTE | 2018-06-30 23:32 | NUR ---
ED Nurse Note: wristband removed, iv d/c and dressing applied.
--- NOTE | 2018-07-01 13:08 | Diagnostic Imaging Report ---
Indication: Chest pain Technique: One view of the chest Comparison: 05/04/2018 Findings: The heart is enlarged. The lungs and pleural spaces are clear. No significant interim change Impression: No acute process Cardiomegaly
--- NOTE | 2018-07-01 14:32 | Diagnostic Imaging Report ---
Indication: Pain Technique: 2 views of the right tibia and fibula Comparison: Knee radiograph dated 04/04/2018 Findings: Patient is status post below the knee amputation. Tibial and fibular stump margins appear clean. No soft tissue gas is demonstrated. No acute fractures. No dislocations. The knee joint spaces are preserved. No radiopaque foreign body. Findings are unchanged from prior knee radiograph Impression: Post surgical changes of the right knee, as described No definite acute process. Note, however, limited sensitivity of plain radiographs for acute osteomyelitis. If there is high clinical suspicion, MRI or three-phase nuclear medicine bone scan should be considered for further evaluation
== END 2018-06-30 23:33 | disposition home or self-care (01) ==
LOC: EMR 20:10
DX: I50.33 Acute on chronic diastolic (congestive) heart failure (principal); I80.3 Phlebitis and thrombophlebitis of lower extremities, unspecified; N28.9 Disorder of kidney and ureter, unspecified; Z89.511 Acquired absence of right leg below knee; Z95.5 Presence of coronary angioplasty implant and graft; E11.9 Type 2 diabetes mellitus without complications; Z88.6 Allergy status to analgesic agent; Z88.0 Allergy status to penicillin; Z88.8 Allergy status to other drugs, medicaments and biological substances; I10 Essential (primary) hypertension
CPT/HCPCS: 36415; 71045; 73590; 80053; 81003; 82550; 83880; 84484; 85025; 85610; 85651; 85730; 93005; 94640; 94664; 96361; 96374; 96375; 99284; J1200; J1940